=== PATIENT | male | born 1955 | race Caucasian/White ===

== ENCOUNTER 2023-10-18 10:11 | Outpatient (OUT) | payer MEDICARE, SELFPAY ==
[2023-10-18 11:36] LABS: Alanine Aminotransferase 18 U/L (16-63); Albumin Globulin Ratio 0.9; Albumin Level 3.7 g/dL (3.4-5.0); Alkaline Phosphatase 79 U/L (46-116); Anion Gap 13.5; Aspartate Amino Transferase 19 U/L (15-37); BUN Creatinine Ratio 18.4; Bilirubin Total 0.7 mg/dL (0.2-1.0); Calcium 9.8 mg/dL (8.5-10.1); Carbon Dioxide 26.8 mmol/L (21.0-32.0); Chloride 103 mmol/L (98-107); Estimated GFR (African America >60 (>=60); Estimated GFR (Non-African Ame >60 (>=60); Globulin 4.3 g/dL; Glucose 104 mg/dL (74-106); Potassium 4.3 mmol/L (3.5-5.1); Sodium 139 mmol/L (136-145); Thyroid Stimulating Hormone 6.441 uIU/mL (0.358-3.740)
[2023-10-18 12:06] LABS: Free T4 0.98 ng/dL (0.76-1.46)
[2023-10-19 04:12] LABS: Thyroid Peroxidase (TPO) Ab <9 IU/mL (0-34)
[2023-10-21 04:06] LABS: Thyroid Stim Immunoglobulin <0.10 IU/L (0.00-0.55)
[2023-10-25 17:12] LABS: Free Testosterone(Direct) 2.1 pg/mL (6.6-18.1); Testosterone 132 ng/dL (264-916)
== END 2023-10-18 10:12 | disposition home or self-care (01) ==
DX: R79.89 Other specified abnormal findings of blood chemistry (principal); E03.9 Hypothyroidism, unspecified; R53.83 Other fatigue; E78.2 Mixed hyperlipidemia; Z13.6 Encounter for screening for cardiovascular disorders; I50.9 Heart failure, unspecified
CPT/HCPCS: 36415; 80053; 80061; 84402; 84403; 84439; 84443; 84445; 85025; 86376

== ENCOUNTER 2023-10-18 10:24 | Outpatient (OUT) | payer MEDICARE, SELFPAY ==
[2023-10-18 11:25] LABS: Chol HDL Ratio 2.1; Cholesterol 123 mg/dL (<=200); HDL Cholesterol 59 mg/dL (40-60); LDL Cholesterol Calculated 40.4 mg/dL; Triglycerides 118 mg/dL (<=150); VLDL CHOLESTEROL 23.6 mg/dL
[2023-10-18 13:43] LABS: Basophils Absolute Auto 0.1 10^3/uL (0.0-0.1); Basophils Percent Auto 0.6 % (0.2-2.0); Eosinophils Absolute Auto 0.4 10^3/uL (0.0-0.7); Eosinophils Percent Auto 4.2 % (0.9-7.0); Hematocrit 42.4 % (42.0-54.0); Hemoglobin 13.6 g/dL (14.0-18.0); Immature Granulocytes Abs Auto 0.02 10^3/uL (0.00-0.03); Immature Granulocytes Pct Auto 0.2 % (0.0-0.5); Lymphocytes Absolute Auto 2.3 10^3/uL (1.2-3.8); Lymphocytes Percent Auto 25.1 % (20.5-60.0); Mean Corpuscular HGB Conc 32.1 g/dL (29.9-35.2); Mean Corpuscular Hemoglobin 31.6 pg (25.9-34.0); Mean Corpuscular Volume 98.6 fL (80.0-94.0); Mean Platelet Volume 10.1 fL (9.5-13.5); Monocytes Absolute Auto 0.7 10^3/uL (0.3-0.8); Monocytes Percent Auto 7.3 % (1.7-12.0); Neutrophils Absolute Auto 5.7 10^3/uL (1.4-6.5); Neutrophils Percent Auto 62.6 % (43.0-75.0); Platelet Count 241 10^3/uL (150-450); Red Cell Distribution Width 13.3 % (11.0-15.0); White Blood Count 9.1 10^3/uL (4.0-11.0)
== END 2023-10-18 10:25 | disposition home or self-care (01) ==
LOC: LAB 10:26
DX: E78.2 Mixed hyperlipidemia (principal); Z13.6 Encounter for screening for cardiovascular disorders; I50.9 Heart failure, unspecified
CPT/HCPCS: 36415; 80061; 85025

== ENCOUNTER 2024-07-24 11:03 | Outpatient (OUT) | payer MEDICARE, SELFPAY ==
--- OUTSIDE RECORDS SUMMARY | 2024-07-24 11:17 | XMS_ITS | CCD ---
Author Organization [facility] Inform ion [facility] Care Team Providers Care Final Assembler Boat Name Role Phone INDURTI, ISAI V Unavailable Unavailable INDURTI, ISAI V Unavailable Unavailable Ruby Dunbar Primary Care Provider Vikki Kramer Primary Care Provider Unavailable Primary Care Provider Unavailabl e AHMAErma, ALI F O Referring Unavailable AHMAD, ALI F O Referring Unavailable AHMAD, ALI F O Referring Unavailable DENILSON ELIZONDO Referring Unavailable AHMAD, ALI F O Referring Unavailable AHMAD, ALI F O Referring Unavailable AHMAD, ALI F O Referring Unavailable SAMMIE RUIZ Admitting Unavailable SAMMIE RUIZ Attending Unavailable AHMAD, ALI F O Referring Unavailable Ruby Dunbar CNP Primary Care Provider [phone] Unavailable Primary Care Provider UnavailRUBY Fischer Referring Unavailable NONE, XXXX Primary Care Physician Unavailab FAUSTINO Menjivar Primary Care Unavailable DANIEL FAUSTINO Consulting Unavailable FAUSTINO SANCHEZ Attending Unavailable FAUSTINO SANCHEZ Admitting Unavailable DR KESHA BANDA Consulting Unavailable DR KESHA BANDA Attending Unavailable DR KESHA BANDA Admitting Unavailable DANIEL, FAUSTINO Primary Care Unavailable FAUSTINO SANCHEZ Consulting Unavailable FAUSTINO SANCHEZ Attending Unavailable DANIEL FAUSTINO Admitting Unavailable DANIEL FAUSTINO Primary Care Unavailable CHERELLE NELSON Attending Unavailable DR ZEYNEP STONE Primary Care Unavailable CHERELLE NELSON Admharper Unavailable Kenny Hook Jr. Primary Care Provider Lakeisha Castellanos Unavailable Kenny Hook Jr. Primary Care Provider Lakeisha Castellanos Unavailable [phone] KENNY HOOK JR Primary Care Unavail able GABRIEL URBANO Attending Unavailable Monster Vela DO Kenny Nba Primary Care Provi jocelynn KAMILLE Agarwal Attending Provider [phone] Zunilda Agarwal Unavailable Becky PAYMENT SPECIALISTColby DODD Primary Care Provider Zunilda Agarwal Attending Unavailable Zunilda Agarwal Admitting Unavailable NO FAMILY, PHYSICIAN Primary Care Unavailable Chad, Vinicius Admitting Unavailab Vinicius Shelley Attending Unavailab CHULA Cervantes Attending Unavailable BECKY, COLBY L Referring Unavailable BECKY, COLBY L Primary Care Unavailable CHULA VEE Referring Unavailable BECKY, COLBY L Primary Care Unavailable LIVE MARTÍNEZ Primary Care Physician Didier Lee Attending Unavailable NONE, XXXX Referring Unavailable LIVE MARTÍNEZ Primary Care Unavailable YOLA Castellanos Admitting Unavailabl Lakeisha Barcenas Attending Unavailable NONE, XXXX Referring Unavailable DIDIER LEE Referring Unavailable DIDIER LEE Referring Unavailable Unavailable Primary Care Provider Unavailabl e Allergies Allergy Classification Reported Allergen(s) Allergy Type Date of Onset Reaction(s) Facility [facility] (9 sources) Contrast media Substance Allergy 1 Skin Rashes, Hives [facility] Work Phone: Iodine (and Iodine containting drugs) (1 source) Iodine Drug Allergy 8 [facility] Shellfish (10 sources) Shellfish Food Allergy 1 Skin Rashes, Hives, Rash [facility] (20 sources) Contrast media Allergy to substance 1 Skin Rashes, Hives, Skin Rashes / Eruption of skin, Hives / Urticaria [facility] Work Phone: (20 sources) Seasonal allergy Allergy to substance 1 [facility] Work Phone: (20 sources) Shellfish Allergy to substance 1 Skin Rashes, Hives, Skin Rashes / Eruption of skin, Hives / Urticaria [facility] Work Phone: (16 sources) Iodine; Translations: [IODINE] Drug Allergy 8 Hives, Swelling, Itching [facility] [employer] Work Phone: (4 sources) Shellfish Propensity to adverse reactions to drug 1 [facility] Work Phone: (5 sources) Iodides Propensity to adverse reactions to drug 4 [facility] [employer] Work Phone: (6 sources) Contrast media; Translations: [Contrast Dye] Drug allergy Weal (disorder) [facility] (1 source) Iodine (And Iodine Containting Drugs) Drug allergy (disorder) 4 [facility] (16 sources) levothyroxine; Translations: [levothyroxine] Drug Allergy 3 Weal (disorder), Nausea [facility] (13 sources) Iodinated Contrast Media; Translations: [Iodinated Contrast Media] Allergy to substance 8 [facility] (11 sources) Shellfish; Translations: [SHELLFISH CONTAINING PRODUCTS] Propensity to adverse reactions to drug 1 [facility] (11 sources) Iodine And Iodide Containing Products; Translations: [IODINE AND IODIDE CONTAINING PRODUCTS] Propensity to adverse reactions to drug 7 [facility] (11 sources) Other; Translations: [OTHER] Propensity to adverse reactions 7 [facility] Medications Current Medications Medication Drug Class(es) Dates Sig (Normalized) Sig (Original) acetaminophen 325 mg oral tablet (6 sources) Start: 09-02-2020 acetaminophen (TYLENOL) tablet 650 mg Start: 07-29-2019 take 2 tablets by mo uth every six hours Tylenol Extra Strength 500 mg oral tablet 1,000 mg = 2 tab(s), Oral, q6hr, Refills(s) 0 Start Date: 07/29/19 Status: Ordered acetaminophen 325 mg / oxyCODONE hydrochloride 5 mg oral tablet (1 source) Opioid Agonist Start: 11-17-2017 take 1 tablet by mouth every twelve hours Oxycodone-Acetaminophen Active 1 TAB PO Q12H November 17, 2017 12:00am amLODIPine 10 mg oral tablet (20 sources) Dihydropyridine Calcium Channel Rona Start: 01-21-2024 take 1 tablet by mouth in the morning amLODIPine (NORVASC) 10 mg tablet TAKE 1 TABLET BY MOUTH IN THE MORNING 30 tablet 01/21/2024 Active Start: 11-17-2022 End: 07-20-2023 amLODIPine 10 mg Tab Refills (s) 0 Start Date: 11/17/22 Status: Ordered Start: 12-27-2021 End: 10-18-2022 take 1 tablet by mouth once daily amLODIPine (NORVASC) 10 mg tablet Indications: Primary hypertension TAKE 1 TABLET BY MOUTH ONCE DAILY 90 tablet 0 10/18/2022 Active Comment on above: Take 1 tablet by elbert th once daily. TAKE 1 TABLET BY ELBERT TH ONCE DAILY amLODIPine 10 mg / olmesartan medoxomil 20 mg oral tablet (1 source) Dihydropyridine Calcium Channel Rona, Angiotensin 2 Receptor Rona Start: 01-24-2024 amlodipine-olmesartan 10 mg-20 mg oral tablet 1 tab(s), Oral, Daily, 30 tab(s), Refill(s) 0 Start Date: 01/24/24 Status: Ordered amoxicillin 500 mg oral capsule (20 sources) Penicillin-class Antibacterial Start: 08-03-2020 amoxicillin (AMOXIL) 500 MG capsule Start: 08-03-2020 End: 08-27-2020 Amoxicillin 500 MG Oral Tabl et 08/03/2020 - 08/27/2020 Provider: Vikki Kramer PSYCHIATRIC SOCIAL WORKER SUPERVISOR Aspir-81 (2 sources) Aspir-81 Active baclofen 10 mg oral tablet (20 sources) gamma-Aminobutyric Acid-ergic Agonist Start: 07-01-19 21 Baclofen 10 MG Oral Tablet 07/01/2020 Provider: buprenorphine 8 mg sublingual tablet (3 sources) Partial Opioid Agonist Start: 03-26-20 20 take 1-2 tablets under the tongue twice daily buprenorphine 8 mg sublingual tablet 1-2 tab(s), SubLingual, BID, Refills(s) 0 Start Date: 03/26/20 Status: Ordered buprenorphine 8 mg / naloxone 2 mg sublingual film (20 sources) Partial Opioid Agonist, Opioid Antagonist Start: 11-18-19 23 Suboxone 8 mg-2 mg sublingual film Refill(s) 0 Start Date: 11/17/22 Status: Ordered Start: 08-13-2020 buprenorphine- naloxone (SUBOXONE) 8-2 MG FILM SL film 1 Film daily. Takes 2 films daily 0 08/13/2020 Active Start: 07-06-2020 End: 09-23-2021 Suboxone 8-2 MG Sublingual F ilm 07/13/2020 - 07/19/2020 Provider: Ruby Dunbar CNP Start: 10-02-2019 End: 08-16-2023 buprenorphine-naloxone 12-3 mg film dissolve 2 FILMS under the tongue once daily 0 10/02/2019 08/16/2023 Discontinued (Therapy completed) buprenorphine-na loxone (SUBOXONE) 8-2 mg film Dissolve 1 Film on tongue 3 (three) times a day. Active Comment on above: dissolve 2 FILMS und er the tongue once daily Buprenorphine HCl-Naloxone HCl 8-2 MG (2 sources) Buprenorphine HCl-Naloxone HCl 8-2 MG (Schedule III Drug) dissolve 2 FILMS under the tongue once daily Sublingual for 14 days Active cane (4 sources) Start: 04-24-2022 cane cane, See Instructions, 1 EA, 0, Please provide patient with a cane for stability/ambulation purposes Diagnosis imbalance, lumbar neuritis, cervical neuritis., [facility]), Supply, 182.9, cm, 04/24/22 12:10:00 EDT, Height/Length Dosing, 81.7, kg, 11/18/21 11:10:00 EDT, Weight Dosing Start Date: 04/24/22 Status: Ordered Start: 04-24-2022 cane cane, See Instructions, 1 EA, 0, Please provide patient with a cane for stability/ambulation purposes Diagnosis imbalance, lumbar neuritis, cervical neuritis., [facility] ([facility]), Supply, 182.9, cm, 04/24/22 12:10:00 EDT, Heig... Start Date: 04/24/22 Status: Ordered carvedilol 3.125 mg oral tablet (20 sources) alpha-Adrenergic Rona, beta-Adrenergic Rona Start: 07-07-2023 take 2 tablets by mouth at bedtime carvediloL (COREG) 3.125 mg tablet Indications: Dyslipidemia , Atherosclerosis of [place] coronary artery of [place] heart without angina pectoris TAKE 2 TABLETS BY MOUTH IN THE MORNING AND AT BEDTIME 360 tablet 3 07/07/2023 Active Start: 11-17-2022 take 1 tablet by elbert th twice daily carvedilol 6.25 mg Tab 6.25 mg = 1 tab(s), Oral, BID, Refills(s) 0 Start Date: 11/17/22 Status: Ordered Start: 09-29-2017 End: 12-27-2021 take 1 tablet by mouth twice daily at mealtime carvedilol (COREG) 3.125 mg tablet Take 1 tablet by mouth twice daily with meals. 180 tablet 3 12/27/2021 Active Coreg Active Comment on above: Take 1 tablet by elbert th twice daily with meals. Take 3.125 mg by elbert th twice daily. cetirizine hydrochloride 10 mg oral tablet (7 sources) Histamine-1 Receptor Antagonist Start: 07-26-2021 Cetirizine HCl 10 MG Oral Tablet 07/26/2021 Provider: Ruby Dunbar CNP [employer] Multivitamin Oral Capsule (20 sources) Start: 12-03-2020 [employer] Multivitamin Oral Capsule 12/03/2020 Provider: clonazePAM 0.5 mg oral tablet (20 sources) Benzodiazepine Start: 01-24-2024 ClonazePAM 0.5 mg Tab Refills(s) 0 Start Date: 01/24/24 Status: Ordered Start: 09-19-2019 End: 08-04-2020 take 1 tablet by mouth every twelve hours as needed clonazePAM (KLONOPIN) 1 mg tablet Take 1 mg by mouth twice daily as needed. 0 09/19/2019 Active Comment on above: Take 1 mg by mouth t wice daily as needed. Co Q10 100 MG Oral Capsule (18 sources) Start: 07-01-19 21 Co Q10 100 MG Oral Capsule 07/01/2020 Provider: ubidecarenone 100 mg oral capsule (5 sources) Start: 07-01-19 21 take 1-7 capsules by mouth once Coenzyme Q10 (CO Q10) 100 MG CAPS Co Q10 100 MG Oral Capsule Co Q10 100 MG Oral Capsule 07/01/2020 Provider: 07-01-2020 [facility] ([id number]) 0 07/01/2020 Active CoQ-10 (2 sources) CoQ-10 Active diclofenac sodium 0.01 mg/mg topical gel (5 sources) Nonsteroidal Anti-inflammatory Drug Start: 05-10-20 diclofenac sodium (VOLTAREN) 1 % GEL apply 2 grams topically four times a day 0 05/10/2020 Active docosahexaenoic acid 120 mg / eicosapentaenoic acid 180 mg oral capsule (5 sources) take 1 capsule by mouth three times daily Pony-3 Fatty Acids (FISH OIL) 1000 MG CAPS Take 3,000 mg by mouth 3 times daily 0 Active Docusate (2 sources) Colace Active FLUoxetine 10 mg oral capsule (5 sources) Serotonin Reuptake Inhibitor Start: 12-20-19 24 take 1 capsule by mouth in the morning FLUoxetine (PROzac) 10 mg capsule TAKE 1 CAPSULE BY MOUTH IN THE MORNING 90 capsule 3 12/20/2023 Active Start: 08-16-2023 take 1 capsule by mo ut in the morning FLUoxetine (PROzac) 10 mg capsule Take 1 capsule (10 mg total) by mouth in the morning. 90 capsule 1 08/16/2023 Active Letdtfqwzvq-Xzrwjyobu-Mvd C-Mn ([facility] GLUCOSAMINE-CHONDROITIN) TABS (5 sources) Start: 07-27-2020 Ywqsumadjny-Frdhxruvj-Kfs C-Mn ([facility] GLUCOSAMINE-CHONDROITIN) TABS Chondroitin Sulfates / Glucosamine [facility] Glucosamine-Chondroitin Oral Tablet 07/27/2020 Provider: 07-27-2020 [facility] ([id number]) 0 07/27/2020 Active hydroCHLOROthiazide 12.5 mg / lisinopril 20 mg oral tablet (5 sources) Thiazide Diuretic, Angiotensin Converting Enzyme Inhibitor Start: 09-23-2021 Lisinopril-hydroCHLOROthia zide 20-12.5 MG Oral Tablet 09/23/2021 Provider: Ruby Dunbar CNP ibuprofen 200 mg oral capsule (5 sources) Nonsteroidal Anti-inflamma tory Drug Start: 07-29-2019 take 2 capsules by mouth every six hours ibuprofen 200 mg oral capsule 400 mg = 2 cap(s), Oral, q6hr, Refills(s) 0 Start Date: 07/29/19 Status: Ordered 24 hr isosorbide mononitrate 30 mg extended release oral tablet (20 sources) Nitrate Vasodilator Start: 07-23-2023 take 1 tablet by mouth once daily isosorbide mononitrate (IMDUR) 30 mg 24 hr tablet Indications: Atherosclerosis of [place] coronary artery of [place] heart without angina pectoris TAKE 1 TABLET BY MOUTH DAILY 100 tablet 2 07/23/2023 Active Start: 10-04-2020 take 0.5 tablet by m outh once daily isosorbide mononitrate (IMDUR) 30 MG extended release tablet Indications: 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 Take 0.5 tablets by mouth daily 45 tablet 3 10/04/2020 Active Start: 08-23-2020 take 0.5 tablet by m outh once daily isosorbide mononitrate (IMDUR) 30 MG extended release tablet Indications: 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 Take 0.5 tablets by mouth daily 45 tablet 3 08/23/2020 Active Start: 07-01-2020 take 1 tablet by elbert th every twenty-four hours Isosorbide Mononitrate ER 30 MG Oral Tablet Extended Release 24 Hour 07/01/2020 Provider: Start: 08-26-2019 isosorbide mon onitrate (IMDUR) 30 MG extended release tablet Take 15 mg by mouth daily 0 08/26/2019 Active Start: 07-21-2019 End: 07-23-2023 take 30 mg by mouth once daily in the morning isosorbide mononitrate 30 mg, Oral, qAM, Refills(s) 0 Start Date: 07/21/19 Status: Ordered Start: 11-18-2017 End: 12-27-2021 take 15 mg by mouth once daily Isosorbide Mononitrate Discontinued 15 MG PO Daily 60 November 24, 2017 12:00am September 06, 2018 2:34am Imdur Active Comment on above: Take 1 tablet by elbert th once daily. Take 15 mg by mouth once daily. TAKE 1 TABLET BY ELBERT TH DAILY levothyroxine sodium 0.025 mg oral tablet (4 sources) l-Thyroxine Start: take 1 tablet by mouth in the morning levothyroxine (SYNTHROID, LEVOTHROID) 25 MCG tablet Take 1 tablet (25 mcg total) by mouth in the morning. 90 tablet 3 08/20/2023 Active Start: 08-17-2023 take 1 tablet by elbert th in the morning levothyroxine (SYNTHROID, LEVOTHROID) 25 MCG tablet Take 1 tablet (25 mcg total) by mouth in the morning. 90 tablet 3 08/17/2023 Active liothyronine sodium 0.005 mg oral tablet (2 sources) l-Triiodothyronine Start: 01-21-2024 take 1 tablet by mouth in the morning liothyronine (CYTOMEL) 5 MCG tablet Take 1 tablet (5 mcg total) by mouth in the morning. 30 tablet 01/21/2024 Active Start: 09-06-2023 take 1 tablet by elbert th in the morning liothyronine (CYTOMEL) 5 MCG tablet Take 1 tablet (5 mcg total) by mouth in the morning. 90 tablet 1 09/06/2023 Active lisinopril 10 mg oral tablet (20 sources) Angiotensin Converting Enzyme Inhibitor Start: 08-23-2020 take 1.5 tablets by mouth once daily lisinopril (PRINIVIL;ZESTRIL) 10 MG tablet Indications: 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 Take 1.5 tablets by mouth daily 60 tablet 3 08/23/2020 Active Start: 11-18-2017 End: 09-06-2018 take 2.5 mg by mouth once daily Lisinopril Active 2.5 MG PO Daily November 24, 2017 12:00am Start: 09-29-2017 lisinopril (ZE STRIL, PRINIVIL) 10 mg tablet Take 10 mg by mouth once daily. Taking 1/2 tablete 0 08/26/2019 Active Prinivil Not-Lio ing Comment on above: Take 10 mg by mouth once daily. Taking 1/2 tablete loratadine 10 mg oral tablet (20 sources) Start: 10-23-19 End: 04-08-20 21 Loratadine 10 MG Oral Tablet 04/08/2021 Provider: Ruby Dunbar CNP methadone hydrochloride 10 mg oral tablet (1 source) Opioid Agonist Start: 11-18-19 18 take 20 mg by mouth three times daily Methadone Active 20 MG PO Three times daily November 17, 2017 12:00am metoclopramide 10 mg oral tablet (4 sources) Dopamine-2 Receptor Antagonist Start: 07-11-19 20 take 1 tablet by mouth every eight hours Reglan 10 MG 1 TABLET Orally THREE TIMES A DAY for 30 day(s) Jun, Active nitroglycerin 0.4 mg sublingual tablet (1 source) Nitrate Vasodilator Start: 09-03-19 21 nitroGLYCERIN (NITROSTAT) SL tablet 0.4 mg NONFORMULARY (1 source) NONFORMULARY Bee t root powder 0 Active OXcarbazepine 300 mg oral tablet (1 source) Anti-epileptic Agent Start: 11-25-19 take 600 mg by mouth twice daily Oxcarbazepine Active 600 MG PO Twice daily November 24, 2017 12:00am polyethylene glycol 3350 80215 mg powder for oral solution (20 sources) Osmotic Laxative Start: 08-28-19 End: 09-04-19 24 polyethylene glycol (GLYCOLAX) 17 gram/dose powder Take 17 g by mouth in the morning. 238 g 2 09/04/2023 Active Start: 09-10-2020 End: 09-23-2021 MiraLax 17 GM/SCOOP Oral Pow jocelynn 09/23/2021 Provider: Ruby Dunbar CNP RA Nicotine Gum 4 MG Mouth/Throat (20 sources) Start: 12-03-2020 RA Nicotine Gum 4 MG Mouth/Throat 12/03/2020 Provider: Ruby Dunbar CNP rosuvastatin calcium 10 mg oral tablet (20 sources) HMG-CoA Reductase Inhibitor Start: 05-10-2023 End: 07-15-2023 take 1 tablet by mouth in the morning rosuvastatin (CRESTOR) 10 mg tablet Indications: Dyslipidemia , Atherosclerosis of [place] coronary artery of [place] heart without angina pectoris TAKE 1 TABLET BY MOUTH IN THE MORNING 100 tablet 2 07/15/2023 Active Start: 08-26-2019 take 1 tablet by elbert th once daily rosuvastatin (CRESTOR) 10 mg tablet Take 10 mg by mouth once daily. 0 08/26/2019 Active Start: 07-21-2019 take 10 mg by mouth once daily at bedtime rosuvastatin 10 mg, Oral, Once a day (at bedtime), Refills(s) 0 Start Date: 07/21/19 Status: Ordered Start: 09-29-2017 End: 09-06-2018 take 10 mg by mouth once daily Rosuvastatin Discontinu ed 10 MG PO Daily November 24, 2017 12:00am September 06, 2018 2:37am Crestor Active Comment on above: Take 10 mg by mouth once daily. 3 ml sodium chloride 9 mg/ml injection (4 sources) Start: 09-02-2020 sodium chloride flush 0.9 % injection 10 mL Start: 09-02-2020 0.9 % sodium c hloride infusion Start: 09-02-2020 sodium chlorid e flush 0.9 % injection 10 mL sulfamethoxazole 800 mg / trimethoprim 160 mg oral tablet (2 sources) Dihydrofolate Reductase Inhibitor Antibacterial, Sulfonamide Antimicrobial Start: 04-19-2023 take 1 tablet by mouth every twelve hours Sulfamethoxazole-Trimethoprim 800-160 MG 1 tablet Orally Twice a day for 7 days Mar, Active tamsulosin hydrochloride 0.4 mg oral capsule (6 sources) alpha-Adrenergic Rona Start: 09-07-2018 take 1 capsule by mouth once daily in the evening tamsulosin (FLOMAX) 0.4 MG capsule Indications: BPH with obstruction/lower urinary tract symptoms , Neurogenic bladder Take 1 capsule by mouth every evening 30 capsule 11 08/16/2020 Active tiZANidine 4 mg oral tablet (11 sources) Central alpha-2 Adrenergic Agonist Start: 07-27-2023 End: 07-22-2024 tiZANidine (ZANAFLEX) 4 mg tablet 07/27/2023 Active Start: 04-24-2022 End: 10-21-2022 take 1 tablet by mouth every eight hours tiZANidine 4 mg Tab 4 mg = 1 tab(s), Oral, q8hr, X 90 day(s), # 270 tab(s), Refills(s) 1, Pharmacy: [facility] 182.9, cm, 04/24/22 12:10:00 EDT, Height/Length Dosing, 81.7, kg, 11/18/21 11:10:00 EDT, Weight Dosing Start Date: 04/24/22 Stop Date: 10/21/22 Status: Ordered Start: 11-18-2021 End: 02-16-2022 take 1 tablet by mouth every eight hours tiZANidine 4 mg Tab 4 mg = 1 tab(s), Oral, q8hr, X 90 day(s), # 270 tab(s), Refills(s) 0, Pharmacy: [facility], 182.9, cm, 11/18/21 11:10:00 EDT, Height/Length Dosing, 81.7, kg, 11/18/21 11:10:00 EDT, Weight Dosing Start Date: 11/18/21 Stop Date: 02/16/22 Status: Ordered traMADol (2 sources) Opioid Agonist Ultram Active varenicline 1 mg oral tablet (2 sources) Partial Cholinergic Nicotinic Agonist Start: take 1 tablet by mouth twice daily varenicline (CHANTIX) 1 MG tablet Indications: Polysubstance abuse (HCC) Take 1 tablet by mouth 2 times daily 60 tablet 0 10/14/2020 Active Start: 10-04-2020 take 2 tablets by mo ut twice daily varenicline (CHANTIX) 0.5 MG tablet Take 1-2 tablets by mouth See Admin Instructions 0.5mg DAILY for 3 days followed by 0.5mg TWICE DAILY for 4 days followed by 1mg TWICE DAILY 57 tablet 0 10/04/2020 Active Completed/Discontinued Medications Medication Drug Class(es) Dates Sig (Normalized) Sig (Original) ALPRAZolam 0.5 mg oral tablet (3 sources) Benzodiazepine Start: 09-06-2018 End: 09-07-2018 Alprazolam (Xanax) 0.5 mg Tablet Discontinued 0.5 MG PO 2-3 TIMES PER DAY September 06, 2018 12:00am September 07, 2018 7:27pm Xanax Active amitriptyline hydrochloride 50 mg oral tablet (1 source) Tricyclic Antidepressant Start: 11-24-2017 End: 09-06-2018 take 75 mg by mouth once daily at bedtime Amitriptyline Discontinued 75 MG PO Daily at bedtime 45 November 24, 2017 12:00am September 06, 2018 2:32am Antioxidant Oral Capsule (20 sources) Start: 12-03-2020 End: 08-26-2021 Antioxidant Oral Capsule 12/03/2020 - 08/26/2021 Provider: Start: 12-03-2020 Antioxidant Or al Capsule 12/03/2020 Provider: aspirin 81 mg delayed release oral tablet (20 sources) Platelet Aggregation Inhibitor, Nonsteroidal Anti-inflammatory Drug Start: 05-10-2023 End: 08-16-2023 take 1 tablet by mouth in the morning aspirin 81 mg Take 1 tablet (81 mg total) by mouth in the morning. 90 tablet 1 05/10/2023 08/16/2023 Discontinued (Therapy completed) Start: 06-03-2021 End: 06-04-2021 Aspirin 81 MG Oral Tablet Ch ewable 06/03/2021 - 06/04/2021 Provider: Start: 07-01-2020 End: 07-06-2020 Aspir-Low 81 MG Oral Tablet Delayed Release 07/01/2020 - 07/06/2020 Provider: Start: 09-06-2018 End: 06-03-2021 Aspirin 325 MG Oral Tablet 07/06/2020 - 06/03/2021 Provider: Start: 09-29-2017 take 1 tablet by elbert th once daily aspirin 325 MG EC tablet Take 1 tablet by mouth daily 30 tablet 0 09/29/2017 Active B Complex Oral Tablet (20 sources) Start: 12-17-2020 End: 09-09-2021 B Complex Oral Tablet 2020 - 09/09/2021 Provider: Johan Cedillo MD Start: 12-17-2020 B Complex Oral Tablet 12/17/2020 Provider: Johan Cedillo MD B Complex Vitamins Oral Caps ule (7 sources) Start: 07-26-2021 End: 09-09-2021 B Complex Vitamins Oral Caps ule 07/26/2021 - 09/09/2021 Provider: Ruby Dunbar CNP Start: 07-26-2021 B Complex Renay mins Oral Capsule 07/26/2021 Provider: Ruby Dunbar CNP Chondroitin Sulfates / Glucosamine (20 sources) Start: 07-27-2020 End: 12-03-2020 [facility] Glucosamine-Chondroitin Oral Tablet 07/27/2020 - 12/03/2020 Provider: Start: 07-27-2020 [facility] Glucosamin e-Chondroitin Oral Tablet 07/27/2020 Provider: Co Q10 100 MG Oral Capsule (20 sources) Start: 07-01-2020 End: 09-09-2021 Co Q10 100 MG Oral Capsule 07/01/2020 - 09/09/2021 Provider: Start: 07-01-2020 Co Q10 100 MG Oral Capsule 07/01/2020 Provider: VALERIA Vitamin C 500 MG Oral Tablet (20 sources) Start: 12-03-2020 End: 09-09-2021 [facility] Vitamin C 500 MG Oral Ta blet 12/03/2020 - 09/09/2021 Provider: Start: 12-03-2020 [facility] Vitamin C 500 MG Oral Tablet 12/03/2020 Provider: cyclobenzaprine hydrochloride 10 mg oral tablet (11 sources) Muscle Relaxant Start: 09-23-2019 cyclobenzaprin e (FLEXERIL) 10 mg tablet diphenhydrAMINE hydrochloride 25 mg oral capsule (20 sources) Histamine-1 Receptor Antagonist Start: 10-08-2020 End: 12-31-2020 diphenhydrAMINE HCl 25 MG Oral Capsule 10/08/2020 - 12/31/2020 Provider: Ruby Dunbar CNP Start: 09-02-2020 End: 09-02-2020 diphenhydrAMINE (BENADRYL) c apsule 50 mg EQL Vitamin D3 50 MCG (2000 UT) Oral Capsule (20 sources) Start: 12-03-2020 End: 09-09-2021 EQL Vitamin D3 50 MCG (2000 UT) Oral Capsule 12/03/2020 - 09/09/2021 Provider: Start: 12-03-2020 EQL Vitamin D3 50 MCG (2000 UT) Oral Capsule 12/03/2020 Provider: famotidine 20 mg oral tablet (1 source) Histamine-2 Receptor Antagonist Start: 09-02-2020 End: 09-02-2020 famotidine (PEPCID) tablet 40 mg Fish Oils (20 sources) Start: 07-01-2020 End: 09-09-2021 [facility] Fish Oil 1000 MG Oral Capsule 07/01/2020 - 09/09/2021 Provider: Start: 07-01-2020 [facility] Oil 1 000 MG Oral Capsule 07/01/2020 Provider: Fish Oil Active fluticasone propionate 0.05 mg/actuat metered dose nasal spray (16 sources) Corticosteroid fluticasone (ÁNGEL NASE) 50 mcg/actuation nasal spray Use 1 [place] in the nose. 0 Active fluticasone (ÁNGEL NASE) 50 MCG/ACT nasal spray 1 spray by Nasal route 0 Active Comment on above: Use 1 [place] in the n ose. gabapentin 600 mg oral tablet (20 sources) Anti-epileptic Agent Start: 07-27-2023 End: 07-22-2024 take 2 tablets by mouth three times daily gabapentin 600 mg Tab 1,200 mg = 2 tab(s), Oral, TID, TAKE 2 TABLETS BY MOUTH THREE TIMES DAILY, X 90 day(s), # 540 tab(s), Refills(s) 1, Pharmacy: [facility], 182.9, cm, 01/24/24 10:45:00 EDT, Height/Length Dosing, 90, kg, 01/24/24 10:45:00 EDT, Weight Dosing Start Date: 01/24/24 Stop Date: 07/22/24 Status: Ordered Start: 04-24-2022 End: 10-21-2022 take 2 tablets by mouth three times daily gabapentin 600 mg Tab 1,200 mg = 2 tab(s), Oral, TID, X 90 day(s), # 540 tab(s), Refills(s) 1, Pharmacy: [facility]), 182.9, cm, 04/24/22 12:10:00 EDT, Height/Length Dosing, 81.7, kg, 11/18/21 11:10:00 EDT, Weight Dosing Start Date: 04/24/22 Stop Date: 10/21/22 Status: Ordered Start: 09-02-2021 End: 03-01-2022 take 2 tablets by mouth three times daily gabapentin 600 mg Tab 1,200 mg = 2 tab(s), Oral, TID, X 90 day(s), # 540 tab(s), Refills(s) 1, Pharmacy: [facility], 182.9, cm, 08/01/21 11:17:00 EST, Height/Length Dosing, 81.7, kg, 08/01/21 11:17:00 EST, Weight Dosing Start Date: 09/02/21 Stop Date: 03/01/22 Status: Ordered Start: 09-19-2019 gabapentin (NE URONTIN) 800 mg tablet Take 1 tablet (800 mg total) by mouth. 09/19/2019 Active Start: 09-19-2019 gabapentin (NE URONTIN) 800 MG tablet Take 1,200 mg by mouth 3 times daily. 0 09/19/2019 Active Start: 11-17-2017 take 400 mg by mouth three times daily Gabapentin Active 400 MG PO Three times daily November 17, 2017 12:00am Gabapentin 600 M G Oral for 30 Days Active Comment on above: Take 800 mg by mouth three times daily. hydrOXYzine hydrochloride 50 mg oral tablet (20 sources) Antihistamine Start: 03-11-2021 End: 05-06-2021 hydrOXYzine HCl 50 MG Oral Tablet 04/08/2021 - 05/06/2021 Provider: Ruby Dunbar CNP iopamidol (ISOVUE-370) 76 % injection 50 mL (1 source) Start: 09-02-2020 End: 09-02-2020 iopamidol (ISOVUE-370) 76 % injection 50 mL Iron (20 sources) Start: 12-03-2020 End: 09-09-2021 [facility] Iron 240 (27 Fe) MG Oral Tablet 12/03/2020 - 09/09/2021 Provider: Start: 12-03-2020 [facility] Iron 240 ( 27 Fe) MG Oral Tablet 12/03/2020 Provider: linseed oil 1000 mg oral capsule (20 sources) Start: 07-27-2020 End: 10-22-2020 Flax Seed Oil 1000 MG Oral Capsule 07/27/2020 - 10/22/2020 Provider: magnesium citrate 200 mg oral tablet (20 sources) Start: 12-17-2020 End: 09-09-2021 Magnesium Citrate 200 MG Oral Tablet 07/01/2021 - 09/09/2021 Provider: Ruby Dunbar CNP methylPREDNISolone 125 mg injection (1 source) Corticosteroid Start: 09-02-2020 End: 09-02-2020 methylPREDNISolone sodium (SOLU-MEDROL) injection 125 mg 24 hr nicotine 0.292 mg/hr transdermal system (6 sources) Cholinergic Nicotinic Agonist Start: 11-06-2017 End: 09-02-2020 nicotine (NICODERM CQ) 7 MG/24HR Place 1 patch onto the skin every 24 hours 30 patch 3 11/06/2017 09/02/2020 Discontinued (LIST CLEANUP) apply 1 dose transde rmal route every twenty-four hours nicotine (NICODERM CQ) 21 MG/24HR Place 1 patch onto the skin every 24 hours 0 Active ondansetron 4 mg oral tablet (20 sources) Serotonin-3 Receptor Antagonist Start: 08-27-2020 End: 09-23-2021 Ondansetron HCl 4 MG Oral Tablet 11/19/2020 - 12/31/2020 Provider: Ruby Dunbar CNP pantoprazole 40 mg delayed release oral tablet (20 sources) Proton Pump Inhibitor Start: 12-03-2020 End: 06-03-2021 Pantoprazole Sodium 40 MG Oral Tablet Delayed Release 12/17/2020 - 06/03/2021 Provider: Johan Cedillo MD Problems Active Problems Problem Classification Problem Date Documented Da te Episodic/Chronic Acute and unspecified renal failure (1 source) Acute renal failure syndrome; Translations: [Acute kidney failure, unspecified] 09-06-2018 Episodic Administrative/social admission (2 sources) Counseling procedure with explicit context; Translations: [Homeless] 11-21-2017 Episodic Anxiety disorders (15 sources) Anxiety disorder; Translations: [Anxiety state, unspecified] Onset: 1 Chronic Cardiac dysrhythmias (19 sources) Ventricular premature beats; Translations: [Multiple premature ventricular complexes] Onset: 3 05-25-2017 Chronic Chronic kidney disease (3 sources) Chronic kidney disease stage 2; Translations: [Chronic kidney disease, stage 2 (mild)] Onset: 4 08-16-2023 Chronic Congestive heart failure; nonhypertensive (1 source) Congestive heart failure; Translations: [Heart failure, unspecified] 11-23-2017 Chronic Coronary atherosclerosis and other heart disease (20 sources) Coronary arteriosclerosis; Translations: [Coronary atherosclerosis] Onset: 8 Resolved: 9 Chronic Deficiency and other anemia (4 sources) Anemia, unspecified; Translations: [ANEMIA UNSPECIFIED] Onset: 2 Episodic Diabetes mellitus without complication (1 source) Other abnormal glucose; Translations: [OTHER ABNORMAL GLUCOSE] Onset: 2 Episodic Disorders of lipid metabolism (20 sources) Mixed hyperlipidemia; Translations: [Hyperlipidemia] Onset: 7 Resolved: 9 07-21-2019 Chronic Esophageal disorders (20 sources) Gastroesophageal reflux disease; Translations: [Esophagitis] Onset: 1 Chronic Essential hypertension (20 sources) Essential hypertension; Translations: [Hypertensive disorder] Onset: 7 Chronic Fluid and electrolyte disorders (4 sources) Hyperkalemia; Translations: [HYPERKALEMIA] Onset: 2 Episodic Genitourinary congenital anomalies (14 sources) Hypospadias, penile; Translations: [Hypospadias, penile] Onset: 1 08-16-2020 Chronic Genitourinary symptoms and ill-defined conditions (2 sources) Delay when starting to pass urine; Translations: [Hesitancy of micturition] 11-23-2017 Episodic Heart valve disorders (5 sources) Irregular heart beat 07-21-2019 Episodic Hyperplasia of prostate (14 sources) Benign prostatic hypertrophy with outflow obstruction; Translations: [Benign prostatic hyperplasia with lower urinary tract symptoms] Onset: 1 08-16-2020 Chronic Malaise and fatigue (3 sources) Fatigue; Translations: [Other fatigue] Onset: 4 08-16-2023 Episodic Mood disorders (20 sources) Major depressive disorder, recurrent, unspecified; Translations: [Recurrent major depressive episodes] Onset: 4 Resolved: 3 11-06-2016 Chronic Nausea and vomiting (20 sources) Nausea; Translations: [Nausea alone] Onset: 1 Episodic Nutritional deficiencies (20 sources) Vitamin D deficiency; Translations: [Unspecified vitamin D deficiency] Onset: 1 Chronic Other circulatory disease (1 source) History of angioplasty; Translations: [S/P angioplasty with stent] Episodic Other diseases of bladder and urethra (20 sources) Neurogenic bladder; Translations: [Neurogenic bladder NOS] Onset: 1 08-16-2020 Chronic Other gastrointestinal disorders (20 sources) Constipation; Translations: [Constipation, unspecified] Onset: 1 Episodic Other injuries and conditions due to external causes (1 source) At risk for injury due to fall; Translations: [History of falling] 08-16-2023 Episodic Other injuries and conditions due to external causes (1 source) History of falling; Translations: [History of falling] Onset: 4 Episodic Other nervous system disorders (20 sources) Chronic pain; Translations: [Other chronic pain] Onset: 7 Chronic Other nervous system disorders (1 source) Chronic pain syndrome; Translations: [Chronic pain syndrome] 08-16-2023 Chronic Other nervous system disorders (1 source) Chronic pain syndrome; Translations: [Chronic pain syndrome] Onset: 7 Chronic Other nutritional; endocrine; and metabolic disorders (13 sources) Overweight; Translations: [Overweight] Onset: 1 Chronic Other nutritional; endocrine; and metabolic disorders (20 sources) Finding of body mass index; Translations: [Body mass index (observable entity)] Onset: 1 Episodic Other upper respiratory disease (20 sources) Allergic rhinitis; Translations: [Allergic rhinitis, cause unspecified] Onset: 1 Chronic Schizophrenia and other psychotic disorders (20 sources) Unspecified psychosis not due to a substance or known physiological condition; Translations: [Unspecified psychosis] Onset: 1 Chronic Substance-related disorders (20 sources) Opioid dependence; Translations: [Continuous opioid dependence] Onset: 4 Resolved: 7 11-06-2016 Chronic Comment on above: Added secondary to d ocumentation in Social History. Thyroid disorders (20 sources) Hypothyroidism; Translations: [Unspecified acquired hypothyroidism] Onset: 1 Chronic Unclassified (1 source) Annual Exam Onset: 4 Urinary tract infections (1 source) Acute cystitis with hematuria Episodic Past or Other Problems Problem Classification Problem Date Documented Da te Episodic/Chronic Abdominal pain (17 sources) Unspecified abdominal pain; Translations: [Abdominal pain, unspecified site] Onset: 09-09-2021 Episodic Allergic reactions (20 sources) Contact dermatitis; Translations: [Contact dermatitis and other eczema, unspecified cause] Onset: 10-08-2020 Episodic E Codes: Natural/environment (20 sources) Insect bite - wound; Translations: [Bite of nonvenomous arthropod] Onset: 01-14-2021 Episodic Genitourinary congenital anomalies (9 sources) History of congenital hypospadias; Translations: [Personal history of (corrected) hypospadias] Onset: 05-10-2023 05-10-2023 Episodic Hepatitis (16 sources) Viral hepatitis C; Translations: [Unspecified viral hepatitis C without hepatic coma] Onset: 05-10-2023 07-21-2019 Episodic Immunizations and screening for infectious disease (20 sources) Encounter for immunization; Translations: [Encounter For Immunization] Onset: 10-08-2020 Episodic Mood disorders (9 sources) Mood disorders Onset: 05-10-2023 Resolved: 08-16-2023 05-10-2023 Nonspecific chest pain (11 sources) Atypical chest pain; Translations: [Chest pain] Onset: 08-21-2017 Resolved: 03-20-2019 03-20-2019 Episodic Nutritional deficiencies (20 sources) Vitamin B12 deficiency (non anemic); Translations: [Other B-complex deficiencies] Onset: 12-03-2020 Episodic Other ear and sense organ disorders (20 sources) Tinnitus; Translations: [Tinnitus, left ear] Onset: 11-19-2020 Episodic Other liver diseases (4 sources) Elevated liver enzymes level; Translations: [Abnormal levels of other serum enzymes] Onset: 08-17-2023 08-17-2023 Episodic Other lower respiratory disease (15 sources) Cough; Translations: [Cough] Onset: 04-08-2021 Episodic Other nutritional; endocrine; and metabolic disorders (20 sources) Overweight; Translations: [Overweight] Onset: 07-27-2020 Episodic Other screening for suspected conditions (not mental disorders or infectious disease) (20 sources) Encounter for screening for diabetes mellitus; Translations: [Cardiovascular stress test abnormal] Onset: 07-06-2020 09-02-2020 Episodic Residual codes; unclassified (4 sources) Procedure and treatment not carried out due to patient leaving prior to being seen by health care provider; Translations: [PROC AND TX NOT CARRIED OUT PT LEAVE] Onset: 05-29-2021 Episodic Substance-related disorders (18 sources) Opioid withdrawal; Translations: [Opioid use, unspecified with withdrawal] Onset: 05-10-2023 Resolved: 08-16-2023 05-10-2023 Episodic Unclassified (20 sources) Finding of body mass index; Translations: [Body mass index (observable entity)] Onset: 07-01-2020 Unclassified (16 sources) History AND physical examination; Translations: [Routine (qualifier value)] Onset: 07-13-2020 Unclassified (20 sources) Intervention & Counseling Cessation of Tobacco Use 3-10 Min.; Translations: [Intervention & Counseling Cessation of Tobacco Use 3-10 Min.] Onset: 12-03-2020 Unclassified (20 sources) Patient status finding; Translations: [Injury assessment] Onset: 12-17-2020 Unclassified (9 sources) Exposure to Severe acute respiratory syndrome coronavirus 2 (event); Translations: [Exposure To Covid-19] Onset: 07-01-2021 Viral infection (20 sources) Coronavirus infection, unspecified; Translations: [Disease caused by 2019-nCoV] Onset: 09-24-2020 Episodic Results Test Name Value Interpretation Reference Range Facility MR CERVICAL SPINE WO CONTRAS Ton 02-11-2024 MR CERVICAL SPINE WO CONTRAST EXAM: MRI Cervical Spine without Contrast: REASON FOR EXAM: Chronic pain. COMPARISON: MRI cervical spine August 14, 2019. TECHNIQUE: Sagittal T2, axial gradient echo, sagittal T1, sagittal STIR, axial T2 weighted images of the cervical spine were obtained. Contrast not administered. FINDINGS: The cervicomedullary junction is normal. Prevertebral soft tissues and paravertebral soft tissues are without acute abnormality. Posterior scarring from previous operative intervention noted. Blooming artifact at C4, C5 and C6 is present from previous operative intervention, unchanged. Vertebral body height and signal intensity unchanged. No bone marrow edema or acute fracture. Acute kyphotic angulation at C3-C4 is unchanged. At C2-C3, there is a broad-based 4.6 mm disc protrusion. There is canal diameter of 6.6 mm. Severe canal stenosis with mass effect on the cord, unchanged. No cord edema. At C3-C4, there is canal diameter of 7.8 mm. No disc protrusion. Severe bilateral foraminal stenosis, unchanged. At C4-C5, there is canal diameter of 1.05 cm. There is no significant foraminal stenosis. No residual or recurrent disc protrusion. At C5-C6, there is no residual disc protrusion. Uncovertebral hypertrophy with moderate bilateral foraminal stenosis most pronounced on the right noted. Right-sided foraminal stenosis. At C6-C7, there is a broad-based 3.9 mm disc protrusion. There is mild to moderate central canal stenosis. There is mild to moderate bilateral foraminal stenosis. At C7-T1, there is a broad-based 2.4 mm disc protrusion. No central canal or significant foraminal stenosis. Mild uncovertebral hypertrophy is present. IMPRESSION: 1. Metallic fixation at C4, C5 and C6 is present. Blooming artifact limits evaluation. There is canal narrowing at C3-C4 and C4-C5. Uncovertebral hypertrophy with foraminal narrowing at each of these levels. 2. Broad-based disc protrusion at C6-C7 with mild canal and bilateral foraminal stenosis, not significantly changed from previous MRI. Correlate for C7 radicular pattern. 3. Broad-based disc protrusion at C2-C3 with significant canal stenosis and foraminal stenosis. Cord compression without cord signal abnormalities is unchanged from previous. *This report is generated using voice recognition reporting ([id number]). On occasion [employer] erroneously drops words from the report or replaces the spoken word with similar sounding words. Please call with any questions/concerns regarding this report.* Dictated and transcribed 02/12/2024/janis This report has been electronically signed and approved by the interpreting radiologist. Electronically Signed Isidoro Otero II, M.D. 2024-02-12 10:03:42 Normal Not Available MR LUMBAR SPINE WO CONTRASTo n 02-11-2024 MR LUMBAR SPINE WO CONTRAST Exam: MR - MRI LUMBAR SPINE WO CONTRAST Clinical History: Chroninc low back pain Reference Exam: X-ray 08/14/2019, MRI 08/14/2019 Technique: Multiplanar MRI evaluation is provided, having been acquired without IV contrast, performed in the dedicated spine coil on 1.5 [employer] MRI system. Findings: Normal conus medullaris terminating at T12-L1. Sagittal STIR imaging: No abnormal STIR weighted signal is identified. L1-2: Normal hydration and morphology of the intervertebral disc with no endplate spondylosis or facet arthrosis. Normal central canal, lateral recesses and intervertebral neural foramina with no neurologic impingement. L2-3: Advanced degenerative disc changes at L2-L3. Endplate degenerative phenomenon on both sides at this level. Concentric dorsal bulge of disc material, which in combination with moderate facet hypertrophic arthropathic changes contributes to canal diameter narrowing: Anterior/posterior canal dimension: 0.75 cm. Lateral canal dimension: 0.6 cm. There is significant bilateral lateral recess/foraminal entrance narrowing, left more than right exacerbated by ligamentous hypertrophy. Anterior spondylosis. L3-4: Disc desiccation. Minimal dorsal bulge of disc material. The L III nerve roots course through patent neuroforamina. Mild posterior elemental hypertrophic arthropathic/ligamentous changes. L4-5: Disc desiccation. Concentric dorsal bulging of the intervertebral disc with no endplate spondylosis. Mild-moderate facet arthrosis. Bilateral foraminal narrowing more on the right of minor severity. No canal diameter sequela. L5-S1: Disc space height loss. Disc desiccation. Concentric central bulge of disc material. The S1 nerve roots are appropriately contained in the canal. The L5 nerve roots course through narrowed neuroforamina, bilaterally. No significant canal diameter narrowing. Anterior spondylosis of moderate severity. There is no spondylolisthesis or spondylolysis. There are no infiltrative or destructive processes. Left renal cyst measures at least 2 cm.. Impression: 1. Multilevel degenerative disc disease most pronounced at L2-L3 and L5-S1. 2. Multilevel bulging of disc material. 3. Foraminal narrowing most pronounced on the left at L2-L3, and bilaterally at L5-S1. 4. Negative for overt disc extrusion, compression or other fracture, or subluxation. 5. Canal narrowing most pronounced at L2-L3 due to bulging of disc material and posterior elemental hypertrophic arthropathic/ligamentous changes. Dictated on: 02/11/2024 4:49 PM This report has been electronically signed and approved by the interpreting Radiologist. Electronically Signed Olaf Seaman M.D. 2024-02-12 14:17:31 Normal Not Available Pharmacy Officeon 09-21-2023 Pharmacy Office [phone] [id number] FF Normal [facility] CBC AND AUTO DIFFon 08-16-19 24 ABSOLUTE BASOPHIL 0.1 X10E9/L Normal 0.0-0.2 [facility] Comment on above: Performed By: #### C CLAUDIO, 93488-4, THYR, CBCA #### [facility] ([id number]) [address], [address] [address] ABSOLUTE NEUTROPHIL 5.7 X10E9/L Normal 1.5-6.6 [facility] Comment on above: Performed By: #### C CLAUDIO, 73873-5, THYR, CBCA #### [facility] ([id number]) [address], [facility] [address] [place] [address] Basophils/100 WBC (Bld) 1.0 % Normal [facility] Comment on above: Performed By: #### C CLAUDIO, 54216-3, THYR, CBCA #### [facility] ([id number]) [address], [address] [place] [address] Eosinophils (Bld) [#/Vol] 0.4 10*3/uL Normal 0.0-0.4 [facility] Comment on above: Performed By: #### C CLAUDIO, 09274-1, THYR, CBCA #### [facility] ([id number]) [address] [address] [place] [address] Eosinophils/100 WBC (Bld) 4.1 % Normal [facility] Comment on above: Performed By: #### C CLAUDIO, 41233-9, THYR, CBCA #### [facility] ([id number]) [address] [address] Erythrocyte distribution width (RBC) [Ratio] 13.7 % Normal 11.5-15.0 [facility] Comment on above: Performed By: #### C CLAUDIO, 28851-8, THYR, CBCA #### [facility] ([id number]) [address] [address] Hematocrit (Bld) [Volume fraction] 40.2 % Normal 39-49 [facility] Comment on above: Performed By: #### C CLAUDIO, 22607-4, THYR, CBCA #### [facility] ([id number]) [address] [address] Hemoglobin (Bld) [Mass/Vol] 13.5 g/dL Normal 13.0-17.0 [facility] Comment on above: Performed By: #### C CLAUDIO, 04533-9, THYR, CBCA #### [facility] ([id number]) [address] [address] Lymphocytes (Bld) [#/Vol] 2.2 10*3/uL Normal 1.0-3.5 [facility] Comment on above: Performed By: #### C CLAUDIO, 09198-0, THYR, CBCA #### [facility] ([id number]) [address] [address] [place] [address] Lymphocytes/100 WBC (Bld) 24.0 % Normal [facility] Comment on above: Performed By: #### C CLAUDIO, 34537-5, THYR, CBCA #### [facility] ([id number]) [address] [address] [place] [address] MCH (RBC) [Entitic mass] 32.5 pg Normal 27-34 [facility] Comment on above: Performed By: #### C CLAUDIO, 41942-5, THYR, CBCA #### [facility] ([id number]) [address], [address] [place] [address] MCHC (RBC) [Mass/Vol] 33.6 g/dL Normal 32-[address] [facility] Comment on above: Performed By: #### C CLAUDIO, 24450-6, THYR, CBCA #### [facility] ([id number]) [address], [address] [place] [address] MCV (RBC) [Entitic vol] 97 fL Normal 80-100 P [facility] Comment on above: Performed By: #### C CLAUDIO, 98414-5, THYR, CBCA #### [facility] ([id number]) [address] [address] [place] [address] Monocytes (Bld) [#/Vol] 0.7 10*3/uL Normal 0-0.9 [facility] Comment on above: Performed By: #### C CLAUDIO, 83042-6, THYR, CBCA #### [facility] ([id number]) [address] [address] [place] [address] Monocytes/100 WBC (Bld) 7.5 % Normal P [facility] Comment on above: Performed By: #### C CLAUDIO, 85002-8, THYR, CBCA #### [facility] ([id number]) [address], [address] [place] [address] Neutrophils/100 WBC (Bld) 63.4 % Normal [facility] Comment on above: Performed By: #### C CLAUDIO, 72822-8, THYR, CBCA #### [facility] ([id number]) [address], [facility] [address] [place] [address] Platelet mean volume (Bld) [Entitic vol] 7.1 fL Normal 7-12 [facility] Comment on above: Performed By: #### C CLAUDIO, 83145-3, THYR, CBCA #### [facility] ([id number]) [address], [facility] [address] [place] [address] Platelets (Bld) [#/Vol] 646 10*3/uL High 150-450 [facility] Comment on above: Performed By: #### C CLAUDIO, 56842-3, THYR, CBCA #### [facility] ([id number]) [address], [facility] [address] [place] [address] RBC COUNT 4.16 X10E12/L Normal 4.10-5.70 [facility] Comment on above: Performed By: #### C CLAUDIO, 15069-1, THYR, CBCA #### [facility] ([id number]) [address], [facility] [address] [place] [address] WBC (Bld) [#/Vol] 9.0 10*3/uL Normal 4.0-11.0 [facility] Comment on above: Performed By: #### C CLAUDIO, 47696-5, THYR, CBCA #### [facility] ([id number]) [address], [address] [place] [address] COMPREHENSIVE METABOLIC PANE Yomi 08-16-2023 Albumin [Mass/Vol] 3.9 g/dL Normal 3.2-5.3 [facility] Comment on above: Performed By: #### C CLAUDIO, 21139-8, THYR, CBCA #### [facility] ([id number]) [address], [address] [place] [address] ALP [Catalytic activity/Vol] 88 U/L Normal 39-130 [facility] Comment on above: Performed By: #### C CLAUDIO, 34637-9, THYR, CBCA #### [facility] ([id number]) [address], [address] [place] [address] ALT [Catalytic activity/Vol] 45 U/L High 0-40 [facility] Comment on above: Performed By: #### C CLAUDIO, 84099-1, THYR, CBCA #### [facility] ([id number]) [address], [address] [place] [address] Anion gap [Moles/Vol] 8 mmol/L Normal 5-[address] [facility] Comment on above: Performed By: #### C CLAUDIO, 69509-5, THYR, CBCA #### [facility] ([id number]) [address], [address] [place] [address] AST [Catalytic activity/Vol] 38 U/L Normal 0-41 [facility] Comment on above: Performed By: #### C CLAUDIO, 70964-2, THYR, CBCA #### [facility] [facility] ([id number]) [address], [address] [place] [address] Bilirubin [Mass/Vol] 0.5 mg/dL Normal 0.3-1.2 [facility] Comment on above: Performed By: #### C CLAUDIO, 72143-3, THYR, CBCA #### [facility] ([id number]) [address], [address] [place] [address] Calcium [Mass/Vol] 10.3 mg/dL Normal 8.5-10.5 [facility] Comment on above: Performed By: #### C CLAUDIO, 26698-2, THYR, CBCA #### [facility] ([id number]) [address], [address] [place] [address] Chloride [Moles/Vol] 99 mmol/L Normal 98-109 [facility] Comment on above: Performed By: #### C CLAUDIO, 63042-0, THYR, CBCA #### [facility] ([id number]) [address], [address] [place] [address] CO2 [Moles/Vol] 27 mmol/L Normal 22-32 [facility] Comment on above: Performed By: #### C CLAUDIO, 55939-2, THYR, CBCA #### [facility] ([id number]) [address], [address] [place] [address] Creatinine [Mass/Vol] 0.95 mg/dL Normal 0.60-1.[address] [facility] Comment on above: Result Comment: METH OD TRACEABLE TO IDMS STANDARD Performed By: #### C CLAUDIO, 22567-0, THYR, CBCA #### [facility] ([id number]) [address], [address] [place] [address] GFR/1.73 sq M.predicted among non-blacks MDRD (S/P/Bld) [Vol rate/Area] 87 mL/min/{1.73_m2} Normal >59 [facility] Comment on above: Result Comment: Reported eGFR is based on the CKD-EPI 2020 equation that does not use a race coefficient. Performed By: #### C CLAUDIO, 27815-4, THYR, CBCA #### [facility] ([id number]) [address], [address] [place] [address] Glucose [Mass/Vol] 84 mg/dL Normal 65-99 [facility] Comment on above: Performed By: #### C CLAUDIO, 25485-3, THYR, CBCA #### [facility] ([id number]) [address], [address] [place] [address] Potassium [Moles/Vol] 4.6 mmol/L Normal 3.5-5.[address] [facility] Comment on above: Performed By: #### C CLAUDIO, 28184-8, THYR, CBCA #### [facility] ([id number]) [address], [address] [place] [address] Protein [Mass/Vol] 8.3 g/dL High 6.0-8.0 [facility] Comment on above: Performed By: #### C CLAUDIO, 88560-1, THYR, CBCA #### [facility] ([id number]) [address], [address] [place] [address] Sodium [Moles/Vol] 134 mmol/L Normal 134-146 [facility] Comment on above: Performed By: #### C CLAUDIO, 61469-0, THYR, CBCA #### [facility] ([id number]) [address], [address] [place] [address] Urea nitrogen [Mass/Vol] 22 mg/dL Normal 5-27 [facility] Comment on above: Performed By: #### C CLAUDIO, 26891-7, THYR, CBCA #### [facility] ([id number]) [address], [address] [place] [address] Lipid 1996 panelon 4 Cholesterol [Mass/Vol] 115 mg/dL Low 150-200 [facility] Comment on above: Performed By: #### C CLAUDIO, 21432-1, THYR, CBCA #### [facility] ([id number]) [address], [address] [place] [address] Cholesterol in HDL [Mass/Vol] 29 mg/dL Low >39 [facility] Comment on above: Result Comment: HDL <40 mg/dL - High Risk HDL > or = 40mg/dL- Desirable HDL >60 mg/dL - Negative Risk Performed By: #### C CLAUDIO, 72304-1, THYR, CBCA #### [facility] ([id number]) [address], [facility] [address] [place] [address] Cholesterol in LDL [Mass/Vol] 49 mg/dL Normal <130 [facility] Comment on above: Result Comment: LDL <100 mg/dL - Desirable LDL >160 mg/dL - High Risk Performed By: #### C CLAUDIO, 58617-9, THYR, CBCA #### [facility] ([id number]) [address], [facility] [address] [place] [address] Cholesterol in VLDL [Mass/Vol] 37 mg/dL High 0-30 [facility] Comment on above: Performed By: #### C CLAUDIO, 38892-5, THYR, CBCA #### [facility] ([id number]) [address], [address] [address] CHOLESTEROL:HDL 4.0 Normal 1.0-5.0 [facility] Comment on above: Performed By: #### Joao SNYDER, 35901-5, THYR, CBCA #### [facility] ([id number]) [address], [address] [address] Triglyceride [Mass/Vol] 187 mg/dL High 27-150 [facility] Comment on above: Performed By: #### Joao SNYDER, 61139-9, THYR, CBCA #### [facility] ([id number]) [address], [facility] [address] [place] [address] THYROID PROFILEon 08-16-2023 Free T4 [Mass/Vol] 0.94 ng/dL Normal 0.61-1.60 [facility] Comment on above: Performed By: #### C , 36688-7, THYR, CBCA #### [facility] ([id number]) [address] [facility], [address] [place] [address] TSH 5.38 uIU/mL High 0.49-4.67 [facility] Comment on above: Performed By: #### [place], 66506-2, THYR, CBCA #### [facility] ([id number]) [address] [facility], [address] [place] [address] Consent for Treatmenton Consent for Treatment [id number]#1.00TIF F Normal [facility] Consultation Noteon 07-27-19 Consultation Note Patient: HELLEN TINSLEY Age: 68 years Sex: Male : 1955 Associated Diagnoses: None Author: Lakeisha Castellanos PA-C Subjective Chief complaint 07/27/2023 12:39 EST low back pain . Patient is a 68-year-old male with a past medical history significant for widespread pain. He has a past medical history significant for cervical stenosis, postlaminectomy syndrome, and chronic pain. He presents today for slightly delayed follow-up. He was last seen 9 months ago. Historically it should be noted that he saw a spine surgeon. They recommended surgery to him on his neck and his lower back. He decided not to do this because it was not comfortable to leave his home to going to the hospital to have surgery and then possibly need to go to rehab In regards to his global body pain patient is on gabapentin 1200 mg 3 times a day and tizanidine 4 mg 3 times a day. He tolerates these. He once again inquires about getting some sort of Xanax or something to help with his blood pressure. His blood pressure was high today and I inquired if he has seen his PCP for this. He does not have 1. It should be noted that he uses Suboxone and smokes marijuana. Today, he rates his neck pain with arm pain and lower back pain with leg pain a 5/10. Health Status Allergies: Allergic Reactions (Selected) Severity Not Documented Contrast Dye- Hives. Levothyroxine- Hives., Allergies (2) Active Severity Reaction Contrast Dye Hives levothyroxine Hives Current medications: (Selected) Prescriptions Prescribed cane: cane, See Instructions, 1 EA, 0, Please provide patient with a cane for stability/ambulation purposes Diagnosis imbalance, lumbar neuritis, cervical neuritis., [facility] Supply, 182.9, cm, 04/24/22 12:10:00 EDTPatricia... gabapentin 600 mg Tab: 1,200 mg = 2 tab(s), Oral, TID, X 30 day(s), # 180 tab(s), Refills(s) 5, Pharmacy: [facility], 182.9, cm, 07/27/23 12:45:00 EST, Height/Length Dosing, 84.1, kg, 07/27/23 12:45:00 EST, Weight Dosing tiZANidine 4 mg Tab: 4 mg = 1 tab(s), Oral, q8hr, X 30 day(s), # 90 tab(s), Refills(s) 5, Pharmacy: [facility], 182.9, cm, 07/27/23 12:45:00 EST, Height/Length Dosing, 84.1, kg, 07/27/23 12:45:00 EST, Weight Dosing Documented Medications Documented Suboxone 8 mg-2 mg sublingual film: Refill(s) 0 Tylenol Extra Strength 500 mg oral tablet: 1,000 mg = 2 tab(s), Oral, q6hr, Refills(s) 0 amLODIPine 10 mg Tab: Refills(s) 0 carvedilol 6.25 mg Tab: 6.25 mg = 1 tab(s), Oral, BID, Refills(s) 0 gabapentin 600 mg Tab: TAKE 2 TABLETS BY MOUTH THREE TIMES DAILY ibuprofen 200 mg oral capsule: 400 mg = 2 cap(s), Oral, q6hr, Refills(s) 0 isosorbide mononitrate: 30 mg, Oral, qAM, Refills(s) 0 rosuvastatin: 10 mg, Oral, Once a day (at bedtime), Refills(s) 0 tiZANidine 4 mg Tab: TAKE 1 TABLET BY MOUTH EVERY 8 HOURS Problem list: All Problems Hepatitis C / SNOMED CT 72523476 / Confirmed Hypertension / SNOMED CT 8201327785 / Confirmed Hyperlipidemia / SNOMED CT 22345230 / Confirmed Irregular heart beat / SNOMED CT 239877789 / Confirmed Anginal pain / SNOMED CT 725156850 / Confirmed Depression / SNOMED CT 2526021983 / Confirmed Smoker / SNOMED CT 894911588 / Confirmed Added secondary to documentation in Social History. Objective Vital Signs 07/27/2023 12:39 EST Peripheral Pulse Rate 50 bpm LOW Respiratory Rate 18 br/min Systolic Blood Pressure 171 mmHg HI Diastolic Blood Pressure 100 mmHg HI Mean Arterial Pressure, Cuff 124 mmHg General: Alert and oriented, No acute distress. Eye: Normal conjunctiva. HENT: Normocephalic, Normal hearing. Cardiovascular: No edema. Musculoskeletal Normal range of motion. Normal strength. Global strength 4+ to 5 -/5 Integumentary: Warm, Dry, [place]. Neurologic: Alert, Oriented. Psychiatric: Cooperative, Appropriate mood & affect. Impression and Plan Patient is a 68-year-old male with a past medical history significant for widespread pain. He has a past medical history significant for cervical stenosis, postlaminectomy syndrome, and chronic pain. At this time, he continues on gabapentin 1200 mg 3 times a day and tizanidine 4 mg up to 3 times a day. He once again inquired about getting Xanax or something similar to help his blood pressure. His blood pressure was high today and I recommended he reach out to his PCP. He does not have 1 so he inquired if there was anybody I knew if he could see. We will give him the names of some local primary care physicians he could reach out to. At this time he will continue on his medications. OARRS was reviewed. Refill sent to the pharmacy. At this time, he is going to follow-up in 6 months for medication management. Call the clinic sooner if necessary. OARRS reviewed VALENTINE score: 54% Normal [facility] Comment on above: Result Comment: Elec tronically Signed By: Jasmin ACEVES, Lakeisha\.br\Date and Time Signed: 07/27/23 12:54 EST Legal Correspondence Officeo n 07-27-2023 Legal Correspondence Office [id number]#1.00TI FF Normal [facility] Office/Clinic Note-Physician on 07-27-2023 Office/Clinic Note-Physician [id number]#1.00TI FF Normal [facility] Patient Correspondenceon Patient Correspondence [id number]#1.00TI FF Normal [facility] Patient Correspondence [id number]#1.00TI FF Normal [facility] Patient Correspondence [id number]#1.00TI FF Normal [facility] Patient Correspondence [id number]#1.00TI FF Normal [facility] Patient History Officeon Patient History Office [id number]#1.00TI FF Normal [facility] Urinalysis - AUTOMATEDon Appearance (U) cloudy [employer] Other Bilirubin Ql (U) Negative [employer] Other Color (U) yellow [employer] Other Glucose Ql (U) Negative [employer] Other Hemoglobin Ql (U) moderate [employer] Other Ketones Ql (U) Negative [employer] Other Leukocyte esterase Test strip Ql (U) large [employer] Other Nitrite Ql (U) Negative [employer] Other pH (U) 7.0 [pH] [employer] Other Protein Ql (U) 100 [employer] Other Specific gravity (U) [Rel density] 1.020 [employer] Other Urobilinogen (U) [Mass/Vol] 0.2 mg/dL [employer] Other Urinalysis - AUTOMATED No rt [employer] Other Urine Cultureon 04-19-2023 Bacteria identified Cx Nom (U) ORGANISM: Escherichia coli (O:ESCCOL) [place] Count >100,000 Aerobic MARION Charge (NMIC56) - SUSCEPTIBILITY ORGANISM: O:ESCCOL ANTIBIOTIC INTERPRETATION MARION Amikacin S <16 Amoxacillin/K Clavulanate S <8 Ampicillin R >16 Ampicillin/Sulbactam S 88/4 Aztreonam S <4 Cefazolin S <2 Cefepime S <2 Ceftazidime S <1 Ceftazidime/Avibactam S <4 Ceftolozane/Tazobactam S <2 Ceftriaxone S <1 Cefuroxime S <4 Ciprofloxacin S <0.25 Ertapenem S <0.5 Gentamicin S <2 Levofloxacin S <0.5 Meropenem S <1 Meropenem/Vaborbactam S <2 Nitrofurantoin S <32 Piperacillin/Tazobactam S <8 Tetracycline R >8 Tigecycline S <2 Tobramycin S <2 Trimethoprim/Sulfamethox azole S <0.5 S = SUSCEPTIBLE I = INTERMEDIATE R = RESISTANT BLANK = DATA NOT AVAILABLE, OR DRUG NOT ADVISABLE OR TESTED R* = RESISTANCE DUE TO EXTENDED SPECTRUM BETA-LACTAMASES ESBL = EXTENDED SPECTRUM BETA-LACTAMASE TFG = THYMIDINE-DEPENDENT STRAIN CELIO = BETA-LACTAMASE POSITIVE IB = INDUCIBLE BETA-LACTAMASE. APPEARS IN PLACE OF 'S' WITH SPECIES KNOWN TO POSSESS INDUCIBLE BETA-LACTAMASES. POTENTIALLY THEY MAY BECOME RESISTANT TO ALL B-LACTAM DRUGS. PERFORMED BY: [address] [place] [address] PATHOLOGIST [employer] WILLIAM SHIPLEY M.D. Normal [facility] Comment on above: Performed By: #### C UU #### [facility] [address] CNCOon 10-27-2022 CNCO Letter Text Normal [facility] CNOVon 12-27-2021 CNOV Office Visit (CARDLO ) -------- ALVINASHARLENE Angeles ([id number]) 1955 M Date Time Provider Department 12/27/21 11:30 AM GABRIEL URBANO During your visit today, we recorded the following information about you: Pulse Blood pressure Weight 54/minute 166/87 84.5 kg Gabriel Urbano MD 12/27/2021 11:44 AM Signed [facility] [place] SECTION OF REGIONAL CARDIOLOGY OUTPATIENT VISIT DATE December 27, 2021 OUTPATIENT VISIT TYPE NEW PRIMARY CARE PHYSICIAN: Kenny Hook DO [address] [facility] [address] [place] [address] A written report of the findings and recommendations will be sent to the requesting provider via shared medical record or via [employer]. Patient is being seen at the request of the referring physician for Coronary artery disease, Hyperlipidemia, Hypertension, Peripheral vascular disease and smoking. HISTORY OF PRESENT ILLNESS: Mr. Tinsley is a 66 year old male with history of coronary artery disease status post angioplasty and stenting to the right coronary artery with multiple stents done up to 70 stents in that area however later totally chronically occluded RCA by coronary angiogram in 2020.. History of hypertension hyperlipidemia. Also history of smoking. . Cardiac work-up includes: A nuclear stress test in 2007 at [facility] was normal. A nuclear stress test in 2018 with unknown results. An echocardiogram done in 2016 at [facility] showed ejection fraction 55 to 60%. No valvular heart disease of any significance. A Holter monitor in 2020 showed nonsustained ventricular tachycardia. EKG today showed atrial bigeminy rhythm. Coronary angiogram in 2020 showed totally occluded RCA with good collaterals from the left to the right. Continues to have symptoms of chest discomfort however he does not know if it is coming from his neck because he had some pinched nerves or because of his a chest. He mentioned that this happens with significant activity. He denies any significant dyspnea orthopnea or PND. No syncope near syncope. No lightheadedness or dizziness. No other symptoms or complaints. He quit smoking 6 weeks ago. IMPRESSION: Encounter Diagnosis ICD-10-CM 1. 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 I25.10 ECG COMPLETE NM CARDIAC PERF STRESS/PHARM 2. Primary hypertension I10 ECG COMPLETE NM CARDIAC PERF STRESS/PHARM 3. Mixed hyperlipidemia E78.2 ECG COMPLETE NM CARDIAC PERF STRESS/PHARM 4. Smoker F17.200 NM CARDIAC PERF STRESS/PHARM PLAN AND RECOMMENDATIONS: Coronary artery disease Along with stable angina pectoris. The patient had totally chronic occluded RCA as per cardiac catheterization in 2020. He has good collaterals. We will add amlodipine 10 mg a day to improving his blood pressure management and to improve on his anginal symptoms. Continue isosorbide mononitrate. Extensive history of smoking However he quit 6 weeks ago. He was congratulated on his effort and and his decision. Hypertension Not well controlled. His lisinopril was reduced to due to hyperkalemia. I agree with that. He is now will be started on amlodipine 10 mg as mentioned. And his blood pressure should be much better controlled. REVIEW OF SYSTEMS: Chest pain No Shortness of breath No Bleeding No Dizziness No Syncope No Palpations No 10 systems reviewed and are negative with the exception of pertinent positives described in HPI PHYSICAL EXAMINATION: BP 166/87 (BP Site: Left Arm, BP Position: Sitting, BP Cuff Size: Large Adult) Pulse (!) 54 Wt 84.5 kg (186 lb 3.2 oz) SpO2 98% BMI 25.25 kg/m? HEENT: normocephalic, EOMI Heart: regular rhythm Lungs: clear to auscultation Abdomen: bowel sounds present Extremities: no edema Musculoskeletal: chest wall nontender Neurological: alert and oriented Psychiatric: appropriate and cooperative Skin: no rash, cellulitis or lesions appreciated CARDIOVASCULAR MEDICINE TESTING: I have personally reviewed ECG, laboratory results, outside medical records, echocardiogram report and stress test report PAST CARDIAC HISTORY: See above History reviewed. No pertinent past medical history. History reviewed. No pertinent surgical history. Social History Tobacco Use - Smoking status: Never Smoker - Smokeless tobacco: Never Used Vaping Use - Vaping Use: current everyday user Substance Use Topics - Alcohol use: Not on file - Drug use: Not on file History reviewed. No pertinent family history. ALLERGIES Allergen Reactions - Ivp Dye [Iodine] Hives, Swelling, Itching CURRENT MEDICATIONS: buprenorphine-naloxone (SUBOXONE) 12-3 mg sublingual film dissolve 2 FILMS under the tongue once daily carvedilol (COREG) 3.125 mg tablet Take 3.125 mg by mouth twice daily. clonazePAM (KLONOPIN) 1 mg tablet Take 1 m (more content not included)... Normal [facility] PROF CHEM 8 (BAS METB)on Anion gap [Moles/Vol] 15.5 mmol/L Normal [facility] Comment on above: Performed By: #### B MP #### [facility] [address] [address] [address] Grazyna Greenwood Calcium [Mass/Vol] 9.1 mg/dL Normal 8.5-10.1 [facility] Comment on above: Performed By: #### B MP #### [facility] [address] [address] [address] Grazyna Greenwood Chloride [Moles/Vol] 102 mmol/L Normal 98-107 [facility] Comment on above: Performed By: #### B MP #### [facility] [address] [address] [address] Grazyna Greenwood CO2 [Moles/Vol] 25.8 mmol/L Normal 21.0-32.0 [facility] Comment on above: Performed By: #### B MP #### [facility] [address] [address] [address] Grazyna Greenwood Creatinine [Mass/Vol] 1.27 mg/dL Normal 0.70-1.30 [facility] Comment on above: Performed By: #### B MP #### [facility] [address] [address] [address] Grazyna Greenwood EGFR-AF GERMAN >60 Normal >=60 [facility] Comment on above: Performed By: #### B MP #### [facility] [address] [address] [address] Grazyna Greenwood EGFR-NON AF GERMAN 57 mL/min/1.73m2 Critically low >=60 [facility] Comment on above: Performed By: #### B MP #### [facility] [address] [address] [address] Grazyna Greenwood Glucose [Mass/Vol] 129 mg/dL Critically high 74-106 [facility] Comment on above: Performed By: #### B MP #### [facility] [address] [address] [address] Grazyna Greenwood Potassium [Moles/Vol] 5.3 mmol/L Critically high 3.5-5.1 [facility] Comment on above: Performed By: #### B MP #### [facility] [address] [address] [address] Grazyna Greenwood Sodium [Moles/Vol] 138 mmol/L Normal 136-145 [facility] Comment on above: Performed By: #### B MP #### [facility] [address] [address] [address] Grazyna Greenwood Urea nitrogen [Mass/Vol] 30.0 mg/dL Critically high 7.0-18.0 [facility] Comment on above: Performed By: #### B MP #### [facility] [address] [address] [address] Grazyna Greenwood Urea nitrogen/Creatinine [Mass ratio] 23.6 mg/mg Normal [facility] Comment on above: Performed By: #### B MP #### [facility] [address] [address] [address] Grazyna Greenwood CBC AUTO DIFFon 11-30-2021 BASO # 0.1 103/ul Normal 0.0-0.1 [facility] Comment on above: Performed By: #### C BC #### [facility] [address] [address] [address] Grazyna Greenwood Basophils/100 WBC (Bld) 0.7 % Normal 0.2-2.0 [facility] Comment on above: Performed By: #### C BC #### [facility] [address] [address] [address] Grazyna Greenwood EO # 0.9 103/ul Critically high 0.0-0.7 [facility] Comment on above: Performed By: #### C BC #### [facility] [address] [place] [address] Dr. Grazyna Greenwood Eosinophils/100 WBC (Bld) 12.6 % Critically high 0.9-7.0 [facility] Comment on above: Performed By: #### C BC #### [facility] [address] [place] [address] Dr. Grazyna Greenwood Erythrocyte distribution width (RBC) [Ratio] 11.8 % Normal 11.0-15.0 [facility] Comment on above: Performed By: #### C BC #### [facility] [address] [place] [address] Dr. Grazyna Greenwood Hematocrit (Bld) [Volume fraction] 38.4 % Critically low 42.0-54.0 [facility] Comment on above: Performed By: #### C BC #### [facility] [address] [place] [address] Dr. Grazyna Greenwood Hemoglobin (Bld) [Mass/Vol] 12.6 g/dL Critically low 14.0-18.0 [facility] Comment on above: Performed By: #### C BC #### [facility] [address] [place] [address] Dr. Grazyna Greenwood IG # 0.02 10e3/ul Normal 0.00-0.03 [facility] Comment on above: Performed By: #### C BC #### [facility] [address] [place] [address] Dr. Grazyna Greenwood IG % 0.3 % Normal 0.0-0.5 [facility] Comment on above: Performed By: #### C BC #### [facility] [address] [place] [address] Dr. Grazyna Greenwood LYMPH # 2.1 103/ul Normal 1.2-3.8 [facility] Comment on above: Performed By: #### C BC #### [facility] [address] [place] [address] Dr. Grazyna Greenwood Lymphocytes/100 WBC (Bld) 29.6 % Normal 20.5-60.0 [facility] Comment on above: Performed By: #### C BC #### [facility] [address] [place] [address] Dr. Grazyna Greenwood MANUAL DIFF REQ NO Normal [facility] Comment on above: Performed By: #### C BC #### [facility] [address] [place] [address] Dr. Grazyna Greenwood MCH (RBC) [Entitic mass] 33.2 pg Normal 25.9-34.0 [facility] Comment on above: Performed By: #### C BC #### [facility] [facility] [address] [place] [address] Dr. Grazyna Greenwood MCHC (RBC) [Mass/Vol] 32.8 g/dL Normal 29.9-35.2 [facility] Comment on above: Performed By: #### C BC #### [facility] [address] [place] [address] Dr. Grazyna Greenwood MCV (RBC) [Entitic vol] 101.1 fL Critically high 80.0-94 .0 [facility] Comment on above: Performed By: #### C BC #### [facility] [address] [place] [address] Dr. Grazyna Greenwood MONO # 0.5 103/ul Normal 0.3-0.8 [facility] Comment on above: Performed By: #### C BC #### [facility] [address] [place] [address] Dr. Grazyna Greenwood Monocytes/100 WBC (Bld) 7.5 % Normal 1.7-12.0 [facility] Comment on above: Performed By: #### C BC #### [facility] [address] [place] [address] Dr. Grazyna Greenwood NEUT # 3.5 103/ul Normal 1.4-6.5 [facility] Comment on above: Performed By: #### C BC #### [facility] [address] [address] [address] Grazyna Greenwood Neutrophils/100 WBC (Bld) 49.3 % Normal 43.0-75.0 [facility] Comment on above: Performed By: #### C BC #### [facility] [address] [address] [address] Grazyna Greenwood Platelet mean volume (Bld) [Entitic vol] 10.0 fL Normal 9.5-13.5 [facility] Comment on above: Performed By: #### C BC #### [facility] [address] [address] [address] Grazyna Greenwood PLT 197 103/ul Normal 150-450 [facility] Comment on above: Performed By: #### C BC #### [facility] [address] [place] [address] Dr. Grazyna Greenwood RBC 3.80 106/ul Critically low 4.70-6.10 [facility] Comment on above: Performed By: #### C BC #### [facility] [address] [address] [address] Grazyna Greenwood WBC 7.1 103/ul Normal 4.0-11.0 [facility] Comment on above: Performed By: #### C BC #### [facility] [address] [place] [address] Dr. Grazyna Greenwood GLYCOHEMOGLOBIN A1Con 2021 ADA RECOMMENDATION SEE BELOW Normal [facility] Comment on above: Result Comment: ADA RECOMMENDED LIMIT 4.0 - 6.0 ADA THERAPEUTIC TARGET < 7.0 ACTION SUGGESTED > 7.0 Performed By: #### A 1C #### [facility] [address] [address] [address] Grazyna Greenwood Glucose [Mass/Vol] 111 mg/dL Normal [facility] Comment on above: Performed By: #### A 1C #### [facility] [address] [place] [address] Dr. Grazyna Greenwood HbA1c (Bld) [Mass fraction] 5.5 % Normal 4.5-6.2 [facility] Comment on above: Performed By: #### A 1C #### [facility] [address] [address] [address] Grazyna Greenwood IRONon 11-30-2021 Iron [Mass/Vol] 77.0 ug/dL Normal 65.0-175.0 [facility] Comment on above: Performed By: #### I ABDIAS #### [facility] [address] [address] [address] Grazyna Greenwood LIPID PROFILEon 11-30-2021 CHOL-HDL RATIO NORM SEE BELOW Normal [facility] Comment on above: Result Comment: 3.3 - 4.4 LOW RISK 4.4 - 7.1 AVERAGE RISK 7.1 - 11.0 MODERATE RISK >11.0 HIGH RISK Performed By: #### L IPID, CMP #### [facility] [address] [place] [address] Dr. Grazyna Greenwood Cholesterol [Mass/Vol] 135 mg/dL Normal <=200 [facility] Comment on above: Performed By: #### L IPID, CMP #### [facility] [address] [place] [address] Dr. Grazyna Greenwood Cholesterol in HDL [Mass/Vol] 58 mg/dL Normal 40-60 [facility] Comment on above: Performed By: #### L IPID, CMP #### [facility] [address] [place] [address] Dr. Grazyna Greenwood Cholesterol in LDL [Mass/Vol] 56.4 mg/dL Normal [facility] Comment on above: Performed By: #### L IPID, CMP #### [facility] [address] [address] [address] Grazyna Greenwood Cholesterol.total/Delores sterol in HDL [Mass ratio] 2.3 {ratio} Normal [facility] Comment on above: Performed By: #### L IPID, CMP #### [facility] [address] [place] [address] Dr. Grazyna Greenwood HDL NORMAL > or = 60 mg/dl - LO W CARDIOVASCULAR RISK <40 mg/dl - HIGH CARDIOVASCULAR RISK Normal [facility] Comment on above: Performed By: #### L IPID, CMP #### [facility] [address] [place] [address] Dr. Grazyna Greenwood LDL CALC NORMAL SEE BELOW Normal [facility] Comment on above: Result Comment: <100 mg/dl OPTIMAL 100 - 129 mg/dl NEAR OR ABOVE OPTIMAL 130 - 159 mg/dl BORDERLINE HIGH 160 - 189 mg/dl HIGH >190 mg/dl VERY HIGH Performed By: #### L IPID, CMP #### [facility] [address] [address] [address] Grazyna Greenwood Triglyceride [Mass/Vol] 103 mg/dL Normal <=150 T [facility] Comment on above: Performed By: #### L IPID, CMP #### [facility] [address] [place] [address] Dr. Grazyna Greenwood VLDL CALC 20.6 mg/dL Normal [facility] Comment on above: Performed By: #### L IPID, CMP #### [facility] [address] [place] [address] Dr. Grazyna Greenwood PROF 14(COMP METB)on 022 Albumin [Mass/Vol] 3.7 g/dL Normal 3.4-5.0 [facility] Comment on above: Performed By: #### L IPID, CMP #### [facility] [address] [place] [address] Dr. Grazyna Greenwood Albumin/Globulin [Mass ratio] 0.9 {ratio} Normal [facility] Comment on above: Performed By: #### L IPID, CMP #### [facility] [address] [place] [address] Dr. Grazyna Greenwood ALP [Catalytic activity/Vol] 62 U/L Normal 46-116 [facility] Comment on above: Performed By: #### L IPID, CMP #### [facility] [address] [place] [address] Dr. Grazyna Greenwood ALT [Catalytic activity/Vol] 17 U/L Normal 16-63 [facility] Comment on above: Performed By: #### L IPID, CMP #### [facility] [address] [place] [address] Dr. Grazyna Greenwood Anion gap [Moles/Vol] 10.2 mmol/L Normal Th [facility] Comment on above: Performed By: #### L IPID, CMP #### [facility] [address] [place] [address] Dr. Grazyna Greenwood AST [Catalytic activity/Vol] 22 U/L Normal 15-37 [facility] Comment on above: Performed By: #### L IPID, CMP #### [facility] [address] [place] [address] Dr. Grazyna Greenwood Bilirubin [Mass/Vol] 0.5 mg/dL Normal 0.2-1.0 [facility] Comment on above: Performed By: #### L IPID, CMP #### [facility] [address] [place] [address] Dr. Grazyna Greenwood Calcium [Mass/Vol] 9.1 mg/dL Normal 8.5-10.1 [facility] Comment on above: Performed By: #### L IPID, CMP #### [facility] [address] [place] [address] Dr. Grazyna Greenwood Chloride [Moles/Vol] 103 mmol/L Normal 98-107 [facility] Comment on above: Performed By: #### L IPID, CMP #### [facility] [address] [place] [address] Dr. Grazyna Greenwood CO2 [Moles/Vol] 28.5 mmol/L Normal 21.0-32.0 [facility] Comment on above: Performed By: #### L IPID, CMP #### [facility] [address] [place] [address] Dr. Grazyna Greenwood Creatinine [Mass/Vol] 1.31 mg/dL Critically high 0.70-1.30 [facility] Comment on above: Performed By: #### L IPID, CMP #### [facility] [address] [place] [address] Dr. Grazyna Greenwood EGFR-AF GERMAN >60 Normal >=60 [facility] Comment on above: Performed By: #### L IPID, CMP #### [facility] [address] [place] [address] Dr. Grazyna Greenwood EGFR-NON AF GERMAN 55 mL/min/1.73m2 Critically low >=60 [facility] Comment on above: Performed By: #### L IPID, CMP #### [facility] [address] [address] [address] Grazyna Greenwood Globulin (S) [Mass/Vol] 3.9 g/dL Normal T [facility] Comment on above: Performed By: #### L IPID, CMP #### [facility] [address] [address] [address] Grazyna Greenwood Glucose [Mass/Vol] 95 mg/dL Normal 74-106 [facility] Comment on above: Performed By: #### L IPID, CMP #### [facility] [address] [place] [address] Dr. Grazyna Greenwood Potassium [Moles/Vol] 5.7 mmol/L Critically high 3.5-5.1 [facility] Comment on above: Performed By: #### L IPID, CMP #### [facility] [address] [place] [address] Dr. Grazyna Greenwood Protein [Mass/Vol] 7.6 g/dL Normal 6.4-8.2 [facility] Comment on above: Performed By: #### L IPID, CMP #### [facility] [address] [address] [address] Grazyna Greenwood Sodium [Moles/Vol] 136 mmol/L Normal 136-145 [facility] Comment on above: Performed By: #### L IPID, CMP #### [facility] [address] [place] [address] Dr. Grazyna Greenwood Urea nitrogen [Mass/Vol] 35.0 mg/dL Critically high 7.0-18.0 [facility] Comment on above: Performed By: #### L IPID, CMP #### [facility] [address] [place] [address] Dr. Grazyna Greenwood Urea nitrogen/Creatinine [Mass ratio] 26.7 mg/mg Normal [facility] Comment on above: Performed By: #### L IPID, CMP #### [facility] [address] [place], [place] [address] Dr. Grazyna Greenwood Laboratory - Microbiology an d Antimicrobial susceptibilityOrdered By: Ruby Dunbar on 07-01-2021 SARS-CoV-2 (COVID-19) RNA EDDIE+probe Ql (Resp) Not detected (Not Detected ) [facility] Work Phone: Comment on above: Note: This nucleic a jose luis amplification test was developed and itsperformance characteristics determined by [facility]. Nucleic acid amplification tests include RT-PCR and TMA. This test has not been FDA cleared orapproved. This test has been authorized by FDA under anEmergency Use Authorization (EUA). This test is onlyauthorized for the duration of time the declaration thatcircumstances exist justifying the authorization of theemergency use of in vitro diagnostic tests for detection [id number] virus and/or diagnosis of COVID-19 infectionunder section 564(b)(1) of the Act, 21 U.S.C. 360bbb-3(b)(1), unless the authorization is terminated or revokedsooner.When diagnostic testing is negative, the possibility of afalse negative result should be considered in the contextof a patient's recent exposures and the presence ofclinical signs and symptoms consistent with COVID-19. Anindividual without symptoms of COVID-19 and who is notshedding SARS-CoV-2 virus would expect to have a negative(not detected) result in this assay. SARS-CoV-2 (COVID-19) RNA EDDIE+probe Ql (Unsp spec) Performed [facility] Work Phone: PSAon 02-24-2021 Total PSA 0.32 ng/mL Normal 0.00-4.00 [facility] Comment on above: Performed By: #### P SA #### [facility] [address] [place] [address] Urology Office/Clinic Noteon 02-24-2021 Urology Office/Clinic Note Chief Complaint Follow up appointment History of Present Illness The patient is a 66 Years old Male with a past history of chronic urinary retention who returns to discuss UDS results. He continues to catheterize 4-6x/d. Occasionally voids between catheterizations. No difficulty. Review of Systems Constitutional: No fevers. No chills. Physical Exam Vitals & Measurements T: 36.1 ?C (Temporal Artery) HT: 183 cm WT: 82.5 kg WT: 82.5 kg (Dosing) BMI: 24.63 Additional Vitals No qualifying data available. Constitutional: Well nourished. HENT: Normocephalic, atraumatic. Eyes: Anicteric sclerae. Respiratory: No increased work of breathing. Neuro: Movement of upper and lower extremities. Psych: Normal mood and insight. Assessment/Plan 1. Urinary retention We discussed his ongoing retention. On UDS, he did have impaired compliance. Encouraged him to keep catheterized volumes less than 300-350 mL. Did have DO with a strong ultimate bladder contraction though not intentional. Offered a TURP as his best option at potentially voiding again. Discussed reasonable expectations and that he may need to catheterize (though hopefully at a decreased frequency) after his procedure. Also discussed keeping the catheter x1 week afterwards. He is unwilling to proceed at this time. Check PSA today. Follow-up in one month with catheter diary. If he wishes to continue catheterizing long-term, will need to follow-up with renal US. If he changes his mind about surgery, will need prostate volume at the time of his US as well. Procedure/Surgical History APPENDECTOMY skin grafts tumor removal and biopsy, left forearm Medications Antioxidant Formula oral tablet, Oral, Daily aspirin 325 mg oral delayed release tablet, 325 mg= 1 tabs, Oral, Daily baclofen 10 mg oral tablet, 10 mg= 1 tabs, Oral, TID Co-Q10 100 mg oral capsule, 100 mg= 1 caps, Oral, Daily Coreg 3.125 mg oral tablet, 3.125 mg= 1 tabs, Oral, BID Crestor 10 mg oral tablet, 10 mg= 1 tabs, Oral, Daily EPA Fish Oil 1000 mg oral capsule, 1000 mg= 1 caps, Oral, Daily ferrous sulfate, Oral isosorbide dinitrate 30 mg oral tablet, 30 mg= 1 tabs, Oral, BID lisinopril 10 mg oral tablet, 10 mg= 1 tabs, Oral, Daily MiraLax, 17 g, Oral, Daily multivitamin, Daily Neurontin 800 mg oral tablet, 800 mg= 1 tabs, Oral, TID ondansetron 4 mg oral tablet, 4 mg= 1 tabs, Oral, q8hr Suboxone 8 mg-2 mg sublingual film, 2 film, SL, Daily Vitamin C 500 mg oral tablet, 500 mg= 1 tabs, Oral, Daily Vitamin D3 Allergies IV contrast (Skin rash, Hives) shell fish (Skin rash, Hives) Social History Tobacco 10 or more cigarettes (1/2 pack or more)/day in last 30 days Use:. Cigarettes Electronically signed by _ Bernardo Paiz MD 02/24/21 11:27 EDT Normal [facility] Urology Office/Clinic Noteon 12-22-2020 Urology Office/Clinic Note Chief Complaint Pt states here as a new pt for neurogenic bladder. History of Present Illness New patient evaluation Referral from Kaykay Armstrong Concerns for neurogenic bladder Patient is 65 years old No family history of urological cancers Patient reports she has been having difficulty with urination for the past 2 years progressively getting worse Patient reports his primary care ordered him catheterization supplies and he has been self catheterizing 14 Ukrainian catheter about 4 times per day for the past 2 years Patient reports he has not had a urological work-up Patient previously seen Dr. Elizondo about 1-1/2 months ago Patient was about to start work-up for probable neurogenic bladder but backed out Patient has not followed up since Patient requested new referral to our office Patient reports as a teenager he had difficulty urinating had restricted urinary stream Patient reports undergoing a surgery that helped this, assuming he had urethral stricture Patient reports slowly over time his urination became worse but he did not seek any intervention Several years ago patient had difficulty with urination and ended up self catheterizing Recommend patient undergo cystoscopy and urodynamics testing for further evaluation for urethral stricture, obstructing prostate or neurogenic bladder or combination of all 3 Patient willing to proceed Patient is previously tried Flomax with no symptom improvement Patient also has concerns for tick bite in the groin About 12 days ago patient found a tick that was attached to the right groin area in the pubic area This was removed by another healthcare person The area was significantly red this area has improved, redness about the size of a jostin There is a central scab area Area does not look infected Patient has high anxiety regarding Lyme disease No fevers or chills No nausea or vomiting Patient reports feeling tired and fatigued Patient wants antibiotic treatment Patient unaware of any recent PSAs No previous rectal exam Urine dip today was negative for infection, negative for blood Review of Systems Cardiovascular Chest pain: No High blood pressure: No Varicose Veins: No Constitutional Chills: No Fever: No Headache: No Endocrine ENMT Eyes Gastrointestinal Abdominal Pain: No Constipation: No Diarrhea: No Digestion/heartburn: No Nausea/vomiting: No Genitourinary Bloody urine: No Burning to urinate: No Dribbling: No Other Genitourine: Yes Slowing stream: Yes Urinary Frequency_Specialty Intake & Hx: No Urinary frequent at night: No Urinary Hesitancy: No Urinary retention: No Hematology/Lymphatic Integumentary/Skin Musculoskeletal Joint pain: No Neck pain: No Neurological Psychiatric Respiratory Physical Exam Vitals & Measurements T: 36.8 ?C (Tympanic) HT: 183 cm WT: 83.4 kg WT: 83.4 kg (Dosing) BMI: 24.9 Additional Vitals No qualifying data available. General: awake, alert, NAD Heart: no cyanosis, pink skin Lungs: no audible wheezes, non labored Neuro: no slurred speech, appropriate Extremities: no weakness, no edema Abdomen: nondistended, no guarding, no hernia Bladder: no pain Flank: no pain Circumcised: yes Phimosis: no Paraphimosis: no Balanitis: no Meatus: Hypospadias Penis: no lesions, no peyronie plaques, no warts Scrotum: non tender, no edema, no lesions, no warts, no varicocele Testes: non tender, no nodules, no swelling Epididymides: non tender, no spermatocele, no masses, no enlargement Vas deferans: non tender Prostate: pt declines Jostin size redness in the right pelvic/groin region, in the center there is a small scab from previous tick bite, area does not look infected, no pain Assessment/Plan 1. Neurogenic bladder Suspecting neurogenic bladder but is not undergoing formal evaluation, schedule patient for cystoscopy and urodynamics testing, patient will continue to self catheterize 2. Hypospadias Chronic condition 3. Tick bite By was about 12 days ago, patient has anxieties regarding Lyme disease since he started to not feel well with tiredness and fatigue, will treat prophylactically with amoxicillin 4. Urethral stricture Suspecting urethral stricture based on his subjective history as a teenager, evaluate further with cystoscopy, can evaluate further with urodynamics testing, or could proceed with uroflow 5. Intermittent self-catheterization of bladder Patient currently self catheterizing 14 Ukrainian catheter up to 4 times a day Orders: amoxicillin, 1 caps, Oral, TID, X 14 days, # 42 caps, 0 Refill(s), 01/05/21 13:30:00 EDT, Pharmacy: [facility] Medical Decision Making Chronic conditions NOT treated during this visit that affected my overall medical decision making: [] Treatment plans discussed but not opted for at this time: [] Prescribed medication that requires intensive monitoring for toxicity: [] I have reviewed the pat (more content not included)... Normal [facility] B12/Folate Panelon Folic Acid >20.0 Normal >4.8 [facility] Comment on above: Performed By: #### C DP, CP, LIPRF, TSHX, B12FOL, VD25 #### [employer] [address] [place] [id number] Flight Test Engineer: Andrew Cai MD Cobalamin (Vitamin B12) [Mass/Vol] 1030 pg/mL Normal 232-1245 [facility] Comment on above: Performed By: #### C DP, CP, LIPRF, TSHX, B12FOL, VD25 #### [employer] [address] [place] [address] Flight Test Engineer: Andrew Cai MD CBC with Diffon 12-04-2020 Abs. Basophil 0.06 k/uL Normal 0.00-0.20 [facility] Comment on above: Performed By: #### C DP, CP, LIPRF, TSHX, B12FOL, VD25 #### [employer] [address] [place] [address] Flight Test Engineer: Andrew Cai MD Abs.Imm.Granulocyte 0.03 k/uL Normal 0.00-0.30 [facility] Comment on above: Performed By: #### C DP, CP, LIPRF, TSHX, B12FOL, VD25 #### [address] [address] Flight Test Engineer: Andrew Cai MD Abs.Neutrophil (Seg) 4.90 k/uL Normal 1.50-8.10 [facility] Comment on above: Performed By: #### C DP, CP, LIPRF, TSHX, B12FOL, VD25 #### [place] [address] Flight Test Engineer: Andrew Cai MD Basophils/100 WBC (Bld) 1 % Normal 0-2 [facility] Comment on above: Performed By: #### C DP, CP, LIPRF, TSHX, B12FOL, VD25 #### [place] [address] Flight Test Engineer: Andrew Cai MD Eosinophils (Bld) [#/Vol] 0.42 10*3/uL Normal 0.00-0.44 [facility] Comment on above: Performed By: #### C DP, CP, LIPRF, TSHX, B12FOL, VD25 #### [place] [address] Flight Test Engineer: Anderw Cai MD Eosinophils/100 WBC (Bld) 4 % Normal 1-4 [facility] Comment on above: Performed By: #### C DP, CP, LIPRF, TSHX, B12FOL, VD25 #### [address] [address] Flight Test Engineer: Andrew Cai MD Erythrocyte distribution width (RBC) [Ratio] 12.9 % Normal 11.8-14.4 [facility] Comment on above: Performed By: #### C DP, CP, LIPRF, TSHX, B12FOL, VD25 #### [address] [address] Flight Test Engineer: Andrew Cai MD Hematocrit (Bld) [Volume fraction] 42.5 % Normal 40.7-50.3 [facility] Comment on above: Performed By: #### C DP, CP, LIPRF, TSHX, B12FOL, VD25 #### [address] [address] Flight Test Engineer: Andrew Cai MD Hemoglobin (Bld) [Mass/Vol] 13.4 g/dL Normal 13.0-17.0 [facility] Comment on above: Performed By: #### C DP, CP, LIPRF, TSHX, B12FOL, VD25 #### [address] [address] Flight Test Engineer: Andrew Cai MD Immature granulocytes/100 WBC (Bld) 0 % Normal 0 [facility] Comment on above: Performed By: #### C DP, CP, LIPRF, TSHX, B12FOL, VD25 #### [address] [address] Flight Test Engineer: Andrew Cai MD Lymphocytes (Bld) [#/Vol] 3.35 10*3/uL Normal 1.10-3.70 [facility] Comment on above: Performed By: #### C DP, CP, LIPRF, TSHX, B12FOL, VD25 #### [address] [address] Flight Test Engineer: Andrew Cai MD Lymphocytes/100 WBC (Bld) 35 % Normal 24-43 [facility] Comment on above: Performed By: #### C DP, CP, LIPRF, TSHX, B12FOL, VD25 #### [address] [address] Flight Test Engineer: Andrew Cai MD MCH (RBC) [Entitic mass] 33.2 pg Normal 25.2-33.5 [facility] Comment on above: Performed By: #### C DP, CP, LIPRF, TSHX, B12FOL, VD25 #### [address] [address] Flight Test Engineer: Andrew Cai MD MCHC (RBC) [Mass/Vol] 31.5 g/dL Normal 28.4-34.8 [facility] Comment on above: Performed By: #### C DP, CP, LIPRF, TSHX, B12FOL, VD25 #### [address] [address] Flight Test Engineer: Andrew Cai MD MCV (RBC) [Entitic vol] 105.2 fL High 82.6-102.9 M [facility] Comment on above: Performed By: #### C DP, CP, LIPRF, TSHX, B12FOL, VD25 #### [address] [address] Flight Test Engineer: Andrew Cai MD Monocytes (Bld) [#/Vol] 0.77 10*3/uL Normal 0.10-1.20 [facility] Comment on above: Performed By: #### C DP, CP, LIPRF, TSHX, B12FOL, VD25 #### [address] [address] Flight Test Engineer: Andrew Cai MD Monocytes/100 WBC (Bld) 8 % Normal 3-12 M [facility] Comment on above: Performed By: #### C DP, CP, LIPRF, TSHX, B12FOL, VD25 #### [address] [address] Flight Test Engineer: Andrew Cai MD Neutrophil (Seg) 52 % Normal 36-65 [facility] Comment on above: Performed By: #### C DP, CP, LIPRF, TSHX, B12FOL, VD25 #### [address] [address] Flight Test Engineer: Andrew Cai MD NRBC Automated 0.0 per 100 WBC Normal 0.0 [facility] Comment on above: Performed By: #### C DP, CP, LIPRF, TSHX, B12FOL, VD25 #### [address] [address] Flight Test Engineer: Andrew Cai MD Platelet mean volume (Bld) [Entitic vol] 10.4 fL Normal 8.1-13.5 [facility] Comment on above: Performed By: #### C DP, CP, LIPRF, TSHX, B12FOL, VD25 #### [address] [address] Flight Test Engineer: Andrew Cai MD Platelets (Bld) [#/Vol] 252 10*3/uL Normal 138-453 [facility] Comment on above: Performed By: #### C DP, CP, LIPRF, TSHX, B12FOL, VD25 #### [address] [address] Flight Test Engineer: Andrew Cai MD RBC (Bld) [#/Vol] 4.04 10*6/uL Low 4.21-5.77 [facility] Comment on above: Performed By: #### C DP, CP, LIPRF, TSHX, B12FOL, VD25 #### [address] [address] Flight Test Engineer: Andrew Cai MD RBC morphology finding Nom (Bld) MACROCYTOSIS PRESENT Normal [facility] Comment on above: Performed By: #### C DP, CP, LIPRF, TSHX, B12FOL, VD25 #### [facility] [employer] [address] [place] [address] Flight Test Engineer: Andrew Cai MD WBC (Bld) [#/Vol] 9.5 10*3/uL Normal 3.5-11.3 [facility] Comment on above: Performed By: #### C DP, CP, LIPRF, TSHX, B12FOL, VD25 #### [address] [address] Flight Test Engineer: Andrew Cai MD Comp Metabolic Profon 2020 (cont.) Normal [facility] Comment on above: Result Comment: Aver age GFR for 60-69 years old: 85 mL/min/1.73sq m Chronic Kidney Disease: <60 mL/min/1.73sq m Kidney failure: <15 mL/min/1.73sq m eGFR calculated using average adult body mass. Additional eGFR calculator available at: http://www.Quincee/multiple_crcl_2011.htm Performed By: #### C DP, CP, LIPRF, TSHX, B12FOL, VD25 #### [facility] [employer] [address] [place] [address] Flight Test Engineer: Andrew Cai MD Albumin [Mass/Vol] 4.4 g/dL Normal 3.5-5.2 [facility] Comment on above: Performed By: #### C DP, CP, LIPRF, TSHX, B12FOL, VD25 #### [facility] [employer] [address] [place] [address] Flight Test Engineer: Andrew Cai MD Albumin/Glob Ratio 1.5 Normal 1.0-2.5 [facility] Comment on above: Performed By: #### C DP, CP, LIPRF, TSHX, B12FOL, VD25 #### [facility] [employer] [address] [place] [address] Flight Test Engineer: Andrew Cai MD Alkaline Phos 60 U/L Normal 40-129 [facility] Comment on above: Performed By: #### C DP, CP, LIPRF, TSHX, B12FOL, VD25 #### [address] [address] Flight Test Engineer: Andrew Cai MD ALT [Catalytic activity/Vol] 16 U/L Normal 5-41 [facility] Comment on above: Performed By: #### C DP, CP, LIPRF, TSHX, B12FOL, VD25 #### [address] [address] Flight Test Engineer: Andrew Cai MD Anion gap [Moles/Vol] 13 mmol/L Normal 9-17 [facility] Comment on above: Performed By: #### C DP, CP, LIPRF, TSHX, B12FOL, VD25 #### [address] [address] Flight Test Engineer: Andrew Cai MD AST [Catalytic activity/Vol] 31 U/L Normal <40 [facility] Comment on above: Performed By: #### C DP, CP, LIPRF, TSHX, B12FOL, VD25 #### [address] [address] Flight Test Engineer: Andrew Cai MD Bilirubin [Mass/Vol] 0.47 mg/dL Normal 0.3-1.2 [facility] Comment on above: Performed By: #### C DP, CP, LIPRF, TSHX, B12FOL, VD25 #### [address] [address] Flight Test Engineer: Andrew Cai MD Calcium [Mass/Vol] 9.5 mg/dL Normal 8.6-10.4 [facility] Comment on above: Performed By: #### C DP, CP, LIPRF, TSHX, B12FOL, VD25 #### [address] [address] Flight Test Engineer: Andrew Cai MD Chloride [Moles/Vol] 99 mmol/L Normal 98-107 [facility] Comment on above: Performed By: #### C DP, CP, LIPRF, TSHX, B12FOL, VD25 #### [facility] [address] [place] [address] Flight Test Engineer: Andrew Cai MD CO2 [Moles/Vol] 22 mmol/L Normal 20-31 [facility] Comment on above: Performed By: #### C DP, CP, LIPRF, TSHX, B12FOL, VD25 #### [facility] [address] [place] [address] Flight Test Engineer: Andrew Cai MD Creatinine [Mass/Vol] 1.24 mg/dL High 0.70-1.20 [facility] Comment on above: Performed By: #### C DP, CP, LIPRF, TSHX, B12FOL, VD25 #### [facility] [address] [place] [address] Flight Test Engineer: Andrew Cai MD GFR, Amer >60 Normal >60 [facility] Comment on above: Performed By: #### C DP, CP, LIPRF, TSHX, B12FOL, VD25 #### [facility] [address] [place] [address] Flight Test Engineer: Andrew Cai MD GFR,non Amer 59 mL/min Low >60 [facility] Comment on above: Performed By: #### C DP, CP, LIPRF, TSHX, B12FOL, VD25 #### [facility] [address] [place] [address] Flight Test Engineer: Andrew Cai MD Glucose [Mass/Vol] 74 mg/dL Normal 70-99 [facility] Comment on above: Performed By: #### C DP, CP, LIPRF, TSHX, B12FOL, VD25 #### [facility] [address] [place] [address] Flight Test Engineer: Andrew Cai MD Potassium [Moles/Vol] 5.1 mmol/L Normal 3.7-5.3 [facility] Comment on above: Performed By: #### C DP, CP, LIPRF, TSHX, B12FOL, VD25 #### [facility] [address] [place] [address] Flight Test Engineer: Andrew Cai MD Protein [Mass/Vol] 7.4 g/dL Normal 6.4-8.3 [facility] Comment on above: Performed By: #### C DP, CP, LIPRF, TSHX, B12FOL, VD25 #### [facility] [address] [place] [address] Flight Test Engineer: Andrew Cai MD Sodium [Moles/Vol] 134 mmol/L Low 135-144 [facility] Comment on above: Performed By: #### C DP, CP, LIPRF, TSHX, B12FOL, VD25 #### [facility] [address] [place] [address] Flight Test Engineer: Andrew Cai MD Urea nitrogen [Mass/Vol] 29 mg/dL High 8-23 [facility] Comment on above: Performed By: #### C DP, CP, LIPRF, TSHX, B12FOL, VD25 #### [facility] [address] [place] [address] Flight Test Engineer: Andrew Cai MD Lipid Prof, Fastingon 2020 Cholesterol [Mass/Vol] 116 mg/dL Normal <200 [facility] Comment on above: Result Comment: Cholesterol Guidelines: <200 Desirable 200-240 Borderline >240 Undesirable Performed By: #### C DP, CP, LIPRF, TSHX, B12FOL, VD25 #### [facility] [address] [place] [address] Flight Test Engineer: Andrew Cai MD Cholesterol in HDL [Mass/Vol] 47 mg/dL Normal >40 [facility] Comment on above: Result Comment: HDL Guidelines: <40 Undesirable 40-59 Borderline >59 Desirable Performed By: #### C DP, CP, LIPRF, TSHX, B12FOL, VD25 #### [employer] [facility] [place], [place] [id number] Flight Test Engineer: Andrew Cai MD Cholesterol in LDL [Mass/Vol] 24 mg/dL Normal 0-130 [facility] Comment on above: Result Comment: LDL Guidelines: <100 Desirable 100-129 Near to/above Desirable 130-159 Borderline >159 Undesirable Direct (measured) LDL and calculated LDL are not interchangeable tests. Performed By: #### C DP, CP, LIPRF, TSHX, B12FOL, VD25 #### [employer] [address] [place] [phone] Flight Test Engineer: Andrew Cai MD Cholesterol.total/Delores sterol in HDL [Mass ratio] 2.5 {ratio} Normal <5 [facility] Comment on above: Performed By: #### C DP, CP, LIPRF, TSHX, B12FOL, VD25 #### [employer] [address] [place] [address] Flight Test Engineer: Andrew Cai MD Triglyceride,Fasting 226 mg/dL High <150 [facility] Comment on above: Result Comment: Triglyceride Guidelines: <150 Desirable 150-199 Borderline 200-499 High >499 Very high Based on AHA Guidelines for fasting triglyceride, March 2012. Performed By: #### C DP, CP, LIPRF, TSHX, B12FOL, VD25 #### [employer] [address] [place] [address] [phone] Flight Test Engineer: Andrew Cai MD TSH w/reflex to FT4on 2020 TSH Qn 2.87 m[IU]/L Normal 0.30-5.00 [facility] Comment on above: Performed By: #### C DP, CP, LIPRF, TSHX, B12FOL, VD25 #### [employer] [address] [place] [address] Flight Test Engineer: Andrew Cai MD Vitamin D 25 OHon 12-04-2020 Vitamin D 25 OH 60.6 ng/mL Normal 30.0-100.0 [facility] Comment on above: Result Comment: Reference Range: Vitamin D status Range Deficiency <20 ng/mL Mild Deficiency 20-30 ng/mL Sufficiency 30-100 ng/mL Toxicity >100 ng/mL Performed By: #### C DP, CP, LIPRF, TSHX, B12FOL, VD25 #### [employer] [address] [place], [place] [phone] Flight Test Engineer: Andrew Cai MD CBC Auto DifferentialOrdered By: Ruby Dunbar on 12-03-2020 [employer] # 0.42 [employer] [facility] Work Phone: Absolute Immature Granulocyte 0.03 [employer] Work Phone: Absolute Lymph # 3.35 [facility] Work Phone: Absolute [place] # 0.77 [facility] Work Phone: Basophils (Bld) [#/Vol] 0.06 10*3/uL [employer] Work Phone: Basophils/100 WBC (Bld) 1 % 0 - 2 % [facility] Work Phone: Differential Type NOT REPORTED [employer] Phone: Eosinophils/100 WBC (Bld) 4 % 1 - 4 % [employer] Phone: Hematocrit (Bld) [Volume fraction] 42.5 % 40.7 - 50.3 % [employer] Phone: Hemoglobin.gastrointest inal spec 1 Ql (Stl) 13.4 g/dL 13.0 - 17.0 g/dL [employer] Phone: Immature granulocytes/100 WBC (Bld) 0 % 0 [employer] Work Phone: Interpretation and review of laboratory results Abnormal [facility] Phone: Lymphocytes/100 WBC (Bld) 35 % 24 - 43 % [facility] Phone: MCH (RBC) [Entitic mass] 33.2 pg 25.2 - 33.[address] [facility] Phone: MCHC (RBC) [Mass/Vol] 31.5 g/dL 28.4 - 34.8 g/dL [employer] Phone: MCV (RBC) [Entitic vol] 105.2 fL High 82.6 - 102.[address] [facility] Phone: Monocytes/100 WBC (Bld) 8 % 3 - 12 % [facility] Phone: NRBC Automated 0.0 0.[address] [facility] Phone: Platelet distribution width (Bld) [Ratio] 12.9 % 11.8 - 14.4 % [facility] Phone: Platelet Estimate NOT REPORTED [facility] Phone: Platelet mean volume (Bld) [Entitic vol] 10.4 fL 8.1 - 13.5 fL [employer] Phone: Platelets (Bld) [#/Vol] 252 10*3/uL [facility] Phone: RBC (Bld) [#/Vol] 4.04 10*6/uL Low 4.21 - 5.77 m/uL [facility] Phone: RBC (Bld) [#/Vol] MACROCYTOSIS PRESENT [facility] Phone: Segmented neutrophils/100 WBC (Bld) 52 % 36 - 65 % [facility] Phone: Segs [employer] 4.90 [employer] Work Phone: WBC (Bld) [#/Vol] 9.5 10*3/uL [employer] Work Phone: WBC (Bld) [#/Vol] NOT REPORTED [employer] Phone: [employer] Phone: CBC with Diffon 12-03-2020 Auto Diff Performed NOT REPORTED Normal [facility] Comment on above: Performed By: #### C DP, CP, LIPRF, TSHX, B12FOL, VD25 #### [facility] [address] [place] [address] Flight Test Engineer: Andrew Cai MD Platelet Estimate NOT REPORTED Normal [facility] Comment on above: Performed By: #### C DP, CP, LIPRF, TSHX, B12FOL, VD25 #### [facility] [employer] [address] [place] [address] Flight Test Engineer: Andrew Cai MD WBC Morphology NOT REPORTED Normal [facility] Comment on above: Performed By: #### C DP, CP, LIPRF, TSHX, B12FOL, VD25 #### [facility] [address] [place] [address] Flight Test Engineer: Andrew Cai MD Comp Metabolic Profon 2020 BUN/CRE Ratio NOT REPORTED Normal - [facility] Comment on above: Performed By: #### C DP, CP, LIPRF, TSHX, B12FOL, VD25 #### [facility] [address] [place] [address] Flight Test Engineer: Andrew Cai MD Staging: NOT REPORTED Normal [facility] Comment on above: Performed By: #### C DP, CP, LIPRF, TSHX, B12FOL, VD25 #### [facility] [address] [place] [address] Flight Test Engineer: Andrew Cai MD Comprehensive Metabolic Pane lOrdered By: Ruby Dunbar on 12-03-2020 Albumin [Mass/Vol] 4.4 g/dL 3.5 - 5.2 g/dL [employer] Phone: Albumin/Globulin [Mass ratio] 1.5 {ratio} [employer] Phone: ALP (Bld) [Catalytic activity/Vol] 60 U/L 40 - 129 U/L [employer] Phone: ALT [Catalytic activity/Vol] 16 U/L 5 - 41 U/L [employer] Phone: Anion gap [Moles/Vol] 13 mmol/L 9 - 17 mmol/L [employer] Phone: AST [Catalytic activity/Vol] 31 U/L <40 [employer] Phone: Bilirubin [Mass/Vol] 0.47 mg/dL 0.3 - 1 .2 mg/dL [employer] Phone: Calcium [Mass/Vol] 9.5 mg/dL 8.6 - 10. 4 mg/dL [employer] Phone: Chloride [Moles/Vol] 99 mmol/L 98 - 10 7 mmol/L [employer] Phone: CO2 [Moles/Vol] 22 mmol/L 20 - 31 mmol/L [employer] Phone: Creatinine [Mass/Vol] 1.24 mg/dL High 0.70 - 1.20 mg/dL [employer] Phone: Free PSA/Total PSA [Mass fraction] 7.4 g/dL 6.4 - 8.3 g/dL [employer] Phone: GFR >60 >60 mL/min [employer] Phone: GFR Non- 59 mL/min Low >60 [employer] Phone: GFR/1.73 sq M.predicted MDRD (S/P/Bld) [Vol rate/Area] [employer] Phone: Comment on above: Average GFR for 60-6 9 years old: 85 mL/min/1.73sq m Chronic Kidney Disease: <60 mL/min/1.73sq m Kidney failure: <15 mL/min/1.73sq m eGFR calculated using average adult body mass. Additional eGFR calculator available at: http://www.Quincee/multiple_crcl_2012.htm GFR/1.73 sq M.predicted MDRD (S/P/Bld) [Vol rate/Area] NOT REPORTED [employer] Phone: Glucose [Mass/Vol] 74 mg/dL 70 - 99 mg/dL [employer] Phone: Potassium [Moles/Vol] 5.1 mmol/L 3.7 - 5.3 mmol/L [employer] Phone: Sodium [Moles/Vol] 134 mmol/L Low 135 - 144 mmol/L [employer] Phone: Urea nitrogen (BldV) [Mass/Vol] 29 mg/dL High 8 - 23 mg/dL [employer] Phone: Urea nitrogen/Creatinine (Bld) [Mass ratio] NOT REPORTED [employer] Phone: Laboratory - Chemistry and C hemistry - challengeOrdered By: Ruby Dunbar on 12-03-2020 Albumin [Mass/Vol] 4.4 g/dL (3.5-5.2 ) [facility] Work Phone: Comment on above: Note: Responsible Ob windows server administrator: CEEV AUTOFILE ([id number]) ALT [Catalytic activity/Vol] 16 U/L (5-41 ) [facility] Work Phone: Comment on above: Note: Responsible Ob windows server administrator: CEEV AUTOFILE ([id number]) Anion gap [Moles/Vol] 13 mmol/L (9-17 ) [facility] Work Phone: Comment on above: Note: Responsible Ob windows server administrator: CEEV AUTOFILE ([id number]) AST [Catalytic activity/Vol] 31 U/L (<40 ) [facility] Work Phone: Comment on above: Note: Responsible Ob windows server administrator: CEEV AUTOFILE ([id number]) Bilirubin [Mass/Vol] 0.47 mg/dL (0.3-1.2 ) [facility] Work Phone: Comment on above: Note: Responsible Ob windows server administrator: CEEV AUTOFILE ([id number]) Calcium [Mass/Vol] 9.5 mg/dL (8.6-10.4 ) [facility] Work Phone: Comment on above: Note: Responsible Ob windows server administrator: CEEV AUTOFILE ([id number]) Chloride [Moles/Vol] 99 mmol/L (98-107 ) [facility] Work Phone: Comment on above: Note: Responsible Ob windows server administrator: CEEV AUTOFILE ([id number]) Cholesterol [Mass/Vol] 116 mg/dL (<200 ) [facility] Work Phone: Comment on above: Note: Cholesterol Gu idelines:<200 [id number] Borderline>240 UndesirableResponsible Observer: CEEV AUTOFILE ([id number]) Cholesterol.total/Delores sterol in HDL [Mass ratio] 2.5 {ratio} (<5 ) [facility] Work Phone: Comment on above: Note: Responsible Ob windows server administrator: CEEV AUTOFILE ([id number]) CO2 [Moles/Vol] 22 mmol/L (20-31 ) [facility] Work Phone: Comment on above: Note: Responsible Ob windows server administrator: CEEV AUTOFILE ([id number]) Cobalamin (Vitamin B12) [Mass/Vol] 1030 pg/mL (232-1245 ) [facility] Work Phone: Comment on above: Note: Responsible Ob windows server administrator: CEEV AUTOFILE ([id number]) Creatinine [Mass/Vol] 1.24 mg/dL High (0.70- 1.20 ) [facility] Work Phone: Comment on above: Note: Responsible Ob windows server administrator: CEEV AUTOFILE ([id number]) Glucose [Mass/Vol] 74 mg/dL (70-99 ) [facility] Work Phone: Comment on above: Note: Responsible Ob windows server administrator: CEEV AUTOFILE ([id number]) Magnesium [Mass/Vol] 47 mg/dL (>40 ) [facility] Work Phone: Comment on above: Note: HDL Guidelines :<40 [id number] Borderline>59 DesirableResponsible Observer: CEEV AUTOFILE ([id number]) Magnesium [Mass/Vol] 226 mg/dL High (<150 ) [facility] Work Phone: Comment on above: Note: Triglyceride G uidelines:<150 [id number] High>499 Very highBased on AHA Guidelines for fasting triglyceride, March 2012.Responsible Observer: CEEV AUTOFILE ([id number]) Potassium [Moles/Vol] 5.1 mmol/L (3.7-5.3 ) [facility] Work Phone: Comment on above: Note: Responsible Ob windows server administrator: CEEV AUTOFILE ([id number]) Protein [Mass/Vol] 7.4 g/dL (6.4-8.3 ) [facility] Work Phone: Comment on above: Note: Responsible Ob windows server administrator: CEEV AUTOFILE ([id number]) Sodium [Moles/Vol] 134 mmol/L Low (135-144 ) [facility] Work Phone: Comment on above: Note: Responsible Ob windows server administrator: CEEV AUTOFILE ([id number]) Urea nitrogen [Mass/Vol] 29 mg/dL High (8-23 ) [facility] Work Phone: Comment on above: Note: Responsible Ob windows server administrator: CEEV AUTOFILE ([id number]) Laboratory - Hematology and Cell countsOrdered By: Ruby Dunbar on 12-03-2020 Basophils/100 WBC (Bld) 1 % (0-2 ) [facility]: Comment on above: Note: Responsible Ob windows server administrator: XNV AUTOFILE (3018) Eosinophils (Bld) [#/Vol] 0.42 10*3/uL (0.00-0.44 ) [facility] Work Phone: Comment on above: Note: Responsible Ob windows server administrator: XNV AUTOFILE (3018) Eosinophils/100 WBC (Bld) 4 % (1-4 ) [facility] Work Phone: Comment on above: Note: Responsible Ob windows server administrator: XNV AUTOFILE (3018) Erythrocyte distribution width (RBC) [Ratio] 12.9 % (11.8-14.4 ) [facility] Work Phone: Comment on above: Note: Responsible Ob windows server administrator: XNV AUTOFILE (3018) Hematocrit (Bld) [Volume fraction] 42.5 % (40.7-50.3 ) [facility] Work Phone: Comment on above: Note: Responsible Ob windows server administrator: XNV AUTOFILE (3018) Hemoglobin (Bld) [Mass/Vol] 13.4 g/dL (13.0-17.0 ) [facility] Work Phone: Comment on above: Note: Responsible Ob windows server administrator: XNV AUTOFILE (3018) Immature granulocytes/100 WBC (Bld) 0 % (0 ) [facility] Work Phone: Comment on above: Note: Responsible Ob windows server administrator: XNV AUTOFILE (3018) Lymphocytes (Bld) [#/Vol] 3.35 10*3/uL (1.10-3.70 ) [facility] Work Phone: Comment on above: Note: Responsible Ob windows server administrator: XNV AUTOFILE (3018) Lymphocytes/100 WBC (Bld) 35 % (24-43 ) [facility] Work Phone: Comment on above: Note: Responsible Ob windows server administrator: XNV AUTOFILE (3018) MCH (RBC) [Entitic mass] 33.2 pg (25.2-33.5 ) [facility] Work Phone: Comment on above: Note: Responsible Ob windows server administrator: XNV AUTOFILE (3018) MCHC (RBC) [Mass/Vol] 31.5 g/dL (28.4- 34.8 ) [facility] Work Phone: Comment on above: Note: Responsible Ob windows server administrator: XNV AUTOFILE (3018) MCV (RBC) [Entitic vol] 105.2 fL High (82. 6-102. 9 ) [facility] Work Phone: Comment on above: Note: Responsible Ob windows server administrator: XNV AUTOFILE (3018) Monocytes (Bld) [#/Vol] 0.77 10*3/uL (0.1 0-1.20 ) [facility] Work Phone: Comment on above: Note: Responsible Ob windows server administrator: XNV AUTOFILE (3018) Monocytes/100 WBC (Bld) 8 % (3-12 ) [facility] Work Phone: Comment on above: Note: Responsible Ob windows server administrator: XNV AUTOFILE (3018) Platelet mean volume (Bld) [Entitic vol] 10.4 fL (8.1-13.5 ) [facility] Work Phone: Comment on above: Note: Responsible Ob windows server administrator: XNV AUTOFILE (3018) Platelets (Bld) [#/Vol] 252 10*3/uL (138-453 ) [facility] Work Phone: Comment on above: Note: Responsible Ob windows server administrator: XNV AUTOFILE (3018) RBC (Bld) [#/Vol] 4.04 10*6/uL Low (4.21-5.77 ) [facility] Work Phone: Comment on above: Note: Responsible Ob windows server administrator: XNV AUTOFILE (3018) RBC morphology finding Nom (Bld) MACROCYTOSIS PRESENT [facility] Work Phone: Comment on above: Note: Responsible Ob windows server administrator: XNV AUTOFILE ([id number]) Segmented neutrophils/100 WBC (Bld) 52 % (36-65 ) [facility] Work Phone: Comment on above: Note: Responsible Ob windows server administrator: XNV AUTOFILE (3018) WBC (Bld) [#/Vol] 9.5 10*3/uL (3.5-11.3 ) [facility] Work Phone: Comment on above: Note: Responsible Ob windows server administrator: XNV AUTOFILE ([id number]) Lipid Prof, Fastingon 2020 Cholesterol,VLDL NOT REPORTED Normal 1-30 [facility] Comment on above: Performed By: #### C DP, CP, LIPRF, TSHX, B12FOL, VD25 #### [facility] [place] [address] Flight Test Engineer: Andrew Cai MD Lipid, FastingOrdered By: Merry Dunbar on 12-03-2020 Cholesterol [Mass/Vol] 116 mg/dL <200 [facility] Phone: Comment on above: Cholesterol Guidelines: <200 Desirable 200-240 Borderline >240 Undesirable Cholesterol in HDL [Mass/Vol] 47 mg/dL >40 [employer] Phone: Comment on above: HDL Guidelines: <40 Undesirable 40-59 Borderline >59 Desirable Cholesterol in LDL [Mass/Vol] 24 mg/dL 0 - 130 mg/dL [employer] Phone: Comment on above: LDL Guidelines: <100 Desirable 100-129 Near to/above Desirable 130-159 Borderline >159 Undesirable Direct (measured) LDL and calculated LDL are not interchangeable tests. Cholesterol in VLDL [Mass/Vol] NOT REPORTED High 1 - 30 mg/dL [employer] Phone: Cholesterol.total/Delores sterol in HDL [Mass ratio] 2.5 {ratio} <5 [employer] Phone: Triglyceride, Fasting 226 mg/dL High <150 Marybeth [facility] Work Phone: Comment on above: Triglyceride Guidelines: <150 Desirable 150-199 Borderline 200-499 High >499 Very high Based on AHA Guidelines for fasting triglyceride, March 2012. No Panel InformationOrdered By: Ruby Dunbar on 12-03-2020 Interpretation and review of laboratory results Abnormal [facility] Work Phone: [facility] Work Phone: (cont.) See Note [facility] Work Phone: Comment on above: Note: Average GFR fo r 60-69 years old:85 mL/min/1.73sq mChronic Kidney Disease:<60 mL/min/1.73sq mKidney failure:<15 mL/min/1.73sq meGFR calculated using average adult body mass. Additional eGFR calculatoravailable at:http://www.Quincee/multiple_crcl_2011.htmResponsible Observer: CEEV AUTOFILE ([id number]) Abs. Basophil 0.06 k/uL (0.00-0.20 ) [facility] Work Phone: Comment on above: Note: Responsible Ob windows server administrator: XNV AUTOFILE ([id number]) Abs.Imm.Granulocyte 0.03 k/uL (0.00-0. 30 ) [facility] Work Phone: Comment on above: Note: Responsible Ob windows server administrator: XNV AUTOFILE ([id number]) Abs.Neutrophil (Seg) 4.90 k/uL (1.50-8 .10 ) [facility] Work Phone: Comment on above: Note: Responsible Ob windows server administrator: XNV AUTOFILE ([id number]) Albumin/Glob Ratio 1.5 (1.0-2.5 ) [facility] Work Phone: Comment on above: Note: Responsible Ob windows server administrator: CEEV AUTOFILE ([id number]) Alkaline Phos 60 U/L (40-129 ) [facility] Work Phone: Comment on above: Note: Responsible Ob windows server administrator: CEEV AUTOFILE ([id number]) Auto Diff Performed NOT REPORTED [facility] Work Phone: BUN/CRE Ratio NOT REPORTED (9-20 ) [facility] Work Phone: Cholesterol,LDL 24 mg/dL (0-130 ) [facility] Work Phone: Comment on above: Note: LDL Guidelines :<100 [id number] Near to/above Jcisseziv489-214 Borderline>159 UndesirableDirect (measured) LDL and calculated LDL are not interchangeable tests.Responsible Observer: CEEV AUTOFILE ([id number]) Cholesterol,VLDL NOT REPORTED mg/dL (1-30 ) [facility] Work Phone: Folic Acid >20.0 ng/mL (>4.8 ) [facility] Work Phone: Comment on above: Note: Responsible Ob windows server administrator: ARCADIO GODFREY ([id number]) GFR, Amer >60 mL/min (>60 ) [facility] Work Phone: Comment on above: Note: Responsible Ob windows server administrator: CEEV AUTOFILE ([id number]) GFR,non Amer 59 mL/min Low (>60 ) [facility] Work Phone: Comment on above: Note: Responsible Ob windows server administrator: CEEV AUTOFILE ([id number]) NRBC Automated 0.0 per_100_WBC (0.0 ) [facility] Work Phone: Comment on above: Note: Responsible Ob windows server administrator: XNV AUTOFILE ([id number]) Platelet Estimate NOT REPORTED [facility] Work Phone: Reported Physicians See Note [facility] Work Phone: Comment on above: Note: Reported Physi cians:Ordering: Stephanie Dunbartending: Ruby Dunbar Referring: Ruby Dunbar Staging: NOT REPORTED [facility] Work Phone: Thyroid Stim. Horm. 2.87 mIU/L (0.30-5. 00 ) [facility] Work Phone: Comment on above: Note: Responsible Ob windows server administrator: ClasesD AUTOFILE ([id number]) Vitamin D 25 OH 60.6 ng/mL (30.0-100. 0 ) [facility] Work Phone: Comment on above: Note: Reference Rang e:Vitamin D status RangeDeficiency <20 ng/mLMild Deficiency 20-30 ng/mLSufficiency 30-100 ng/mLToxicity >100 ng/mLResponsible Observer: ARCADIO GODFREY ([id number]) WBC Morphology NOT REPORTED [facility] Work Phone: TSH with ReflexOrdered By: Ramiro Dunbar on 12-03-2020 TSH Qn 2.87 m[IU]/L [facility] Work Phone: [facility] Work Phone: Vitamin B12 & FolateOrdered By: Ruby Dunbar on 12-03-2020 Cobalamin (Vitamin B12) [Mass/Vol] 1030 pg/mL 232 - 1245 pg/mL [employer] [facility] Phone: Folate >20.0 >4.8 ng/mL [facility] [facility] Phone: [employer] Phone: Vitamin D 25 HydroxyOrdered By: Ruby Dunbar on 12-03-2020 Vit D, 25-Hydroxy 60.6 ng/mL 30.0 - 100.0 ng/mL [employer] Phone: Comment on above: Reference Range: Vitamin D status Range Deficiency <20 ng/mL Mild Deficiency 20-30 ng/mL Sufficiency 30-100 ng/mL Toxicity >100 ng/mL [employer] Phone: Laboratory - Microbiology an d Antimicrobial susceptibilityOrdered By: Ruby Dunbar on 09-24-2020 SARS-CoV-2 (COVID-19) RNA EDDIE+probe Ql (Resp) Not detected (Not Detected ) [facility] Work Phone: Comment on above: Note: This nucleic a jose luis amplification test was developed and itsperformance characteristics determined by [facility]. Nucleic acid amplification tests include RT-PCR and TMA. This test has not been FDA cleared orapproved. This test has been authorized by FDA under anEmergency Use Authorization (EUA). This test is onlyauthorized for the duration of time the declaration thatcircumstances exist justifying the authorization of theemergency use of in vitro diagnostic tests for detection [id number] virus and/or diagnosis of COVID-19 infectionunder section 564(b)(1) of the Act, 21 U.S.C. 360bbb-3(b)(1), unless the authorization is terminated or revokedsooner.When diagnostic testing is negative, the possibility of afalse negative result should be considered in the contextof a patient's recent exposures and the presence ofclinical signs and symptoms consistent with COVID-19. Anindividual without symptoms of COVID-19 and who is notshedding SARS-CoV-2 virus would expect to have a negative(not detected) result in this assay. SARS-CoV-2 (COVID-19) RNA EDDIE+probe Ql (Unsp spec) Performed [facility] Work Phone: Diagnostic Cardiac Mail Handler Equipment Operator Procedureon 09-02-2020 Cardiac Diagnostic Report Demographics Patient ALVINA Oleary Date of Study 09/02/2020 Name Date of 1955 Gender Male Age 65 year(s) Race Room [id number]^MARIANELA Height: 72 inch, 182.88 cm Number Corporate [id number] Weight: 184 pounds, 83.6 kg ID # Patient [id number] BSA: 2.06 m^2 BMI: 25 kg/m^2 Acct # MR # [id number] Performing Physician Sammie Ruiz Referring Physician # Assisting Physician Procedure Procedure Type: Diagnostic procedure: Lt Heart, Coronary Angio, LV pressure Complications: - No complication Conclusions Procedure Summary 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 Normal left ventricular end diastolic pressure. (LVEDP). Recommendations Proceed with aggressive risk factor modification including aspirin, beta rona and statin if clinically indicated. Signature Angiographic Findings Cardiac Arteries and Lesion Findings LMCA: Normal 0% stenosis. LAD: Mild irregularities 20-30%. LCx: Mild irregularities 10-20%. RCA: Lesion on Mid RCA: Mid subsection.100% stenosis. Coronary Tree Dominance: Left LV function assessed as:Abnormal. Ejection Fraction + +--- ---+ !Method !EF% ! + +--- ---+ !Radionucleotide !46 ! + +--- ---+ Ventriculography Findings: Normal left ventricular end diastolic pressure (LVEDP) with no significant aortic valve gradient seen on pull-back across the aortic valve. Procedure Data Procedure Start Time: 09/02/2020 14:05. Procedure End Time: 09/02/2020 14:21. Diagnostic Cath Status: Elective Entry Locations - Retrograde Percutaneous access was performed through the Right Radial artery. A 6 Fr sheath was inserted. Hemostasis was successfully obtained using Pressure Dressing. Procedure Medications: - Lidocaine HCl 1% 10mg/ml S.Q. 3 ml. - Nitroglycerin S.Q. 100 mcg. - Versed I.V. 1 mg. - Versed I.V. 1 mg. - 0.9 % NaCl I.V. bolus 1000 ml/hr. - Heparin I.V. bolus 5000 units. Catheters and Wires: - 6 Fr. Radial TIG 4.0 was used for Right coronary angiography. - 6 Fr. Radial TIG 4.0 was used for Left coronary angiography. - 6F Catheter Straight Pigtail was used for LV Pressure. Contrast Material: - Isovue 41243 ml Fluoroscopy Time: Diagnostic: 1:05 minutes. Total: 1:05 minutes. Estimated Blood Loss: 5 ml. Medical History Performed Procedures and Imaging Results - Stress testing with SPECT MPIwas performed. Results were: Positive. Risk/Extent of ischemia was: Intermediate risk. Allergies - Contrast. - Shellfish. Risk Factors The patient risk factors include:cerebrovascular disease, treated hypercholesterolemia, treated hypertension, last creatinine: 241 mg/dl, creatinine clearance: 0.36 ml/min and Current - Every day tobacco use. Admission Data Admission Date: 09/02/2020 Admission Status: Outpatient. Pre Admission Medications + +------+----- + --+ +------- ---+ !Medication!Dosage!Times Per Day !Start date !Stop date !Comments ! + +------+----- + --+ +------- ---+ !Aspirin !325 mg! ! ! ! ! 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 Hemodynamics Condition: Baseline Room Air Estimated: 237.81Heart Rate: 67 bpm Pressure +-----+ ---+ !Site !Pressure ! +-----+ ---+ !AO !98/47 (70) ! +-----+ ---+ !AO !90/49 (64) ! +-----+ ---+ !LV !105/1 ,4 ! +-----+ ---+ !LV !107/0 ,8 ! +-----+ ---+ Valve Gradients and Areas + +---------+- --------+---------+----- -----+---------+-------- ---+ !Valve !Peak !Mean !Area !Index !Flow !Source ! + +---------+- --------+---------+----- -----+---------+-------- ---+ !Aortic !5 !8 ! ! ! ! ! + +---------+- --------+---------+----- -----+---------+-------- ---+ !Aortic !5 !8 ! ! ! ! ! + +---------+- --------+---------+----- -----+---------+-------- ---+ Shunts Oxygen Values O2 Nugoxmqs817.12O2 Vrzouajgpeu506.81 [facility] Work Phone: Jurgen, pn Incoming Cardio Results From [facility] - 09/02/2020 4:01 PM EST Cardiac Diagnostic Report Demographics Patient ALVINA Oleary Date of Study 09/02/2020 Name Date of 1955 Gender Male Age 65 year(s) Race Room [id number]^MIRNA^SAMMIE Height: 72 inch, 182.88 cm Number Corporate [id number] Weight: 184 pounds, 83.6 kg ID # Patient [id number] BSA: 2.06 m^2 BMI: 25 kg/m^2 Acct # MR # [id number] Performing Physician Sammie Ruiz Referring Physician # Assisting Physician Procedure Procedure Type: Diagnostic procedure: Lt Heart, Coronary Angio, LV pressure Complications: - No complication Conclusions Procedure Summary 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 Normal left ventricular end diastolic pressure. (LVEDP). Recommendations Proceed with aggressive risk factor modification including aspirin, beta rona and statin if clinically indicated. Signature Angiographic Findings Cardiac Arteries and Lesion Findings LMCA: Normal 0% stenosis. LAD: Mild irregularities 20-30%. LCx: Mild irregularities 10-20%. RCA: Lesion on Mid RCA: Mid subsection.100% stenosis. Coronary Tree Dominance: Left LV function assessed as:Abnormal. Ejection Fraction + +--- --- + !Method !EF% ! + +--- --- + !Radionucleotide !46 ! + +--- --- + Ventriculography Findings: Normal left ventricular end diastolic pressure (LVEDP) with no significant aortic valve gradient seen on pull-back across the aortic valve. Procedure Data Procedure Start Time: 09/02/2020 14:05. Procedure End Time: 09/02/2020 14:21. Diagnostic Cath Status: Elective Entry Locations - Retrograde Percutaneous access was performed through the Right Radial artery. A 6 Fr sheath was inserted. Hemostasis was successfully obtained using Pressure Dressing. Procedure Medications: - Lidocaine HCl 1% 10mg/ml S.Q. 3 ml. - Nitroglycerin S.Q. 100 mcg. - Versed I.V. 1 mg. - Versed I.V. 1 mg. - 0.9 % NaCl I.V. bolus 1000 ml/hr. - Heparin I.V. bolus 5000 units. Catheters and Wires: - 6 Fr. Radial TIG 4.0 was used for Right coronary angiography. - 6 Fr. Radial TIG 4.0 was used for Left coronary angiography. - 6F Catheter Straight Pigtail was used for LV Pressure. Contrast Material: - Isovue 50425 ml Fluoroscopy Time: Diagnostic: 1:05 minutes. Total: 1:05 minutes. Estimated Blood Loss: 5 ml. Medical History Performed Procedures and Imaging Results - Stress testing with SPECT MPIwas performed. Results were: Positive. Risk/Extent of ischemia was: Intermediate risk. Allergies - Contrast. - Shellfish. Risk Factors The patient risk factors include:cerebrovascular disease, treated hypercholesterolemia, treated hypertension, last creatinine: 241 mg/dl, creatinine clearance: 0.36 ml/min and Current - Every day tobacco use. Admission Data Admission Date: 09/02/2020 Admission Status: Outpatient. Pre Admission Medications + +------+----- + --+ +------- --- + !Medication!Dosage!Times Per Day !Start date !Stop date !Comments ! + +------+----- + --+ +------- --- + !Aspirin !325 mg! ! ! ! ! 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 Hemodynamics Condition: Baseline Room Air Estimated: 237.81Heart Rate: 67 bpm Pressure +-----+ --- + !Site !Pressure ! +-----+ --- + !AO !98/47 (70) ! +-----+ --- + !AO !90/49 (64) ! +-----+ --- + !LV !105/1 ,4 ! +-----+ --- + !LV !107/0 ,8 ! +-----+ --- + Valve Gradients and Areas + +---------+- --------+---------+----- -----+---------+-------- --- + !Valve !Peak !Mean !Area !Index !Flow !Source ! + +---------+- --------+---------+----- -----+---------+-------- --- + !Aortic !5 !8 ! ! ! ! ! + +---------+- --------+---------+----- -----+---------+-------- --- + !Aortic !5 !8 ! ! ! ! ! + +---------+- --------+---------+----- -----+---------+-------- --- + Shunts Oxygen Values O2 Bpdalbhl092.12O2 Fzejcytoybh994.81 [employer] Phone: Basic Metabolic Panelon 03-0 Anion gap [Moles/Vol] 10 mmol/L 9 - 17 mmol/L [employer] Phone: Bun/Cre Ratio 25 High [employer] Work Phone: Calcium [Mass/Vol] 9.7 mg/dL 8.6 - 10. 4 mg/dL [employer] Phone: Chloride [Moles/Vol] 97 mmol/L Low 98 - 10 7 mmol/L [employer] Phone: CO2 [Moles/Vol] 28 mmol/L 20 - 31 mmol/L [employer] Phone: Creatinine [Mass/Vol] 1.24 mg/dL High 0.70 - 1.20 mg/dL [facility] Phone: GFR >60 >60 mL/min [employer] Phone: GFR Non- 59 mL/min Low >60 [employer] Phone: Glucose [Mass/Vol] 79 mg/dL 70 - 99 mg/dL [facility] Phone: Interpretation and review of laboratory results Abnormal [facility] Phone: Potassium [Moles/Vol] 5.6 mmol/L High 3.7 - 5.3 mmol/L [facility] Phone: Sodium [Moles/Vol] 135 mmol/L 135 - 144 mmol/L [facility] Phone: Urea nitrogen [Mass/Vol] 31 mg/dL High 8 - 23 mg/dL [facility] Phone: Basic Metabolic Profon 08-31 (cont.) Normal [facility] Comment on above: Result Comment: Aver age GFR for 60-69 years old: 85 mL/min/1.73sq m Chronic Kidney Disease: <60 mL/min/1.73sq m Kidney failure: <15 mL/min/1.73sq m eGFR calculated using average adult body mass. Additional eGFR calculator available at: http://www.BakedCode.XDx/multiple_crcl_2012.htm Performed By: #### B CLAUDIO, CBC #### [facility] [address] [place] [address] Flight Test Engineer: Damien Flores MD Anion gap [Moles/Vol] 10 mmol/L Normal 9-[address] [facility] Comment on above: Performed By: #### B CLAUDIO, CBC #### [facility] [address] [place] [address] Flight Test Engineer: Damien Flores MD BUN/CRE Ratio 25 High 9-20 [facility] Comment on above: Performed By: #### B CLAUDIO, CBC #### [facility] [address] [place] [address] Flight Test Engineer: Damien Flores MD Calcium [Mass/Vol] 9.7 mg/dL Normal 8.6-10.4 [facility] Comment on above: Performed By: #### B CLAUDIO, TRUNG #### [facility] [address] [place], [place] [id number] Flight Test Engineer: Damien Flores MD Chloride [Moles/Vol] 97 mmol/L Low 98-107 [facility] Comment on above: Performed By: #### B MP, CBC #### [facility] [address] [place], [place] [id number] Flight Test Engineer: Damien Flores MD CO2 [Moles/Vol] 28 mmol/L Normal 20-31 [facility] Comment on above: Performed By: #### B MP, CBC #### [facility] [address] [place], [place] [id number] Flight Test Engineer: Damien Flores MD Creatinine [Mass/Vol] 1.24 mg/dL High 0.70-1.[address] [facility] Comment on above: Performed By: #### B MP, CBC #### [facility] [address] [place], [place] [id number] Flight Test Engineer: Damien Flores MD GFR, Amer >60 Normal >60 [facility] Comment on above: Performed By: #### B MP, CBC #### [facility] [address] [place] [address] Flight Test Engineer: Damien Flores MD GFR,non Amer 59 mL/min Low >60 [facility] Comment on above: Performed By: #### B MP, CBC #### [facility] [address] [place] [address] Flight Test Engineer: Damien Flores MD Glucose [Mass/Vol] 79 mg/dL Normal 70-99 [facility] Comment on above: Performed By: #### B MP, CBC #### [facility] [address] [place], [place] [id number] Flight Test Engineer: Damien Flores MD Potassium [Moles/Vol] 5.6 mmol/L High 3.7-5.[address] [facility] Comment on above: Performed By: #### B MP, CBC #### [facility] [address] [place], [place] [id number] Flight Test Engineer: Damien Flores MD Sodium [Moles/Vol] 135 mmol/L Normal 135-144 [facility] Comment on above: Performed By: #### B MP, CBC #### [facility] [address] [place], [place] [id number] Flight Test Engineer: Damien Flores MD Staging: Normal [facility] Comment on above: Result Comment: Stag e 1: Some kidney damage normal GFR Stage 2: Mild kidney damage GFR 60-89 Stage 3: Moderate kidney damage GFR 30-59 Stage 4: Severe kidney damage GFR 15-29 Stage 5: Severe kidney damage GFR <15 ESRD - chronic treatment by dialysis or transplant Performed By: #### B MP, CBC #### [address] [place], [place] [id number] Flight Test Engineer: Damien Flores MD Urea nitrogen [Mass/Vol] 31 mg/dL High 8-23 [facility] Comment on above: Performed By: #### B MP, CBC #### [address] [place], [place] [id number] Flight Test Engineer: Damien Flores MD CBCon 08-31-2020 Erythrocyte distribution width (RBC) [Ratio] 12.9 % Normal 11.8-14.4 [facility] Comment on above: Performed By: #### B MP, CBC #### [facility] [address] [place] [address] Dr[place], [place] [id number] Flight Test Engineer: Damien Flores MD Hematocrit (Bld) [Volume fraction] 43.9 % Normal 40.7-50.3 [facility] Comment on above: Performed By: #### B MP, CBC #### [facility] [address] [place], [place] [id number] Flight Test Engineer: Damien Flores MD Hemoglobin (Bld) [Mass/Vol] 14.2 g/dL Normal 13.0-17.0 [facility] Comment on above: Performed By: #### B MP, CBC #### [address] [place], [place] [address] Flight Test Engineer: Damien Flores MD MCH (RBC) [Entitic mass] 32.9 pg Normal 25.2-33.5 [facility] Comment on above: Performed By: #### B MP, CBC #### [address] [place], [place] [address] Flight Test Engineer: Damien Flores MD MCHC (RBC) [Mass/Vol] 32.3 g/dL Normal 28.4-34.[address] [facility] Comment on above: Performed By: #### B MP, CBC #### [address] [place], [place] [address] Flight Test Engineer: Damien Flores MD MCV (RBC) [Entitic vol] 101.9 fL Normal 82.6-102.9 [facility] Comment on above: Performed By: #### B MP, CBC #### [address] [place], [place] [id number] Flight Test Engineer: Damien Flores MD NRBC Automated 0.0 per 100 WBC Normal 0.0 [facility] Comment on above: Performed By: #### B MP, CBC #### [address] [place], [place] [id number] Flight Test Engineer: Damien Flores MD Platelet mean volume (Bld) [Entitic vol] 9.9 fL Normal 8.1-13.5 [facility] Comment on above: Performed By: #### B MP, CBC #### [address] [place] [address] Flight Test Engineer: Damien Flores MD Platelets (Bld) [#/Vol] 234 10*3/uL Normal 138-453 [facility] Comment on above: Performed By: #### B MP, CBC #### [facility] [address] [place] [address] Flight Test Engineer: Damien Flores MD RBC (Bld) [#/Vol] 4.31 10*6/uL Normal 4.21-5.77 [facility] Comment on above: Performed By: #### B MP, CBC #### [facility] [address] [place] [address] Flight Test Engineer: Damien Flores MD WBC (Bld) [#/Vol] 9.9 10*3/uL Normal 3.5-11.3 [facility] Comment on above: Performed By: #### B MP, CBC #### [facility] [address] [place] [address] Flight Test Engineer: Damien Flores MD Erythrocyte distribution width (RBC) [Ratio] 12.9 % 11.8 - 14.4 % [facility] [employer] Phone: Hematocrit (Bld) [Volume fraction] 43.9 % 40.7 - 50.3 % [facility] Phone: Hemoglobin (Bld) [Mass/Vol] 14.2 g/dL 13.0 - 17.0 g/dL [facility] Phone: MCH (RBC) [Entitic mass] 32.9 pg 25.2 - 33.5 pg [facility] [employer] Phone: MCHC (RBC) [Mass/Vol] 32.3 g/dL 28.4 - 34.8 g/dL [facility] Phone: MCV (RBC) [Entitic vol] 101.9 fL 82.6 - 102.9 fL [employer] Phone: Platelet mean volume (Bld) [Entitic vol] 9.9 fL 8.1 - 13.5 fL [employer] Phone: Platelets (Bld) [#/Vol] 234 10*3/uL [employer] Phone: RBC (Bld) [#/Vol] 4.31 10*6/uL 4.21 - 5.77 m/uL [employer] Phone: WBC (Bld) [#/Vol] 0.0 10*3/uL 0.0 per 100 WBC [employer] Phone: WBC (Bld) [#/Vol] 9.9 10*3/uL [employer] Phone: Metabolic Panelon 08-31-2020 GFR/1.73 sq M predicted among non-blacks MDRD (S/P/Bld) [Vol rate/Area] [employer] Phone: Comment on above: Stage 1: Some kidney damage normal GFR Stage 2: Mild kidney damage GFR 60-89 Stage 3: Moderate kidney damage GFR 30-59 Stage 4: Severe kidney damage GFR 15-29 Stage 5: Severe kidney damage GFR <15 ESRD - chronic treatment by dialysis or transplant Average GFR for 60-6 9 years old: 85 mL/min/1.73sq m Chronic Kidney Disease: <60 mL/min/1.73sq m Kidney failure: <15 mL/min/1.73sq m eGFR calculated using average adult body mass. Additional eGFR calculator available at: http://www.BakedCode.XDx/multiple_crcl_2012.htm EVENT MONITORon 08-24-[address] [address] EVENT MONITOR PATIENT NAME: SHARLENE TINSLEY : 1955 MED REC NO: [id number] ROOM: ACCOUNT NO: [id number] ADMIT DATE: 08/16/2020 PROVIDER: Tawnya Higgins CARDIOVASCULAR DIAGNOSTIC DEPARTMENT DATE OF STUDY: 08/16/2020 ORDERING PROVIDER: Tawnya Higgins MD INTERPRETING PHYSICIAN: Tawnya Higgins MD DIAGNOSIS: Ventricular premature depolarization. PHYSICIAN INTERPRETATION: Recording Length: 3 days, 17 hours. Findings Summary 1. Baseline rhythm is sinus with average heart rate of 67 bpm, ranging between 40 and 114 bpm. 2. Very frequent premature atrial contractions. PACs burden 14%. Mainly isolated with occasional couplets and one atrial run lasted for 7 beats at a heart rate of 152 bpm. 3. Frequent premature ventricular contractions. PVCs burden 4%. Isolated with occasional couplets. No ventricular runs. 4. No patient activated events recorded. Clinical correlation indicated. TAWNYA HIGGINS YUSUF/TASHA_CHARU Doc#: Unknown CC: Normal [facility] CARDIAC STRESS TESTon 2020 CARDIAC STRESS TEST [address] [id number] CARDIAC STRESS TEST PATIENT NAME: SHARLENE TINSLEY : 1955 MED REC NO: [id number] ROOM: ACCOUNT NO: [id number] ADMIT DATE: 08/20/2020 PROVIDER: Tawnya Higgins CARDIOVASCULAR DIAGNOSTIC DEPARTMENT DATE OF STUDY: 08/20/2020 ORDERING PROVIDER: Tawnya Higgins MD INTERPRETING PHYSICIAN: Tawnya Higgins MD EXERCISE MYOCARDIAL PERFUSION STRESS TEST REPORT Rest/Stress single-isotope SPECT imaging with exercise stress and gated SPECT imaging INDICATION: Diagnosis of coronary disease. Assessment of recent chest pain and/or discomfort. Assessment of a cardiac cause of: Abnormal ECG, premature ventricular contractions. CLINICAL HISTORY: The patient is a 65-year-old man with known coronary artery disease. Previous cardiac history includes: Coronary artery disease, stress test, cardiac catheterization, percutaneous transluminal coronary angioplasty. Other previous history includes: Chest pain, palpitations, fatigue, arthritis, smoker, hypertension. Symptoms just prior to testing included: None. Relevant medications: Carvedilol (Coreg). PROCEDURE: The patient performed treadmill exercise using a Rigoberto protocol, completing 6:00 minutes and completing an estimated workload of 7.00 metabolic equivalents (METS). The test was terminated due to fatigue and shortness of breath. The heart rate was 58 beats per minute at baseline and increased to 137 beats per minute at peak exercise, which was 88% of the maximum predicted heart rate. The rest blood pressure was 128/80 mmHg and increased to 162/70 mmHg, which is a normal response. During the procedure, the patient developed fatigue, shortness of breath and leg fatigue, but denied any chest discomfort. Myocardial perfusion imaging: Imaging was performed at rest 30-45 minutes following the injection of 10 mCi of sestamibi. At peak exercise, the patient was injected with 30 mCi of sestamibi and exercise was continued for 1 minute. Gating post-stress tomographic imaging was performed 30-45 minutes after stress. STRESS ECG RESULTS: The resting electrocardiogram demonstrated normal sinus rhythm without definitive ST-segment abnormalities suggestive of myocardial ischemia. At peak exercise and during recovery, the patient developed: Horizontal ST segment changes in leads II, III, AVF, V4, V5, V6, which did meet diagnostic criteria for myocardial ischemia with occasional premature atrial contractions (PACs) and occasional premature ventricular contractions (PVCs). NUCLEAR IMAGING RESULTS: The overall quality of the study is fair. No significant attenuation artifact was seen. There is no evidence of abnormal lung uptake. Additionally, the right ventricle appears normal. The left ventricular cavity is noted to be normal in size on the stress images. There is no evidence of transient ischemic dilatation (TID) of the left ventricle. Gated SPECT imaging demonstrates hypokinesis of the inferior and inferoapical regions. The left ventricular ejection fraction was calculated to be 46%. The rest images demonstrated a moderate perfusion abnormality of moderate intensity in the inferolateral, inferior and inferoapical regions. On stress imaging, a moderate perfusion abnormality of moderate intensity was noted in the inferolateral, inferior and inferoapical regions. IMPRESSION: 1. Abnormal myocardial perfusion study. 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 2. Global left ventricular systolic function was abnormal with an ejection fraction of 46%, with regional wall motion abnormalities. 3. Significant electrocardiographic evidence of myocardial ischemia during EKG monitoring without significant associated arrhythmias. Overall, these results are most consistent with a low to intermediate risk for reversible ischemia. Depending on the patient symptoms and level of clinical suspicion, aggressive medical management vs. additional testing by coronary angiography may be indicated. The sensitivity for detecting ischemia on this test may have been reduced due to the patient being on a beta rona. TAWNYA HIGGINS YUSUF/STEFANIAXavi_PETERTHOM Doc#: Unknown Normal [facility] Cult,Urineon 08-18-2020 Cult,Urine Specimen Description .CLEAN CATCH URINE Special Requests NOT REPORTED Culture NO GROWTH Report Status FINAL 08/17/2020 [facility] Comment on above: Performed By: #### U #### [facility] [address] [place] [address] Flight Test Engineer: Andrew Cai MD [facility] [address] [place] [address] [place] [address] Flight Test Engineer: Damien Flores MD Basic Metabolic Profon 08-16 (cont.) [facility] Comment on above: Result Comment: Aver age GFR for 60-69 years old: 85 mL/min/1.73sq m Chronic Kidney Disease: <60 mL/min/1.73sq m Kidney failure: <15 mL/min/1.73sq m eGFR calculated using average adult body mass. Additional eGFR calculator available at: http://www.BakedCode.XDx/multiple_crcl_2012.htm Performed By: #### C AGNIESZKA, BMP #### [address] [place] [address] Flight Test Engineer: Damien Flores MD Anion gap [Moles/Vol] 9 mmol/L Normal 9-[address] [facility] Comment on above: Performed By: #### C AGNIESZKA, BMP #### [address] [place] [address] Flight Test Engineer: Damien Flores MD BUN/CRE Ratio 19 Normal 9-20 [facility] Comment on above: Performed By: #### C BC, BMP #### [facility] [address] [place] [address] Flight Test Engineer: Damien Flores MD Calcium [Mass/Vol] 10.2 mg/dL Normal 8.6-10.4 [facility] Comment on above: Performed By: #### C BC, BMP #### [facility] [address] [place], [place] [id number] Flight Test Engineer: Damien Flores MD Chloride [Moles/Vol] 99 mmol/L Normal 98-107 [facility] Comment on above: Performed By: #### C BC, BMP #### [facility] [address] [place], [place] [id number] Flight Test Engineer: Damien Flores MD CO2 [Moles/Vol] 27 mmol/L Normal 20-31 [facility] Comment on above: Performed By: #### C BC, BMP #### [facility] [address] [place], [place] [id number] Flight Test Engineer: Damien Flores MD Creatinine [Mass/Vol] 0.97 mg/dL Normal 0.70-1.[address] [facility] Comment on above: Performed By: #### C BC, BMP #### [facility] [address] [place], [place] [id number] Flight Test Engineer: Damien Flores MD GFR, Amer >60 Normal >60 [facility] Comment on above: Performed By: #### C BC, BMP #### [facility] [address] [place], [place] [id number] Flight Test Engineer: Damien Flores MD GFR,non Amer >60 Normal >60 [facility] Comment on above: Performed By: #### C BC, BMP #### [facility] [address] [place], [place] [id number] Flight Test Engineer: Damien Flores MD Glucose [Mass/Vol] 102 mg/dL High 70-99 [facility] Comment on above: Performed By: #### C BC, BMP #### [facility] [address] [place], [place] [id number] Flight Test Engineer: aDmien Flores MD Potassium [Moles/Vol] 4.4 mmol/L Normal 3.7-5.[address] [facility] Comment on above: Performed By: #### C BC, BMP #### [facility] [address] [place] [address] Flight Test Engineer: Damien Flores MD Sodium [Moles/Vol] 135 mmol/L Normal 135-144 [facility] Comment on above: Performed By: #### C BC, BMP #### [address] [place] [address] Flight Test Engineer: Damien Flores MD Staging: Normal [facility] Comment on above: Result Comment: Stag e 1: Some kidney damage normal GFR Stage 2: Mild kidney damage GFR 60-89 Stage 3: Moderate kidney damage GFR 30-59 Stage 4: Severe kidney damage GFR 15-29 Stage 5: Severe kidney damage GFR <15 ESRD - chronic treatment by dialysis or transplant Performed By: #### C BC, BMP #### [address] [place] [address] Flight Test Engineer: Damien Flores MD Urea nitrogen [Mass/Vol] 18 mg/dL Normal 8-23 [facility] Comment on above: Performed By: #### C AGNIESZKA, BMP #### [address] [place] [address] Flight Test Engineer: Damien Flores MD CBCon 08-16-2020 Erythrocyte distribution width (RBC) [Ratio] 12.1 % Normal 11.8-14.4 [facility] Comment on above: Performed By: #### C BC, BMP #### [address] [place] [address] Flight Test Engineer: Damien Flores MD Hematocrit (Bld) [Volume fraction] 42.2 % Normal 40.7-50.3 [facility] Comment on above: Performed By: #### C BC, BMP #### [address] [place] [address] Flight Test Engineer: Damien Flores MD Hemoglobin (Bld) [Mass/Vol] 14.1 g/dL Normal 13.0-17.0 [facility] Comment on above: Performed By: #### C BC, BMP #### [facility] [address] [place] [address] Flight Test Engineer: Damien Flores MD MCH (RBC) [Entitic mass] 33.3 pg Normal 25.2-33.5 [facility] Comment on above: Performed By: #### C BC, BMP #### [address] [place] [address] Flight Test Engineer: Damien Flores MD MCHC (RBC) [Mass/Vol] 33.4 g/dL Normal 28.4-34.[address] [facility] Comment on above: Performed By: #### C AGNIESZKA, BMP #### [address] [place], [place] [id number] Flight Test Engineer: Damien Flores MD MCV (RBC) [Entitic vol] 99.8 fL Normal 82.6-102.9 [facility] Comment on above: Performed By: #### C BC, BMP #### [address] [place], [place] [id number] Flight Test Engineer: Damien Flores MD NRBC Automated 0.0 per 100 WBC Normal 0.0 [facility] Comment on above: Performed By: #### C BC, BMP #### [address] [place], [place] [id number] Flight Test Engineer: Damien Flores MD Platelet mean volume (Bld) [Entitic vol] 9.2 fL Normal 8.1-13.5 [facility] Comment on above: Performed By: #### C BC, BMP #### [address] [place] [address] Flight Test Engineer: Damien Flores MD Platelets (Bld) [#/Vol] 263 10*3/uL Normal 138-453 [facility] Comment on above: Performed By: #### C BC, BMP #### [facility] [address] [place], [place] [id number] Flight Test Engineer: Damien Flores MD RBC (Bld) [#/Vol] 4.23 10*6/uL Normal 4.21-5.77 [facility] Comment on above: Performed By: #### C AGNIESZKA, BMP #### [facility] [address] [place], [place] [id number] Flight Test Engineer: Damien Flores MD WBC (Bld) [#/Vol] 9.4 10*3/uL Normal 3.5-11.3 [facility] Comment on above: Performed By: #### C AGNIESZKA, BMP #### [facility] [address] [place], [place] [id number] Flight Test Engineer: Damien Flores MD Lipid Profileon 08-16-2020 Cholesterol [Mass/Vol] 129 mg/dL Normal <200 [facility] Comment on above: Result Comment: Cholesterol Guidelines: <200 Desirable 200-240 Borderline >240 Undesirable Performed By: #### L IPR #### [address] [address] Flight Test Engineer: Andrew Cai MD Cholesterol in HDL [Mass/Vol] 51 mg/dL Normal >40 [facility] Comment on above: Result Comment: HDL Guidelines: <40 Undesirable 40-59 Borderline >59 Desirable Performed By: #### L IPR #### [facility] [address] [place] [address] Flight Test Engineer: Andrew Cai MD Cholesterol in LDL [Mass/Vol] 36 mg/dL Normal 0-130 [facility] Comment on above: Result Comment: LDL Guidelines: <100 Desirable 100-129 Near to/above Desirable 130-159 Borderline >159 Undesirable Direct (measured) LDL and calculated LDL are not interchangeable tests. Performed By: #### L IPR #### [address] [address] Flight Test Engineer: Andrew Cai MD Cholesterol.total/Delores sterol in HDL [Mass ratio] 2.5 {ratio} Normal <5 [facility] Comment on above: Performed By: #### L IPR #### [address] [address] Flight Test Engineer: Andrew aCi MD Triglyceride [Mass/Vol] 212 mg/dL High <150 [facility] Comment on above: Result Comment: Triglyceride Guidelines: <150 Desirable 150-199 Borderline 200-499 High >499 Very high Based on AHA Guidelines for fasting triglyceride, March 2012. Performed By: #### L IPR #### [address] [address] Flight Test Engineer: Andrew Cai MD Cholesterol in VLDL [Mass/Vol] NOT REPORTED Normal -30 [facility] Comment on above: Performed By: #### L IPR #### [address] [address] Flight Test Engineer: Andrew Cai MD Urinalysis w/ Microon 2020 ----- Normal [facility] Comment on above: Performed By: #### U AMIC #### [facility] [address] [place] [address] Flight Test Engineer: Damien Flores MD Epithelial cells LM.HPF (Urine sed) [#/Area] 0 TO 2 Normal 0-5 [facility] Comment on above: Performed By: #### U AMIC #### [facility] [address] [place] [address] Flight Test Engineer: Damien Flores MD RBC (U) [#/Vol] None Normal 0-2 [facility] Comment on above: Performed By: #### U AMIC #### [facility] [address] [place] [address] Flight Test Engineer: Damien Flores MD WBC (U) [#/Vol] None Normal 0-5 [facility] Comment on above: Performed By: #### U AMIC #### [facility] [address] [place], [place] [address]83 Flight Test Engineer: Damien Flores MD Acetoacetic Acid,Ur Negative Normal [facility] Comment on above: Performed By: #### U AMIC #### [facility] [address] [place], [place] [id number] Flight Test Engineer: Damien Flores MD Bilirubin, SemiQt,Ur Negative Normal NEG [facility] Comment on above: Performed By: #### U AMIC #### [facility] [address] [place], [place] [id number] Flight Test Engineer: Damien Flores MD Color (U) YELLOW Normal YEL [facility] Comment on above: Performed By: #### U AMIC #### [facility] [address] [place], [place] [id number] Flight Test Engineer: Damien Flores MD Glucose Ql (U) Negative Normal [facility] Comment on above: Performed By: #### U AMIC #### [facility] [address] [place], [place] 3015383 Flight Test Engineer: Damien Flores MD Hemoglobin, Ur Negative Normal [facility] Comment on above: Performed By: #### U AMIC #### [facility] [address] [place], [place] [address]83 Flight Test Engineer: Damien Flores MD Leukocyte esterase Test strip Ql (U) Negative Normal [facility] Comment on above: Performed By: #### U AMIC #### [facility] [address] [place], [place] 4023383 Flight Test Engineer: Damien Flores MD Nitrite,Ur Negative Normal [facility] Comment on above: Performed By: #### U AMIC #### [facility] [address] [place], [place] [id number] Flight Test Engineer: Damien Flores MD pH (U) 7.0 [pH] Normal 5.0-9.0 [facility] Comment on above: Performed By: #### U AMIC #### [address] [place], [place] [address]83 Flight Test Engineer: Damien Flores MD Protein Ql (U) Negative Normal NEG [facility] Comment on above: Performed By: #### U AMIC #### [address] [place], [facility]83 Flight Test Engineer: Damien Flores MD Specific gravity (U) [Rel density] 1.020 Normal 1.010-1.02 0 [facility] Comment on above: Performed By: #### U AMIC #### [address] [place], [facility]83 Flight Test Engineer: Damien Flores MD Turbidity CLEAR Normal CLEAR [facility] Comment on above: Performed By: #### U AMIC #### [address] [place], [facility]83 Flight Test Engineer: Damien Flores MD Urobilinogen,Ur Normal Normal NORM [facility] Comment on above: Performed By: #### U AMIC #### [address] [place], [facility]83 Flight Test Engineer: Damien Flores MD Amorphous sediment LM Ql (Urine sed) NOT REPORTED Normal [facility] Comment on above: Performed By: #### U AMIC #### [address] [place], [facility]83 Flight Test Engineer: Damien Flores MD Bacteria LM.HPF (Urine sed) [#/Area] NOT REPORTED Normal [facility] Comment on above: Performed By: #### U AMIC #### [facility] [address] [place] [address] Flight Test Engineer: Damien Flores MD Casts LM.LPF (Urine sed) [#/Area] NOT REPORTED Normal [facility] Comment on above: Performed By: #### U AMIC #### [facility] [address] [place] [address] Flight Test Engineer: Damien Flores MD Comment NOT REPORTED Normal [facility] Comment on above: Performed By: #### U AMIC #### [facility] [address] [place] [address] Flight Test Engineer: Damien Flores MD Crystals LM Nom (Urine sed) NOT REPORTED Normal NONE [facility] Comment on above: Performed By: #### U AMIC #### [facility] [address] [place], [facility]83 Flight Test Engineer: Damien Flores MD Epithelial, Renal NOT REPORTED Normal 0 [facility] Comment on above: Performed By: #### U AMIC #### [facility] [address] [place], [place] [address] Flight Test Engineer: Damien Flores MD Mucus Strands NOT REPORTED Normal [facility] Comment on above: Performed By: #### U AMIC #### [facility] [address] [place], [facility]83 Flight Test Engineer: Damien Flores MD Other Observations NOT REPORTED Normal NREQ [facility] Comment on above: Performed By: #### U AMIC #### [facility] [address] [place], [place] [id number] Flight Test Engineer: Damien Flores MD Trichomonas NOT REPORTED Normal NONE [facility] Comment on above: Performed By: #### U AMIC #### [facility] [address] [place], [place] [id number] Flight Test Engineer: Damien Flores MD Yeast LM Ql (Urine sed) NOT REPORTED Normal NONE [facility] Comment on above: Performed By: #### U [facility] #### [facility] [address] [place] [address] Flight Test Engineer: Damien Flores MD DISCHARGE SUMMARYon 10-02-19 18 DISCHARGE SUMMARY [address] [address] DISCHARGE SUMMARYPATIENT NAME: SHARLENE TINSLEY : 1955MED REC NO: [id number] ROOM: 0210ACCOUNT NO: [id number] ADMIT DATE: 09/20/2017PROVIDER: Isai Martinez DISCH DATE: 10/01/2017HISTORY OF PRESENTING ILLNESS AND REASON FOR CURRENT ADMISSION: Thepatient is a 62-year-old male, who is feeling depressed, sad, hopeless,useless, worthless, complains of lack of energy and motivation. He feelssuicidal and feels that his life is a waste. [facility]PAST PSYCHIATRIC HISTORY: History of major depression and opioiddependence.MEDICAT IONS: His methadone and Percocet are prescribed by his neurologist.PAST MEDICAL HISTORY: History of coronary artery disease, hypertension.SURGERY: For cervical spondylitis.ALLERGIES: HE IS ALLERGIC TO IODINE CONTAINING IV DYE AND PENICILLIN.COURSE DURING THE HOSPITAL STAY: After getting admitted to the hospital,he was started back on aspirin 81 mg p.o. daily, Lipitor 40 mg p.o. daily,carvedilol 3.125 mg p.o. b.i.d., Cymbalta 30 mg daily, Neurontin 900 mgthree times a day, Imdur 30 mg daily, lisinopril 10 mg p.o. daily,methadone 10 mg five times a day, and with this, he has stabilized and heis being discharged home.MENTAL STATUS EXAMINATION AT THE TIME OF DISCHARGE: The patient iscooperative. He has adequate eye contact. He has adequate rapport. Hisspeech is within normal limits. His mood is subjectively okay, objectivelyappears to be euthymic. He has appropriate affect. Thought process withinnormal limits. Thought contents predominantly within normal limits. Hedenies any hallucinations or delusions. He denies any suicidal orhomicidal thoughts or plans. He is of average intelligence. He isoriented to time, place and person. His memory to recent, remote andimmediate events are within normal limits. He has adequate attention andconcentration. His insight and judgment are fair.DIAGNOSES:1. Major depressive disorder.2. Prescription opioid dependence.3. Coronary artery disease.4. Hypertension.5. Cervical spondylitis.TREATMENT AND PLAN: The patient is discharged. He will follow with hisneurologist, primary care physician and lithograph press operator. [facility]. He said heis going today to meet his neurologist to get his methadone and Percocetrenewed from him.ISAI LALOURTID: 10/01/2017 7:07:09 [id number]#: [id number] Doc#: [id number]: Normal [facility] XR CERVICAL SPINE (2-3 VIEWS )on 09-22-2017 XR CERVICAL SPINE (2-3 VIEWS) EXAMINATION:FOUR VIEWS OF THE CERVICAL SPINE09/22/2017 11:20 amCOMPARISON:September 20, 2006HISTORY:Reason for exam:->Neck painOrdering Physician Provided Reason for Exam: Sharp neck pain x 3 months h/oneck surgery.Acuity: AcuteType of Exam: OngoingFINDINGS:Re- demonstration of C4-C6 anterior fusion in stable alignment withoutevidence of complication. C6-C7 and to lesser extent C3-C4 disc spacenarrowing and anterior osteophytosis. Open-mouth view demonstrates the densto be intact. No prevertebral soft tissue swelling.IMPRESSION: Stable cervical spine with no acute abnormality and chronic/postsurgicalfind ings as described.Interpreted by:CHELSIE Hebertigned by:Jo Pelayo MD09/22/17inal result Normal [facility] PSYCHIATRIC EVALUATIONon PSYCHIATRIC EVALUATION [address] [address] PSYCHIATRIC EVALUATIONPATIENT NAME: SHARLENE TINSLEY : 1955MED REC NO: [id number] ROOM: 0210ACCOUNT NO: [id number] ADMIT DATE: 09/20/2017PROVIDER: Isai GerberiCOMPREHENSIVE PSYCHIATRIC EVALUATIONHISTORY OF PRESENTING ILLNESS AND REASON FOR CURRENT ADMISSION: Thepatient is a 62-year-old male feeling depressed, sad, hopeless, useless,worthless, having suicidal thoughts, feels his life is a waste and heshould by cutting himself. With this, he is admitted to [facility].PAST PSYCHIATRIC HISTORY: History of major depressive disorder.MEDICAL AND SURGICAL HISTORY: He said he had history of hepatitis C,currently stable. Hypertension, chronic back pain, coronary arterydisease, history of cancer, dyslipidemia.ALLERGIES: He is allergic to IODINE CONTAINING IV DYE and PENICILLINS.PERSONAL, FAMILY, AND SOCIAL HISTORY: The patient is currently living byhimself. He gets social security disability. He does not have muchsupport from his family. He has brothers and sisters. His parents aredeceased. He denies any intermediate residential time. He denies any family history ofmental illness, suicide or drug and alcohol abuse.MENTAL STATUS EXAMINATION: The patient is cooperative. He has adequatepsychomotor activity. He has adequate rapport. His speech is withinnormal limits. His mood is subjectively sad, objectively appears to bedepressed. He has appropriate affect. Thought process within normallimits. Thought content predominantly of depression, sadness, lack ofenergy and motivation. He has suicidal thoughts and plans to kill himselfby cutting his wrist and . He denies any homicidal thoughts or plans. He denies any hallucinations or delusions. He is of average intelligence. He is oriented to time, place and person. His memory to recent, remote andimmediate events are within normal limits. He has adequate attention andconcentration. His insight and judgement are fair. His abstraction isfair.DIAGNOSES:1. Major depressive disorder.2. Hypertension.3. Dyslipidemia.4. Coronary artery disease.TREATMENT AND PLAN: Admit him, start him on medication, stabilize him. Estimated length of stay 10 days.ISAI MAYMIKALID: 09/20/2017 22:03:55 SI/[id number]#: [id number] Doc#: [id number]: Normal [facility] Vital Signs Date Time Vital Sign Value Performing Clinician Facility 01-24-2024 10:39-0400 Diastolic blood pressure 76 mm[Hg] Didier [facility] 01-24-2024 10:39-0400 Heart rate 56 /min Didier Lee [facility] 01-24-2024 10:39-0400 Mean blood pressure 94 mm[Hg] Didier Lee [facility] 01-24-2024 10:39-0400 Respiratory rate 16 /min Didier [facility] 01-24-2024 10:39-0400 Systolic blood pressure 131 mm[Hg] [facility]ier [facility] 08-16-2023 12:13-0500 Body height 180.3 cm [place] APRN-MR TEACHER Work Phone: [facility] 08-16-2023 12:13-0500 Body mass index (BMI) [Ratio] 26.25 kg/m2 [place] APRN-MR TEACHER Work Phone: [facility] 08-16-2023 12:13-0500 Body temperature 98.1 [degF] [place] APRN-MR TEACHER Work Phone: [facility] 08-16-2023 12:13-0500 Body weight 85.37 kg [place] APRN-MR TEACHER Work Phone: [facility] 08-16-2023 12:13-0500 Diastolic blood pressure 66 mm[Hg] [place] APRN-MR TEACHER Work Phone: [facility] 08-16-2023 12:13-0500 Heart rate 58 /min [place] APRN-MR TEACHER Work Phone: [facility] [employer] [facility] 08-16-2023 12:13-0500 SaO2% (BldA) [Mass fraction] 97 % [place] PAYMENT SPECIALIST-MR TEACHER Work Phone: [facility] [employer] [facility] 08-16-2023 12:13-0500 Systolic blood pressure 110 mm[Hg] [place] PAYMENT SPECIALIST-MR TEACHER Work Phone: [facility] [employer] [facility] 07-27-2023 12:39-0500 Diastolic blood pressure 100 mm[Hg] Lakeisha Recoup [facility] 07-27-2023 12:39-0500 Heart rate 50 /min Lakeisha Recoup [facility] 07-27-2023 12:39-0500 Mean blood pressure 124 mm[Hg] Lakeisha Recoup [facility] 07-27-2023 12:39-0500 Respiratory rate 18 /min Lakeisha Recoup [facility] 07-27-2023 12:39-0500 Systolic blood pressure 171 mm[Hg] Lakeisha Recoup [facility] 04-19-2023 12:30-0400 Body height 182.88 cm Zunilda Agarwal Other [employer] [facility] [employer] Other 04-19-2023 12:30-0400 Body mass index (BMI) [Ratio] 25.82 kg/m2 Zunilda Agarwal Other [employer] Other 04-19-2023 12:30-0400 Body temperature 97.9 [degF] Zunilda Agarwal Other [employer] Other 04-19-2023 12:30-0400 Body weight 86.37 kg Zunilda Agarwal Other [employer] Other 04-19-2023 12:30-0400 Respiratory rate 18 /min Zunilda Agarwal Other [facility] [employer] Other 04-19-2023 12:30-0400 SaO2% (BldA) [Mass fraction] 94 % Zunilda Stefano Other [facility] [employer] Other 04-24-2022 12:05-0400 Diastolic blood pressure 78 mm[Hg] Lakeisha Castellanos [facility] 04-24-2022 12:05-0400 Heart rate 67 /min Lakeisha Castellanos [facility] 04-24-2022 12:05-0400 Mean blood pressure 94 mm[Hg] Lakeisha Castellanos [facility] 04-24-2022 12:05-0400 Respiratory rate 14 /min Lakeisha Castellanos [facility] 04-24-2022 12:05-0400 Systolic blood pressure 127 mm[Hg] Lakeisha Castellanos [facility] 12-27-2021 11:22-0400 Body weight 84.46 kg Gabriel Urbano MD Work Phone: [facility] 12-27-2021 11:22-0400 Diastolic blood pressure 87 mm[Hg] Gabriel Urbano MD Work Phone: [facility] 12-27-2021 11:22-0400 Heart rate 54 /min Gabriel Urbano MD Work Phone: [facility] 12-27-2021 11:22-0400 SaO2% (BldA) [Mass fraction] 98 % Gabriel Urbano MD Work Phone: [facility] 12-27-2021 11:22-0400 Systolic blood pressure 166 mm[Hg] Gabriel Urbano MD Work Phone: [facility] 11-18-2021 11:03-0400 Diastolic blood pressure 79 mm[Hg] Lakeisha Castellanos [facility] 11-18-2021 11:03-0400 Heart rate 47 /min Lakeisha Castellanos [facility] 11-18-2021 11:03-0400 Mean blood pressure 98 mm[Hg] Lakeisha Castellanos [facility] 11-18-2021 11:03-0400 Systolic blood pressure 137 mm[Hg] Lakeisha Castellanos [facility] 09-23-2021 11:57-0400 Diastolic blood pressure 124 mm[Hg] Ruby Dunbar CNP Work Phone: [facility] Work Phone: 09-23-2021 11:57-0400 Systolic blood pressure 166 mm[Hg] Ruby Dunbar CNP Work Phone: [facility] Work Phone: 09-23-2021 10:47-0400 Body height 182.88 cm Ruby Dunbar CNP Work Phone: [facility] Work Phone: 09-23-2021 10:47-0400 Body mass index (BMI) [Ratio] 25.6 kg/m2 Ruby Dunbar CNP Work Phone: [facility] Work Phone: 09-23-2021 10:47-0400 Body surface area Derived from formula 2.08 m2 Ruby Dunbar CNP Work Phone: [facility] Work Phone: 09-23-2021 10:47-0400 Body temperature 96.4 [degF] Ruby Dunbar CNP Work Phone: [facility] Work Phone: 09-23-2021 10:47-0400 Body weight 85.55 kg Ruby Dunbar CNP Work Phone: [facility] Work Phone: 09-23-2021 10:47-0400 Diastolic blood pressure 82 mm[Hg] Ruby Dunbar CNP Work Phone: [facility] Work Phone: 09-23-2021 10:47-0400 Heart rate 74 /min Ruby Dunbar CNP Work Phone: [facility] Work Phone: 09-23-2021 10:47-0400 SaO2% (BldA) [Mass fraction] 98 % Ruby Dunbar CNP Work Phone: [facility] Work Phone: 09-23-2021 10:47-0400 Systolic blood pressure 162 mm[Hg] Ruby Marshal LOPEZ Work Phone: [facility] Work Phone: 09-09-2021 16:22-0400 Body height 182.88 cm Ruby Dunbar CNP Work Phone: [facility] Work Phone: 09-09-2021 16:22-0400 Body mass index (BMI) [Ratio] 24.6 kg/m2 Ruby Dunbar CNP Work Phone: [facility] Work Phone: 09-09-2021 16:22-0400 Body surface area Derived from formula 2.04 m2 Ruby Dunbar CNP Work Phone: [facility] Work Phone: 09-09-2021 16:22-0400 Body temperature 97.6 [degF] Ruby Dunbar CNP Work Phone: [facility] Work Phone: 09-09-2021 16:22-0400 Body weight 82.37 kg Ruby Marshal PSYCHIATRIC SOCIAL WORKER SUPERVISOR Work Phone: [facility] Work Phone: 09-09-2021 16:22-0400 Diastolic blood pressure 72 mm[Hg] Ruby Dunbar PSYCHIATRIC SOCIAL WORKER SUPERVISOR Work Phone: [facility] Work Phone: 09-09-2021 16:22-0400 Heart rate 77 /min Ruby Dunbar PSYCHIATRIC SOCIAL WORKER SUPERVISOR Work Phone: [facility] Work Phone: 09-09-2021 16:22-0400 Respiratory rate 18 /min Ruby Marshal PSYCHIATRIC SOCIAL WORKER SUPERVISOR Work Phone: [facility] Work Phone: 09-09-2021 16:22-0400 SaO2% (BldA) [Mass fraction] 95 % Ruby Dunbar PSYCHIATRIC SOCIAL WORKER SUPERVISOR Work Phone: [facility] Work Phone: 09-09-2021 16:22-0400 Systolic blood pressure 130 mm[Hg] Ruby Dunbar PSYCHIATRIC SOCIAL WORKER SUPERVISOR Work Phone: [facility] Work Phone: 08-26-2021 11:26-0500 Body height 182.88 cm Ruby Dunbar PSYCHIATRIC SOCIAL WORKER SUPERVISOR Work Phone: [facility] Work Phone: 08-26-2021 11:26-0500 Body mass index (BMI) [Ratio] 25.6 kg/m2 Ruby Dunbar PSYCHIATRIC SOCIAL WORKER SUPERVISOR Work Phone: [facility] Work Phone: 08-26-2021 11:26-0500 Body surface area Derived from formula 2.08 m2 Ruby Marshal PSYCHIATRIC SOCIAL WORKER SUPERVISOR Work Phone: [facility] Work Phone: 08-26-2021 11:26-0500 Body temperature 96.8 [degF] Ruby Dunbar CNP Work Phone: [facility] Work Phone: 08-26-2021 11:26-0500 Body weight 85.73 kg Ruby Dunbar CNP Work Phone: [facility] Work Phone: 08-26-2021 11:26-0500 Diastolic blood pressure 88 mm[Hg] Ruby Dunbar PSYCHIATRIC SOCIAL WORKER SUPERVISOR Work Phone: [facility] Work Phone: 08-26-2021 11:26-0500 Heart rate 73 /min Ruby Dunbar CNP Work Phone: [facility] Work Phone: 08-26-2021 11:26-0500 Respiratory rate 18 /min Ruby Dunbar CNP Work Phone: [facility] Work Phone: 08-26-2021 11:26-0500 SaO2% (BldA) [Mass fraction] 98 % Ruby Dunbar CNP Work Phone: [facility] Work Phone: 08-26-2021 11:26-0500 Systolic blood pressure 144 mm[Hg] Ruby Dunbar CNP Work Phone: [facility] Work Phone: 07-26-2021 14:31-0500 Body height 182.88 cm Ruby Dunbar CNP Work Phone: [facility] Work Phone: 07-26-2021 14:31-0500 Body mass index (BMI) [Ratio] 25.6 kg/m2 Ruby Dunbar CNP Work Phone: [facility] Work Phone: 07-26-2021 14:31-0500 Body surface area Derived from formula 2.08 m2 Ruby Dunbar CNP Work Phone: [facility] Work Phone: 07-26-2021 14:31-0500 Body temperature 97.6 [degF] Ruby Dunbar CNP Work Phone: [facility] Work Phone: 07-26-2021 14:31-0500 Body weight 85.73 kg Ruby Dunbar PSYCHIATRIC SOCIAL WORKER SUPERVISOR Work Phone: [facility] Work Phone: 07-26-2021 14:31-0500 Diastolic blood pressure 88 mm[Hg] Ruby Dunbar CNP Work Phone: [facility] Work Phone: 07-26-2021 14:31-0500 Heart rate 76 /min Ruby Dunbar CNP Work Phone: [facility] Work Phone: 07-26-2021 14:31-0500 SaO2% (BldA) [Mass fraction] 97 % Ruby Dunbar CNP Work Phone: [facility] Work Phone: 07-26-2021 14:31-0500 Systolic blood pressure 128 mm[Hg] Ruby Dunbar CNP Work Phone: [facility] Work Phone: 06-03-2021 11:22-0500 Body height 182.88 cm Ruby uDnbar CNP Work Phone: [facility] Work Phone: 06-03-2021 11:22-0500 Body mass index (BMI) [Ratio] 25.1 kg/m2 Ruby Dunbar CNP Work Phone: [facility] Work Phone: 06-03-2021 11:22-0500 Body surface area Derived from formula 2.06 m2 Ruby Dunbar CNP Work Phone: [facility] Work Phone: 06-03-2021 11:22-0500 Body temperature 96.6 [degF] Ruby Dunbar CNP Work Phone: [facility] Work Phone: 06-03-2021 11:22-0500 Body weight 83.92 kg Ruby Dunbar CNP Work Phone: [facility] Work Phone: 06-03-2021 11:22-0500 Diastolic blood pressure 88 mm[Hg] Ruby Dunbar CNP Work Phone: [facility] Work Phone: 06-03-2021 11:22-0500 Heart rate 75 /min Ruby Dunbar CNP Work Phone: [facility] Work Phone: 06-03-2021 11:22-0500 SaO2% (BldA) [Mass fraction] 97 % Ruby Dunbar CNP Work Phone: [facility] Work Phone: 06-03-2021 11:22-0500 Systolic blood pressure 136 mm[Hg] Ruby Dunbar CNP Work Phone: [facility] Work Phone: 05-06-2021 11:05-0500 Body height 182.88 cm Ruby Dunbar CNP Work Phone: [facility] Work Phone: 05-06-2021 11:05-0500 Body mass index (BMI) [Ratio] 25.3 kg/m2 Ruby Dunbar CNP Work Phone: [facility] Work Phone: 05-06-2021 11:05-0500 Body surface area Derived from formula 2.07 m2 Ruby Dunbar CNP Work Phone: [facility] Work Phone: 05-06-2021 11:05-0500 Body temperature 98.3 [degF] Ruby Dunbar CNP Work Phone: [facility] Work Phone: 05-06-2021 11:05-0500 Body weight 84.46 kg Ruby Dunbar CNP Work Phone: [facility] Work Phone: 05-06-2021 11:05-0500 Diastolic blood pressure 80 mm[Hg] Ruby Dunbar CNP Work Phone: [facility] Work Phone: 05-06-2021 11:05-0500 Heart rate 70 /min uRby Dunbar CNP Work Phone: [facility] Work Phone: 05-06-2021 11:05-0500 Respiratory rate 18 /min Ruby Dunbar CNP Work Phone: [facility] Work Phone: 05-06-2021 11:05-0500 SaO2% (BldA) [Mass fraction] 99 % Ruby Dunbar CNP Work Phone: [facility] Work Phone: 05-06-2021 11:05-0500 Systolic blood pressure 130 mm[Hg] Ruby Dunbar PSYCHIATRIC SOCIAL WORKER SUPERVISOR Work Phone: [facility] Work Phone: 04-08-2021 11:38-0400 Body height 185.42 cm Ruby Dunbar CNP Work Phone: [facility] Work Phone: 04-08-2021 11:38-0400 Body mass index (BMI) [Ratio] 24.7 kg/m2 Ruby Dunbar CNP Work Phone: [facility] Work Phone: 04-08-2021 11:38-0400 Body surface area Derived from formula 2.09 m2 Ruby Dunbar CNP Work Phone: [facility] Work Phone: 04-08-2021 11:38-0400 Body temperature 98.7 [degF] Ruby Dunbar PSYCHIATRIC SOCIAL WORKER SUPERVISOR Work Phone: [facility] Work Phone: 04-08-2021 11:38-0400 Body weight 84.82 kg Ruby Dunbar CNP Work Phone: [facility] Work Phone: 04-08-2021 11:38-0400 Diastolic blood pressure 80 mm[Hg] Ruby Dunbar CNP Work Phone: [facility] Work Phone: 04-08-2021 11:38-0400 Heart rate 94 /min Ruby Dunbar CNP Work Phone: [facility] Work Phone: 04-08-2021 11:38-0400 Respiratory rate 18 /min Ruby Dunbar CNP Work Phone: [facility] Work Phone: 04-08-2021 11:38-0400 SaO2% (BldA) [Mass fraction] 98 % Ruby Dunbar CNP Work Phone: [facility] Work Phone: 04-08-2021 11:38-0400 Systolic blood pressure 132 mm[Hg] Ruby Dunbar PSYCHIATRIC SOCIAL WORKER SUPERVISOR Work Phone: [facility] Work Phone: 03-11-2021 11:49-0400 Body height 185.42 cm Ruby Dunbar CNP Work Phone: [facility] Work Phone: 03-11-2021 11:49-0400 Body mass index (BMI) [Ratio] 24.3 kg/m2 Ruby Dunbar CNP Work Phone: [facility] Work Phone: 03-11-2021 11:49-0400 Body surface area Derived from formula 2.08 m2 Ruby Dunbar CNP Work Phone: [facility] Work Phone: 03-11-2021 11:49-0400 Body weight 83.46 kg Ruby Dunbar CNP Work Phone: [facility] Work Phone: 03-11-2021 11:49-0400 Diastolic blood pressure 78 mm[Hg] Ruby Dunbar CNP Work Phone: [facility] Work Phone: 03-11-2021 11:49-0400 Heart rate 64 /min Ruby Dunbar CNP Work Phone: [facility] Work Phone: 03-11-2021 11:49-0400 Respiratory rate 18 /min Ruby Dunbar CNP Work Phone: [facility] Work Phone: 03-11-2021 11:49-0400 SaO2% (BldA) [Mass fraction] 94 % Ruby Dunbar CNP Work Phone: [facility] Work Phone: 03-11-2021 11:49-0400 Systolic blood pressure 120 mm[Hg] Ruby Dunbar PSYCHIATRIC SOCIAL WORKER SUPERVISOR Work Phone: [facility] Work Phone: 02-11-2021 10:48-0400 Body height 185.42 cm Ruby Dunbar PSYCHIATRIC SOCIAL WORKER SUPERVISOR Work Phone: [facility] Work Phone: 02-11-2021 10:48-0400 Body mass index (BMI) [Ratio] 24.4 kg/m2 Ruby Dunbar CNP Work Phone: [facility] Work Phone: 02-11-2021 10:48-0400 Body surface area Derived from formula 2.08 m2 Ruby Dunbar CNP Work Phone: [facility] Work Phone: 02-11-2021 10:48-0400 Body temperature 97.4 [degF] Ruby Dunbar CNP Work Phone: [facility] Work Phone: 02-11-2021 10:48-0400 Body weight 83.73 kg Ruby Dunbar CNP Work Phone: [facility] Work Phone: 02-11-2021 10:48-0400 Diastolic blood pressure 70 mm[Hg] Ruby Dunbar CNP Work Phone: [facility] Work Phone: 02-11-2021 10:48-0400 Heart rate 66 /min Ruby Dunbar CNP Work Phone: [facility] Work Phone: 02-11-2021 10:48-0400 Respiratory rate 18 /min Ruby Dunbar CNP Work Phone: [facility] Work Phone: 02-11-2021 10:48-0400 SaO2% (BldA) [Mass fraction] 98 % Ruby Dunbar CNP Work Phone: [facility] Work Phone: 02-11-2021 10:48-0400 Systolic blood pressure 130 mm[Hg] Ruby Dunbar PSYCHIATRIC SOCIAL WORKER SUPERVISOR Work Phone: [facility] Work Phone: 01-14-2021 10:51-0400 Body height 185.42 cm Ruby Dunbar CNP Work Phone: [facility] Work Phone: 01-14-2021 10:51-0400 Body mass index (BMI) [Ratio] 25.2 kg/m2 Ruby Dunbar CNP Work Phone: [facility] Work Phone: 01-14-2021 10:51-0400 Body surface area Derived from formula 2.11 m2 Ruby Marshal PSYCHIATRIC SOCIAL WORKER SUPERVISOR Work Phone: [facility] Work Phone: 01-14-2021 10:51-0400 Body temperature 97.6 [degF] Ruby Dunbar PSYCHIATRIC SOCIAL WORKER SUPERVISOR Work Phone: [facility] Work Phone: 01-14-2021 10:51-0400 Body weight 86.64 kg Ruby Dunbar CNP Work Phone: [facility] Work Phone: 01-14-2021 10:51-0400 Diastolic blood pressure 82 mm[Hg] Ruby Dunbar CNP Work Phone: [facility] Work Phone: 01-14-2021 10:51-0400 Heart rate 72 /min Ruby Dunbar PSYCHIATRIC SOCIAL WORKER SUPERVISOR Work Phone: [facility] Work Phone: 01-14-2021 10:51-0400 Respiratory rate 18 /min Ruby Dunbar PSYCHIATRIC SOCIAL WORKER SUPERVISOR Work Phone: [facility] Work Phone: 01-14-2021 10:51-0400 SaO2% (BldA) [Mass fraction] 97 % Ruby Dunbar PSYCHIATRIC SOCIAL WORKER SUPERVISOR Work Phone: [facility] Work Phone: 01-14-2021 10:51-0400 Systolic blood pressure 136 mm[Hg] Ruby Dunbar PSYCHIATRIC SOCIAL WORKER SUPERVISOR Work Phone: [facility] Work Phone: 12-31-2020 11:39-0400 Body height 185.42 cm Ruby Dunbar PSYCHIATRIC SOCIAL WORKER SUPERVISOR Work Phone: [facility] Work Phone: 12-31-2020 11:39-0400 Body mass index (BMI) [Ratio] 24.5 kg/m2 Ruby Dunbar PSYCHIATRIC SOCIAL WORKER SUPERVISOR Work Phone: [facility] Work Phone: 12-31-2020 11:39-0400 Body surface area Derived from formula 2.09 m2 Ruby Marshal LOPEZ Work Phone: [facility] Work Phone: 12-31-2020 11:39-0400 Body temperature 97.7 [degF] Ruby Dunbar CNP Work Phone: [facility] Work Phone: 12-31-2020 11:39-0400 Body weight 84.37 kg Ruby Dunbar CNP Work Phone: [facility] Work Phone: 12-31-2020 11:39-0400 Diastolic blood pressure 70 mm[Hg] Ruby Dunbar PSYCHIATRIC SOCIAL WORKER SUPERVISOR Work Phone: [facility] Work Phone: 12-31-2020 11:39-0400 Heart rate 68 /min Ruby Dunbar PSYCHIATRIC SOCIAL WORKER SUPERVISOR Work Phone: [facility] Work Phone: 12-31-2020 11:39-0400 Respiratory rate 18 /min Ruby Dunbar PSYCHIATRIC SOCIAL WORKER SUPERVISOR Work Phone: [facility] Work Phone: 12-31-2020 11:39-0400 SaO2% (BldA) [Mass fraction] 98 % Ruby Dunbar CNP Work Phone: [facility] Work Phone: 12-31-2020 11:39-0400 Systolic blood pressure 128 mm[Hg] Ruby Dunbar PSYCHIATRIC SOCIAL WORKER SUPERVISOR Work Phone: [facility] Work Phone: 12-17-2020 12:23-0400 Diastolic blood pressure 84 mm[Hg] Ruby Dunbar PSYCHIATRIC SOCIAL WORKER SUPERVISOR Work Phone: [facility] Work Phone: 12-17-2020 12:23-0400 Systolic blood pressure 158 mm[Hg] Ruby Dunbar CNP Work Phone: [facility] Work Phone: 12-17-2020 11:28-0400 Body height 185.42 cm Ruby Dunbar CNP Work Phone: [facility] Work Phone: 12-17-2020 11:28-0400 Body mass index (BMI) [Ratio] 23.9 kg/m2 Ruby Dunbar CNP Work Phone: [facility] Work Phone: 12-17-2020 11:28-0400 Body surface area Derived from formula 2.06 m2 Ruby Dunbar CNP Work Phone: [facility] Work Phone: 12-17-2020 11:28-0400 Body temperature 96.4 [degF] Ruby Dunbar CNP Work Phone: [facility] Work Phone: 12-17-2020 11:28-0400 Body weight 82.1 kg Rubyramiro Dunbar PSYCHIATRIC SOCIAL WORKER SUPERVISOR Work Phone: [facility] Work Phone: 12-17-2020 11:28-0400 Diastolic blood pressure 80 mm[Hg] Ruby Dunbar PSYCHIATRIC SOCIAL WORKER SUPERVISOR Work Phone: [facility] Work Phone: 12-17-2020 11:28-0400 Heart rate 67 /min Ruby Dunbar PSYCHIATRIC SOCIAL WORKER SUPERVISOR Work Phone: [facility] Work Phone: 12-17-2020 11:28-0400 Respiratory rate 18 /min Ruyb Marshal PSYCHIATRIC SOCIAL WORKER SUPERVISOR Work Phone: [facility] Work Phone: 12-17-2020 11:28-0400 SaO2% (BldA) [Mass fraction] 99 % Ruby Dunbar PSYCHIATRIC SOCIAL WORKER SUPERVISOR Work Phone: [facility] Work Phone: 12-17-2020 11:28-0400 Systolic blood pressure 142 mm[Hg] Ruby Dunbar PSYCHIATRIC SOCIAL WORKER SUPERVISOR Work Phone: [facility] Work Phone: 12-03-2020 10:53-0400 Body height 185.42 cm Ruby Dunbar PSYCHIATRIC SOCIAL WORKER SUPERVISOR Work Phone: [facility] Work Phone: 12-03-2020 10:53-0400 Body mass index (BMI) [Ratio] 24.4 kg/m2 Ruby Dunbar PSYCHIATRIC SOCIAL WORKER SUPERVISOR Work Phone: [facility] Work Phone: 12-03-2020 10:53-0400 Body surface area Derived from formula 2.08 m2 Ruby Marshal PSYCHIATRIC SOCIAL WORKER SUPERVISOR Work Phone: [facility] Work Phone: 12-03-2020 10:53-0400 Body temperature 97.6 [degF] Ruby Dunbar PSYCHIATRIC SOCIAL WORKER SUPERVISOR Work Phone: [facility] Work Phone: 12-03-2020 10:53-0400 Body weight 83.92 kg Ruby Dunbar CNP Work Phone: [facility] Work Phone: 12-03-2020 10:53-0400 Diastolic blood pressure 78 mm[Hg] Ruby Dunbar PSYCHIATRIC SOCIAL WORKER SUPERVISOR Work Phone: [facility] Work Phone: 12-03-2020 10:53-0400 Heart rate 92 /min Ruby Dunbar PSYCHIATRIC SOCIAL WORKER SUPERVISOR Work Phone: [facility] Work Phone: 12-03-2020 10:53-0400 Respiratory rate 18 /min Ruby Dunbar PSYCHIATRIC SOCIAL WORKER SUPERVISOR Work Phone: [facility] Work Phone: 12-03-2020 10:53-0400 Systolic blood pressure 138 mm[Hg] Ruby Dunbar PSYCHIATRIC SOCIAL WORKER SUPERVISOR Work Phone: [facility] Work Phone: 11-19-2020 11:44-0400 Body height 185.42 cm Ruby Dunbar CNP Work Phone: [facility] Work Phone: 11-19-2020 11:44-0400 Body mass index (BMI) [Ratio] 25.2 kg/m2 Ruby Dunbar CNP Work Phone: [facility] Work Phone: 11-19-2020 11:44-0400 Body surface area Derived from formula 2.11 m2 Ruby Dunbar PSYCHIATRIC SOCIAL WORKER SUPERVISOR Work Phone: [facility] Work Phone: 11-19-2020 11:44-0400 Body temperature 96.7 [degF] Ruby Dunbar PSYCHIATRIC SOCIAL WORKER SUPERVISOR Work Phone: [facility] Work Phone: 11-19-2020 11:44-0400 Body weight 86.55 kg Ruby Dunbar CNP Work Phone: [facility] Work Phone: 11-19-2020 11:44-0400 Diastolic blood pressure 76 mm[Hg] Ruby Dunbar CNP Work Phone: [facility] Work Phone: 11-19-2020 11:44-0400 Heart rate 57 /min Ruby Dunbar CNP Work Phone: [facility] Work Phone: 11-19-2020 11:44-0400 SaO2% (BldA) [Mass fraction] 95 % Ruby Dunbar CNP Work Phone: [facility] Work Phone: 11-19-2020 11:44-0400 Systolic blood pressure 126 mm[Hg] Ruby Dunbar CNP Work Phone: [facility] Work Phone: 11-08-2020 13:49-0400 Body height 185.42 cm Ruby Dunbar CNP Work Phone: [facility] Work Phone: 11-08-2020 13:49-0400 Body mass index (BMI) [Ratio] 24.9 kg/m2 Ruby Dunbar CNP Work Phone: [facility] Work Phone: 11-08-2020 13:49-0400 Body surface area Derived from formula 2.1 m2 Ruby Dunbar CNP Work Phone: [facility] Work Phone: 11-08-2020 13:49-0400 Body temperature 97 [degF] Ruby Dunbar CNP Work Phone: [facility] Work Phone: 11-08-2020 13:49-0400 Body weight 85.73 kg Ruby Dunbar CNP Work Phone: [facility] Work Phone: 11-08-2020 13:49-0400 Diastolic blood pressure 86 mm[Hg] Ruby Dunbar CNP Work Phone: [facility] Work Phone: 11-08-2020 13:49-0400 Heart rate 86 /min Ruby Dunbar CNP Work Phone: [facility] Work Phone: 11-08-2020 13:49-0400 Respiratory rate 18 /min Ruby Dunbar CNP Work Phone: [facility] Work Phone: 11-08-2020 13:49-0400 SaO2% (BldA) [Mass fraction] 98 % Ruby Dunbar CNP Work Phone: [facility] Work Phone: 11-08-2020 13:49-0400 Systolic blood pressure 138 mm[Hg] Ruby Dunbar CNP Work Phone: [facility] Work Phone: 10-22-2020 11:54-0400 Body height 185.42 cm Ruby Dunbar CNP Work Phone: [facility] Work Phone: 10-22-2020 11:54-0400 Body mass index (BMI) [Ratio] 25.3 kg/m2 Ruby Dunbar CNP Work Phone: [facility] Work Phone: 10-22-2020 11:54-0400 Body surface area Derived from formula 2.11 m2 Ruby Dunbar CNP Work Phone: [facility] Work Phone: 10-22-2020 11:54-0400 Body temperature 96.9 [degF] Ruby Dunbar PSYCHIATRIC SOCIAL WORKER SUPERVISOR Work Phone: [facility] Work Phone: 10-22-2020 11:54-0400 Body weight 86.91 kg Ruby Dunbar PSYCHIATRIC SOCIAL WORKER SUPERVISOR Work Phone: [facility] Work Phone: 10-22-2020 11:54-0400 Diastolic blood pressure 70 mm[Hg] Ruby Dunbar PSYCHIATRIC SOCIAL WORKER SUPERVISOR Work Phone: [facility] Work Phone: 10-22-2020 11:54-0400 Heart rate 71 /min Rubyramiro Dunbar PSYCHIATRIC SOCIAL WORKER SUPERVISOR Work Phone: [facility] Work Phone: 10-22-2020 11:54-0400 Respiratory rate 18 /min Ruby Dunbar PSYCHIATRIC SOCIAL WORKER SUPERVISOR Work Phone: [facility] Work Phone: 10-22-2020 11:54-0400 SaO2% (BldA) [Mass fraction] 97 % Ruby Dunbar CNP Work Phone: [facility] Work Phone: 10-22-2020 11:54-0400 Systolic blood pressure 122 mm[Hg] Ruby Dunbar PSYCHIATRIC SOCIAL WORKER SUPERVISOR Work Phone: [facility] Work Phone: 10-08-2020 11:33-0400 Body height 185.42 cm Ruby Dunbar PSYCHIATRIC SOCIAL WORKER SUPERVISOR Work Phone: [facility] Work Phone: 10-08-2020 11:33-0400 Body mass index (BMI) [Ratio] 24.3 kg/m2 Ruby Dunbar PSYCHIATRIC SOCIAL WORKER SUPERVISOR Work Phone: [facility] Work Phone: 10-08-2020 11:33-0400 Body surface area Derived from formula 2.08 m2 Ruby Dunbar CNP Work Phone: [facility] Work Phone: 10-08-2020 11:33-0400 Body temperature 96.9 [degF] Ruby Marshal PSYCHIATRIC SOCIAL WORKER SUPERVISOR Work Phone: [facility] Work Phone: 10-08-2020 11:33-0400 Body weight 83.64 kg Ruby Marshal PSYCHIATRIC SOCIAL WORKER SUPERVISOR Work Phone: [facility] Work Phone: 10-08-2020 11:33-0400 Diastolic blood pressure 70 mm[Hg] Ruby Marshal PSYCHIATRIC SOCIAL WORKER SUPERVISOR Work Phone: [facility] Work Phone: 10-08-2020 11:33-0400 Heart rate 43 /min Ruby Dunbar CNP Work Phone: [facility] Work Phone: 10-08-2020 11:33-0400 Respiratory rate 18 /min Ruby Dunbar PSYCHIATRIC SOCIAL WORKER SUPERVISOR Work Phone: [facility] Work Phone: 10-08-2020 11:33-0400 SaO2% (BldA) [Mass fraction] 97 % Ruby Dunbar PSYCHIATRIC SOCIAL WORKER SUPERVISOR Work Phone: [facility] Work Phone: 10-08-2020 11:33-0400 Systolic blood pressure 138 mm[Hg] Ruby Marshal PSYCHIATRIC SOCIAL WORKER SUPERVISOR Work Phone: [facility] Work Phone: 09-24-2020 11:56-0400 BMI (Body Mass Index) 25.5 kg/m2 Rubyramiro Dunbar [facility] Work Phone: 09-24-2020 11:56-0400 Body Temperature 96.5 [degF] [facility] Work Phone: 09-24-2020 11:56-0400 Body weight 87.73 kg [facility] Work Phone: 09-24-2020 11:56-0400 BP Diastolic 64 mm[Hg] [facility] Work Phone: 09-24-2020 11:56-0400 BP Systolic 132 mm[Hg] [facility] Work Phone: 09-24-2020 11:56-0400 BSA (Body Surface Area) 2.12 m2 [facility] Work Phone: 09-24-2020 11:56-0400 Height 185.42 cm [facility] Work Phone: 09-24-2020 11:56-0400 Pulse (Heart Rate) 67 /min [facility] Work Phone: 09-24-2020 11:56-0400 Respiratory Rate 18 /min [facility] Work Phone: 09-10-2020 11:40-0400 BMI (Body Mass Index) 24.3 kg/m2 [facility] Work Phone: 09-10-2020 11:40-0400 Body Temperature 97 [degF] [facility] Work Phone: 09-10-2020 11:40-0400 Body weight 83.55 kg [facility] Work Phone: 09-10-2020 11:40-0400 BP Diastolic 70 mm[Hg] [facility] Work Phone: 09-10-2020 11:40-0400 BP Systolic 126 mm[Hg] [facility] Work Phone: 09-10-2020 11:40-0400 BSA (Body Surface Area) 2.08 m2 [facility] Work Phone: 09-10-2020 11:40-0400 Height 185.42 cm [facility] Work Phone: 09-10-2020 11:40-0400 Pulse (Heart Rate) 48 /min [facility] Work Phone: 09-10-2020 11:40-0400 Respiratory Rate 18 /min [facility] Work Phone: 09-02-2020 16:30-0500 BP Diastolic 65 mm[Hg] [employer] Work Phone: 09-02-2020 16:30-0500 BP Systolic 106 mm[Hg] [employer] Work Phone: 09-02-2020 16:30-0500 Pulse (Heart Rate) 63 /min [employer] Work Phone: 09-02-2020 16:30-0500 Pulse Oximetry 97 % [employer] Work Phone: 09-02-2020 16:30-0500 Respiratory Rate 15 /min [employer] Work Phone: 09-02-2020 13:07-0500 BMI (Body Mass Index) 24.95 kg/m2 [employer] Work Phone: 09-02-2020 13:07-0500 Body Temperature 97.39 [degF] [employer] Work Phone: 09-02-2020 13:07-0500 Body weight 83.46 kg [employer] Work Phone: 09-02-2020 13:07-0500 Height 182.9 cm S[facility] Work Phone: 08-27-2020 14:24-0500 BMI (Body Mass Index) 24 kg/m2 [facility] Work Phone: 08-27-2020 14:24-0500 Body Temperature 96.7 [degF] [facility] Work Phone: 08-27-2020 14:24-0500 Body weight 82.56 kg [facility] Work Phone: 08-27-2020 14:24-0500 BP Diastolic 80 mm[Hg] [facility] Work Phone: 08-27-2020 14:24-0500 BP Systolic 150 mm[Hg] [facility] Work Phone: 08-27-2020 14:24-0500 BSA (Body Surface Area) 2.07 m2 [facility] Work Phone: 08-27-2020 14:24-0500 Height 185.42 cm [facility] Work Phone: 08-27-2020 14:24-0500 Pulse (Heart Rate) 48 /min [facility] Work Phone: 08-27-2020 14:24-0500 Pulse Oximetry 97 % [facility] Work Phone: 08-27-2020 14:24-0500 Respiratory Rate 18 /min [facility] Work Phone: 08-27-2020 14:24-0500 SaO2% (BldA) [Mass fraction] 97 % [facility] Work Phone: [phone] [place] [address] Work Phone: 08-13-2020 14:06-0500 BMI (Body Mass Index) 23.7 kg/m2 [facility] Work Phone: 08-13-2020 14:06-0500 Body Temperature 95.6 [degF] [facility] Work Phone: 08-13-2020 14:06-0500 Body weight 81.65 kg [facility] Work Phone: 08-13-2020 14:06-0500 BP Diastolic 80 mm[Hg] [facility] Work Phone: 08-13-2020 14:06-0500 BP Systolic 160 mm[Hg] [facility] Work Phone: 08-13-2020 14:06-0500 BSA (Body Surface Area) 2.06 m2 [facility] Work Phone: 08-13-2020 14:06-0500 Height 185.42 cm [facility] Work Phone: 08-13-2020 14:06-0500 Pulse (Heart Rate) 78 /min [facility] Work Phone: 08-13-2020 14:06-0500 Pulse Oximetry 98 % [facility] Work Phone: 08-13-2020 14:06-0500 Respiratory Rate 18 /min [facility] Work Phone: 08-13-2020 14:06-0500 SaO2% (BldA) [Mass fraction] 98 % [facility] Work Phone: [facility] Work Phone: 08-04-2020 13:48-0500 BMI (Body Mass Index) 24.1 kg/m2 [facility] Work Phone: 08-04-2020 13:48-0500 Body Temperature 97.5 [degF] [facility] Work Phone: 08-04-2020 13:48-0500 Body weight 83.01 kg [facility] Work Phone: 08-04-2020 13:48-0500 BP Diastolic 82 mm[Hg] [facility] Work Phone: 08-04-2020 13:48-0500 BP Systolic 158 mm[Hg] [facility] Work Phone: 08-04-2020 13:48-0500 BSA (Body Surface Area) 2.07 m2 [facility] Work Phone: 08-04-2020 13:48-0500 Height 185.42 cm [facility] Work Phone: 08-04-2020 13:48-0500 Pulse (Heart Rate) 61 /min [facility] Work Phone: 08-04-2020 13:48-0500 Pulse Oximetry 95 % [facility] Work Phone: 08-04-2020 13:48-0500 Respiratory Rate 18 /min [facility] Work Phone: 08-04-2020 13:48-0500 SaO2% (BldA) [Mass fraction] 95 % [facility] Work Phone: [facility] Work Phone: 07-27-2020 12:59-0500 BMI (Body Mass Index) 25.3 kg/m2 [facility] Work Phone: 07-27-2020 12:59-0500 Body Temperature 96.8 [degF] [facility] Work Phone: 07-27-2020 12:59-0500 Body weight 87.09 kg [facility] Work Phone: 07-27-2020 12:59-0500 BP Diastolic 82 mm[Hg] [facility] Work Phone: 07-27-2020 12:59-0500 BP Systolic 142 mm[Hg] [facility] Work Phone: 07-27-2020 12:59-0500 BSA (Body Surface Area) 2.11 m2 [facility] Work Phone: 07-27-2020 12:59-0500 Height 185.42 cm [facility] Work Phone: 07-27-2020 12:59-0500 Pulse (Heart Rate) 65 /min [facility] Work Phone: 07-27-2020 12:59-0500 Pulse Oximetry 99 % [facility] Work Phone: 07-27-2020 12:59-0500 Respiratory Rate 18 /min [facility] Work Phone: 07-27-2020 12:59-0500 SaO2% (BldA) [Mass fraction] 99 % [facility] Work Phone: [facility] Work Phone: 07-19-2020 14:35-0500 BMI (Body Mass Index) 24.1 kg/m2 [facility] Work Phone: 07-19-2020 14:35-0500 Body Temperature 95.1 [degF] [facility] Work Phone: 07-19-2020 14:35-0500 Body weight 83.01 kg [facility] Work Phone: 07-19-2020 14:35-0500 BP Diastolic 90 mm[Hg] [facility] Work Phone: 07-19-2020 14:35-0500 BP Systolic 140 mm[Hg] [facility] Work Phone: 07-19-2020 14:35-0500 BSA (Body Surface Area) 2.07 m2 [facility] Work Phone: 07-19-2020 14:35-0500 Height 185.42 cm [facility] Work Phone: 07-19-2020 14:35-0500 Pulse (Heart Rate) 97 /min [facility] Work Phone: 07-19-2020 14:35-0500 Pulse Oximetry 98 % [facility] Work Phone: 07-19-2020 14:35-0500 Respiratory Rate 18 /min [facility] Work Phone: 07-19-2020 14:35-0500 SaO2% (BldA) [Mass fraction] 98 % Ruby Dunbar CNP Work Phone: [facility] Work Phone: 07-13-2020 14:34-0500 BMI (Body Mass Index) 24.4 kg/m2 [facility] Work Phone: 07-13-2020 14:34-0500 Body Temperature 97.7 [degF] [facility] Work Phone: 07-13-2020 14:34-0500 Body weight 83.92 kg [facility] Work Phone: 07-13-2020 14:34-0500 BP Diastolic 80 mm[Hg] [facility] Work Phone: 07-13-2020 14:34-0500 BP Systolic 158 mm[Hg] [facility] Work Phone: 07-13-2020 14:34-0500 BSA (Body Surface Area) 2.08 m2 [facility] Work Phone: 07-13-2020 14:34-0500 Height 185.42 cm [facility] Work Phone: 07-13-2020 14:34-0500 Pulse (Heart Rate) 86 /min [facility] Work Phone: 07-13-2020 14:34-0500 Pulse Oximetry 96 % [facility] Work Phone: 07-13-2020 14:34-0500 Respiratory Rate 18 /min [facility] Work Phone: 07-13-2020 14:34-0500 SaO2% (BldA) [Mass fraction] 96 % Ruby Dunbar [facility] Work Phone: [facility] Work Phone: 07-06-2020 09:49-0500 BMI (Body Mass Index) 24.9 kg/m2 [facility] Work Phone: 07-06-2020 09:49-0500 Body Temperature 99 [degF] [facility] Work Phone: 07-06-2020 09:49-0500 Body weight 85.73 kg [facility] Work Phone: 07-06-2020 09:49-0500 BP Diastolic 80 mm[Hg] [facility] Work Phone: 07-06-2020 09:49-0500 BP Systolic 150 mm[Hg] [facility] Work Phone: 07-06-2020 09:49-0500 BSA (Body Surface Area) 2.1 m2 [facility] Work Phone: 07-06-2020 09:49-0500 Height 185.42 cm [facility] Work Phone: 07-06-2020 09:49-0500 Pulse (Heart Rate) 95 /min [facility] Work Phone: 07-06-2020 09:49-0500 Pulse Oximetry 97 % [facility] Work Phone: 07-06-2020 09:49-0500 Respiratory Rate 14 /min [facility] Work Phone: 07-06-2020 09:49-0500 SaO2% (BldA) [Mass fraction] 97 % Ruby Dunbar [facility] Work Phone: [facility] Work Phone: 07-01-2020 15:13-0500 BMI (Body Mass Index) 25 kg/m2 Ruby Dunbar [facility] Work Phone: 07-01-2020 15:13-0500 Body Temperature 97 [degF] Ruby Dunbar [facility] Work Phone: 07-01-2020 15:13-0500 Body weight 83.46 kg Ruby Dunbar [facility] Work Phone: 07-01-2020 15:13-0500 BP Diastolic 70 mm[Hg] Rubyramiro Dunbar [facility] Work Phone: 07-01-2020 15:13-0500 BP Systolic 114 mm[Hg] [facility] Work Phone: 07-01-2020 15:13-0500 BSA (Body Surface Area) 2.06 m2 [facility] Work Phone: 07-01-2020 15:13-0500 Height 182.88 cm [facility] Work Phone: 07-01-2020 15:13-0500 Pulse (Heart Rate) 79 /min [facility] Work Phone: 07-01-2020 15:13-0500 Pulse Oximetry 97 % [facility] Work Phone: 07-01-2020 15:13-0500 Respiratory Rate 18 /min [facility] Work Phone: 07-01-2020 15:13-0500 SaO2% (BldA) [Mass fraction] 97 % [facility] Work Phone: [facility] Work Phone: Encounters Encounter Date Encounter Type Care Provider Facility Start: 06-05-2024 End: 06-06-2024 Telephone encounter Nelia Emerson CMA [facility] Start: 02-11-2024 End: 02-11-2024 ambulatory DIDIER LEE Not Available Start: 02-11-2024 End: 02-11-2024 ambulatory DIDIER LEE Not Available Start: 01-24-2024 End: 01-24-2024 ambulatory Didier Lee Facility:[facility] Start: 01-24-2024 End: 01-24-2024 Pain Management Didier Lee [facility] Start: 09-06-2023 Orders Only Chula Loza Bluecristina PAYMENT SPECIALIST-MR TEACHER Work Phone: [facility] Comment on above: Acquired hypothyroid ism (Primary Dx) Start: 09-04-2023 Orders Only Chula Vee PAYMENT SPECIALIST-MR TEACHER Work Phone: [facility] Start: 08-17-2023 Orders Only Chula Vee PAYMENT SPECIALIST-MR TEACHER Work Phone: [facility] Comment on above: Acquired hypothyroid ism (Primary Dx) Start: 08-17-2023 End: 08-17-2023 ambulatory DINO [facility] Start: 08-16-2023 End: 08-16-2023 ambulatory [facility] Start: 08-16-2023 Encounter for genera l adult medical examination without abnormal findings [facility] Start: 08-16-2023 End: 08-16-2023 Patient encounter procedure Chula Vee PAYMENT SPECIALIST-MR TEACHER Work Phone: [facility] Work Phone: Start: 08-16-2023 End: 08-16-2023 Periodic preventive med est patient 65yrs& older Chula Vee PAYMENT SPECIALIST-MR TEACHER [facility] Comment on above: Visit for annual [facility] examination (Primary Dx); CKD (chronic kidney disease) stage 2, GFR 60-89 ml/min; Dyslipidemia; Severe episode of recurrent major depressive disorder, with psychotic features (CMS-HCC); 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); Fatigue, unspecified type; Narcotic abuse (CMS-HCC); Chronic pain syndrome; At high risk for injury related to fall Start: 07-27-2023 End: 07-27-2023 ambulatory YOLA Castellanos Facility:[facility] Start: 07-27-2023 End: 07-27-2023 Pain Management Lakeisha Castellanos [facility] Start: 07-26-2023 Orders Only Colby Freeman PAYMENT SPECIALIST-PSYCHIATRIC SOCIAL WORKER SUPERVISOR Work Phone: [facility] Comment on above: Special screening fo r malignant neoplasm of colon (Primary Dx) Start: 07-23-2023 Refill Colby Kt Becky PAYMENT SPECIALIST-PSYCHIATRIC SOCIAL WORKER SUPERVISOR Work Phone: [facility] Comment on above: Atherosclerosis of n ative coronary artery of [place] heart without angina pectoris Start: 07-18-2023 Refill Colby L Becky PAYMENT SPECIALIST-PSYCHIATRIC SOCIAL WORKER SUPERVISOR Work Phone: [facility] Start: 07-14-2023 Refill Colby L Becky PAYMENT SPECIALIST-PSYCHIATRIC SOCIAL WORKER SUPERVISOR Work Phone: [facility] Comment on above: Dyslipidemia; Atherosclerosis of [place] lions coronary artery of [place] heart without angina pectoris Start: 06-13-2023 ambulatory PHYSICIAN [facility]AN [facility]ILY Fac ility:[facility] Start: 04-28-2023 Refill Keith Khalil PAYMENT SPECIALIST.PSYCHIATRIC SOCIAL WORKER SUPERVISOR Work Phone: Cardiology Comment on above: Refill Request Start: 04-22-2023 End: 04-22-2023 ambulatory Zunilda Agarwal Other [facility] Other Start: 04-22-2023 Telephone encounter Zunilda Guzman her [facility] Start: 04-19-2023 End: 04-19-2023 ambulatory Zunilda Agarwal Facility:[facility] Start: 04-19-2023 Office outpatient ne w 20 minutes Zunilda Agarwal [facility] Start: 04-19-2023 End: 04-19-2023 ambulatory KAMILLE Agarwal Work Phone: [facility] Work Phone: Start: 04-19-2023 End: 04-19-2023 Departed Referred KAMILLE Agarwal Work Phone: [facility] [place] Work Phone: Start: 04-08-2023 Refill Nazia hurley PAYMENT SPECIALIST.PSYCHIATRIC SOCIAL WORKER SUPERVISOR Work Phone: Cardiology Comment on above: Refill Request Start: 03-25-2023 Refill Nazia Ritchie Tasia xavi PAYMENT SPECIALIST.[facility] Work Phone: Cardiology Comment on above: Refill Request Start: 01-27-2023 Refill Lavsly Khalil PAYMENT SPECIALIST.[facility] Work Phone: Cardiology Comment on above: Refill Request Start: 2023 Refill Lavisa Khalil PAYMENT SPECIALIST.[facility] Work Phone: Cardiology Comment on above: Refill Request Start: 01-19-2023 Refill Lavisa Khalil PAYMENT SPECIALIST.[facility] Work Phone: Cardiology Comment on above: Refill Request Start: 01-08-2023 Refill Keith Khalil PAYMENT SPECIALIST.[facility] Work Phone: Cardiology Comment on above: Refill Request; Refi ll Request Start: 10-17-2022 Refill Gabriel Ritchie Work Phone: Cardiology Comment on above: Refill Request Start: 04-24-2022 End: 04-24-2022 Patient encounter procedure Lakeisha Castellanos [facility] Start: 04-24-2022 End: 04-24-2022 Pain Management Lakeisha Castellanos [facility] Start: 12-27-2021 End: 12-27-2021 ambulatory KENNY HOOK JR Facility:[facility] Start: 12-27-2021 End: 12-27-2021 Patient encounter procedure Gabriel Urbano MD Work Phone: Cardiology Comment on above: Coronary artery dise ase involving port lions coronary artery of [place] lions heart without angina pectoris; Primary hypertension; Mixed hyperlipidemia; Smoker Start: 12-06-2021 End: 12-07-[address] KESHA BANDA Facility:[facility] Start: 12-01-2021 End: 12-01-2021 ambulatory FAUSTINO SANCHEZ Facility:[facility] Start: 11-30-2021 End: 12-01-2021 ambulatory FAUSTINO SANCHEZ Facility:[facility] Start: 11-18-2021 End: 11-18-2021 Pain Management Lakeisha Castellanos [facility] Start: 09-23-2021 End: 09-23-2021 General Hina Cope LPCC-S Work Phone: [facility] Work Phone: Start: 09-23-2021 End: 09-23-2021 General Johan Cedillo MD Work Phone: [facility] Work Phone: Start: 09-23-2021 End: 09-23-2021 ambulatory Ruby Dunbar PSYCHIATRIC SOCIAL WORKER SUPERVISOR Work Phone: [facility] Work Phone: Start: 09-09-2021 End: 09-09-2021 ambulatory Ruby Dunbar PSYCHIATRIC SOCIAL WORKER SUPERVISOR Work Phone: [facility] Work Phone: Start: 08-26-2021 End: 08-26-2021 General Hina Cope LPCC-S Work Phone: [facility] Work Phone: Start: 08-26-2021 End: 08-26-2021 ambulatory Ruby Dunbar PSYCHIATRIC SOCIAL WORKER SUPERVISOR Work Phone: [facility] Work Phone: Start: 07-26-2021 End: 07-26-2021 General Hina Cope LPCC-S Work Phone: [facility] Work Phone: Start: 07-26-2021 End: 07-26-2021 ambulatory Ruby Dunbar PSYCHIATRIC SOCIAL WORKER SUPERVISOR Work Phone: [facility] Work Phone: Start: 07-01-2021 End: 07-01-2021 General Hina Cope LPCC-S Work Phone: [facility] Work Phone: Start: 07-01-2021 End: 07-01-2021 Telemedicine consultation with patient Ruby Dunbar CNP Work Phone: [facility] Work Phone: Start: 06-03-2021 End: 06-03-2021 General Hina Cope LPCC-S Work Phone: [facility] Work Phone: Start: 06-03-2021 End: 06-03-2021 General Hina Cope LPCC-S Work Phone: [facility] Work Phone: Start: 06-03-2021 End: 06-03-2021 ambulatory Ruby Dunbar PSYCHIATRIC SOCIAL WORKER SUPERVISOR Work Phone: [facility] Work Phone: Start: 05-29-2021 End: 05-29-2021 ambulatory CHERELLE NELSON Facility: Start: 05-06-2021 End: 05-06-2021 General Hina Cope LPCC-S Work Phone: [facility] Work Phone: Start: 05-06-2021 End: 05-06-2021 ambulatory Gamal Moreno PSYCHIATRIC SOCIAL WORKER SUPERVISOR Work Phone: [facility] Work Phone: Start: 04-08-2021 End: 04-08-2021 General Hina Cope LPCC-S Work Phone: [facility] Work Phone: Start: 04-08-2021 End: 04-08-2021 General Hina Cope LPCC-S Work Phone: [facility] Work Phone: Start: 04-08-2021 End: 04-08-2021 ambulatory Ruby Dunbar PSYCHIATRIC SOCIAL WORKER SUPERVISOR Work Phone: [facility] Work Phone: Start: 03-11-2021 End: 03-11-2021 General Lucas HOPE Work Phone: [facility] Work Phone: Start: 03-11-2021 End: 03-11-2021 ambulatory Ruby Dunbar PSYCHIATRIC SOCIAL WORKER SUPERVISOR Work Phone: [facility] Work Phone: Start: 02-11-2021 End: 02-11-2021 General Ruby Dunbar PSYCHIATRIC SOCIAL WORKER SUPERVISOR Work Phone: [facility] Work Phone: Start: 02-11-2021 End: 02-11-2021 General Hina Padillas LPCC-S Work Phone: [facility] Work Phone: Start: 02-11-2021 End: 02-11-2021 ambulatory Nelia Robertslaureanodarnell MR TEACHER Work Phone: [facility] Work Phone: Start: 01-14-2021 End: 01-14-2021 General Hina Bolivarmons LPCC-S Work Phone: [facility] Work Phone: Start: 01-14-2021 End: 12-31-2020 Patient encounter procedure Hina Cope LPCC-S Work Phone: [facility] Start: 01-14-2021 End: 01-14-2021 ambulatory Ruby Dunbar PSYCHIATRIC SOCIAL WORKER SUPERVISOR Work Phone: [facility] Work Phone: Start: 12-31-2020 End: 12-31-2020 General Hina Bolivarmons LPCC-S Work Phone: [facility] Work Phone: Start: 12-31-2020 End: 12-31-2020 ambulatory Nelia Hernandez MR TEACHER Work Phone: [facility] Work Phone: Start: 12-17-2020 End: 12-17-2020 General Hina Cope LPCC-S Work Phone: [facility] Work Phone: Start: 12-17-2020 End: 12-17-2020 ambulatory Ruby Marshal PSYCHIATRIC SOCIAL WORKER SUPERVISOR Work Phone: [facility] Work Phone: Start: 12-03-2020 End: 12-04-2020 ambulatory RUBY DUNBAR [facility] Start: 12-03-2020 End: 12-03-2020 Subsequent hospital visit by physician VAUGHN OTEROIRMA [facility] Start: 12-03-2020 End: 12-03-2020 General Hina Cope LPCC-S Work Phone: [facility] Work Phone: Start: 12-03-2020 End: 12-03-2020 [facility] visit, estab pt Ruby Dunbar PSYCHIATRIC SOCIAL WORKER SUPERVISOR Work Phone: [facility] Work Phone: Start: 12-03-2020 End: 12-03-2020 Viscer and infrarenal abdom aorta 1 prosthesis Ruby Marshal PSYCHIATRIC SOCIAL WORKER SUPERVISOR Work Phone: [facility] Work Phone: Start: 11-19-2020 End: 11-19-2020 [facility] visit, estab pt Hina Cope LPCC-S Work Phone: [facility] Work Phone: Start: 11-19-2020 End: 11-19-2020 ambulatory Ruby Dunbar PSYCHIATRIC SOCIAL WORKER SUPERVISOR Work Phone: [facility] Work Phone: Start: 11-08-2020 End: 11-08-2020 [facility] visit, estab pt Hina Cope LPCC-S Work Phone: [facility] Work Phone: Start: 11-08-2020 End: 11-08-2020 ambulatory Ruby Marshal PSYCHIATRIC SOCIAL WORKER SUPERVISOR Work Phone: [facility] Work Phone: Start: 10-22-2020 End: 10-22-2020 General Hina Cope LPCC-S Work Phone: [facility] Work Phone: Start: 10-22-2020 End: 10-22-2020 ambulatory Ruby Dunbar PSYCHIATRIC SOCIAL WORKER SUPERVISOR Work Phone: [facility] Work Phone: Start: 10-08-2020 End: 10-08-2020 ambulatory Ruby Dunbar PSYCHIATRIC SOCIAL WORKER SUPERVISOR Work Phone: [facility] Work Phone: Start: 09-24-2020 End: 09-24-2020 Patient encounter procedure Hina Cope Work Phone: [facility] Work Phone: Start: 09-24-2020 End: 09-24-2020 ambulatory Ruby Dunbar Work Phone: [facility] Work Phone: Start: 09-10-2020 End: 09-10-2020 Patient encounter procedure Hina Cope Work Phone: [facility] Work Phone: Start: 09-10-2020 End: 09-10-2020 Patient encounter procedure Hina Cope Work Phone: [facility] Work Phone: Start: 09-10-2020 End: 09-10-2020 ambulatory Ruby Dunbar Work Phone: [facility] Work Phone: Start: 09-02-2020 End: 09-02-2020 Patient encounter procedure [facility] Start: 09-02-2020 End: 09-02-2020 Subsequent hospital visit by physician Sammie Ruiz Work Phone: [facility] [employer] Start: 08-31-2020 End: 09-01-2020 Patient encounter procedure [facility] Start: 08-31-2020 End: 08-31-2020 Subsequent hospital visit by physician [facility] Laboratory Comment on above: Abnormal stress test ; Atypical chest pain Start: 08-30-2020 End: 08-30-2020 Patient encounter procedure Hina Cope Work Phone: [facility] Work Phone: Start: 08-27-2020 End: 08-27-2020 ambulatory Ruby Dunbar Work Phone: 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 Work Phone: Start: 08-13-2020 End: 08-13-2020 ambulatory Ruby Dunbar Work Phone: [facility] Work Phone: Start: 08-04-2020 End: 08-04-2020 Patient encounter procedure Hina Bolivarmons Work Phone: [facility] Work Phone: Start: 08-04-2020 End: 08-04-2020 ambulatory Vikki Kramer Work Phone: [facility] Work Phone: Start: 08-04-2020 End: 08-04-2020 Patient encounter procedure Ruby Dunbar Work Phone: [facility] Work Phone: Start: 08-03-2020 End: 08-03-2020 Telemedicine consultation with patient Vikki Kramer Work Phone: [facility] Work Phone: Start: 07-27-2020 End: 07-27-2020 ambulatory Ruby Dunbar Work Phone: [facility] Work Phone: Start: 07-19-2020 End: 07-19-2020 General Hina Cope Work Phone: [facility] Work Phone: Start: 07-19-2020 End: 07-19-2020 ambulatory Ruby Marshal Work Phone: [facility] Work Phone: Start: 07-13-2020 End: 07-13-2020 Patient encounter procedure Hina Cope Work Phone: [facility] Work Phone: Start: 07-13-2020 End: 07-13-2020 ambulatory Ruby Marshal Work Phone: 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 Work Phone: Start: 07-06-2020 End: 07-06-2020 Patient encounter procedure Vy Senior Work Phone: [facility] Work Phone: Start: 07-06-2020 End: 07-06-2020 New patient Vikki Kramer Work Phone: [facility] Work Phone: Start: 07-01-2020 End: 07-01-2020 Established patient Hina Prisca Work Phone: [facility] Work Phone: Start: 07-01-2020 End: 07-01-2020 Patient encounter procedure Ruby Dunbar Work Phone: [facility] Work Phone: Start: 09-20-2017 End: 10-01-2017 Evaluation and management of inpatient [facility] Procedures Date Procedure Procedure Detail Performing Clinician Start: 08-16-2023 Adult depression scr eening assessment Chula Vee PAYMENT SPECIALIST-MR TEACHER Work Phone: Start: 05-10-2023 Adult depression scr eening assessment Colby Freeman PAYMENT SPECIALIST-PSYCHIATRIC SOCIAL WORKER SUPERVISOR Work Phone: Start: 10-03-2021 [facility] visit, MH estab pt Hina Cope LPCC-S Work Phone: Start: 10-03-2021 Psychotherapy w/bj ent 30 minutes Hina Cope LPCC-S Work Phone: Start: 09-23-2021 Drug test prsmv read direct optical obs pr date Ruby Dunbar PSYCHIATRIC SOCIAL WORKER SUPERVISOR Work Phone: Start: 09-23-2021 [facility]QHC visit, MH estab pt Hina Cope LPCC-S Work Phone: Start: 09-23-2021 Most recent diastoli c blood pressure 80-89 mm hg Ruby Dunbar PSYCHIATRIC SOCIAL WORKER SUPERVISOR Work Phone: Start: 09-23-2021 Most recent systolic blood pres>/equal 140 mm hg Ruby Dunbar PSYCHIATRIC SOCIAL WORKER SUPERVISOR Work Phone: Start: 09-23-2021 Psychotherapy w/bj ent 30 minutes Hina Cope LPCC-S Work Phone: Start: 09-09-2021 Drug test prsmv read direct optical obs pr date Ruby Dunbar PSYCHIATRIC SOCIAL WORKER SUPERVISOR Work Phone: Start: 09-09-2021 [facility]QHC visit, estab pt An sena Dunbar PSYCHIATRIC SOCIAL WORKER SUPERVISOR Work Phone: Start: 09-09-2021 Most recent diastoli c blood pressure < 80 mm hg Ruby Dunbar PSYCHIATRIC SOCIAL WORKER SUPERVISOR Work Phone: Start: 09-09-2021 Most recent systolic blood pressure <130 mm hg Ruby Dunbar PSYCHIATRIC SOCIAL WORKER SUPERVISOR Work Phone: Start: 08-26-2021 Drug test prsmv read direct optical obs pr date Ruby Dunbar PSYCHIATRIC SOCIAL WORKER SUPERVISOR Work Phone: Start: 08-26-2021 FQHC visit, estab pt An sena Dunbar PSYCHIATRIC SOCIAL WORKER SUPERVISOR Work Phone: Start: 08-26-2021 Psychotherapy w/bj ent 30 minutes Hina Cope LPCC-S Work Phone: Start: 07-26-2021 Drug test prsmv read direct optical obs pr date Ruby Dunbar PSYCHIATRIC SOCIAL WORKER SUPERVISOR Work Phone: Start: 07-26-2021 FQHC visit, MH estab pt Hina Cope LPCC-S Work Phone: Start: 07-26-2021 Psychotherapy w/bj ent 30 minutes Hina Cope LPCC-S Work Phone: Start: 07-01-2021 FQHC visit, estab pt Merry sena Marshal PSYCHIATRIC SOCIAL WORKER SUPERVISOR Work Phone: Start: 07-01-2021 Psychotherapy w/bj ent 30 minutes Hina Cope LPCC-S Work Phone: Start: 06-03-2021 Drug test prsmv read direct optical obs pr date Ruby Dunbar PSYCHIATRIC SOCIAL WORKER SUPERVISOR Work Phone: Start: 06-03-2021 FQHC visit, MH estab pt Hina Cope LPCC-S Work Phone: Start: 06-03-2021 Most recent diastoli c blood pressure 80-89 mm hg Ruby Dunbar PSYCHIATRIC SOCIAL WORKER SUPERVISOR Work Phone: Start: 06-03-2021 Most recent systolic blood press 130-139mm hg Ruby Dunbar PSYCHIATRIC SOCIAL WORKER SUPERVISOR Work Phone: Start: 06-03-2021 Psychotherapy w/bj ent 30 minutes Hina Cope LPCC-S Work Phone: Start: 05-06-2021 Current tobacco smoker Gamal Tello Penix PSYCHIATRIC SOCIAL WORKER SUPERVISOR Work Phone: Start: 05-06-2021 Drug test prsmv read direct optical obs pr date Gamal Tello Penix PSYCHIATRIC SOCIAL WORKER SUPERVISOR Work Phone: Start: 05-06-2021 FQ visit, MH estab pt Hina Cope LPCC-S Work Phone: Start: 05-06-2021 Most recent diastoli c blood pressure < 80 mm hg Jyoti Penix PSYCHIATRIC SOCIAL WORKER SUPERVISOR Work Phone: Start: 05-06-2021 Most recent systolic blood pressure <130 mm hg Jyoti Penix PSYCHIATRIC SOCIAL WORKER SUPERVISOR Work Phone: Start: 05-06-2021 Psychotherapy w/bj ent 30 minutes Hina Cope LPCC-S Work Phone: Start: 05-06-2021 Pt scrnd tobacco use rcvd tobacco cessation talk Jyoti Penix PSYCHIATRIC SOCIAL WORKER SUPERVISOR Work Phone: Start: 04-08-2021 Drug test prsmv read direct optical obs pr date Ruby Dunbar PSYCHIATRIC SOCIAL WORKER SUPERVISOR Work Phone: Start: 04-08-2021 FQHC visit, estab pt An sena Marshal PSYCHIATRIC SOCIAL WORKER SUPERVISOR Work Phone: Start: 04-08-2021 Psychotherapy w/bj ent 30 minutes Hina Cope LPCC-S Work Phone: Start: 03-11-2021 Drug test prsmv read direct optical obs pr date Ruby Marshal PSYCHIATRIC SOCIAL WORKER SUPERVISOR Work Phone: Start: 03-11-2021 FQHC visit, estab pt An sena Dunbar PSYCHIATRIC SOCIAL WORKER SUPERVISOR Work Phone: Start: 03-11-2021 Psychotherapy w/bj ent 30 minutes Lucasharvey MAYOW Work Phone: Start: 02-11-2021 Current tobacco smoker Nelia Stechschulte MR TEACHER Work Phone: Start: 02-11-2021 Drug test prsmv read direct optical obs pr date Nelia Stechschulte MR TEACHER Work Phone: Start: 02-11-2021 FQHC visit, estab pt Ni willie Stechschulte MR TEACHER Work Phone: Start: 02-11-2021 Most recent diastoli c blood pressure < 80 mm hg Nelia Stechschulte MR TEACHER Work Phone: Start: 02-11-2021 Most recent systolic blood press 130-139mm hg Nelia Stechschulte MR TEACHER Work Phone: Start: 02-11-2021 Psychotherapy w/bj ent 30 minutes Hina Cope LPCC-S Work Phone: Start: 01-14-2021 Drug test prsmv read direct optical obs pr date Ruby Marshal PSYCHIATRIC SOCIAL WORKER SUPERVISOR Work Phone: Start: 01-14-2021 FQHC visit, MH estab pt Hina Padillas LPCC-S Work Phone: Start: 01-14-2021 Most recent diastoli c blood pressure 80-89 mm hg Ruby Dunbar PSYCHIATRIC SOCIAL WORKER SUPERVISOR Work Phone: Start: 01-14-2021 Most recent systolic blood press 130-139mm hg Ruby Dunbar PSYCHIATRIC SOCIAL WORKER SUPERVISOR Work Phone: Start: 01-14-2021 Psychotherapy w/bj ent 30 minutes Hina Cope LPCC-S Work Phone: Start: 12-31-2020 Drug test prsmv read direct optical obs pr date Nelia Stechschulte MR TEACHER Work Phone: Start: 12-31-2020 FQHC visit, estab pt Ni willie Stechschulte MR TEACHER Work Phone: Start: 12-31-2020 Most recent diastoli c blood pressure < 80 mm hg Nelia Stechschulte MR TEACHER Work Phone: Start: 12-31-2020 Most recent systolic blood pressure <130 mm hg Nelia Stechschulte MR TEACHER Work Phone: Start: 12-31-2020 Psychotherapy w/bj ent 30 minutes Hina Cope LPCC-S Work Phone: Start: 12-17-2020 Audiology Ruby perkins PSYCHIATRIC SOCIAL WORKER SUPERVISOR Work Phone: Start: 12-17-2020 FQHC visit, MH estab pt Hina Cope LPCC-S Work Phone: Start: 12-17-2020 Psychotherapy w/bj ent 30 minutes Hina Cope LPCC-S Work Phone: Start: 12-03-2020 FQHC visit, estab pt An sena Dunbar PSYCHIATRIC SOCIAL WORKER SUPERVISOR Work Phone: Start: 12-03-2020 Psychotherapy w/bj ent 30 minutes Hina Cope LPCC-S Work Phone: Start: 12-03-2020 Comprehensive metabo lic panel Ruby Dunbar PAYMENT SPECIALIST - PSYCHIATRIC SOCIAL WORKER SUPERVISOR Work Phone: Start: 12-03-2020 Drug test prsmv read direct optical obs pr date Ruby Dunbar PSYCHIATRIC SOCIAL WORKER SUPERVISOR Work Phone: Start: 12-03-2020 VITAMIN B12 & FOLATE An sena Dunbar PAYMENT SPECIALIST - PSYCHIATRIC SOCIAL WORKER SUPERVISOR Work Phone: Start: 11-19-2020 FQHC visit, MH estab pt Hina Cope LPCC-S Work Phone: Start: 11-19-2020 Psychotherapy w/bj ent 30 minutes Hina Cope LPCC-S Work Phone: Start: 11-08-2020 Drug test prsmv read direct optical obs pr date Ruby Dunbar PSYCHIATRIC SOCIAL WORKER SUPERVISOR Work Phone: Start: 11-08-2020 FQHC visit, estab pt An sena Dunbar PSYCHIATRIC SOCIAL WORKER SUPERVISOR Work Phone: Start: 11-08-2020 Most recent diastoli c blood pressure 80-89 mm hg Ruby Dunbar PSYCHIATRIC SOCIAL WORKER SUPERVISOR Work Phone: Start: 11-08-2020 Most recent systolic blood press 130-139mm hg Ruby Dunbar PSYCHIATRIC SOCIAL WORKER SUPERVISOR Work Phone: Start: 11-08-2020 Psychotherapy w/bj ent 30 minutes Hina Cope LPCC-S Work Phone: Start: 10-22-2020 Drug test prsmv read direct optical obs pr date Ruby Dunbar PSYCHIATRIC SOCIAL WORKER SUPERVISOR Work Phone: Start: 10-22-2020 FQHC visit, MH estab pt Hina Cope LPCC-S Work Phone: Start: 10-22-2020 Psychotherapy w/bj ent 30 minutes Hina Cope LPCC-S Work Phone: Start: 10-08-2020 Drug test prsmv read direct optical obs pr date Ruby Dunbar PSYCHIATRIC SOCIAL WORKER SUPERVISOR Work Phone: Start: 10-08-2020 FQHC visit, estab pt An sena Marshal PSYCHIATRIC SOCIAL WORKER SUPERVISOR Work Phone: Start: 10-08-2020 Imm. administration COVID19 Moderna dose 1 Ruby Dunbar PSYCHIATRIC SOCIAL WORKER SUPERVISOR Work Phone: Start: 10-08-2020 SARS-CoV-2 vaccine, 0.5ml Modernramiro Dunbar PSYCHIATRIC SOCIAL WORKER SUPERVISOR Work Phone: Start: 09-24-2020 Drug test prsmv read direct optical obs pr date Ruby Dunbar Work Phone: Start: 09-24-2020 FQHC visit, MH estab pt Hina Cope [facility] Work Phone: Start: 09-24-2020 Psychotherapy w/bj ent 30 minutes Hina Cope Work Phone: Start: 09-10-2020 Diast bp <80 mm hg Elham yolette Dunbar Work Phone: Start: 09-10-2020 Drug test prsmv read direct optical obs pr date Ruby Dunbar Work Phone: Start: 09-10-2020 FQHC visit, estab pt An sena Dunbar Work Phone: Start: 09-10-2020 FQHC visit, MH estab pt Hina Cope Work Phone: Start: 09-10-2020 Psychotherapy w/bj ent 30 minutes Hina Cope Work Phone: Start: 09-10-2020 Syst bp lt 130 mm hg Merry senaramiro Dunbar Work Phone: Start: 09-02-2020 [employer]OUND SCHOOL INSTRUCTOR REPORT [facility] Start: 09-02-2020 [employer]OUND SCHOOL INSTRUCTOR REPORT [employer] Start: 09-02-2020 Catheterization and angiography procedure details panel Sammie Ruiz Work Phone: Start: 08-31-2020 Basic metabolic pane l calcium total Ali F Nikky Higgins Work Phone: Start: 08-31-2020 Blood count complete automated Ali F O Gisela Work Phone: Start: 08-27-2020 Drug test prsmv read direct optical obs pr date Ruby Dunbar Work Phone: Start: 08-27-2020 FQHC visit, estab pt An sena Marshal Work Phone: Start: 08-27-2020 FQHC visit, MH estab pt Hina Cope Work Phone: Start: 08-27-2020 Psychotherapy w/bj ent 30 minutes Hina Cope Work Phone: Start: 08-13-2020 Drug test prsmv read direct optical obs pr date Ruby Marshal Work Phone: Start: 08-13-2020 FQHC visit, estab pt An sena Marshal Work Phone: Start: 08-13-2020 FQHC visit, MH estab pt Hina Cope Work Phone: Start: 08-13-2020 Psychotherapy w/bj ent 30 minutes Hina Cope Work Phone: Start: 08-04-2020 Drug test prsmv read direct optical obs pr date Vikki Williams Work Phone: Start: 08-04-2020 FQHC visit, estab pt Ca ssie Williams Work Phone: Start: 08-04-2020 FQHC visit, MH estab pt Hina Cope Work Phone: Start: 08-04-2020 Psychotherapy w/bj ent 30 minutes Hina Cope Work Phone: Start: 08-03-2020 FQHC visit, estab pt Ca ssie Williams Work Phone: Start: 07-27-2020 Drug test prsmv read direct optical obs pr date Ruby Dunbar Work Phone: Start: 07-27-2020 FQHC visit, estab pt An sena Marshal Work Phone: Start: 07-19-2020 Drug test prsmv read direct optical obs pr date Ruby Dunbar Work Phone: Start: 07-19-2020 FQHC visit, estab pt An sena Dunbar Work Phone: Start: 07-19-2020 FQHC visit, MH estab pt Hina Cope Work Phone: Start: 07-19-2020 Psychotherapy w/bj ent 30 minutes Hina Cope Work Phone: Start: 07-13-2020 Drug test prsmv read direct optical obs pr date Ruby Dunbar Work Phone: Start: 07-13-2020 FQHC visit, estab pt Merry sena Marshal Work Phone: Start: 07-13-2020 FQHC visit, IPPE or AWV Rubyramiro Dunbar Work Phone: Start: 07-13-2020 FQHC visit, MH estab pt Hina Cope Work Phone: Start: 07-13-2020 Psychotherapy w/bj ent 30 minutes Hina Cope Work Phone: Start: 07-06-2020 Drug test prsmv read direct optical obs pr date Vikki Williams Work Phone: Start: 07-06-2020 FQHC visit new patient Vikki Williams Work Phone: Start: 07-06-2020 FQHC visit, MH estab pt Vy Short Work Phone: Start: 07-06-2020 Psychotherapy w/bj ent 30 minutes Vy Short Work Phone: Start: 07-06-2020 Pt tobacco screen rcvd tlk Vikki Williams Work Phone: Start: 07-01-2020 Appendectomy Ruby Law rence Start: 07-01-2020 Appendectomy Ruby Law rence PSYCHIATRIC SOCIAL WORKER SUPERVISOR Work Phone: Start: 07-01-2020 Surgical procedure Elham la Marshal Start: 10-17-2017 Lipid 1996 panel - S alexandria or Plasma Nazia Simpson APRN.CNP Work Phone: Start: 09-29-2017 DISCHARGE PATIENT KANCHAN MARTINEZ Start: 09-22-2017 Radex spine cervical 2 or 3 views ISAI GERBERI Start: 09-21-2017 IP CONSULT TO HISTOR Y AND PHYSICAL ISAI MARTINEZ Start: 09-20-2017 DIET GENERAL ISAI MARTINEZ Start: 09-20-2017 FULL CODE ISAI MARTINEZ Start: 09-20-2017 PATIENT STATUS (DIRECT) ISAI MARTINEZ Start: 09-20-2017 TOBACCO CESSATION EDUCATION ISAI MARTINEZ Start: 09-20-2017 VITAL SIGNS ISAI MARTINEZ cardiac stents 1 Lakeisha John valentino Comment on above: 1999 Carpal tunnel syndro me (disorder) Pythian Comment on above: 2000 cervical surgery 4 Lakeisha langston Comment on above: 1999 Structure of carpal canal (body structure) Lakeisha Recoup Comment on above: 1997 Plan of Treatment Date Care Activity Detail Author Start: 01-08-2027 DTaP,Tdap and Td Vaccines (2 - Td or Tdap) DTaP,Tdap and Td Vaccines (2 - Td or Tdap) [facility] [employer] Start: 01-08-2027 DTaP/Tdap/Td vaccine (2 - Td or Tdap) DTaP/Tdap/Td vaccine (2 - Td or Tdap) [employer] Work Phone: Start: 01-08-2027 DTaP/Tdap/Td vaccine (2 - Td) DTaP/Tdap/Td vaccine (2 - Td) [employer] Phone: Start: 08-16-2024 Adult BMI Screening Adult BMI Screen ing [facility] [employer] [facility] Start: 08-16-2024 Depression Screening Depression Scre ening [facility] [employer] [facility] Start: 08-16-2024 Fall Risk Screening [facility] Start: 08-16-2024 Tobacco Screening [facility]ening [facility] Start: 05-10-2024 Adult BMI Screening Adult BMI Screen ing [facility] Start: 05-10-2024 Depression Screening Depression Scre ening [facility] Start: 05-10-2024 Fall Risk Screening Fall Risk Screen ing [facility] Start: 05-10-2024 Tobacco Screening Tobacco Screening [facility] Start: 02-24-2024 COVID-19 Vaccine ( season) COVID-19 Vaccine () [facility] Start: 02-24-2024 Influenza vaccination Influenza Vacc ine [facility] Start: 08-16-2023 End: 08-16-2023 Patient encounter procedure 08/16/2023 1:00 PM EST [facility] [address] [place] [address] Chula Vee, PAYMENT SPECIALIST-MR TEACHER [address] [place] [address] [facility] Start: 04-19-2023 Bacteria identified in Urine by Culture [facility] Start: 02-23-2023 Covid-19 Vaccine ( season) Covid-19 Vaccine ( season) [facility] Start: 02-23-[address] [facility] Start: 10-17-2022 Lipid 1996 panel - S alexandria or Plasma Lipid Screening [facility] Start: 10-17-2022 LIPID SCREEN LIPID SCREEN [facility] Start: 06-25-2022 ADVANCE DIRECTIVE DISCUSSION ADVANCE DIRECTIVE DISCUSSION [facility] Start: 06-25-2022 DEPRESSION ASSESSMENT DEPRESSION ASS ESSMENT [facility] Start: 02-23-2022 Influenza vaccination INFLUENZA (#1) [facility] Start: 10-09-2021 [facility] Start: 09-16-2021 CBC W Auto Different ial panel - Blood [facility] Start: 08-31-2021 Creatinine measurement Creatinine mo [facility] [employer] Phone: Start: 08-31-2021 Potassium monitoring Potassium monit oring [employer] Phone: Start: 08-26-2021 Medical Substance Abuse [facility] Work Phone: Start: 08-16-2021 Creatinine measurement Creatinine mo nitoring [facility] Work Phone: Start: 08-16-2021 Lipid panel Lipid screen [facility] Work Phone: Start: 08-16-2021 Potassium monitoring Potassium monit [facility] Work Phone: Start: 07-29-2021 Medical Substance Abuse [facility] Work Phone: Start: 07-08-2021 SARS-CoV-2, EDDIE [facility] Start: 07-04-2021 Medical Substance Abuse [facility] Work Phone: Start: 06-25-2021 ADVANCE DIRECTIVE DISCUSSION ADVANCE DIRECTIVE DISCUSSION [facility] Start: 06-03-2021 Medical Substance Abuse [facility] Work Phone: Start: 05-07-2021 Drug Test, Uri ne, In House [facility] Start: 05-06-2021 Medical Substance Abuse [facility] Work Phone: Start: 03-31-2021 End: 03-31-2021 Patient encounter procedure 03/31/2021 Office Visit Cardiology Tawnya Higgins MD [address] [place] [address] [place] [address] [facility] Start: 03-13-2021 CT Chest W/O c ontrast ([id number]) [facility] Start: 03-11-2021 Medical Substance Abuse [facility] Work Phone: Start: 01-21-2021 LYME EIA AB,TITER [facility] Start: 01-14-2021 Medical Substance Abuse [facility] Work Phone: Start: 12-31-2020 Medical Substance Abuse [facility] Work Phone: Start: 12-17-2020 Medical Substance Abuse [facility] Work Phone: Start: 12-10-2020 CBC W Auto Different ial panel - Blood [facility] Start: 12-03-2020 COVID-19 VACCINE (2 - Moderna series) COVID-19 VACCINE (2 - Moderna series) [facility] Start: 12-03-2020 FQHC visit, estab pt [facility] Work Phone: Comment on above: Note: Please make a referral to: Start: 11-19-2020 [facility] Work Phone: Comment on above: Note: Please make a referral to: Start: 11-05-2020 COVID-19 VACCINE (2 - Moderna series) COVID-19 VACCINE (2 - Moderna series) [facility] Start: 11-05-2020 Medical Substance Abuse [facility] Work Phone: Start: 11-04-2020 2nd Dose- COVID Vaccine [facility] Work Phone: Start: 10-08-2020 Medical Substance Abuse [facility] Work Phone: Start: 10-01-2020 SARS-CoV-2, EDDIE [facility] Work Phone: Start: 09-29-2020 End: 09-29-2020 Procedure visit 09/29/2020 Procedure visit Urology Denilson Elizondo MD [address] [place] [address], [address] [place] [address] [facility] Start: 09-24-2020 [facility] Work Phone: Start: 09-17-2020 End: 09-17-2020 Office Visit 09/17/2020 Office Visit Cardiology Tawnya Higgins MD [address] [place] [address] [place] [id number] [facility] Start: 09-10-2020 Medical Substance Abuse [facility] Work Phone: Start: 09-02-2020 Hospital Encounter 09/02/2020 Hospital Encounter IP Unit [facility] [employer] INSTRUCTOR Start: 09-01-2020 End: 09-01-2020 Procedure visit 09/01/2020 Procedure visit Urology Denilson Elizondo MD [address] [facility], [address] [place] [address] [facility] Start: 08-27-2020 Medical Substance Abuse [facility] Work Phone: Start: 08-24-2020 End: 08-24-2020 Office Visit 08/24/2020 Office Visit Cardiology Tawnya Higgins MD [address] [place] [address] [place] [address] [facility] Start: 08-20-2020 End: 08-20-2020 Appointment 08/20/2020 Appointment Stress Lab [facility] Start: 08-19-2020 End: 08-19-2020 Appointment [facility] Start: 08-10-2020 Medical Substance Abuse [facility] Work Phone: Start: 08-05-2020 Urine Drug Scr een [facility] Work Phone: Start: 08-04-2020 Medical Substance Abuse [facility] Work Phone: Start: 07-26-2020 Medical Substance Abuse [facility] Work Phone: Start: 07-19-2020 Medical Substance Abuse [facility] Work Phone: Start: 07-13-2020 [facility] Work Phone: Comment on above: Note: Please make a referral to: Start: 07-07-2020 Drug Test, Shant stout, In House [facility] Work Phone: Start: 01-26-2020 Abdominal aortic aneurysm screening Abdominal Aortic Aneurysm (AAA) Screen [facility] Start: 01-26-2020 Pneumococcal Vaccine : 65+ (1 - PCV) Pneumococcal Vaccine: 65+ (1 - PCV) [facility] Start: 01-26-2020 PNEUMOCOCCAL: 65+ (1 - PCV) PNEUMOCOCCAL: 65+ (1 - PCV) [facility] Start: 12-15-2018 Annual Wellness Visi t (AWV) Annual Wellness Visit (AWV) [employer] Phone: Start: 2015 RSV Vaccine (1 - 1-d ose 60+ series) RSV Vaccine (1 - 1-dose 60+ series) [facility] Start: 2010 PROSTATE CANCER SCREENING DISCUSSION PROSTATE CANCER SCREENING DISCUSSION [facility] Start: 2010 Screening for malign ant neoplasm of lung Low dose CT lung screening [employer] Phone: Start: 2005 Administration of varicella zoster vaccine Zoster (Shingles) Vaccine (1 of 2) [facility] Start: 2005 Screening for malign ant neoplasm of colon Colon cancer screen colonoscopy [employer] Phone: Start: 2005 Shingles Vaccine (1 of 2) Shingles Vaccine (1 of 2) [employer] Phone: Start: 2005 SHINGRIX VACCINE (1 of 2) SHINGRIX VACCINE (1 of 2) [facility] Start: 01-26-2000 COLOGUARD (FIT-DNA) COLOGUARD (FIT-D NA) [facility] Start: 01-26-2000 Colonoscopy COLONOSCOPY [facility] Start: 01-26-2000 COLORECTAL CANCER SCREENING COLORECTAL CANCER SCREENING [facility] Start: 01-26-[address] COLONOGRAPHY [facility] Start: 01-26-2000 DIABETES SCREEN DIABETES SCREEN [facility] Start: 01-26-2000 Diabetes Screening Diabetes Screenin g [facility] Start: 01-26-2000 FECAL OCCULT BLOOD FECAL OCCULT BLOO D [facility] Start: 01-26-2000 SIGMOIDOSCOPY SIGMOIDOSCOPY [facility] Start: 1974 Urine microalbumin profile [facility] Start: 1973 Adult BMI Follow Up Plan Adult BMI F ollow Up Plan [employer] Start: 1973 ANNUAL PCP TEAM FURNACE CLERK KESHA DISEASE VISIT ANNUAL PCP TEAM CHRONIC DISEASE VISIT [facility] Start: 1973 BP CONTROLLED (<130/80) BP CONTROLLE D (<130/80) [facility] Start: 1973 Hepatitis B surface antibody level LDL CHOLESTEROL [facility] Start: 1973 HEPATITIS C SCREENING HEPATITIS C PA JUDIKALPESH [facility] Start: 1971 COVID-19 Vaccine (1 of 2) COVID-19 Vaccine (1 of 2) [employer] Work Phone: Start: 1970 HIV screening HIV screen [employer] [facility] Work Phone: Start: 1967 Adult depression screening assessment DEPRESSION SCREENING [facility] Start: 1967 COVID-19 Vaccine (1) COVID-19 Vaccin e (1) [employer] Phone: Start: 1965 Lip[facility] Work Phone: Start: 1955 Abdominal aortic aneurysm screening AAA screen [employer] Phone: Start: 1955 Hepatitis C screening Hepatitis C wy nola [facility] Phone: Start: 1955 Medicare Annual Well ness Visit Medicare Annual Wellness Visit [employer] End: 08-16-2024 CBC W Auto Differential panel - Blood CBC auto differential Lab Routine Fatigue, unspecified type 1 Occurrences starting 08/16/2023 until 08/16/2024 [employer] Comment on above: 1 Occurrences starti ng 08/16/2023 until 08/16/2024 CBC W Auto Different ial panel - Blood CBC auto differential Lab Routine Fatigue, unspecified type 08/16/2023 10:35 PM EST [employer] Cologuard Non-[facility] Cologuar d Non-[facility] Lab Routine Special screening for malignant neoplasm of colon Ordered: 07/26/2023 [employer] Phone: Comment on above: Ordered: 07/26/2023 End: 08-16-2024 Comprehensive metabolic 2000 panel - Serum or Plasma Comprehensive metabolic panel Lab Routine CKD (chronic kidney disease) stage 2, GFR 60-89 ml/min Dyslipidemia 1 Occurrences starting 08/16/2023 until 08/16/2024 [employer] Work Phone: Comment on above: 1 Occurrences starti ng 08/16/2023 until 08/16/2024 Comprehensive metabo lic 2000 panel - Serum or Plasma Comprehensive metabolic panel Lab Routine CKD (chronic kidney disease) stage 2, GFR 60-89 ml/min Dyslipidemia 08/16/2023 10:35 PM EST [employer] End: 08-16-2020 Continuous cardiac monitoring, >2 up to 14 days Continuous cardiac monitoring, >2 up to 14 days Cardiac Services Routine Atypical chest pain PVC (premature ventricular contraction) 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 S/P angioplasty with stent Essential hypertension Mixed hyperlipidemia Tobacco abuse counseling 1 Occurrences starting 08/16/2020 until 08/16/2020 [employer] Work Phone: Comment on above: 1 Occurrences starti ng 08/16/2020 until 08/16/2020 End: 12-27-2022 ECG COMPLETE ECG COMPLETE ECG Routine 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 Primary hypertension Mixed hyperlipidemia 1 Occurrences starting 12/27/2021 until 12/27/2022 [facility] Work Phone: Comment on above: 1 Occurrences starti ng 12/27/2021 until 12/27/2022 End: 09-02-2020 Intermittent pulse oximetry Pulse Oximetry Spot Check Respiratory Care Routine One Time for 1 Occurrences starting 09/02/2020 until 09/02/2020 [employer] Work Phone: Comment on above: One Time for 1 Occur rences starting 09/02/2020 until 09/02/2020 Lipid 1996 panel - S [place] or Plasma Lipid profile Lab Routine Dyslipidemia 08/16/2023 10:35 PM EST [employer] End: 08-16-2024 Lipid panel Lipid panel Lab Routine Dyslipidemia 1 Occurrences starting 08/16/2023 until 08/16/2024 [employer] Comment on above: 1 Occurrences starti ng 08/16/2023 until 08/16/2024 End: 01-26-2023 NM CARDIAC PERF STRESS/PHARM NM CARDIAC PERF STRESS/PHARM Radiology Routine 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 Primary hypertension Mixed hyperlipidemia Smoker 1 Occurrences starting 12/27/2021 until 01/26/2023 [facility] Work Phone: Comment on above: 1 Occurrences starti ng 12/27/2021 until 01/26/2023 Oxygen therapy [[facility] Data Set] Initiate Oxygen Therapy Protocol Respiratory Care Routine Daily until discontinued starting 09/02/2020 [employer] Phone: Comment on above: Daily until disconti nued starting 09/02/2020 Protime-INR Protime-INR Lab STAT As Needed until discontinued starting 09/02/2020 [employer] Phone: Comment on above: As Needed until disc ontinued starting 09/02/2020 End: 08-16-2024 Thyroid profile includes TSH FT4 Thyroid profile includes TSH FT4 Lab Routine Fatigue, unspecified type 1 Occurrences starting 08/16/2023 until 08/16/2024 [facility] Comment on above: 1 Occurrences starti ng 08/16/2023 until 08/16/2024 Thyroid profile incl udes TSH FT4 Thyroid profile includes TSH FT4 Lab Routine Fatigue, unspecified type 08/16/2023 10:35 PM [facility] Immunizations Immunization Date Immunization Notes Care Provider Charity patten 10-08-2020 2nd Dose MODERNA COVID-19 Vaccine; Translations: [Moderna COVID-19 Vaccine] Ruby Dunbar [facility] Work Phone: [facility] Work Phone: Comment on above: Note: Patient tolera dave well. No signs or symptoms of adverse reactions. Patient waited a minimum of 15 minutes. 07-01-2020 influenza, injectabl e, quadrivalent, preservative free; Translations: [fluzone high dose] Ruby Dunbar [facility] Work Phone: Comment on above: Note: tolerated well , walked out before 15 min observation window 07-01-2020 influenza, high dose seasonal, preservative-free Ruby Marshal [facility] Work Phone: 07-01-2020 Imm.Admin. over 18 y rs Any Route FIRST Injection Ruby Dunbar [facility] Work Phone: 07-01-2020 Admin Influenza Viru s Vaccine Medicare Vkikirosalia Kramer [facility] Work Phone: 07-01-2020 influenza virus vacc ine, unspecified formulation Nazia Simpson APRN.PSYCHIATRIC SOCIAL WORKER SUPERVISOR Work Phone: [facility] 02-02-2020 pneumococcal polysaccharide vaccine, 23 valent Ruby Dunbar PSYCHIATRIC SOCIAL WORKER SUPERVISOR Work Phone: [facility] Work Phone: 05-02-2019 Influenza, injectabl e, Madin [place] Canine Kidney, preservative free, quadrivalent Ruby Dunbar PSYCHIATRIC SOCIAL WORKER SUPERVISOR Work Phone: [facility] Work Phone: 08-22-2017 influenza, injectabl e, quadrivalent, preservative free Ruby Dunbar PSYCHIATRIC SOCIAL WORKER SUPERVISOR Work Phone: [facility] 01-08-2017 tetanus toxoid, redu mookie diphtheria toxoid, and acellular pertussis vaccine, adsorbed [facility] Work Phone: 04-28-2015 influenza, injectabl e, quadrivalent, preservative free Ruby Dunbar PSYCHIATRIC SOCIAL WORKER SUPERVISOR Work Phone: [facility] Work Phone: 04-28-2015 pneumococcal conjuga te vaccine, 13 valent Ruby Dunbar PSYCHIATRIC SOCIAL WORKER SUPERVISOR Work Phone: [facility] Work Phone: 03-31-2010 influenza, seasonal, injectable Ruby Dunbar PSYCHIATRIC SOCIAL WORKER SUPERVISOR Work Phone: [facility] Work Phone: Payers Date Payer Category Payer Medicare HMO [facility] MEDICARE [id number] 2019 Medicare [facility] MEDICARE [facility] DUAL COMPLETE HMO SNP [id number] 2019-Present [phone] [address] [place] [address] Medicare [id number] 2019 Medicare [id number] 2019 Private Health Insurance [id number] [id number]. 1.63008.5.10.6.3 2019 Unknown [id number] 2.16.840.1.071099.3.140. 1.92848.5.10.6.3 2017 Medicaid [id number] [id number]. [id number] 2017 Unknown [id number] 2014 Medicare [id number] 1959 Medicaid [id number] 1959 Self-pay 1955 Unknown [id number] 2.16.840.1.832031.3.579. 2.173 1955 Unknown [id number] 2.16.840.1.562691.3.579. 2.173 1955 Unknown [id number] 2.16.840.1.868933.3.579. 2.173 1955 Unknown [id number] 2.16.840.1.993633.3.579. 2.173 1955 Unknown [id number] 2.16.840.1.837564.3.579. 2.173 1955 Unknown [id number] 2.16.840.1.637480.3.579. 2.173 1955 Unknown [id number] 2.16.840.1.920720.3.579. 2.173 1955 Unknown [id number] 2.16.840.1.277661.3.579. 2.173 1955 Unknown [id number] 2.16.840.1.132363.3.579. 2.175 1955 Unknown [id number] 2.16.840.1.575904.3.579. 2.593 1955 Unknown [id number] 2.16.840.1.585479.3.579. 2.593 1955 Unknown [id number] 2.16.840.1.337443.3.579. 2.593 1955 Unknown [id number] 2.16.840.1.229670.3.579. 2.593 1955 Unknown [id number] 2.16.840.1.937737.3.579. 2.1286 1955 Unknown [id number] 2.16.840.1.838109.3.579. 2.1286 1955 Unknown [id number] 2.16.840.1.590570.3.579. 2.727 1955 Unknown [id number] 2.16.840.1.856968.3.579. 2.727 1955 Unknown [id number] 2.16.840.1.040622.3.579. 2.1259 1955 Unknown [id number] 2..840.1.864706.3.579. 2.1259 Private Health Insurance [id number] Unknown [id number] 2.16.840.1.203840.3.579. 2.531 Unknown [id number] 2.16.840.1.101890.3.579. 2.531 Social History Date Type Detail Facility Assertion Sexually active (finding) [facility] Work Phone: Assertion Social drinker (finding) [facility] Work Phone: Assertion Opiate misuse (finding) [facility] Work Phone: Assertion [facility] Work Phone: Assertion Gender identity finding (finding) [facility] Work Phone: Assertion Finding of sexua l orientation (finding) [facility] Work Phone: Assertion Tobacco user (finding) [facility] Work Phone: Tobacco smoking status Unknown if ever smoked [facility] Work Phone: Assertion Emotional stress (finding) [facility] Work Phone: Assertion Exposure to poll ution (event) [facility] Work Phone: Start: 08-16-1964 End: 11-17-2020 Tobacco smoking status NHIS Current every day smoker [employer] Phone: Start: 08-16-1964 End: 10-23-2021 History of tobacco use Smoker [employer] Phone: Start: 08-05-2020 End: 08-16-2020 Cigarettes smoked current (pack per day) - Reported [employer] Phone: Start: 08-16-2020 End: 05-10-2023 Tobacco use and exposure Never used [employer] Phone: Start: 08-16-2020 End: 08-16-2023 Alcohol intake Current drinker of alcohol (finding) [employer] Phone: Start: 08-16-2020 Alcohol Comment History of alc ohol abuse, some alchohol currently [employer] Work Phone: Start: 1955 [facility] Start: 09-02-2020 Tobacco Comment nicotine patch in pl charly [employer] Phone: Start: 09-02-2020 Alcohol Comment History of alc ohol abuse, [employer] Phone: Start: 10-23-1981 End: 10-23-2021 Assertion Cigarette smoker (finding) [facility] Work Phone: Assertion Light cigarette smoker (1-9 cigs/day) (finding) [facility] Work Phone: Assertion Finding of alcoh ol intake (finding) [facility] Work Phone: Assertion Moderate cigaret te smoker (10-19 cigs/day) (finding) [facility] Work Phone: Assertion Heavy cigarette smoker (20-39 cigs/day) (finding) [facility] Work Phone: Assertion Stress (finding) [facility] Work Phone: Assertion Finding relating to drug misuse behavior (finding) [facility] Work Phone: Assertion Very heavy cigar ette smoker (40+ cigs/day) (finding) [facility] Work Phone: Start: 07-29-2019 End: 01-24-2024 Tobacco smoking status Heavy tobacco smoker (finding) [facility] Start: 08-05-2020 End: 12-27-2021 Sex Assigned At Male [facility] Start: 10-22-2019 Tobacco smoking status NHIS Never smoked tobacco [facility] Start: 12-17-2021 End: 12-27-2021 Exposure to SARS-CoV-2 (event) Not sure [facility] Start: 1955 Sex Assigned At Male [facility] Start: 05-10-2023 Tobacco smoking status NHIS Ex-smoker [facility] Start: 01-03-2022 Alcohol Comment occasional [facility] Tobacco [facility] Comment on above: quit 6 months ago Tobacco smoking status No Smoking Status Entered [facility] Start: 01-28-2015 Sex Male (finding) [facility] NEGATED: Highlighted row Assertion Exposure to pollution (event) [facility] Work Phone: NEGATED: Highlighted row Assertion Current drinker of alcohol (finding) [facility] Work Phone: NEGATED: Highlighted row Assertion Not wishing to stop smoking , offered Quit Line information [facility] Work Phone: NEGATED: Highlighted row Assertion Tobacco user (finding) [facility] Work Phone: NEGATED: Highlighted row Assertion Prescription of drug (procedure) [facility] Work Phone: Functional Status Date Assessment Result Facility 01-24-2024 Functional Status N/A [facility] 07-27-2023 Functional Status N/A [facility] 04-24-2022 Functional Status N/A [facility] Mental Status Date Assessment Result Facility Cognitive function Cognitive fun ctioning was normal Cognitive function finding (finding) [facility] Work Phone: Clinical Notes 09-10-2020 to 06-05-2024 Telephone Encounter - Nelia Emerson CMA - 06/05/2024 4:03 PM ESTTelephone Encounter - Colby Freeman APRN-JOHN - 06/05/2024 4:03 PM EST Note Date & Type Note Facility 06-05-2024 Miscellaneous Notes Formattin g of this note might be different from the original. Patient called and would like to come back to our practice. Are you willing to see this patient again? No, I do not feel comfortable as he was rude to me when I declined to give him a controlled substance. Patient notified documented in this encounter [facility] 06-05-2024 Telephone encount er Note Patient called and would like to come back to our practice. Are you willing to see this patient again? [facility] 06-05-2024 Telephone encount er Note No, I do not feel comfortable as he was rude to me when I declined to give him a controlled substance. [facility] 06-05-2024 Telephone encount er Note Patient notified [facility] 01-24-2024 Evaluation + Plan note Extrac dave from: Title:chronic pain Author:Didier Lee DO Date:01/24/24 Patient is presenting with h istory significant for cervical spine stenosis, cervical radiculopathy, cervical and lumbar postlaminectomy pain syndrome lumbar stenosis with neurogenic claudication. He has symptoms in his cervical spine radiating into the bilateral upper extremities worse on left than right as well as the bilateral lower extremities worse on left than the right. He rates his pain as 6/10 but can be a 10/10 in severity. He has been maintained on gabapentin as well as tizanidine with good efficacy most recently however he does have symptoms of stenosis in his cervical spine and myelopathy that has been present for quite some time. He was told that he would be a surgical candidate for both the cervical spine and lumbar spine in the past however he declined surgery at that time and is still very hesitant to consider surgery would not like to referral to a surgeon at this time. His pain is relatively at baseline and symptoms have not significantly progressed over this time. He will continue on a nonnarcotic based treatment plan will continue gabapentin and tizanidine. We discussed monitoring for symptoms of worsening myelopathy with him as well. Cervical spine x ray reviewed, discussed that obtaining an updated MRI would be reasonable, but patient declined. VALENTINE Score: 58% PHQ-2: Patient denies any symptoms of progressively worsening upper/lower extremity weakness, progressively worsening gait abnormality, new onset bowel/bladder incontinence/ urinary retention, or saddle anesthesia. No new or worsening symptoms of fever, chills, night sweats. 14 Point Review of systems negative unless otherwise noted. General: No acute distress. Patient appears well-nourished. HEENT: Head is normocephalic and external ears are normal in appearance. Cardiovascular: No signs of poor perfusion and no peripheral edema Pulmonary: Nonlabored breathing, symmetric chest movement. GI: Abdomen nondistended Integumentary: No lesions Neurologic: Alert, oriented x3. 5/5 strength grossly in the bilateral upper extremities. Sensation intact to light touch in the bilateral upper extremities. 5/5 strength grossly in the bilateral lower extremities. Sensation intact to light touch in the bilateral lower extremities. MSK/Special Testing: Positive Yanna sign bilaterally, positive spurling's and seated SLR bilaterally. History, physical examination, and personal review of pertinent imaging results indicate a diagnosis of: -Cervical spine stenosis and cervical radiculopathy -Postlaminectomy pain syndrome -Lumbar stenosis with neurogenic claudication Plan: -We discussed quite a bit that he is myelopathic and has significant symptoms in his neck and his low back and he has had surgical evaluation several years ago and was told that he would need surgery, patient declined at that time and declined referral to a surgeon or updated imaging at this time. -Will continue on gabapentin 1200 mg 3 times daily and tizanidine 4 mg 3 times daily -We discussed that he has symptoms of myelopathy and this may progress and cause further loss of function however he is very hesitant to consider his surgical consultation or updated imaging at this time, he would like to defer at this time. Educated on symptoms and monitoring for worsening myelopathy as well as seeking emergent care if there is an acute change -6 month follow up Patient was counseled on the above diagnosis and treatment, all questions were answered and patient agrees to adhere to the plan above. Risk and benefits of appropriate procedures and medications were reviewed as well with patient, who voiced understanding and agreeance. Patient was counseled on appropriate use of opioids if prescribed or renewed today and naloxone was offered to patient if opioids were prescribed or maintained at this visit. PHQ-2 scoring reviewed with patient and discussed seeking treatment for depression or mood disorder as appropriate. Patient was counseled on smoking cessation and/or continuing to abstain from nicotine/tobacco products as appropriate based on history; as smoking/nicotine can contribute to increased pain overall and decreased wound healing. Patient counseled on maintaining a healthy BMI as part of the total treatment of their pain and to reduce stress/strain on joints. Patient invited to return or call with any questions or concerns that arise. [facility] 08-01-2024 NoteConsultation Note Patient is presenting with history significant for cervical spine stenosis, cervical radiculopathy,cervical and lumbar postlaminectomy pain syndrome lumbar stenosis with neurogenic claudication. He has symptoms in his cervical spine radiating into the bilateral upper extremities worse on left thanright as well as the bilateral lower extremities worse on left than the right. He rates his pain as6/10 but can be a 10/10 in severity. He has been maintained on gabapentin as well as tizanidine with good efficacy most recently however he does have symptoms of stenosis in his cervical spine and myelopathy that has been present for quite some time. He was told that he would be a surgical candidate for both the cervical spine and lumbar spine in the past however he declined surgery at that time and is still very hesitant to consider surgery would not like to referral to a surgeon at this time.His pain is relatively at baseline and symptoms have not significantly progressed over this time. He will continue on a nonnarcotic based treatment plan will continue gabapentin and tizanidine. We dis cussed monitoring for symptoms of worsening myelopathy with him as well. Cervical spine x ray reviewed, discussed that obtaining an updated MRI would be reasonable, but patient declined. VALENTINE Score: 58% PHQ-2: Patient denies any symptoms of progressively worsening upper/lower extremity weakness, progressively worsening gait abnormality, new onset bowel/bladder incontinence/ urinary retention, or saddle anesthesia. No new or worsening symptoms of fever, chills, night sweats. 14 Point Review of systems negative unless otherwise noted. General: No acute distress. Patient appears well-nourished. HEENT: Head is normocephalic and external ears are normal in appearance. Cardiovascular: No signs of poor perfusion and no peripheral edema Pulmonary: Nonlabored breathing, symmetric chest movement. GI: Abdomen nondistended Integumentary: No lesions Neurologic: Alert, oriented x3. 5/5 strength grossly in the bilateral upper extremities. Sensation intact to light touch in the bilateral upper extremities. 5/5 strength grossly in the bilateral lower extremities. Sensation intact to light touch in the bilateral lower extremities. MSK/Special Testing: Positive Yanna sign bilaterally, positive spurling's and seated SLR bilaterally. History, physical examination, and personal review of pertinent imaging results indicate a diagnosis of: -Cervical spine stenosis and cervical radiculopathy -Postlaminectomy pain syndrome -Lumbar stenosis with neurogenic claudication Plan: -We discussed quite a bit that he is myelopathic and has significant symptoms in his neck and his low back and he has had surgical evaluation several years ago and was told that he would need surgery, patient declined at that time and declined referral to a surgeon or updated imaging at this time. -Will continue on gabapentin 1200 mg 3 times daily and tizanidine 4 mg 3 times daily -We discussed that he has symptoms of myelopathy and this may progress and cause further loss of function however he is very hesitant to consider his surgical consultation or updated imaging at this time, he would like to defer at this time. Educated on symptoms and monitoring for worsening myelopathy as well as seeking emergent care if there is an acute change -6 month follow up Patient was counseled on the above diagnosis and treatment, all questions were answered and patientagrees to adhere to the plan above. Risk and benefits of appropriate procedures and medications were reviewed as well with patient, who voiced understanding and agreeance. Patient was counseled on appropriate use of opioids if prescribed or renewed today and naloxone was offered to patient if opioids were prescribed or maintained at this visit. PHQ-2 scoring reviewed with patient and discussed seeking treatment for depression or mood disorder as appropriate. Patient was counseled on smoking cessation and/or continuing to abstain from nicotine/tobacco products as appropriate based on history; as smoking/nicotine can contribute to increased pain overall and decreased wound healing. Patient counseled on maintaining a healthy BMI as part of the total treatment of their pain and to reduce stress/strain on joints. Patient invited to return or call with any questions or concerns that arise.[facility] CenterComment on above:Result Comment: Electronically Signed By: Didier Lee DO.br\Date and Time Signed: 01/24/24 11:25 [id number] History of Present illness Narrative* Chula Vee, PAYMENT SPECIALIST-MR TEACHER - 08/16/2023 1:00 PM EST Subjective Patient ID: Sharlene Tinsley is a 68 y.o. male. He is here today because he needs blood work and a physical for his physician who prescribes his on-line suboxone He does have anxiety and chronic fatigue and states his anxiety is at a mercedes level He insists he does not tolerate medication such as buspar, prozac, zoloft etc as these 'psychotic' meds make him feel terrible He desires a prescription for xanax however this was weaned off when he was incarcerated for a DUI while using both alcohol and xanax He also scores very high as a fall risk and admits to falling and gait is poor We discussed his hepatitis c but he apparently has a negative titer and does not want to pursue this further We did review some of his old blood work and will repeat blood work for him today, apparently therewas a question of an underactive thyroid at one time, will recheck this The following portions of the patient's history were reviewed and updated as appropriate: allergies, current medications, past family history, past medical history, past social history, past surgicalhistory, problem list, and medication reconciliation was completed including current medication andpost discharge medication. Review of Systems Constitutional: Positive for fatigue. HENT: Negative. Cardiovascular: Negative for chest pain, palpitations and leg swelling. Gastrointestinal: Negative. Endocrine: Negative. Genitourinary: Negative. Musculoskeletal: Positive for arthralgias, back pain and myalgias. Skin: Negative. Neurological: Positive for weakness. Hematological: Negative. Psychiatric/Behavioral: Positive for agitation and dysphoric mood. The patient is nervous/anxious. Objective Physical Exam Vitals and nursing note reviewed. Eyes: Conjunctiva/sclera: Conjunctivae normal. Neck: Vascular: No carotid bruit. Cardiovascular: Rate and Rhythm: Normal rate and regular rhythm. Heart sounds: Normal heart sounds. No murmur heard. Pulmonary: Effort: Pulmonary effort is normal. Breath sounds: Normal breath sounds. Musculoskeletal: Cervical back: No tenderness. Right lower leg: No edema. Left lower leg: No edema. Lymphadenopathy: Cervical: No cervical adenopathy. Skin: General: Skin is warm and dry. Capillary Refill: Capillary refill takes less than 2 seconds. Neurological: Mental Status: He is alert and oriented to person, place, and time. Psychiatric: Attention and Perception: Attention normal. Mood and Affect: Affect is labile. Speech: Speech normal. Behavior: Behavior is aggressive. Thought Content: Thought content is paranoid. Cognition and Memory: Memory normal. Judgment: Judgment is impulsive. Assessment/Plan Sharlene was seen today for annual exam. Diagnoses and all orders for this visit: Visit for annual health examination CKD (chronic kidney disease) stage 2, GFR 60-89 ml/min - Comprehensive metabolic panel; Future Dyslipidemia - Comprehensive metabolic panel; Future - Lipid panel; Future Severe episode of recurrent major depressive disorder, with psychotic features ([facility]) Benzodiazepine dependence in remission ([facility]) Fatigue, unspecified type - Thyroid profile includes TSH FT4; Future - CBC auto differential; Future Narcotic abuse ([facility]) Chronic pain syndrome At high risk for injury related to fall Other orders - FLUoxetine (PROzac) 10 mg capsule; Take 1 capsule (10 mg total) by mouth in the morning. Labs drawn today and will await their return He is currently taking suboxone although he is unhappy about this and believes he is being treated unfairly and not open to discussion about it Spoke at length about why xanax would not be prescribed, in addition to his previous abuse he is 68and high fall risk - he was not very receptive to this but finally agreed to try prozac again He will continue to follow up with [facility] at [facility] for his suboxone Chula Loza KEVEN Vee 08/16/23 [id number] [facility] Evaluation + Plan noteExtracted from: Title:Pain Managment Follow up Author:Lakeisha Yu Date:07/27/23 Impression and Plan Patient is a 68-year-old male with a past medical history significant for widespread pain. He has a past medical history significant for cervical stenosis, postlaminectomy syndrome, and chronic pain. At this time, he continues on gabapentin 1200 mg 3 times a day and tizanidine 4 mg up to 3 times a day. He once again inquired about getting Xanax or something similar to help his blood pressure. His blood pressure was high today and I recommended he reach out to his PCP. He does not have 1 so he inquired if there was anybody I knew if he could see. We will give him the names of some local primary care physicians he could reach out to. At this time he will continue on his medications. OARRS was reviewed. Refill sent to the pharmacy. At this time, he is going to follow-up in 6 months for medication management. Call the clinic sooner if necessary. OARRS reviewed VALENTINE score: 54% [facility]10-26[facility] Evaluation note* Encounter Date Diagnosis Assessment Notes Treatment Notes Treatment Clinical Notes Mar, Flank pain, acute (ICD-10 - R10.9) Mar, Acute cystitis with hematuria (ICD-10 - N30.01) Reviewed UA, will treat patient for UTI today. Instructed patient to take antibiotic as prescribed, take with food, complete entire course of therapy even if feeling better. Allergies and recent antibiotic use was reviewed with patient. Advised patient urine culture was sent today and we will call with her results if antibiotic needs changed. Patient instructed to push fluids. Patient symptoms should improve in the next 24-48 hours, if symptoms persist follow up with PCP or UC. Immediate eval by ER if back or flank pain, blood in urine, fever, chills, N/V, or any other concerning symptoms. Patient verbalizes understanding and is agreeable to treatment plan. [facility] Other 10-02-2023 Miscellaneous Notes* Telephone Encounter - Nazia Mcghee - 03/26/2023 12:17 PM EDT Unable to reach patient, all numbers have been changed, disconnected or are no longer in service, my chart is inactive as well. * Telephone Encounter - Brooke Murphy MA - 03/26/2023 8:15 AM EDT Last office visit 12/27/21 No future appt scheduled Please contact patient to schedule a follow up for refills documented in this encounterL[facility]07-19-2023 Miscellaneous Notes* Telephone Encounter - Flaca Forrest RN - 01/10/2023 3:14 PM EDT Letter placed for pickup. * Telephone Encounter - Nazia Mcghee - 01/10/2023 2:44 PM EDT Unable to leave message on any of the phones listed. Both are not in service, [facility] is also inactive. Letter placed in outgoing mail to ensure patient is notified of previous encounter. * Telephone Encounter - Brooke Murphy MA - 01/08/2023 10:16 AM EDT Last office visit 12/27/21 No future appt scheduled Schedulers please contact patient to schedule an appt for refills then route back so rx can be filled documented in this encounterLake[facility] Center04-26-2023 Miscellaneous Notes* Telephone Encounter - Fan Bill RN - 10/18/2022 1:58 PM EDT Attempted to call pt phone number is out of service, encounter mailed to pt Mr Tinsley Please complete labs at any [facility] lab and call office [phone] to schedule appt and update your phone number * Telephone Encounter - Keith Khalil APRN.CNP - 10/18/2022 1:15 PM EDT Patient to assist with scheduling next available office visit with Dr. Urbano. Rx refill for 90 days only without any additional refills until patient is seen. He also needs updated labs last, he hascompleted with primary care in the last 3 to 6 months. The following approved medication requests have been transmitted electronically. Requested Prescriptions Signed Prescriptions Disp Refills amLODIPine (NORVASC) 10 mg tablet 90 tablet 0 Sig: TAKE 1 TABLET BY MOUTH ONCE DAILY Authorizing Provider: GABRIEL URBANO Ordering User: KEITH KHALIL APRN.PSYCHIATRIC SOCIAL WORKER SUPERVISOR * Telephone Encounter - Fan Bill RN - 10/18/2022 7:13 AM EDT Received request for refill of the following medications: Requested Prescriptions Pending Prescriptions Disp Refills amLODIPine (NORVASC) 10 mg tablet [Pharmacy Med Name: amLODIPine Besylate 10 MG Oral Tablet] 90 tablet 0 Sig: TAKE 1 TABLET BY MOUTH ONCE DAILY Patient requested a 90 day refill. Pharmacy verified and updated accordingly. Patient was last seen in cardiology office: 12/27/21. Labs: No results found for: HB, HCT, WBC, PLT No results found for: CREAT documented in this encounterLakehealth [facility] Center10-31-2022 Evaluation + Plan note Extracted from: Title:Pain management follow-up Author:Lakeisha Castellanos PA-C Date:04/24/22 Impression and Plan Patient is a 67-year-old male with a past medical history significant for cervical stenosis, cervical neuritis, postlaminectomy syndrome and chronic pain. He also has global body pain. At this time he continues on gabapentin and tizanidine. OARRS was reviewed. Refills were sent to the pharmacy per his request. He gets them from his mail order pharmacy. In regards to his cervical stenosis he was previously referred to a surgeon but he did not ever go because of some transportation issues. Now that we have one locally he is agreeable to seeing this person. Since his MRI is over a year old and in fact 2 years old we will obtain an updated MRI and cervical x- rays for the surgeon to review. It should be noted the patient had significant stenosis on his previous MRI. This affects his ambulatory status. This affects his quality of life and based on the findings on the previous MRI and his pain pattern I do not feel that physical therapy would be of benefit to him. In regards to pain management he is going to follow-up in 3 months. We will facilitate referral to the spine surgeon after the MRI has been completed. Future Appointments Appointment Date:05/26/2022 02:00:00 PM Scheduled Provider:Lakeisha Castellanos PA-C Location:[facility] Appointment Type:Pain Management - Follow Up ([facility]) [facility]07-05-2022 History of Past illness Narrative* Problem Noted Date Resolved Date PVD (peripheral vascular disease) 12/27/2021 12/27/2021 Carotid stenosis 12/27/2021 12/27/2021 documented as of this encounter (statuses as of 12/27/2021) [facility]07-[facility] History of Past illness Narrative* Problem Noted Date Resolved Date PVD (peripheral vascular disease) 12/27/2021 12/27/2021 Carotid stenosis 12/27/2021 12/27/2021 documented as of this encounter (statuses as of 10/18/2022) [facility] History of Past illness Narrative* Problem Noted Date Diagnosed Date Resolved Date PVD (peripheral vascular disease) 12/27/2021 12/27/2021 Carotid stenosis 12/27/2021 12/27/2021 documented as of this encounter (statuses as of 01/11/2023) [address]05-2022 History of Past illness Narrative* Problem Noted Date Diagnosed Date Resolved Date PVD (peripheral vascular disease) 12/27/2021 12/27/2021 Carotid stenosis 12/27/2021 12/27/2021 documented as of this encounter (statuses as of 01/19/2023) [facility] History of Past illness Narrative* Problem Noted Date Diagnosed Date Resolved Date PVD (peripheral vascular disease) 12/27/2021 12/27/2021 Carotid stenosis 12/27/2021 12/27/2021 documented as of this encounter (statuses as of 01/26/2023) [facility] History of Past illness Narrative* Problem Noted Date Diagnosed Date Resolved Date PVD (peripheral vascular disease) 12/27/2021 12/27/2021 Carotid stenosis 12/27/2021 12/27/2021 documented as of this encounter (statuses as of 01/29/2023) [facility] History of Past illness Narrative* Problem Noted Date Diagnosed Date Resolved Date PVD (peripheral vascular disease) 12/27/2021 12/27/2021 Carotid stenosis 12/27/2021 12/27/2021 documented as of this encounter (statuses as of 03/27/2023) [facility] History of Past illness Narrative* Problem Noted Date Diagnosed Date Resolved Date PVD (peripheral vascular disease) 12/27/2021 12/27/2021 Carotid stenosis 12/27/2021 12/27/2021 documented as of this encounter (statuses as of 04/09/2023) [address]05-2022 History of Past illness Narrative* Problem Noted Date Diagnosed Date Resolved Date PVD (peripheral vascular disease) 12/27/2021 12/27/2021 Carotid stenosis 12/27/2021 12/27/2021 documented as of this encounter (statuses as of 05/01/2023) [facility] NoteHNO ID: [id number] Author: Gabriel Urbano MD Service: ? Author Type: Physician Type: Progress Notes Filed: 12/27/2021 11:44 AM Note Text: [facility] [place] [facility] C[facility]Y OUTPATIENT VISIT DATE December 27, 2021 OUTPATIENT VISIT TYPE NEW PRIMARY CARE PHYSICIAN: Kenny Hook, [address] [place] [address] A written report of the findings and recommendations will be sent to the requesting provider via shared medical record or via [employer]. Patient is being seen at the request of the referring physician for Coronary artery disease, Hyperlipidemia, Hypertension, Peripheral vascular disease and smoking. HISTORY OF PRESENT ILLNESS: Mr. Tinsley is a 66 year old male with history of coronary artery disease status post angioplasty and stenting to the right coronary artery with multiple stents done up to 70 stents in that area however later totally chronically occluded RCA by coronary angiogram in 2020.. History of hypertension hyperlipidemia. Also history of smoking. . Cardiac work-up includes: A nuclear stress test in 2007 at [facility] was normal. A nuclear stress test in 2017 with unknown results. An echocardiogram done in 2016 at [facility] showed ejection fraction 55 to 60%. No valvular heart disease of any significance. A Holter monitor in 2020 showed nonsustained ventricular tachycardia. EKG today showed atrial bigeminy rhythm. Coronary angiogram in 2020 showed totally occluded RCA with good collaterals from the left to the right. Continues to have symptoms of chest discomfort however he does not know if it is coming from his neck because he had some pinched nerves or because of his a chest. He mentioned that this happens with significant activity. He denies any significant dyspnea orthopnea or PND. No syncope near syncope. No lightheadedness or dizziness. No other symptoms or complaints. He quit smoking 6 weeks ago. IMPRESSION: Encounter Diagnosis ICD-10-CM 1. 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 I25.10 ECG COMPLETE NM CARDIAC PERF STRESS/PHARM 2. Primary hypertension I10 ECG COMPLETE NM CARDIAC PERF STRESS/PHARM 3. Mixed hyperlipidemia E78.2 ECG COMPLETE NM CARDIAC PERF STRESS/PHARM 4. Smoker F17.200 NM CARDIAC PERF STRESS/PHARM PLAN AND RECOMMENDATIONS: Coronary artery disease Along with stable angina pectoris. The patient had totally chronic occluded RCA as per cardiac catheterization in 2020. He has good collaterals. We will add amlodipine 10 mg a day to improving his blood pressure management and to improve on his anginal symptoms. Continue isosorbide mononitrate. Extensive history of smoking However he quit 6 weeks ago. He was congratulated on his effort and and his decision. Hypertension Not well controlled. His lisinopril was reduced to due to hyperkalemia. I agree with that. He is now will be started on amlodipine 10 mg as mentioned. And his blood pressure should be much better controlled. REVIEW OF SYSTEMS: Chest pain No Shortness of breath No Bleeding No Dizziness No Syncope No Palpations No 10 systems reviewed and are negative with the exception of pertinent positives described in HPI PHYSICAL EXAMINATION: BP 166/87 (BP Site: Left Arm, BP Position: Sitting, BP Cuff Size: Large Adult) Pulse (!) 54 Wt 84.5 kg (186 lb 3.2 oz) SpO2 98% BMI 25.25 kg/m? HEENT: normocephalic, EOMI Heart: regular rhythm Lungs: clear to auscultation Abdomen: bowel sounds present Extremities: no edema Musculoskeletal: chest wall nontender Neurological: alert and oriented Psychiatric: appropriate and cooperative Skin: no rash, cellulitis or lesions appreciated CARDIOVASCULAR MEDICINE TESTING: I have personally reviewed ECG, laboratory results, outside medical records, echocardiogram report and stress test report PAST CARDIAC HISTORY: See above History reviewed. No pertinent past medical history. History reviewed. No pertinent surgical history. Social History Tobacco Use - Smoking status: Never Smoker - Smokeless tobacco: Never Used Vaping Use - Vaping Use: current everyday user Substance Use Topics - Alcohol use: Not on file - Drug use: Not on file History reviewed. No pertinent family history. ALLERGIES Allergen Reactions - Ivp Dye [Iodine] Hives, Swelling, Itching CURRENT MEDICATIONS: buprenorphine-naloxone (SUBOXONE) 12-3 mg sublingual film dissolve 2 FILMS under the tongue once daily carvedilol (COREG) 3.125 mg tablet Take 3.125 mg by mouth twice daily. clonazePAM (KLONOPIN) 1 mg tablet Take 1 mg by mouth twice daily as needed. fluticasone (FLONASE) 50 mcg/actuation nasal spray Use 1 [place] in the nose. gabapentin (NEURONTIN) 800 mg tablet Take 800 mg by mouth three times daily. isosorbide mononitrate ER (IMDUR) 30 mg 2 (more content not included)... [facility]07-05-2022 History of Present illness Narrative* Gabriel Urbano MD - 12/27/2021 11:07 AM EDT Images from the original note were not included. [facility] [place] SE[facility] OF REGIONAL CARDIOLOGY OUTPATIENT VISIT DATE December 27, 2021 OUTPATIENT VISIT TYPE NEW PRIMARY CARE PHYSICIAN: Kenny Hook DO [address] [place] [address] A written report of the findings and recommendations will be sent to the requesting provider via shared medical record or via [employer]PS. Patient is being seen at the request of the referring physician for Coronary artery disease, Hyperlipidemia, Hypertension, Peripheral vascular disease and smoking. HISTORY OF PRESENT ILLNESS: Mr. Tinsley is a 66 year old male with history of coronary artery disease status post angioplasty and stenting to the right coronary artery with multiple stents done up to 70 stents in that area howeverlater totally chronically occluded RCA by coronary angiogram in 2020.. History of hypertension hyperlipidemia. Also history of smoking. . Cardiac work-up includes: A nuclear stress test in 2007 at [facility] was normal. A nuclear stress test in 2017 with unknown results. An echocardiogram done in 2016 at [facility] showed ejection fraction 55 to 60%. No valvular heart disease of any significance. A Holter monitor in 2020 showed nonsustained ventricular tachycardia. EKG today showed atrial bigeminy rhythm. Coronary angiogram in 2020 showed totally occluded RCA with good collaterals from the left to the right. Continues to have symptoms of chest discomfort however he does not know if it is coming from his neck because he had some pinched nerves or because of his a chest. He mentioned that this happens withsignificant activity. He denies any significant dyspnea orthopnea or PND. No syncope near syncope. No lightheadedness or dizziness. No other symptoms or complaints. He quit smoking 6 weeks ago. IMPRESSION: Encounter Diagnosis ICD-10-CM 1. Coronary artery disease involving port lions coronary artery of [place] lions heart without angina [id number] ECG COMPLETE NM CARDIAC PERF STRESS/PHARM 2. Primary hypertension I10 ECG COMPLETE NM CARDIAC PERF STRESS/PHARM 3. Mixed hyperlipidemia E78.2 ECG COMPLETE NM CARDIAC PERF STRESS/PHARM 4. Smoker F17.200 NM CARDIAC PERF STRESS/PHARM PLAN AND RECOMMENDATIONS: Coronary artery disease Along with stable angina pectoris. The patient had totally chronic occluded RCA as per cardiac catheterization in 2020. He has good collaterals. We will add amlodipine 10 mg a day to improving his blood pressure management and to improve on his anginal symptoms. Continue isosorbide mononitrate. Extensive history of smoking However he quit 6 weeks ago. He was congratulated on his effort and and his decision. Hypertension Not well controlled. His lisinopril was reduced to due to hyperkalemia. I agree with that. He is now will be started on amlodipine 10 mg as mentioned. And his blood pressure should be much better controlled. REVIEW OF SYSTEMS: Chest pain No Shortness of breath No Bleeding No Dizziness No Syncope No Palpations No 10 systems reviewed and are negative with the exception of pertinent positives described in HPI PHYSICAL EXAMINATION: BP 166/87 (BP Site: Left Arm, BP Position: Sitting, BP Cuff Size: Large Adult) Pulse (!) 54 Wt 84.5 kg (186 lb 3.2 oz) SpO2 98% BMI 25.25 kg/m HEENT: normocephalic, EOMI Heart: regular rhythm Lungs: clear to auscultation Abdomen: bowel sounds present Extremities: no edema Musculoskeletal: chest wall nontender Neurological: alert and oriented Psychiatric: appropriate and cooperative Skin: no rash, cellulitis or lesions appreciated CARDIOVASCULAR MEDICINE TESTING: I have personally reviewed ECG, laboratory results, outside medical records, echocardiogram report and stress test report PAST CARDIAC HISTORY: See above History reviewed. No pertinent past medical history. History reviewed. No pertinent surgical history. Social History Tobacco Use Smoking status: Never Smoker Smokeless tobacco: Never Used Vaping Use Vaping Use: current everyday user Substance Use Topics Alcohol use: Not on file Drug use: Not on file History reviewed. No pertinent family history. ALLERGIES Allergen Reactions Ivp Dye [Iodine] Hives, Swelling, Itching CURRENT MEDICATIONS: buprenorphine-naloxone (SUBOXONE) 12-3 mg sublingual film dissolve 2 FILMS under the tongue once daily carvedilol (COREG) 3.125 mg tablet Take 3.125 mg by mouth twice daily. clonazePAM (KLONOPIN) 1 mg tablet Take 1 mg by mouth twice daily as needed. fluticasone (FLONASE) 50 mcg/actuation nasal spray Use 1 [place] in the nose. gabapentin (NEURONTIN) 800 mg tablet Take 800 mg by mouth three times daily. isosorbide mononitrate ER (IMDUR) 30 mg 24 hr tablet Take 15 mg by mouth once daily. lisinopril (ZESTRIL, PRINIVIL) 10 mg tablet Take 10 mg by mouth once daily. Taking 1/2 tablete rosuvastatin (CRESTOR) 10 mg tablet Take 10 mg by mouth once daily. cyclobenzaprine (FLEXERIL) 10 mg tablet documented in this encounterLakehealth [facility]05-27-2022 Evaluation + Plan note Extracted from: Title:Pain management follow-up Author:Lakeisha Castellanos PA-C Date:11/18/21 Impression and Plan Patient is a 66-year-old male with a past medical history segment for postlaminectomy syndrome, chronic pain, and cervical stenosis. He continues to have widespread pain. He is on gabapentin 1200 mg 3 times a day and baclofen. He does not feel the baclofen is working for him as well as it used to. He wonders about switching this. He would like to go on Zanaflex. I will send this to the pharmacy. He did request Xanax and I told him that this is not something that we prescribed. He also wishes like gabapentin or OxyContin and I told him that chronic opiates for chronic global nonspecific pain is not recommended and we will not prescribe this. He voiced understanding. At this time he is going to continue on the gabapentin and he is going to use the Zanaflex. He will follow-up in 3 months. He will call the clinic sooner if necessary. OARRS was reviewed. He will call for refills. Future Appointments Appointment Date:02/17/2022 11:00:00 AM Scheduled Provider:Lakeisha Castellanos PA-C Location:[facility] Appointment Type:Pain Management - Follow Up (FT) [facility]04-18-2022 Evaluation note Includes: Assessments for all patient encounters Findings Encounter Date Opioid dependence with continuous use Telebehavioral Health with Hina Cope [facility] 10/10/2021 Stimulant dependence - uncomplicated Telebehavioral Health with Hina Cope [facility] 10/10/2021 Opioid dependence uncomplicated [facility] 10/03/2021 PLAN Chart Update with Johan evans MD 09/29/2021 Opioid dependence with continuous use Chart Upda te with Johan Cedillo MD 09/29/2021 Opioid dependence uncomplicated BH Subst ance Abuse with Hina Cope [facility] 09/23/2021 Diabetes Risk Test Score was five score 09/23/2021 Medical Substance Abuse with Ruby Dunbar [employer] 09/23/2021 Neurogenic bladder Medical Substance Ab use with Ruby Marshal [employer] 09/23/2021 Opioid dependence with continuous use Me dical Substance Abuse with Ruby Marshal [employer] 09/23/2021 Systemic hypertension Medical Substance Abuse with Rubyramiro Dunbar [employer] WORK[employer] SUPERVIS[employer] 09/23/2021 Tinnitus Medical Substance Ab use with Ruby Marshal [employer] SUPER[employer] 09/23/2021 Z68.25 - Body mass index [BM I] 25.0-25.9, adult Medical Substance Abuse with Ruby Marshal [employer] SU[employer] 09/23/2021 Abdominal pain Medical Substance Ab use with Rubyramiro Dunbar [employer] WORK[employer] SUPERVIS[employer] 09/09/2021 Abdominal pain--LLQ Medical Substance Ab use with Ruby Marshal [employer] SU[employer] 09/09/2021 Abdominal Pain--LUQ Medical Substance Ab use with Ruby Marshal [employer] WORK[employer] SUPER[employer] 09/09/2021 Assessment of body mass index Medical Pina bstance Abuse with Ruby Marshal [employer] WORK[employer] SUPERVIS[employer] 09/09/2021 Nausea Medical Substance Ab use with Ruby Marshal [employer] SU[employer] 09/09/2021 Neurogenic bladder Medical Substance Ab use with Ruby Marshal [employer] WORK[employer] SUPER[employer] 09/09/2021 Opioid dependence with continuous use Me dical Substance Abuse with Ruby Marshal [employer] WORK[employer] SUPER[employer] 09/09/2021 Systemic hypertension Medical Substance Abuse with Ruby Dunbar [employer] WORK[employer] SUPERVIS[employer] 09/09/2021 Vomiting Medical Substance Ab use with Ruby Marshal [employer] WORK[employer] SUPER[employer] 09/09/2021 Opioid dependence uncomplicated BH Subst ance Abuse with Hina Cope [facility] 08/26/2021 Assessment of body mass index Medical Pina bstance Abuse with Ruby Marshal [employer] WORK[employer] SUPERVIS[employer] 08/26/2021 Opioid dependence with continuous use Me dical Substance Abuse with Ruby Marshal [employer] WORKER SUPERVIS[employer] 08/26/2021 Systemic hypertension Medical Substance Abuse with Ruby Marshal [employer] WORKER SUPERVIS[employer] 08/26/2021 Tinnitus Medical Substance Ab use with Ruby Marshal [employer] WORK[employer] SUPER[employer] 08/26/2021 Opioid dependence, on agonist therapy BH Substance Abuse with Hinanyasia Cope [facility] 07/26/2021 Opioid dependence with continuous use Me dical Substance Abuse with Ruby Marshal [employer] SU[employer] 07/26/2021 Systemic hypertension Medical Substance Abuse with Ruby Dunbar [employer] WORK[employer] SUPERVIS[employer] 07/26/2021 Opioid dependence, on agonist therapy Telebehavioral Health with Hina Cope [facility] 07/01/2021 Exposure to COVID-19 Telemedicine Establ isted Patient with Ruby Dunbar [employer] WORK[employer] SUPERVISOR 07/01/2021 Neurogenic bladder Telemedicine Establi sted Patient with Ruby Dunbar [employer] WORK[employer] SUPERVISOR 07/01/2021 Opioid dependence with continuous use Te lemedicine Establisted Patient with Ruby Dunbar [employer] WORK[employer] SUPERVIS[employer] 07/01/2021 Systemic hypertension Telemedicine Estab listed Patient with Ruby Dunbar [employer] WORKER SUPERVISOR 07/01/2021 Opioid dependence uncomplicated BH Subst ance Abuse with Hina Cope [facility] 06/03/2021 Gastroesophageal reflux dise ase with esophagitis without bleeding Medical Substance Abuse with Ruby Dunbar [employer] WORK[employer] SUPER[employer] 06/03/2021 Neurogenic bladder Medical Substance Ab use with Ruby Dunbar [employer] WORKER SUPERVIS[employer] 06/03/2021 Opioid dependence with continuous use Me dical Substance Abuse with Ruby Dunbar [employer] SUPER[employer] 06/03/2021 Systemic hypertension Medical Substance Abuse with Ruby Dunbar [employer] WORKER SUPERVIS[employer] 06/03/2021 Opioid dependence uncomplicated BH Subst ance Abuse with Hina Cope [facility] 05/06/2021 Opioid dependence with continuous use Me dical Substance Abuse with Jyoti Penix [employer] WORKER SUPERVISOR 05/06/2021 Z68.27 - Body mass index [BM I] 27.0-27.9, adult Medical Substance Abuse with Jyoti Penix [employer] WORK[employer] SUPERVISOR 05/06/2021 Nicotine dependence uncomplicated BH Sub stance Abuse with Hina Cope [facility] 04/08/2021 Opioid dependence uncomplicated BH Subst ance Abuse with Hina Cope [facility] 04/08/2021 Assessment of body mass index Medical Pina bstance Abuse with Ruby Dunbar [employer] WORKER SUPERVIS[employer] 04/08/2021 Cough Medical Substance Ab use with Ruby Dunbar [employer] WORKER SUPERVISOR 04/08/2021 Neurogenic bladder Medical Substance Ab use with Ruby Dunbar [employer] WORKER SUPERVISOR 04/08/2021 Opioid dependence with continuous use Me dical Substance Abuse with Ruby Dunbar [employer] WORK[employer] SUPERVIS[employer] 04/08/2021 Tinnitus Medical Substance Ab use with Ruby Dunbar [employer] WORKER SUPERVISOR 04/08/2021 Anxiety disorder NOS BH Telebehavioral H ealth with Lucas HOPE 03/11/2021 Nicotine dependence uncomplicated BH Tel ebehavioral Health with Lucas Sullvian RN [facility] 03/11/2021 Opioid dependence, on agonist therapy Telebehavioral Health with Lucas Sullivan RN [facility] 03/11/2021 Assessment of body mass index Medical Pina bstance Abuse with Ruby Dunbar [facility] 03/11/2021 Neurogenic bladder Medical Substance Ab use with Ruby Dunbar [facility] 03/11/2021 Opioid dependence with continuous use Me dical Substance Abuse with Ruby Dunbar [facility] 03/11/2021 Tinnitus Medical Substance Ab use with Ruby Dunbar [facility] 03/11/2021 Opioid dependence, on agonist therapy BH Substance Abuse with Hina Cope [facility] 02/11/2021 Dependence on nicotine in ci garettes - uncomplicated Medical Substance Abuse with Nelia Jacksonchschulte [facility] 02/11/2021 Neurogenic bladder Medical Substance Ab use with Nelia Jacksonchschulte [facility] 02/11/2021 Opioid dependence with continuous use Me dical Substance Abuse with Nelia Jacksonchschulte [facility] 02/11/2021 Z68.24 - Body mass index [BM I] 24.0-24.9, adult Medical Substance Abuse with Nelia Stechschulte [facility] 02/11/2021 Opioid dependence uncomplicated BH Subst ance Abuse with Hinanyasia Cope [facility] 01/14/2021 Gastroesophageal reflux dise ase with esophagitis without bleeding Medical Substance Abuse with Ruby Dunbar [facility] 01/14/2021 Neurogenic bladder Medical Substance Ab use with Ruby Dunbar [facility] 01/14/2021 Nonvenomous insect bite Medical Substanc e Abuse with Ruby Dunbar [facility] 01/14/2021 Opioid dependence with continuous use Me dical Substance Abuse with Ruby Dunbar [facility] 01/14/2021 Tinnitus Medical Substance Ab use with Ruby Dunbar [facility] 01/14/2021 Z68.25 - Body mass index [BM I] 25.0-25.9, adult Medical Substance Abuse with Ruby Dunbar [facility] 01/14/2021 Opioid dependence, on agonist therapy BH Substance Abuse with Hina Cope [facility] 12/31/2020 G89.29 - Other chronic pain Medical Subs tance Abuse with Nelia Stechschulte [facility] 12/31/2020 Opioid dependence with continuous use Me dical Substance Abuse with Nelia Stechschulte [facility] 12/31/2020 R11.0 - Nausea Medical Substance Ab use with Neliadanielito Hernandez [facility] 12/31/2020 Z68.24 - Body mass index [BM I] 24.0-24.9, adult Medical Substance Abuse with Neliadanielito Hernandez [facility] 12/31/2020 Opioid dependence, on agonist therapy BH Substance Abuse with Hinanyasia Cope [facility] 12/17/2020 PLAN Medical Substance Ab use with Johan Cedillo MD 12/17/2020 Z68.23 - Body mass index [BM I] 23.0-23.9, adult Medical Substance Abuse with Johan Cedillo MD 12/17/2020 Nicotine dependence uncomplicated BH Sub stance Abuse with Hinanyasia Cope [facility] 12/03/2020 Opioid dependence, on agonist therapy BH Substance Abuse with Hinajarrett Cope [facility] 12/03/2020 Gastroesophageal reflux dise ase with esophagitis without bleeding Medical Established Patient with Ruby Dunbar [facility] 12/03/2020 Hypothyroidism Medical Established Patient with Ruby Dunbar [facility] 12/03/2020 Intervention and counseling on cessation of tobacco use, 3-10 minutes Discussed medication and nicotine replacement for tobacco cessation Medical Established Patient with Ruby Dunbar [facility] 12/03/2020 Neurogenic bladder Medical Established Patient with Ruby Dunbar [facility] 12/03/2020 Nicotine dependence Medical Established Patient with Ruby Dunbar [facility] 12/03/2020 Opioid dependence with continuous use Me dical Established Patient with Ruby Dunbar [facility] 12/03/2020 Routine history and physical Medical Est ablished Patient with Ruby Dunbar [facility] 12/03/2020 Vitamin B12 deficiency Medical Establish ed Patient with Ruby Dunbar [facility] 12/03/2020 Vitamin D deficiency Medical Established Patient with Ruby Dunbar [facility] 12/03/2020 Nicotine dependence uncomplicated BH Sub stance Abuse with Hinanyasia Cope [facility] 11/19/2020 Opioid dependence, on agonist therapy BH Substance Abuse with Hina Cope [facility] 11/19/2020 Opioid dependence with continuous use Me dical Substance Abuse with Ruby Dunbar [facility] 11/19/2020 Overweight Medical Substance Ab use with Ruby Dunbar [facility] 11/19/2020 Tinnitus Medical Substance Ab use with Ruby Dunbar [facility] 11/19/2020 Z68.25 - Body mass index [BM I] 25.0-25.9, adult Medical Substance Abuse with Ruby Dunbar [facility] 11/19/2020 Opioid dependence, on agonist therapy BH Established Patient with Hinanyasia Padillas [facility] 11/08/2020 Opioid dependence with continuous use Me dical Substance Abuse with Ruby Dunbar [facility] 11/08/2020 Z68.24 - Body mass index [BM I] 24.0-24.9, adult Medical Substance Abuse with Ruby Dunbar [facility] 11/08/2020 Opioid dependence, on agonist therapy Substance Abuse with Hinanyasia Padillas [facility] 10/22/2020 Allergic rhinitis Medical Substance Ab use with Ruby Dunbar [facility] 10/22/2020 Opioid dependence with continuous use Me dical Substance Abuse with Ruby Dunbar [facility] 10/22/2020 Z68.25 - Body mass index [BM I] 25.0-25.9, adult Medical Substance Abuse with Ruby Dunbar [facility] 10/22/2020 Contact dermatitis Medical Substance Ab use with Ruby Dunbar [facility] 10/08/2020 Encounter for Immunization Medical Subst ance Abuse with Ruby Dunbar [facility] 10/08/2020 Opioid dependence with continuous use Me dical Substance Abuse with Ruby Dunbar [facility] 10/08/2020 Z68.24 - Body mass index [BM I] 24.0-24.9, adult Medical Substance Abuse with Ruby Dunbar [facility] 10/08/2020 Opioid dependence, on agonist therapy Substance Abuse with Hinanyasia Padillas [facility] 09/24/2020 COVID-19 infection Medical Substance Ab use with Ruby Dunbar [facility] 09/24/2020 Opioid dependence with continuous use Me dical Substance Abuse with Ruby Dunbar [facility] 09/24/2020 Z68.25 - Body mass index [BM I] 25.0-25.9, adult Medical Substance Abuse with Ruby Dunbar [facility] 09/24/2020 Opioid dependence with continuous use BH Substance Abuse with Hinanyasia Padillas [facility] 09/10/2020 Constipation Medical Substance Ab use with Ruby Dunbar [facility] 09/10/2020 Opioid dependence with continuous use Me dical Substance Abuse with Ruby Dunbar [facility] 09/10/2020 Z68.24 - Body mass index [BM I] 24.0-24.9, adult Medical Substance Abuse with Ruby Dunbar [facility] 09/10/2020 Opioid dependence with continuous use BH Substance Abuse with Hina Cope [facility] 08/27/2020 Body mass index Medical Substance Ab use with Ruby Dunbar [facility] 08/27/2020 Nausea Medical Substance Ab use with Ruby Dunbar [employer] 08/27/2020 Opioid dependence with continuous use Me dical Substance Abuse with Ruby Dunbar [facility] 08/27/2020 Opioid dependence uncomplicated BH Subst ance Abuse with Hina Cope [facility] 08/13/2020 Opioid dependence BH Substance Abuse w ith Hina Bolivarmons [facility] 08/04/2020 Body mass index [Body mass i ndex [BMI] 24.0-24.9, adult] Medical Substance Abuse with Vikki Kramer [facility] 08/04/2020 Opioid dependence with continuous use Me dical Substance Abuse with Vikki Kramer [facility] 08/04/2020 Opioid dependence with continuous use Me dical Substance Abuse with Ruby Dunbar [facility] 07/27/2020 Overweight Medical Substance Ab use with Ruby Dunbar [facility] 07/27/2020 Z68.25 - Body mass index [BM I] 25.0-25.9, adult Medical Substance Abuse with Ruby Dunbar [facility] 07/27/2020 Opioid dependence, on agonist therapy BH Substance Abuse with Hinanyasia Padillas [facility] 07/19/2020 Psychotic disorder BH Substance Abuse w ith Hina Cope [facility] 07/19/2020 Opioid dependence with continuous use Me dical Substance Abuse with Ruby Dunbar [facility] 07/19/2020 Z68.24 - Body mass index [BM I] 24.0-24.9, adult Medical Substance Abuse with Ruby Dunbar [facility] 07/19/2020 Opioid dependence with continuous use BH Substance Abuse with Hina Cope [facility] 07/13/2020 Body mass index Medical Substance Ab use with Ruby Dunbar [facility] 07/13/2020 Coronary artery disease Medical Substanc e Abuse with Ruby Dunbar [facility] 07/13/2020 Opioid dependence with continuous use Me dical Substance Abuse with Ruby Dunbar [facility] 07/13/2020 Reflex neuropathic bladder Medical Subst ance Abuse with Ruby Dunbar [employer] SU[employer] 07/13/2020 Routine history and physical Medical Sub stance Abuse with Ruby Dunbar [employer] WORKER SUPERVISOR 07/13/2020 Opioid dependence BH Substance Abuse w ith Vy Senior [facility] 07/06/2020 Body mass index [Body mass i ndex [BMI] 24.0-24.9, adult] Medical New Patient with Vikki Kramer [employer] SU[employer] 07/06/2020 Diabetes Risk Test Score was three score 07/06/2020 Medical New Patient with Vikki Kramer [employer] SUPER[employer] 07/06/2020 Body mass index Walked Out NO Servic es Rendered with Ruby Dunbar [employer] WORKER SUPERVISOR 07/01/2020 [facility] Work Phone: [phone] Evaluation note Includes: Assessments for all patient encounters Findings Encounter Date Opioid dependence uncomplicated [facility] 10/03/2021 PLAN Chart Update with Johan evans MD 09/29/2021 Opioid dependence with continuous use Chart Upda te with Johan Cedillo MD 09/29/2021 Opioid dependence uncomplicated BH Subst ance Abuse with Hina Cope [facility] 09/23/2021 Diabetes Risk Test Score was five score 09/23/2021 Medical Substance Abuse with Ruby Dunbar [employer] SUPER[employer] 09/23/2021 Neurogenic bladder Medical Substance Ab use with Ruby Dunbar [employer] WORKER SUPERVISOR 09/23/2021 Opioid dependence with continuous use Me dical Substance Abuse with Ruby Dunbar [employer] WORK[employer] SUPER[employer] 09/23/2021 Systemic hypertension Medical Substance Abuse with Ruby Dunbar [employer] SUPERVIS[employer] 09/23/2021 Tinnitus Medical Substance Ab use with Ruby Marshal [employer] WORK[employer] SUPERVISOR 09/23/2021 Z68.25 - Body mass index [BM I] 25.0-25.9, adult Medical Substance Abuse with Ruby Dunbar [employer] SU[employer] 09/23/2021 Abdominal pain Medical Substance Ab use with Ruby Dunbar [employer] WORK[employer] SUPERVIS[employer] 09/09/2021 Abdominal pain--LLQ Medical Substance Ab use with Ruby Marshal [employer] WORKER SUPERVISOR 09/09/2021 Abdominal Pain--LUQ Medical Substance Ab use with Ruby Marshal [employer] WORKER SUPERVISOR 09/09/2021 Assessment of body mass index Medical Pina bstance Abuse with Ruby Marshal [employer] WORKER SUPERVISOR 09/09/2021 Nausea Medical Substance Ab use with Ruby Marshal [employer] WORKER SUPERVISOR 09/09/2021 Neurogenic bladder Medical Substance Ab use with Ruby Marshal [employer] WORKER SUPERVISOR 09/09/2021 Opioid dependence with continuous use Me dical Substance Abuse with Ruby Marshal [employer] WORK[employer] SUPERVISOR 09/09/2021 Systemic hypertension Medical Substance Abuse with Ruby Dunbar [employer] WORK[employer] SUPERVIS[employer] 09/09/2021 Vomiting Medical Substance Ab use with Ruby Marshal [employer] WORKER SUPERVISOR 09/09/2021 Opioid dependence uncomplicated BH Subst ance Abuse with Hina Cope [facility] 08/26/2021 Assessment of body mass index Medical Pina bstance Abuse with Ruby Dunbar [employer] WORK[employer] SUPERVIS[employer] 08/26/2021 Opioid dependence with continuous use Me dical Substance Abuse with Ruby Dunbar [employer] WORKER SUPERVISOR 08/26/2021 Systemic hypertension Medical Substance Abuse with Ruby Dunbar [employer] WORK[employer] SUPERVIS[employer] 08/26/2021 Tinnitus Medical Substance Ab use with Ruby Dunbar [employer] WORK[employer] SUPERVIS[employer] 08/26/2021 Opioid dependence, on agonist therapy BH Substance Abuse with Hina Cope [facility] 07/26/2021 Opioid dependence with continuous use Me dical Substance Abuse with Ruby Dunbar [employer] SU[employer] 07/26/2021 Systemic hypertension Medical Substance Abuse with Ruby Dunbar [employer] WORKER SUPERVISOR 07/26/2021 Opioid dependence, on agonist therapy Telebehavioral Health with Hina Cope [facility] 07/01/2021 Exposure to COVID-19 Telemedicine Establ isted Patient with Ruby Dunbar [employer] SU[employer] 07/01/2021 Neurogenic bladder Telemedicine Establi sted Patient with Ruby Dunbar [employer] SUPERVIS[employer] 07/01/2021 Opioid dependence with continuous use Te lemedicine Establisted Patient with Ruby Dunbar [employer] WORKER SUPERVISOR 07/01/2021 Systemic hypertension Telemedicine Estab listed Patient with Ruby Dunbar [employer] WORKER SUPERVISOR 07/01/2021 Opioid dependence uncomplicated BH Subst ance Abuse with Hina Cope [facility] 06/03/2021 Gastroesophageal reflux dise ase with esophagitis without bleeding Medical Substance Abuse with Ruby Dunbar [employer] SUPERVIS[employer] 06/03/2021 Neurogenic bladder Medical Substance Ab use with Ruby Dunbar [employer] WORKER SUPERVISOR 06/03/2021 Opioid dependence with continuous use Me dical Substance Abuse with Ruby Dunbar [employer] WORK[employer] SUPERVIS[employer] 06/03/2021 Systemic hypertension Medical Substance Abuse with Ruby Dunbar [employer] WORKER SUPERVISOR 06/03/2021 Opioid dependence uncomplicated BH Subst ance Abuse with Hina Cope [facility] 05/06/2021 Opioid dependence with continuous use Me dical Substance Abuse with Jyoti Penix [employer] WORK[employer] SUPERVISOR 05/06/2021 Z68.27 - Body mass index [BM I] 27.0-27.9, adult Medical Substance Abuse with Jyoti Penix [employer] SUPERVIS[employer] 05/06/2021 Nicotine dependence uncomplicated BH Sub stance Abuse with Hina Cope [facility] 04/08/2021 Opioid dependence uncomplicated BH Subst ance Abuse with Hina Cope [facility] 04/08/2021 Assessment of body mass index Medical Pina bstance Abuse with Ruby Dunbar [employer] SUPERVISOR 04/08/2021 Cough Medical Substance Ab use with Ruby Dunbar [employer] WORKER SUPERVISOR 04/08/2021 Neurogenic bladder Medical Substance Ab use with Ruby Dunbar [employer] WORKER SUPERVISOR 04/08/2021 Opioid dependence with continuous use Me dical Substance Abuse with Ruby Dunbar [employer] WORK[employer] SUPERVISOR 04/08/2021 Tinnitus Medical Substance Ab use with Ruby Dunbar [employer] WORK[employer] SUPERVISOR 04/08/2021 Anxiety disorder NOS Telebehavioral H ealth with Lucas Sullivan RN [facility] 03/11/2021 Nicotine dependence uncomplicated BH Tel ebehavioral Health with Lucas Sullivan RN [facility] M[facility] 03/11/2021 Opioid dependence, on agonist therapy Telebehavioral Health with Lucas Sullivan RN [facility] 03/11/2021 Assessment of body mass index Medical Pina bstance Abuse with Ruby Dunbar [employer] WORKER SUPERVISOR 03/11/2021 Neurogenic bladder Medical Substance Ab use with Ruby Dunbar [employer] WORKER SUPERVISOR 03/11/2021 Opioid dependence with continuous use Me dical Substance Abuse with Ruby Dunbar [employer] WORK[employer] SUPERVISOR 03/11/2021 Tinnitus Medical Substance Ab use with Ruby Dunbar [employer] WORKER SUPERVISOR 03/11/2021 Opioid dependence, on agonist therapy BH Substance Abuse with Hina Prisca [facility] 02/11/2021 Dependence on nicotine in ci garettes - uncomplicated Medical Substance Abuse with Nelia Stechschulte [employer] 02/11/2021 Neurogenic bladder Medical Substance Ab use with Nelia Stechschulte [facility] 02/11/2021 Opioid dependence with continuous use Me dical Substance Abuse with Nelia Stechschulte [facility] 02/11/2021 Z68.24 - Body mass index [BM I] 24.0-24.9, adult Medical Substance Abuse with Nelia Stechschulte [employer] 02/11/2021 Opioid dependence uncomplicated BH Subst ance Abuse with [facility] 01/14/2021 Gastroesophageal reflux dise ase with esophagitis without bleeding Medical Substance Abuse with Ruby Dunbar [employer] SUPERVIS[employer] 01/14/2021 Neurogenic bladder Medical Substance Ab use with Ruby Dunbar [employer] WORKER SUPERVISOR 01/14/2021 Nonvenomous insect bite Medical Substanc e Abuse with Ruby Dunbar [employer] WORKER SUPERVISOR 01/14/2021 Opioid dependence with continuous use Me dical Substance Abuse with Ruby Dunbar [employer] SUPERVIS[employer] 01/14/2021 Tinnitus Medical Substance Ab use with Ruby Dunbar [facility] 01/14/2021 Z68.25 - Body mass index [BM I] 25.0-25.9, adult Medical Substance Abuse with Ruby Dunbar [facility] 01/14/2021 Opioid dependence, on agonist therapy BH Substance Abuse with Hina Cope [facility] 12/31/2020 G89.29 - Other chronic pain Medical Subs tance Abuse with Nelia Stechschulte [facility] 12/31/2020 Opioid dependence with continuous use Me dical Substance Abuse with Nelia Stethaisschulte [facility] 12/31/2020 R11.0 - Nausea Medical Substance Ab use with Nelia Yolandaschulte [facility] 12/31/2020 Z68.24 - Body mass index [BM I] 24.0-24.9, adult Medical Substance Abuse with Nelia Yolandaschulte [facility] 12/31/2020 Opioid dependence, on agonist therapy BH Substance Abuse with Hinanyasia Cope [facility] 12/17/2020 PLAN Medical Substance Ab use with Johan Cedillo MD 12/17/2020 Z68.23 - Body mass index [BM I] 23.0-23.9, adult Medical Substance Abuse with Johan Cedillo MD 12/17/2020 Nicotine dependence uncomplicated BH Sub stance Abuse with Hinanyasia Cope [facility] 12/03/2020 Opioid dependence, on agonist therapy BH Substance Abuse with Hina Cope [facility] 12/03/2020 Gastroesophageal reflux dise ase with esophagitis without bleeding Medical Established Patient with Ruby Dunbar [facility] 12/03/2020 Hypothyroidism Medical Established Patient with Ruby Dunbar [facility] 12/03/2020 Intervention and counseling on cessation of tobacco use, 3-10 minutes Discussed medication and nicotine replacement for tobacco cessation Medical Established Patient with Ruby Dunbar [facility] 12/03/2020 Neurogenic bladder Medical Established Patient with Ruby Dunbar [facility] 12/03/2020 Nicotine dependence Medical Established Patient with Ruby Dunbar [facility] 12/03/2020 Opioid dependence with continuous use Me dical Established Patient with Ruby Dunbar [facility] 12/03/2020 Routine history and physical Medical Est ablished Patient with Ruby Dunbar [facility] 12/03/2020 Vitamin B12 deficiency Medical Establish ed Patient with Ruby Dunbar [facility] 12/03/2020 Vitamin D deficiency Medical Established Patient with Ruby Dunbar [facility] 12/03/2020 Nicotine dependence uncomplicated BH Sub stance Abuse with Hina Bolivarmons [facility] 11/19/2020 Opioid dependence, on agonist therapy BH Substance Abuse with Hina Bolivarmons [facility] 11/19/2020 Opioid dependence with continuous use Me dical Substance Abuse with Rubyramiro Dunbar [employer] 11/19/2020 Overweight Medical Substance Ab use with Ruby Dunbar [facility] 11/19/2020 Tinnitus Medical Substance Ab use with Ruby Dunbar [facility] 11/19/2020 Z68.25 - Body mass index [BM I] 25.0-25.9, adult Medical Substance Abuse with Ruby Dunbar [facility] 11/19/2020 Opioid dependence, on agonist therapy BH Established Patient with Hina Bolivarmons [facility] 11/08/2020 Opioid dependence with continuous use Me dical Substance Abuse with Ruby Dunbar [facility] 11/08/2020 Z68.24 - Body mass index [BM I] 24.0-24.9, adult Medical Substance Abuse with Ruby Dunbar [facility] 11/08/2020 Opioid dependence, on agonist therapy BH Substance Abuse with Hina Bolivarmons [facility] 10/22/2020 Allergic rhinitis Medical Substance Ab use with Ruby Dunbar [facility] 10/22/2020 Opioid dependence with continuous use Me dical Substance Abuse with Ruby Dunbar [facility] 10/22/2020 Z68.25 - Body mass index [BM I] 25.0-25.9, adult Medical Substance Abuse with Ruby Dunbar [facility] 10/22/2020 Contact dermatitis Medical Substance Ab use with Ruby Dunbar [facility] 10/08/2020 Encounter for Immunization Medical Subst ance Abuse with Ruby Dunbar [employer] 10/08/2020 Opioid dependence with continuous use Me dical Substance Abuse with Ruby Dunbar [facility] 10/08/2020 Z68.24 - Body mass index [BM I] 24.0-24.9, adult Medical Substance Abuse with Ruby Dunbar [employer] SU[employer] 10/08/2020 Opioid dependence, on agonist therapy BH Substance Abuse with Hina Padillas [facility] 09/24/2020 COVID-19 infection Medical Substance Ab use with Ruby Dunbar [employer] 09/24/2020 Opioid dependence with continuous use Me dical Substance Abuse with Ruby Dunbar [facility] 09/24/2020 Z68.25 - Body mass index [BM I] 25.0-25.9, adult Medical Substance Abuse with Ruby Dunbar [employer] 09/24/2020 Opioid dependence with continuous use BH Substance Abuse with Hina Cope [facility] 09/10/2020 Constipation Medical Substance Ab use with Ruby Dunbar [employer] 09/10/2020 Opioid dependence with continuous use Me dical Substance Abuse with Ruby Dunbar [employer] SUPER[employer] 09/10/2020 Z68.24 - Body mass index [BM I] 24.0-24.9, adult Medical Substance Abuse with Ruby Dunbar [employer] 09/10/2020 Opioid dependence with continuous use BH Substance Abuse with Hina Cope [facility] 08/27/2020 Body mass index Medical Substance Ab use with Ruby Dunbar [employer] SU[employer] 08/27/2020 Nausea Medical Substance Ab use with Ruby Dunbar [employer] 08/27/2020 Opioid dependence with continuous use Me dical Substance Abuse with Ruby Dunbar [employer] 08/27/2020 Opioid dependence uncomplicated BH Subst ance Abuse with Hina Cope [facility] 08/13/2020 Opioid dependence BH Substance Abuse w ith Hina Padillas [facility] 08/04/2020 Body mass index [Body mass i ndex [BMI] 24.0-24.9, adult] Medical Substance Abuse with Vikki Kramer [employer] SUPER[employer] 08/04/2020 Opioid dependence with continuous use Me dical Substance Abuse with Vikki Kramer [employer] SU[employer] 08/04/2020 Opioid dependence with continuous use Me dical Substance Abuse with Ruby Dunbar [employer] 07/27/2020 Overweight Medical Substance Ab use with Ruby Dunbar [employer] 07/27/2020 Z68.25 - Body mass index [BM I] 25.0-25.9, adult Medical Substance Abuse with Ruby Dunbar [employer] 07/27/2020 Opioid dependence, on agonist therapy BH Substance Abuse with Hina Cope [facility] 07/19/2020 Psychotic disorder BH Substance Abuse w ith Hina Cope [facility] 07/19/2020 Opioid dependence with continuous use Me dical Substance Abuse with Ruby Dunbar [employer] 07/19/2020 Z68.24 - Body mass index [BM I] 24.0-24.9, adult Medical Substance Abuse with Ruby Dunbar [employer] 07/19/2020 Opioid dependence with continuous use BH Substance Abuse with Hina Cope [facility] 07/13/2020 Body mass index Medical Substance Ab use with Ruby Dunbar [employer] 07/13/2020 Coronary artery disease Medical Substanc e Abuse with Ruby Dunbar [employer] 07/13/2020 Opioid dependence with continuous use Me dical Substance Abuse with Ruby Dunbar [employer] 07/13/2020 Reflex neuropathic bladder Medical Subst ance Abuse with Ruby Dunbar [employer] 07/13/2020 Routine history and physical Medical Sub stance Abuse with Ruby Dunbar [employer] 07/13/2020 Opioid dependence BH Substance Abuse w ariana Mcclellan [facility] 07/06/2020 Body mass index [Body mass i ndex [BMI] 24.0-24.9, adult] Medical New Patient with Vikki Williams [employer] 07/06/2020 Diabetes Risk Test Score was three score 07/06/2020 Medical New Patient with Vikki Williams [facility] 07/06/2020 Body mass index Walked Out NO Servic es Rendered with Ruby Dunbar [facility] 07/01/2020 [facility] Work Phone: [phone]) 381-565804-07-2022 Evaluation note Includes: Assessments for all patient encounters Findings Encounter Date PLAN Chart Update with Johan evans MD 09/29/2021 Opioid dependence with continuous use Chart Upda te with Johan Cedillo MD 09/29/2021 Opioid dependence uncomplicated BH Subst ance Abuse with Hina Cope [facility] 09/23/2021 Diabetes Risk Test Score was five score 09/23/2021 Medical Substance Abuse with Ruby Dunbar [employer] 09/23/2021 Neurogenic bladder Medical Substance Ab use with Ruby Dunbar [employer] SUPER[employer] 09/23/2021 Opioid dependence with continuous use Me dical Substance Abuse with Rbuy Dunbar [facility] 09/23/2021 Systemic hypertension Medical Substance Abuse with Ruby Dunbar [employer] SU[employer] 09/23/2021 Tinnitus Medical Substance Ab use with Ruby Dunbar [facility] 09/23/2021 Z68.25 - Body mass index [BM I] 25.0-25.9, adult Medical Substance Abuse with Ruby Dunbar [facility] 09/23/2021 Abdominal pain Medical Substance Ab use with Ruby Dunbar [employer] SUPER[employer] 09/09/2021 Abdominal pain--LLQ Medical Substance Ab use with Ruby Dunbar [employer] SUPER[employer] 09/09/2021 Abdominal Pain--LUQ Medical Substance Ab use with Ruby Dunbar [employer] SUPER[employer] 09/09/2021 Assessment of body mass index Medical Pina bstance Abuse with Ruby Dunbar [employer] SUPER[employer] 09/09/2021 Nausea Medical Substance Ab use with Ruby Dunbar [employer] SUPER[employer] 09/09/2021 Neurogenic bladder Medical Substance Ab use with Ruby Dunbar [employer] SU[employer] 09/09/2021 Opioid dependence with continuous use Me dical Substance Abuse with Ruby Dunbar [employer] 09/09/2021 Systemic hypertension Medical Substance Abuse with Ruby Dunbar [employer] SUPER[employer] 09/09/2021 Vomiting Medical Substance Ab use with Ruby Dunbar [employer] SUPER[employer] 09/09/2021 Opioid dependence uncomplicated BH Subst ance Abuse with Hina Cope [facility] 08/26/2021 Assessment of body mass index Medical Pina bstance Abuse with Ruby Dunbar [employer] SU[employer] 08/26/2021 Opioid dependence with continuous use Me dical Substance Abuse with Ruby Dunbar [employer] SUPER[employer] 08/26/2021 Systemic hypertension Medical Substance Abuse with Ruby Dunbar [employer] SUPER[employer] 08/26/2021 Tinnitus Medical Substance Ab use with Ruby Dunbar [employer] SUPER[employer] 08/26/2021 Opioid dependence, on agonist therapy BH Substance Abuse with Hina Cope [facility] 07/26/2021 Opioid dependence with continuous use Me dical Substance Abuse with Ruby Dunbar [employer] SU[employer] 07/26/2021 Systemic hypertension Medical Substance Abuse with Ruby Dunbar [employer] SUPER[employer] 07/26/2021 Opioid dependence, on agonist therapy Telebehavioral Health with Hina Cope [facility] 07/01/2021 Exposure to COVID-19 Telemedicine Establ isted Patient with Ruby Dunbar [employer] 07/01/2021 Neurogenic bladder Telemedicine Establi sted Patient with Ruby Dunbar [employer] SU[employer] 07/01/2021 Opioid dependence with continuous use Te lemedicine Establisted Patient with Ruby Dunbar [employer] 07/01/2021 Systemic hypertension Telemedicine Estab listed Patient with Ruby Dunbar [employer] SU[employer] 07/01/2021 Opioid dependence uncomplicated BH Subst ance Abuse with Hina Cope [facility] 06/03/2021 Gastroesophageal reflux dise ase with esophagitis without bleeding Medical Substance Abuse with Ruby Dunbar [employer] 06/03/2021 Neurogenic bladder Medical Substance Ab use with Ruby Dunbar [employer] SUPER[employer] 06/03/2021 Opioid dependence with continuous use Me dical Substance Abuse with Ruby Dunbar [employer] 06/03/2021 Systemic hypertension Medical Substance Abuse with Ruby Dunbar [employer] SUPER[employer] 06/03/2021 Opioid dependence uncomplicated BH Subst ance Abuse with Hina Cope [facility] 05/06/2021 Opioid dependence with continuous use Me dical Substance Abuse with Jyoti Penix [employer] SUPERVISOR 05/06/2021 Z68.27 - Body mass index [BM I] 27.0-27.9, adult Medical Substance Abuse with Jyoti Penix [employer] SUPER[employer] 05/06/2021 Nicotine dependence uncomplicated BH Sub stance Abuse with Hina Cope [facility] 04/08/2021 Opioid dependence uncomplicated BH Subst ance Abuse with Hina Cope [facility] 04/08/2021 Assessment of body mass index Medical Pina bstance Abuse with Ruby Dunbar [employer] 04/08/2021 Cough Medical Substance Ab use with Ruby Dunbar [employer] SUPER[employer] 04/08/2021 Neurogenic bladder Medical Substance Ab use with Ruby Dunbar [employer] SU[employer] 04/08/2021 Opioid dependence with continuous use Me dical Substance Abuse with Ruby Dunbar [employer] 04/08/2021 Tinnitus Medical Substance Ab use with Ruby Dunbar [employer] SUPER[employer] 04/08/2021 Anxiety disorder NOS Telebehavioral H ealth with Lucas Sullivan RN [facility] 03/11/2021 Nicotine dependence uncomplicated Tel ebehavioral Health with Lucas Sullivan RN [facility] 03/11/2021 Opioid dependence, on agonist therapy Telebehavioral Health with Lucasharvey Sullivan RN [facility] 03/11/2021 Assessment of body mass index Medical Pina bstance Abuse with Ruby Dunbar [employer] SU[employer] 03/11/2021 Neurogenic bladder Medical Substance Ab use with Ruby Dunbar [employer] SUPER[employer] 03/11/2021 Opioid dependence with continuous use Me dical Substance Abuse with Ruby Dunbar [employer] SUPER[employer] 03/11/2021 Tinnitus Medical Substance Ab use with Ruby Dunbar [employer] SUPER[employer] 03/11/2021 Opioid dependence, on agonist therapy BH Substance Abuse with Hina Cope [facility] 02/11/2021 Dependence on nicotine in ci garettes - uncomplicated Medical Substance Abuse with Nelia Stechschulte [employer] 02/11/2021 Neurogenic bladder Medical Substance Ab use with Nelia Stechschulte [employer] 02/11/2021 Opioid dependence with continuous use Me dical Substance Abuse with Nelia Stechschulte [employer] 02/11/2021 Z68.24 - Body mass index [BM I] 24.0-24.9, adult Medical Substance Abuse with Nelia Stechschulte [employer] 02/11/2021 Opioid dependence uncomplicated BH Subst ance Abuse with Hina Cope [facility] 01/14/2021 Gastroesophageal reflux dise ase with esophagitis without bleeding Medical Substance Abuse with Ruby Dunbar [facility] 01/14/2021 Neurogenic bladder Medical Substance Ab use with Ruby Dunbar [facility] 01/14/2021 Nonvenomous insect bite Medical Substanc e Abuse with Ruby Dunbar [facility] 01/14/2021 Opioid dependence with continuous use Me dical Substance Abuse with Ruby Dunbar [facility] 01/14/2021 Tinnitus Medical Substance Ab use with Ruby Dunbar [facility] 01/14/2021 Z68.25 - Body mass index [BM I] 25.0-25.9, adult Medical Substance Abuse with Ruby Dunbar [facility] 01/14/2021 Opioid dependence, on agonist therapy BH Substance Abuse with Hina Cope [facility] 12/31/2020 G89.29 - Other chronic pain Medical Subs tance Abuse with Nelia Stechschulte [facility] 12/31/2020 Opioid dependence with continuous use Me dical Substance Abuse with Nelia Stethaisschulte [facility] 12/31/2020 R11.0 - Nausea Medical Substance Ab use with Nelia Stechschulte [facility] 12/31/2020 Z68.24 - Body mass index [BM I] 24.0-24.9, adult Medical Substance Abuse with Nelia Stechschulte [facility] 12/31/2020 Opioid dependence, on agonist therapy BH Substance Abuse with Hina Cope [facility] 12/17/2020 PLAN Medical Substance Ab use with Johan Cedillo MD 12/17/2020 Z68.23 - Body mass index [BM I] 23.0-23.9, adult Medical Substance Abuse with Johan Cedillo MD 12/17/2020 Nicotine dependence uncomplicated BH Sub stance Abuse with Hina Cope [facility] 12/03/2020 Opioid dependence, on agonist therapy BH Substance Abuse with Hina Cope [facility] 12/03/2020 Gastroesophageal reflux dise ase with esophagitis without bleeding Medical Established Patient with Ruby Dunbar [facility] 12/03/2020 Hypothyroidism Medical Established Patient with Ruby Dunbar [facility] 12/03/2020 Intervention and counseling on cessation of tobacco use, 3-10 minutes Discussed medication and nicotine replacement for tobacco cessation Medical Established Patient with Ruby Dunbar [facility] 12/03/2020 Neurogenic bladder Medical Established Patient with Ruby Dunbar [facility] 12/03/2020 Nicotine dependence Medical Established Patient with Rubyramiro Dunbar [facility] 12/03/2020 Opioid dependence with continuous use Me dical Established Patient with Ruby Dunbar [facility] 12/03/2020 Routine history and physical Medical Est ablished Patient with Ruby Dunbar [facility] 12/03/2020 Vitamin B12 deficiency Medical Establish ed Patient with Rubyramiro Dunbar [facility] 12/03/2020 Vitamin D deficiency Medical Established Patient with Ruby Dunbar [facility] 12/03/2020 Nicotine dependence uncomplicated BH Sub stance Abuse with Hina Cope [facility] 11/19/2020 Opioid dependence, on agonist therapy BH Substance Abuse with Hina Cope [facility] 11/19/2020 Opioid dependence with continuous use Me dical Substance Abuse with Ruby Dunbar [facility] 11/19/2020 Overweight Medical Substance Ab use with Ruby Dunbar [facility] 11/19/2020 Tinnitus Medical Substance Ab use with Ruby Dunbar [facility] 11/19/2020 Z68.25 - Body mass index [BM I] 25.0-25.9, adult Medical Substance Abuse with Ruby Dunbar [facility] 11/19/2020 Opioid dependence, on agonist therapy BH Established Patient with Hina Cope [facility] 11/08/2020 Opioid dependence with continuous use Me dical Substance Abuse with Ruby Dunbar [facility] 11/08/2020 Z68.24 - Body mass index [BM I] 24.0-24.9, adult Medical Substance Abuse with Ruby Dunbar [facility] 11/08/2020 Opioid dependence, on agonist therapy BH Substance Abuse with Hina Cope [facility] 10/22/2020 Allergic rhinitis Medical Substance Ab use with Ruby Dunbar [facility] 10/22/2020 Opioid dependence with continuous use Me dical Substance Abuse with Ruby Dunbar [facility] 10/22/2020 Z68.25 - Body mass index [BM I] 25.0-25.9, adult Medical Substance Abuse with Ruby Dunbar [facility] 10/22/2020 Contact dermatitis Medical Substance Ab use with Ruby Dunbar [facility] 10/08/2020 Encounter for Immunization Medical Subst ance Abuse with Ruby Dunbar [facility] 10/08/2020 Opioid dependence with continuous use Me dical Substance Abuse with Ruby Dunbar [facility] 10/08/2020 Z68.24 - Body mass index [BM I] 24.0-24.9, adult Medical Substance Abuse with Ruby Dunbar [employer] 10/08/2020 Opioid dependence, on agonist therapy BH Substance Abuse with Hina Cope [facility] 09/24/2020 COVID-19 infection Medical Substance Ab use with Ruby Dunbar [employer] SU[employer] 09/24/2020 Opioid dependence with continuous use Me dical Substance Abuse with Ruby Dunbar [employer] SUPER[employer] 09/24/2020 Z68.25 - Body mass index [BM I] 25.0-25.9, adult Medical Substance Abuse with Ruby Dunbar [employer] SU[employer] 09/24/2020 Opioid dependence with continuous use BH Substance Abuse with Hina Cope [facility] 09/10/2020 Constipation Medical Substance Ab use with Ruby Dunbar [employer] SU[employer] 09/10/2020 Opioid dependence with continuous use Me dical Substance Abuse with Ruby Dunbar [employer] SUPER[employer] 09/10/2020 Z68.24 - Body mass index [BM I] 24.0-24.9, adult Medical Substance Abuse with Ruby Dunbar [employer] SU[employer] 09/10/2020 Opioid dependence with continuous use BH Substance Abuse with Hinanyasia Cope [facility] 08/27/2020 Body mass index Medical Substance Ab use with Ruby Dunbar [employer] SU[employer] 08/27/2020 Nausea Medical Substance Ab use with Ruby Dunbar [employer] SUPER[employer] 08/27/2020 Opioid dependence with continuous use Me dical Substance Abuse with Ruby Dunbar [employer] SUPER[employer] 08/27/2020 Opioid dependence uncomplicated BH Subst ance Abuse with Hinanyasia Padillas [facility] 08/13/2020 Opioid dependence BH Substance Abuse w ith Hina Cope [facility] 08/04/2020 Body mass index [Body mass i ndex [BMI] 24.0-24.9, adult] Medical Substance Abuse with Vikki Kramer [employer] SUPERVIS[employer] 08/04/2020 Opioid dependence with continuous use Me dical Substance Abuse with Vikki Kramer [employer] WORK[employer] SUPER[employer] 08/04/2020 Opioid dependence with continuous use Me dical Substance Abuse with Ruby Dunbar [employer] SUPER[employer] 07/27/2020 Overweight Medical Substance Ab use with Ruby Dunbar [employer] SUPER[employer] 07/27/2020 Z68.25 - Body mass index [BM I] 25.0-25.9, adult Medical Substance Abuse with Ruby Dunbar [employer] SU[employer] 07/27/2020 Opioid dependence, on agonist therapy BH Substance Abuse with Hina Cope [facility] 07/19/2020 Psychotic disorder BH Substance Abuse w ith Hina Cope [facility] 07/19/2020 Opioid dependence with continuous use Me dical Substance Abuse with Ruby Dunbar [employer] SUPER[employer] 07/19/2020 Z68.24 - Body mass index [BM I] 24.0-24.9, adult Medical Substance Abuse with Ruby Dunbar [employer] SUPER[employer] 07/19/2020 Opioid dependence with continuous use BH Substance Abuse with Hinanyasia Cope [facility] 07/13/2020 Body mass index Medical Substance Ab use with Ruby Dunbar [employer] SUPER[employer] 07/13/2020 Coronary artery disease Medical Substanc e Abuse with Ruby Dunbar [employer] WORK[employer] SUPER[employer] 07/13/2020 Opioid dependence with continuous use Me dical Substance Abuse with Ruby Dunbar [employer] SU[employer] 07/13/2020 Reflex neuropathic bladder Medical Subst ance Abuse with Ruby Dunbar [employer] SUPER[employer] 07/13/2020 Routine history and physical Medical Sub stance Abuse with Ruby Dunbar [employer] SUPER[employer] 07/13/2020 Opioid dependence BH Substance Abuse w ariana Senior [facility] 07/06/2020 Body mass index [Body mass i ndex [BMI] 24.0-24.9, adult] Medical New Patient with Vikki Williams [employer] SUPER[employer] 07/06/2020 Diabetes Risk Test Score was three score 07/06/2020 Medical New Patient with Vikki Kramer [employer] SUPER[employer] 07/06/2020 Body mass index Walked Out NO Servic es Rendered with Ruby Dunbar [facility] 07/01/2020 [facility] Work Phone: [phone]) 907-939104-01-2022 Evaluation note Includes: Assessments for all patient encounters Findings Encounter Date Opioid dependence uncomplicated BH Subst ance Abuse with Hina Cope [facility] 09/23/2021 Diabetes Risk Test Score was five score 09/23/2021 Medical Substance Abuse with Ruby Dunbar [employer] 09/23/2021 Neurogenic bladder Medical Substance Ab use with Ruby Dunbar PSYCHIATRIC SOCIAL WORKER SUPERVISOR 09/23/2021 Opioid dependence with continuous use Me dical Substance Abuse with Ruby Dunbar PSYCHIATRIC SOCIAL WORKER SUPERVISOR 09/23/2021 Systemic hypertension Medical Substance Abuse with Ruby Dunbar PSYCHIATRIC SOCIAL WORKER SUPERVISOR 09/23/2021 Tinnitus Medical Substance Ab use with Ruby Dunbar PSYCHIATRIC SOCIAL WORKER SUPERVISOR 09/23/2021 Z68.25 - Body mass index [BM I] 25.0-25.9, adult Medical Substance Abuse with Ruby Dunbar PSYCHIATRIC SOCIAL WORKER SUPERVISOR 09/23/2021 Abdominal pain Medical Substance Ab use with Ruby Dunbar PSYCHIATRIC SOCIAL WORKER SUPERVISOR 09/09/2021 Abdominal pain--LLQ Medical Substance Ab use with Ruby Dunbar PSYCHIATRIC SOCIAL WORKER SUPERVISOR 09/09/2021 Abdominal Pain--LUQ Medical Substance Ab use with Ruby Dunbar PSYCHIATRIC SOCIAL WORKER SUPERVISOR 09/09/2021 Assessment of body mass index Medical Pina bstance Abuse with Ruby Dunbar PSYCHIATRIC SOCIAL WORKER SUPERVISOR 09/09/2021 Nausea Medical Substance Ab use with Ruby Dunbar PSYCHIATRIC SOCIAL WORKER SUPERVISOR 09/09/2021 Neurogenic bladder Medical Substance Ab use with Ruby Dunbar PSYCHIATRIC SOCIAL WORKER SUPERVISOR 09/09/2021 Opioid dependence with continuous use Me dical Substance Abuse with Ruby Dunbar PSYCHIATRIC SOCIAL WORKER SUPERVISOR 09/09/2021 Systemic hypertension Medical Substance Abuse with Ruby Dunbar PSYCHIATRIC SOCIAL WORKER SUPERVISOR 09/09/2021 Vomiting Medical Substance Ab use with Ruby Dunbar PSYCHIATRIC SOCIAL WORKER SUPERVISOR 09/09/2021 Opioid dependence uncomplicated BH Subst ance Abuse with Hinanyasia Padillas [facility] 08/26/2021 Assessment of body mass index Medical Pina bstance Abuse with Ruby Dunbar PSYCHIATRIC SOCIAL WORKER SUPERVISOR 08/26/2021 Opioid dependence with continuous use Me dical Substance Abuse with Ruby Dunbar PSYCHIATRIC SOCIAL WORKER SUPERVISOR 08/26/2021 Systemic hypertension Medical Substance Abuse with Ruby Dunbar PSYCHIATRIC SOCIAL WORKER SUPERVISOR 08/26/2021 Tinnitus Medical Substance Ab use with Ruby Dunbar PSYCHIATRIC SOCIAL WORKER SUPERVISOR 08/26/2021 Opioid dependence, on agonist therapy BH Substance Abuse with Hina Cope [facility] 07/26/2021 Opioid dependence with continuous use Me dical Substance Abuse with Ruby Dunbar PSYCHIATRIC SOCIAL WORKER SUPERVISOR 07/26/2021 Systemic hypertension Medical Substance Abuse with Ruby Dunbar PSYCHIATRIC SOCIAL WORKER SUPERVISOR 07/26/2021 Opioid dependence, on agonist therapy Telebehavioral Health with Hinanyasia Padillas [facility] 07/01/2021 Exposure to COVID-19 Telemedicine Establ isted Patient with Ruby Dunbar PSYCHIATRIC SOCIAL WORKER SUPERVISOR 07/01/2021 Neurogenic bladder Telemedicine Establi sted Patient with Ruby Dunbar PSYCHIATRIC SOCIAL WORKER SUPERVISOR 07/01/2021 Opioid dependence with continuous use Te lemedicine Establisted Patient with Ruby Dunbar PSYCHIATRIC SOCIAL WORKER SUPERVISOR 07/01/2021 Systemic hypertension Telemedicine Estab listed Patient with Ruby Dunbar PSYCHIATRIC SOCIAL WORKER SUPERVISOR 07/01/2021 Opioid dependence uncomplicated BH Subst ance Abuse with Hina Cope [facility] 06/03/2021 Gastroesophageal reflux dise ase with esophagitis without bleeding Medical Substance Abuse with Ruby Dunbar PSYCHIATRIC SOCIAL WORKER SUPERVISOR 06/03/2021 Neurogenic bladder Medical Substance Ab use with Ruby Dunbar PSYCHIATRIC SOCIAL WORKER SUPERVISOR 06/03/2021 Opioid dependence with continuous use Me dical Substance Abuse with Ruby Dunbar PSYCHIATRIC SOCIAL WORKER SUPERVISOR 06/03/2021 Systemic hypertension Medical Substance Abuse with Ruby Dunbar PSYCHIATRIC SOCIAL WORKER SUPERVISOR 06/03/2021 Opioid dependence uncomplicated BH Subst ance Abuse with Hina Cope [facility] 05/06/2021 Opioid dependence with continuous use Me dical Substance Abuse with Jyoti Penix PSYCHIATRIC SOCIAL WORKER SUPERVISOR 05/06/2021 Z68.27 - Body mass index [BM I] 27.0-27.9, adult Medical Substance Abuse with Jyoti Penix PSYCHIATRIC SOCIAL WORKER SUPERVISOR 05/06/2021 Nicotine dependence uncomplicated BH Sub stance Abuse with Hina Cope [facility] 04/08/2021 Opioid dependence uncomplicated BH Subst ance Abuse with Hina Cope [facility] 04/08/2021 Assessment of body mass index Medical Pina bstance Abuse with Ruby Dunbar PSYCHIATRIC SOCIAL WORKER SUPERVISOR 04/08/2021 Cough Medical Substance Ab use with Ruby Dunbar PSYCHIATRIC SOCIAL WORKER SUPERVISOR 04/08/2021 Neurogenic bladder Medical Substance Ab use with Ruby Dunbar PSYCHIATRIC SOCIAL WORKER SUPERVISOR 04/08/2021 Opioid dependence with continuous use Me dical Substance Abuse with Ruby Dunbar PSYCHIATRIC SOCIAL WORKER SUPERVISOR 04/08/2021 Tinnitus Medical Substance Ab use with Ruby Dunbar PSYCHIATRIC SOCIAL WORKER SUPERVISOR 04/08/2021 Anxiety disorder NOS Telebehavioral H ealth with Lucas Sullivan RN [employer] [facility] 03/11/2021 Nicotine dependence uncomplicated BH Tel ebehavioral Health with Lucas Sullivan RN [employer] 03/11/2021 Opioid dependence, on agonist therapy Telebehavioral Health with Lucas Sullivan RN [facility] 03/11/2021 Assessment of body mass index Medical Pina bstance Abuse with Ruby Dunbar PSYCHIATRIC SOCIAL WORKER SUPERVISOR 03/11/2021 Neurogenic bladder Medical Substance Ab use with Ruby Dunbar PSYCHIATRIC SOCIAL WORKER SUPERVISOR 03/11/2021 Opioid dependence with continuous use Me dical Substance Abuse with Ruby Dunbar PSYCHIATRIC SOCIAL WORKER SUPERVISOR 03/11/2021 Tinnitus Medical Substance Ab use with Ruby Dunbar PSYCHIATRIC SOCIAL WORKER SUPERVISOR 03/11/2021 Opioid dependence, on agonist therapy BH Substance Abuse with Hina Cope [facility] 02/11/2021 Dependence on nicotine in ci garettes - uncomplicated Medical Substance Abuse with Nelia Stechschulte MR TEACHER 02/11/2021 Neurogenic bladder Medical Substance Ab use with Nelia Stechschulte MR TEACHER 02/11/2021 Opioid dependence with continuous use Me dical Substance Abuse with Nelia Stechschulte MR TEACHER 02/11/2021 Z68.24 - Body mass index [BM I] 24.0-24.9, adult Medical Substance Abuse with Nelia Stechschulte [facility] 02/11/2021 Opioid dependence uncomplicated BH Subst ance Abuse with Hina Cope [facility] 01/14/2021 Gastroesophageal reflux dise ase with esophagitis without bleeding Medical Substance Abuse with Ruby Dunbar PSYCHIATRIC SOCIAL WORKER SUPERVISOR 01/14/2021 Neurogenic bladder Medical Substance Ab use with Ruby Dunbar [facility] 01/14/2021 Nonvenomous insect bite Medical Substanc e Abuse with Ruby Dunbar [facility] 01/14/2021 Opioid dependence with continuous use Me dical Substance Abuse with Ruby Dunbar [facility] 01/14/2021 Tinnitus Medical Substance Ab use with Ruby Dunbar [facility] 01/14/2021 Z68.25 - Body mass index [BM I] 25.0-25.9, adult Medical Substance Abuse with Ruby Dunbar [facility] 01/14/2021 Opioid dependence, on agonist therapy BH Substance Abuse with Hina Cope [facility] 12/31/2020 G89.29 - Other chronic pain Medical Subs tance Abuse with Nelia Stethaisschulte [facility] 12/31/2020 Opioid dependence with continuous use Me dical Substance Abuse with Nelia Stechschulte [facility] 12/31/2020 R11.0 - Nausea Medical Substance Ab use with Nelia Stechschulte [facility] 12/31/2020 Z68.24 - Body mass index [BM I] 24.0-24.9, adult Medical Substance Abuse with Nelia Stethaisschulte [facility] 12/31/2020 Opioid dependence, on agonist therapy BH Substance Abuse with Hina Cope [facility] 12/17/2020 PLAN Medical Substance Ab use with Johan Cedillo MD 12/17/2020 Z68.23 - Body mass index [BM I] 23.0-23.9, adult Medical Substance Abuse with Johan Cedillo MD 12/17/2020 Nicotine dependence uncomplicated BH Sub stance Abuse with Hina Cope [facility] 12/03/2020 Opioid dependence, on agonist therapy BH Substance Abuse with Hina Prisca [facility] 12/03/2020 Gastroesophageal reflux dise ase with esophagitis without bleeding Medical Established Patient with Ruby Dunbar [facility] 12/03/2020 Hypothyroidism Medical Established Patient with Ruby Dunbar [facility] 12/03/2020 Intervention and counseling on cessation of tobacco use, 3-10 minutes Discussed medication and nicotine replacement for tobacco cessation Medical Established Patient with Ruby Dunbar [facility] 12/03/2020 Neurogenic bladder Medical Established Patient with Ruby Dunbar [facility] 12/03/2020 Nicotine dependence Medical Established Patient with Ruby Dunbar [facility] 12/03/2020 Opioid dependence with continuous use Me dical Established Patient with Ruby Dunbar [facility] 12/03/2020 Routine history and physical Medical Est ablished Patient with Ruby Dunbar [facility] 12/03/2020 Vitamin B12 deficiency Medical Establish ed Patient with Ruby Dunbar [facility] 12/03/2020 Vitamin D deficiency Medical Established Patient with Ruby Dunbar [facility] 12/03/2020 Nicotine dependence uncomplicated BH Sub stance Abuse with Hina Cope [facility] 11/19/2020 Opioid dependence, on agonist therapy BH Substance Abuse with Hina Cope [facility] 11/19/2020 Opioid dependence with continuous use Me dical Substance Abuse with Ruby Dunbar [facility] 11/19/2020 Overweight Medical Substance Ab use with Ruby Dunbar [facility] 11/19/2020 Tinnitus Medical Substance Ab use with Ruby Dunbar [facility] 11/19/2020 Z68.25 - Body mass index [BM I] 25.0-25.9, adult Medical Substance Abuse with Ruby Dunbar [facility] 11/19/2020 Opioid dependence, on agonist therapy BH Established Patient with Hina Cope [facility] 11/08/2020 Opioid dependence with continuous use Me dical Substance Abuse with Ruby Dunbar [facility] 11/08/2020 Z68.24 - Body mass index [BM I] 24.0-24.9, adult Medical Substance Abuse with Ruby Dunbar [facility] 11/08/2020 Opioid dependence, on agonist therapy BH Substance Abuse with Hina Cope [facility] 10/22/2020 Allergic rhinitis Medical Substance Ab use with Ruby Marshal [facility] 10/22/2020 Opioid dependence with continuous use Me dical Substance Abuse with Ruby Marshal [facility] 10/22/2020 Z68.25 - Body mass index [BM I] 25.0-25.9, adult Medical Substance Abuse with Ruby Dunbar [facility] 10/22/2020 Contact dermatitis Medical Substance Ab use with Rubyramiro Dunbar [facility] 10/08/2020 Encounter for Immunization Medical Subst ance Abuse with Ruby Dunbar PSYCHIATRIC SOCIAL WORKER SUPERVISOR 10/08/2020 Opioid dependence with continuous use Me dical Substance Abuse with Ruby Dunbar PSYCHIATRIC SOCIAL WORKER SUPERVISOR 10/08/2020 Z68.24 - Body mass index [BM I] 24.0-24.9, adult Medical Substance Abuse with Ruby Dunbar PSYCHIATRIC SOCIAL WORKER SUPERVISOR 10/08/2020 Opioid dependence, on agonist therapy BH Substance Abuse with Hina Cope [facility] 09/24/2020 COVID-19 infection Medical Substance Ab use with Ruby Dunbar PSYCHIATRIC SOCIAL WORKER SUPERVISOR 09/24/2020 Opioid dependence with continuous use Me dical Substance Abuse with Ruby Dunbar PSYCHIATRIC SOCIAL WORKER SUPERVISOR 09/24/2020 Z68.25 - Body mass index [BM I] 25.0-25.9, adult Medical Substance Abuse with Ruby Dunbar PSYCHIATRIC SOCIAL WORKER SUPERVISOR 09/24/2020 Opioid dependence with continuous use BH Substance Abuse with Hina Cope [facility] 09/10/2020 Constipation Medical Substance Ab use with Ruby Dunbar PSYCHIATRIC SOCIAL WORKER SUPERVISOR 09/10/2020 Opioid dependence with continuous use Me dical Substance Abuse with Ruby Dunbar PSYCHIATRIC SOCIAL WORKER SUPERVISOR 09/10/2020 Z68.24 - Body mass index [BM I] 24.0-24.9, adult Medical Substance Abuse with Ruby Dunbar PSYCHIATRIC SOCIAL WORKER SUPERVISOR 09/10/2020 Opioid dependence with continuous use BH Substance Abuse with Hina Cope [facility] 08/27/2020 Body mass index Medical Substance Ab use with Ruby Dunbar PSYCHIATRIC SOCIAL WORKER SUPERVISOR 08/27/2020 Nausea Medical Substance Ab use with Ruby Dunbar PSYCHIATRIC SOCIAL WORKER SUPERVISOR 08/27/2020 Opioid dependence with continuous use Me dical Substance Abuse with Ruby Dunbar PSYCHIATRIC SOCIAL WORKER SUPERVISOR 08/27/2020 Opioid dependence uncomplicated BH Subst ance Abuse with Hina Cope [facility] 08/13/2020 Opioid dependence BH Substance Abuse w ith Hina Cope [facility] 08/04/2020 Body mass index [Body mass i ndex [BMI] 24.0-24.9, adult] Medical Substance Abuse with Vikki Kramer PSYCHIATRIC SOCIAL WORKER SUPERVISOR 08/04/2020 Opioid dependence with continuous use Me dical Substance Abuse with Vikki Kramer PSYCHIATRIC SOCIAL WORKER SUPERVISOR 08/04/2020 Opioid dependence with continuous use Me dical Substance Abuse with Ruby Dunbar PSYCHIATRIC SOCIAL WORKER SUPERVISOR 07/27/2020 Overweight Medical Substance Ab use with Ruby Dunbar PSYCHIATRIC SOCIAL WORKER SUPERVISOR 07/27/2020 Z68.25 - Body mass index [BM I] 25.0-25.9, adult Medical Substance Abuse with Ruby Dunbar PSYCHIATRIC SOCIAL WORKER SUPERVISOR 07/27/2020 Opioid dependence, on agonist therapy BH Substance Abuse with Hina Cope [facility] 07/19/2020 Psychotic disorder BH Substance Abuse w ariana Hina Cope [facility] 07/19/2020 Opioid dependence with continuous use Me dical Substance Abuse with Ruby Dunbar PSYCHIATRIC SOCIAL WORKER SUPERVISOR 07/19/2020 Z68.24 - Body mass index [BM I] 24.0-24.9, adult Medical Substance Abuse with Ruby Dunbar PSYCHIATRIC SOCIAL WORKER SUPERVISOR 07/19/2020 Opioid dependence with continuous use BH Substance Abuse with Hina Cope [facility] 07/13/2020 Body mass index Medical Substance Ab use with Ruby Dunbar PSYCHIATRIC SOCIAL WORKER SUPERVISOR 07/13/2020 Coronary artery disease Medical Substanc e Abuse with Ruby Dunbar PSYCHIATRIC SOCIAL WORKER SUPERVISOR 07/13/2020 Opioid dependence with continuous use Me dical Substance Abuse with Ruby Dunbar PSYCHIATRIC SOCIAL WORKER SUPERVISOR 07/13/2020 Reflex neuropathic bladder Medical Subst ance Abuse with Ruby Dunbar PSYCHIATRIC SOCIAL WORKER SUPERVISOR 07/13/2020 Routine history and physical Medical Sub stance Abuse with Ruby Dunbar PSYCHIATRIC SOCIAL WORKER SUPERVISOR 07/13/2020 Opioid dependence BH Substance Abuse w ariana Senior [facility] 07/06/2020 Body mass index [Body mass i ndex [BMI] 24.0-24.9, adult] Medical New Patient with Vikki Williams PSYCHIATRIC SOCIAL WORKER SUPERVISOR 07/06/2020 Diabetes Risk Test Score was three score 07/06/2020 Medical New Patient with Vikki Williams PSYCHIATRIC SOCIAL WORKER SUPERVISOR 07/06/2020 Body mass index Walked Out NO Servic es Rendered with Ruby Dunbar [facility] 07/01/2020 [facility] Work Phone: [phone]) 973-579602-01-2022 Evaluation note Includes: Assessments for all patient encounters Findings Encounter Date Opioid dependence, on agonist therapy BH Substance Abuse with Hina Cope [facility] 07/26/2021 Opioid dependence with continuous use Me dical Substance Abuse with Ruby Dunbar PSYCHIATRIC SOCIAL WORKER SUPERVISOR 07/26/2021 Systemic hypertension Medical Substance Abuse with Ruby Dunbar PSYCHIATRIC SOCIAL WORKER SUPERVISOR 07/26/2021 Opioid dependence, on agonist therapy Telebehavioral Health with Hina Cope [facility] 07/01/2021 Exposure to COVID-19 Telemedicine Establ isted Patient with Ruby Dunbar PSYCHIATRIC SOCIAL WORKER SUPERVISOR 07/01/2021 Neurogenic bladder Telemedicine Establi sted Patient with Ruby Dunbar PSYCHIATRIC SOCIAL WORKER SUPERVISOR 07/01/2021 Opioid dependence with continuous use Te lemedicine Establisted Patient with Ruby Dunbar PSYCHIATRIC SOCIAL WORKER SUPERVISOR 07/01/2021 Systemic hypertension Telemedicine Estab listed Patient with Ruby Dunbar PSYCHIATRIC SOCIAL WORKER SUPERVISOR 07/01/2021 Opioid dependence uncomplicated BH Subst ance Abuse with Hina Cope [facility] 06/03/2021 Gastroesophageal reflux dise ase with esophagitis without bleeding Medical Substance Abuse with Ruby Dnubar PSYCHIATRIC SOCIAL WORKER SUPERVISOR 06/03/2021 Neurogenic bladder Medical Substance Ab use with Ruby Dunbar PSYCHIATRIC SOCIAL WORKER SUPERVISOR 06/03/2021 Opioid dependence with continuous use Me dical Substance Abuse with Ruby Dunbar PSYCHIATRIC SOCIAL WORKER SUPERVISOR 06/03/2021 Systemic hypertension Medical Substance Abuse with Ruby Dunbar PSYCHIATRIC SOCIAL WORKER SUPERVISOR 06/03/2021 Opioid dependence uncomplicated BH Subst ance Abuse with Hina Cope [facility] 05/06/2021 Opioid dependence with continuous use Me dical Substance Abuse with Jyoti Penix PSYCHIATRIC SOCIAL WORKER SUPERVISOR 05/06/2021 Z68.27 - Body mass index [BM I] 27.0-27.9, adult Medical Substance Abuse with Jyoti Penix PSYCHIATRIC SOCIAL WORKER SUPERVISOR 05/06/2021 Nicotine dependence uncomplicated BH Sub stance Abuse with Hina Cope [facility] 04/08/2021 Opioid dependence uncomplicated BH Subst ance Abuse with Hina Cope [facility] 04/08/2021 Assessment of body mass index Medical Pina bstance Abuse with Ruby Dunbar PSYCHIATRIC SOCIAL WORKER SUPERVISOR 04/08/2021 Cough Medical Substance Ab use with Ruby Dunbar PSYCHIATRIC SOCIAL WORKER SUPERVISOR 04/08/2021 Neurogenic bladder Medical Substance Ab use with Ruby Dunbar PSYCHIATRIC SOCIAL WORKER SUPERVISOR 04/08/2021 Opioid dependence with continuous use Me dical Substance Abuse with Ruby Dunbar PSYCHIATRIC SOCIAL WORKER SUPERVISOR 04/08/2021 Tinnitus Medical Substance Ab use with Ruby Dunbar PSYCHIATRIC SOCIAL WORKER SUPERVISOR 04/08/2021 Anxiety disorder NOS BH Telebehavioral H ealth with Lucas MAYOW 03/11/2021 Nicotine dependence uncomplicated BH Tel ebehavioral Health with Lucas MAYOW 03/11/2021 Opioid dependence, on agonist therapy Telebehavioral Health with Lucas MAYOW 03/11/2021 Assessment of body mass index Medical Pina bstance Abuse with Ruby Dunbar PSYCHIATRIC SOCIAL WORKER SUPERVISOR 03/11/2021 Neurogenic bladder Medical Substance Ab use with Ruby Dunbar [facility] 03/11/2021 Opioid dependence with continuous use Me dical Substance Abuse with Ruby Dunbar [facility] 03/11/2021 Tinnitus Medical Substance Ab use with Ruby Dunbar [facility] 03/11/2021 Opioid dependence, on agonist therapy BH Substance Abuse with Hina Cope [facility] 02/11/2021 Dependence on nicotine in ci garettes - uncomplicated Medical Substance Abuse with Nelia Stechschulte [facility] 02/11/2021 Neurogenic bladder Medical Substance Ab use with Nelia Stechschulte [facility] 02/11/2021 Opioid dependence with continuous use Me dical Substance Abuse with Nelia Stechschulte [facility] 02/11/2021 Z68.24 - Body mass index [BM I] 24.0-24.9, adult Medical Substance Abuse with Nelia Stechschulte [facility] 02/11/2021 Opioid dependence uncomplicated BH Subst ance Abuse with Hinanyasia Cope [facility] 01/14/2021 Gastroesophageal reflux dise ase with esophagitis without bleeding Medical Substance Abuse with Ruby Dunbar [facility] 01/14/2021 Neurogenic bladder Medical Substance Ab use with Ruby Dunbar [facility] 01/14/2021 Nonvenomous insect bite Medical Substanc e Abuse with Ruby Dunbar [facility] 01/14/2021 Opioid dependence with continuous use Me dical Substance Abuse with Ruby Dunbar [facility] 01/14/2021 Tinnitus Medical Substance Ab use with Ruby Dunbar [facility] 01/14/2021 Z68.25 - Body mass index [BM I] 25.0-25.9, adult Medical Substance Abuse with Ruby Dunbar [facility] 01/14/2021 Opioid dependence, on agonist therapy BH Substance Abuse with Hinanyasia Padillas [facility] 12/31/2020 G89.29 - Other chronic pain Medical Subs tance Abuse with Nelia Stechschulte [facility] 12/31/2020 Opioid dependence with continuous use Me dical Substance Abuse with Nelia Stechschulte [facility] 12/31/2020 R11.0 - Nausea Medical Substance Ab use with Nelia Stechschulte [facility] 12/31/2020 Z68.24 - Body mass index [BM I] 24.0-24.9, adult Medical Substance Abuse with Nelia Stechschulte [facility] 12/31/2020 Opioid dependence, on agonist therapy BH Substance Abuse with Hina Cope [facility] 12/17/2020 PLAN Medical Substance Ab use with Johan Cedillo MD 12/17/2020 Z68.23 - Body mass index [BM I] 23.0-23.9, adult Medical Substance Abuse with Johan Cedillo MD 12/17/2020 Nicotine dependence uncomplicated BH Sub stance Abuse with Hina Cope [facility] 12/03/2020 Opioid dependence, on agonist therapy BH Substance Abuse with Hina Cope [facility] 12/03/2020 Gastroesophageal reflux dise ase with esophagitis without bleeding Medical Established Patient with Ruby Dunbar [facility] 12/03/2020 Hypothyroidism Medical Established Patient with Ruby Dunbar [facility] 12/03/2020 Intervention and counseling on cessation of tobacco use, 3-10 minutes Discussed medication and nicotine replacement for tobacco cessation Medical Established Patient with Ruby Dunbar [facility] 12/03/2020 Neurogenic bladder Medical Established Patient with Ruby Dunbar [facility] 12/03/2020 Nicotine dependence Medical Established Patient with Ruby Dunbar [facility] 12/03/2020 Opioid dependence with continuous use Me dical Established Patient with Ruby Dunbar [facility] 12/03/2020 Routine history and physical Medical Est ablished Patient with Rubyramiro Dunbar [facility] 12/03/2020 Vitamin B12 deficiency Medical Establish ed Patient with Ruby Dunbar [facility] 12/03/2020 Vitamin D deficiency Medical Established Patient with Rubyramiro Dunbar [facility] 12/03/2020 Nicotine dependence uncomplicated BH Sub stance Abuse with Hina Cope [facility] 11/19/2020 Opioid dependence, on agonist therapy BH Substance Abuse with Hina Cope [facility] 11/19/2020 Opioid dependence with continuous use Me dical Substance Abuse with Ruby Dunbar [facility] 11/19/2020 Overweight Medical Substance Ab use with Ruby Dunbar [facility] 11/19/2020 Tinnitus Medical Substance Ab use with Ruby Dunbar [facility] 11/19/2020 Z68.25 - Body mass index [BM I] 25.0-25.9, adult Medical Substance Abuse with Ruby Dunbar [facility] 11/19/2020 Opioid dependence, on agonist therapy BH Established Patient with Hina Cope [facility] 11/08/2020 Opioid dependence with continuous use Me dical Substance Abuse with Ruby Dunbar [facility] 11/08/2020 Z68.24 - Body mass index [BM I] 24.0-24.9, adult Medical Substance Abuse with Ruby Dunbar PSYCHI[employer]RIC SOCIAL WORKER SUPERVISOR 11/08/2020 Opioid dependence, on agonist therapy BH Substance Abuse with Hina Cope [facility] 10/22/2020 Allergic rhinitis Medical Substance Ab use with Ruby Marshal PSYCHIATRIC SOCIAL WORKER SUPERVISOR 10/22/2020 Opioid dependence with continuous use Me dical Substance Abuse with Ruby Dunbar PSYCHIATRIC SOCIAL WORKER SUPERVISOR 10/22/2020 Z68.25 - Body mass index [BM I] 25.0-25.9, adult Medical Substance Abuse with Ruby Dunbar PSYCHIATRIC SOCIAL WORKER SUPERVISOR 10/22/2020 Contact dermatitis Medical Substance Ab use with Ruby Dunbar PSYCHIATRIC SOCIAL WORKER SUPERVISOR 10/08/2020 Encounter for Immunization Medical Subst ance Abuse with Ruby Dunbar PSYCHIATRIC SOCIAL WORKER SUPERVISOR 10/08/2020 Opioid dependence with continuous use Me dical Substance Abuse with Ruby Dunbar PSYCHIATRIC SOCIAL WORKER SUPERVISOR 10/08/2020 Z68.24 - Body mass index [BM I] 24.0-24.9, adult Medical Substance Abuse with Ruby Dunbar PSYCHIATRIC SOCIAL WORKER SUPERVISOR 10/08/2020 Opioid dependence, on agonist therapy BH Substance Abuse with Hina Cope [facility] 09/24/2020 COVID-19 infection Medical Substance Ab use with Ruby Dunbar PSYCHIATRIC SOCIAL WORKER SUPERVISOR 09/24/2020 Opioid dependence with continuous use Me dical Substance Abuse with Ruby Dunbar PSYCHIATRIC SOCIAL WORKER SUPERVISOR 09/24/2020 Z68.25 - Body mass index [BM I] 25.0-25.9, adult Medical Substance Abuse with Ruby Dunbar PSYCHI[employer]RIC SOCIAL WORKER SUPERVISOR 09/24/2020 Opioid dependence with continuous use BH Substance Abuse [facility] 09/10/2020 Constipation Medical Substance Ab use with Ruby Dunbar PSYCHIATRIC SOCIAL WORKER SUPERVISOR 09/10/2020 Opioid dependence with continuous use Me dical Substance Abuse with Ruby Marshal PSYCHIATRIC SOCIAL WORKER SUPERVISOR 09/10/2020 Z68.24 - Body mass index [BM I] 24.0-24.9, adult Medical Substance Abuse with Ruby Dunbar PSYCHIATRIC SOCIAL WORKER SUPERVISOR 09/10/2020 Opioid dependence with continuous use BH Substance Abuse with Hina Cope [facility] 08/27/2020 Body mass index Medical Substance Ab use with Ruby Dunbar PSYCHIATRIC SOCIAL WORKER SUPERVISOR 08/27/2020 Nausea Medical Substance Ab use with Ruby Dunbar PSYCHIATRIC SOCIAL WORKER SUPERVISOR 08/27/2020 Opioid dependence with continuous use Me dical Substance Abuse with Ruby Dunbar PSYCHIATRIC SOCIAL WORKER SUPERVISOR 08/27/2020 Opioid dependence uncomplicated BH Subst ance Abuse with Hina Bolivarmons [facility] 08/13/2020 Opioid dependence BH Substance Abuse w ith Hina Padillas [facility] 08/04/2020 Body mass index [Body mass i ndex [BMI] 24.0-24.9, adult] Medical Substance Abuse with Vikki Kramer PSYCHIATRIC SOCIAL WORKER SUPERVISOR 08/04/2020 Opioid dependence with continuous use Me dical Substance Abuse with Vikki Kramer PSYCHIATRIC SOCIAL WORKER SUPERVISOR 08/04/2020 Opioid dependence with continuous use Me dical Substance Abuse with Ruby Dunbar PSYCHIATRIC SOCIAL WORKER SUPERVISOR 07/27/2020 Overweight Medical Substance Ab use with Ruby Dunbar [facility] 07/27/2020 Z68.25 - Body mass index [BM I] 25.0-25.9, adult Medical Substance Abuse with Ruby Dunbar PSYCHIATRIC SOCIAL WORKER SUPERVISOR 07/27/2020 Opioid dependence, on agonist therapy BH Substance Abuse with Hina Cope [facility] 07/19/2020 Psychotic disorder BH Substance Abuse w ith Hina Bolivarmons [facility] 07/19/2020 Opioid dependence with continuous use Me dical Substance Abuse with Ruby Dunbar [facility] 07/19/2020 Z68.24 - Body mass index [BM I] 24.0-24.9, adult Medical Substance Abuse with Ruby Dunbar [facility] 07/19/2020 Opioid dependence with continuous use BH Substance Abuse with Hina Cope [facility] 07/13/2020 Body mass index Medical Substance Ab use with Ruby Dunbar PSYCHIATRIC SOCIAL WORKER SUPERVISOR 07/13/2020 Coronary artery disease Medical Substanc e Abuse with Ruby Dunbar PSYCHIATRIC SOCIAL WORKER SUPERVISOR 07/13/2020 Opioid dependence with continuous use Me dical Substance Abuse with Ruby Dunbar PSYCHIATRIC SOCIAL WORKER SUPERVISOR 07/13/2020 Reflex neuropathic bladder Medical Subst ance Abuse with Ruby Dunbar [facility] 07/13/2020 Routine history and physical Medical Sub stance Abuse with Ruby Dunbar PSYCHIATRIC SOCIAL WORKER SUPERVISOR 07/13/2020 Opioid dependence BH Substance Abuse w ith Vymilo Senior [facility] 07/06/2020 Body mass index [Body mass i ndex [BMI] 24.0-24.9, adult] Medical New Patient with Vikki Kramer PSYCHIATRIC SOCIAL WORKER SUPERVISOR 07/06/2020 Diabetes Risk Test Score was three score 07/06/2020 Medical New Patient with Vikki Kramer PSYCHIATRIC SOCIAL WORKER SUPERVISOR 07/06/2020 Body mass index Walked Out NO Servic es Rendered with Ruby Dunbar PSYCHIATRIC SOCIAL WORKER SUPERVISOR 07/01/2020 [facility] Work Phone: [phone]) [phone] Evaluation note Includes: Assessments for all patient encounters Findings Encounter Date Opioid dependence, on agonist therapy Telebehavioral Health with Hinanyasia Cope [facility] 07/01/2021 Exposure to COVID-19 Telemedicine Establ isted Patient with Ruby Dunbar PSYCHIATRIC SOCIAL WORKER SUPERVISOR 07/01/2021 Neurogenic bladder Telemedicine Establi sted Patient with Ruby Dunbar PSYCHIATRIC SOCIAL WORKER SUPERVISOR 07/01/2021 Opioid dependence with continuous use Te lemedicine Establisted Patient with Ruby Dunbar PSYCHIATRIC SOCIAL WORKER SUPERVISOR 07/01/2021 Systemic hypertension Telemedicine Estab listed Patient with Ruby Dunbar PSYCHIATRIC SOCIAL WORKER SUPERVISOR 07/01/2021 Opioid dependence uncomplicated BH Subst ance Abuse with Hinanyasia Padillas [facility] 06/03/2021 Gastroesophageal reflux dise ase with esophagitis without bleeding Medical Substance Abuse with Ruby Dunbar PSYCHIATRIC SOCIAL WORKER SUPERVISOR 06/03/2021 Neurogenic bladder Medical Substance Ab use with Ruby Dunbar PSYCHIATRIC SOCIAL WORKER SUPERVISOR 06/03/2021 Opioid dependence with continuous use Me dical Substance Abuse with Ruby Dunbar PSYCHIATRIC SOCIAL WORKER SUPERVISOR 06/03/2021 Systemic hypertension Medical Substance Abuse with Ruby Dunbar PSYCHIATRIC SOCIAL WORKER SUPERVISOR 06/03/2021 Opioid dependence uncomplicated BH Subst ance Abuse with Hina Cope [facility] 05/06/2021 Opioid dependence with continuous use Me dical Substance Abuse with Jyoti Penix PSYCHIATRIC SOCIAL WORKER SUPERVISOR 05/06/2021 Z68.27 - Body mass index [BM I] 27.0-27.9, adult Medical Substance Abuse with Jyoti Penix PSYCHIATRIC SOCIAL WORKER SUPERVISOR 05/06/2021 Nicotine dependence uncomplicated BH Sub stance Abuse with Hina Cope [facility] 04/08/2021 Opioid dependence uncomplicated BH Subst ance Abuse with Hina Cope [facility] 04/08/2021 Assessment of body mass index Medical Pina bstance Abuse with Ruby Dunbar PSYCHIATRIC SOCIAL WORKER SUPERVISOR 04/08/2021 Cough Medical Substance Ab use with Ruby Dunbar PSYCHIATRIC SOCIAL WORKER SUPERVISOR 04/08/2021 Neurogenic bladder Medical Substance Ab use with Ruby Dunbar PSYCHIATRIC SOCIAL WORKER SUPERVISOR 04/08/2021 Opioid dependence with continuous use Me dical Substance Abuse with Ruby Dunbar PSYCHIATRIC SOCIAL WORKER SUPERVISOR 04/08/2021 Tinnitus Medical Substance Ab use with Ruby Dunbar PSYCHIATRIC SOCIAL WORKER SUPERVISOR 04/08/2021 Anxiety disorder NOS Telebehavioral H ealth with Lucas HOPE 03/11/2021 Nicotine dependence uncomplicated BH Tel ebehavioral Health with Lucas Mccallumdarnell RN SH[facility] 03/11/2021 Opioid dependence, on agonist therapy Telebehavioral Health with Lucas Nate RN [facility] 03/11/2021 Assessment of body mass index Medical Pina bstance Abuse with Ruby Dunbar PSYCHIATRIC SOCIAL WORKER SUPERVISOR 03/11/2021 Neurogenic bladder Medical Substance Ab use with Ruby Dunbar PSYCHIATRIC SOCIAL WORKER SUPERVISOR 03/11/2021 Opioid dependence with continuous use Me dical Substance Abuse with Ruby Dunbar PSYCHIATRIC SOCIAL WORKER SUPERVISOR 03/11/2021 Tinnitus Medical Substance Ab use with Ruby Dunbar PSYCHIATRIC SOCIAL WORKER SUPERVISOR 03/11/2021 Opioid dependence, on agonist therapy BH Substance Abuse with Hina Cope [facility] 02/11/2021 Dependence on nicotine in ci garettes - uncomplicated Medical Substance Abuse with Nelia Stechschulte [employer] TE[employer] 02/11/2021 Neurogenic bladder Medical Substance Ab use with Nelia Stechschulte MR TE[employer] 02/11/2021 Opioid dependence with continuous use Me dical Substance Abuse with Nelia Stechschulte [employer] TE[employer] 02/11/2021 Z68.24 - Body mass index [BM I] 24.0-24.9, adult Medical Substance Abuse with Nelia Stechschulte [employer] 02/11/2021 Opioid dependence uncomplicated BH Subst ance Abuse with Hinanyasia Padillas [facility] 01/14/2021 Gastroesophageal reflux dise ase with esophagitis without bleeding Medical Substance Abuse with Ruby Dunbar PSYCHIATRIC SOCIAL WORKER SUPERVISOR 01/14/2021 Neurogenic bladder Medical Substance Ab use with Ruby Dunbar PSYCHIATRIC SOCIAL WORKER SUPERVISOR 01/14/2021 Nonvenomous insect bite Medical Substanc e Abuse with Ruby Dunbar PSYCHIATRIC SOCIAL WORKER SUPERVISOR 01/14/2021 Opioid dependence with continuous use Me dical Substance Abuse with Ruby Dunbar PSYCHIATRIC SOCIAL WORKER SUPERVISOR 01/14/2021 Tinnitus Medical Substance Ab use with Ruby Dunbar [facility] 01/14/2021 Z68.25 - Body mass index [BM I] 25.0-25.9, adult Medical Substance Abuse with Ruby Dunbar PSYCHIATRIC SOCIAL WORKER SUPERVISOR 01/14/2021 Opioid dependence, on agonist therapy BH Substance Abuse with Hina Cope [facility] 12/31/2020 G89.29 - Other chronic pain Medical Subs tance Abuse with Nelia Stechschulte MR TEACHER 12/31/2020 Opioid dependence with continuous use Me dical Substance Abuse with Nelia Stechschulte MR TEACHER 12/31/2020 R11.0 - Nausea Medical Substance Ab use with Neliadanielito Hernandez [facility] 12/31/2020 Z68.24 - Body mass index [BM I] 24.0-24.9, adult Medical Substance Abuse with Neliadanielito Hernandez [facility] 12/31/2020 Opioid dependence, on agonist therapy BH Substance Abuse with Hina Cope [facility] 12/17/2020 PLAN Medical Substance Ab use with Johan Cedillo MD 12/17/2020 Z68.23 - Body mass index [BM I] 23.0-23.9, adult Medical Substance Abuse with Johan Cedillo MD 12/17/2020 Nicotine dependence uncomplicated BH Sub stance Abuse with Hinanyasia Cope [facility] 12/03/2020 Opioid dependence, on agonist therapy BH Substance Abuse with Hina Cope [facility] 12/03/2020 Gastroesophageal reflux dise ase with esophagitis without bleeding Medical Established Patient with Ruby Dunbar [facility] 12/03/2020 Hypothyroidism Medical Established Patient with Ruby Dunbar [facility] 12/03/2020 Intervention and counseling on cessation of tobacco use, 3-10 minutes Discussed medication and nicotine replacement for tobacco cessation Medical Established Patient with Ruby Dunbar [facility] 12/03/2020 Neurogenic bladder Medical Established Patient with Ruby Dunbar [facility] 12/03/2020 Nicotine dependence Medical Established Patient with Ruby Dunbar [facility] 12/03/2020 Opioid dependence with continuous use Me dical Established Patient with Ruby Dunbar [facility] 12/03/2020 Routine history and physical Medical Est ablished Patient with Ruby Dunbar [facility] 12/03/2020 Vitamin B12 deficiency Medical Establish ed Patient with Ruby Dunbar [facility] 12/03/2020 Vitamin D deficiency Medical Established Patient with Ruby Dunbar [facility] 12/03/2020 Nicotine dependence uncomplicated BH Sub stance Abuse with Hinanyasia Padillas [facility] 11/19/2020 Opioid dependence, on agonist therapy BH Substance Abuse with Hina Cope [facility] 11/19/2020 Opioid dependence with continuous use Me dical Substance Abuse with Ruby Dunbar [facility] 11/19/2020 Overweight Medical Substance Ab use with Ruby Dunbar [facility] 11/19/2020 Tinnitus Medical Substance Ab use with Ruby Dunbar [facility] 11/19/2020 Z68.25 - Body mass index [BM I] 25.0-25.9, adult Medical Substance Abuse with Ruby Dunbar [facility] 11/19/2020 Opioid dependence, on agonist therapy Established Patient with Hinanyasia Cope [facility] 11/08/2020 Opioid dependence with continuous use Me dical Substance Abuse with Ruby Dunbar [facility] 11/08/2020 Z68.24 - Body mass index [BM I] 24.0-24.9, adult Medical Substance Abuse with Ruby Dunbar [facility] 11/08/2020 Opioid dependence, on agonist therapy Substance Abuse with Hinanyasia Cope [facility] 10/22/2020 Allergic rhinitis Medical Substance Ab use with Ruby Dunbar [facility] 10/22/2020 Opioid dependence with continuous use Me dical Substance Abuse with Ruby Dunbar [facility] 10/22/2020 Z68.25 - Body mass index [BM I] 25.0-25.9, adult Medical Substance Abuse with Ruby Dunbar [facility] 10/22/2020 Contact dermatitis Medical Substance Ab use with Ruby Dunbar [facility] 10/08/2020 Encounter for Immunization Medical Subst ance Abuse with Ruby Dunbar [facility] 10/08/2020 Opioid dependence with continuous use Me dical Substance Abuse with Ruby Dunbar [facility] 10/08/2020 Z68.24 - Body mass index [BM I] 24.0-24.9, adult Medical Substance Abuse with Ruby Dunbar [facility] 10/08/2020 Opioid dependence, on agonist therapy Substance Abuse with Hinanyasia Padillas [facility] 09/24/2020 COVID-19 infection Medical Substance Ab use with Ruby Dunbar [facility] 09/24/2020 Opioid dependence with continuous use Me dical Substance Abuse with Ruby Dunbar [facility] 09/24/2020 Z68.25 - Body mass index [BM I] 25.0-25.9, adult Medical Substance Abuse with Ruby Dunbar [facility] 09/24/2020 Opioid dependence with continuous use Substance Abuse with Hinanyasia Padillas [facility] 09/10/2020 Constipation Medical Substance Ab use with Ruby Dunbar [facility] 09/10/2020 Opioid dependence with continuous use Me dical Substance Abuse with Ruby Dunbar [facility] 09/10/2020 Z68.24 - Body mass index [BM I] 24.0-24.9, adult Medical Substance Abuse with Ruby Dunbar [facility] 09/10/2020 Opioid dependence with continuous use BH Substance Abuse with Hina Cope [facility] 08/27/2020 Body mass index Medical Substance Ab use with Ruby Dunbar PSYCHIATRIC SOCIAL WORKER SUPERVISOR 08/27/2020 Nausea Medical Substance Ab use with Ruby Dunbar PSYCHIATRIC SOCIAL WORKER SUPERVISOR 08/27/2020 Opioid dependence with continuous use Me dical Substance Abuse with Ruby Dunbar PSYCHIATRIC SOCIAL WORKER SUPERVISOR 08/27/2020 Opioid dependence uncomplicated BH Subst ance Abuse with Hina Cope [facility] 08/13/2020 Opioid dependence BH Substance Abuse w ith Hina Bolivarmons [facility] 08/04/2020 Body mass index [Body mass i ndex [BMI] 24.0-24.9, adult] Medical Substance Abuse with Vikki Kramer PSYCHIATRIC SOCIAL WORKER SUPERVISOR 08/04/2020 Opioid dependence with continuous use Me dical Substance Abuse with Vikki Kramer PSYCHIATRIC SOCIAL WORKER SUPERVISOR 08/04/2020 Opioid dependence with continuous use Me dical Substance Abuse with Ruby Dunbar PSYCHIATRIC SOCIAL WORKER SUPERVISOR 07/27/2020 Overweight Medical Substance Ab use with Ruby Dunbar PSYCHIATRIC SOCIAL WORKER SUPERVISOR 07/27/2020 Z68.25 - Body mass index [BM I] 25.0-25.9, adult Medical Substance Abuse with Ruby Dunbar PSYCHIATRIC SOCIAL WORKER SUPERVISOR 07/27/2020 Opioid dependence, on agonist therapy BH Substance Abuse with Hina Cope [facility] 07/19/2020 Psychotic disorder BH Substance Abuse w ith Hina [facility] 07/19/2020 Opioid dependence with continuous use Me dical Substance Abuse with Ruby Dunbar PSYCHIATRIC SOCIAL WORKER SUPERVISOR 07/19/2020 Z68.24 - Body mass index [BM I] 24.0-24.9, adult Medical Substance Abuse with Ruby Dunbar PSYCHIATRIC SOCIAL WORKER SUPERVISOR 07/19/2020 Opioid dependence with continuous use BH Substance Abuse with Hina Cope [facility] 07/13/2020 Body mass index Medical Substance Ab use with Ruby Dunbar PSYCHIATRIC SOCIAL WORKER SUPERVISOR 07/13/2020 Coronary artery disease Medical Substanc e Abuse with Ruby Dunbar PSYCHIATRIC SOCIAL WORKER SUPERVISOR 07/13/2020 Opioid dependence with continuous use Me dical Substance Abuse with Ruby Dunbar PSYCHIATRIC SOCIAL WORKER SUPERVISOR 07/13/2020 Reflex neuropathic bladder Medical Subst ance Abuse with Ruby Dunbar PSYCHIATRIC SOCIAL WORKER SUPERVISOR 07/13/2020 Routine history and physical Medical Sub stance Abuse with Ruby Dunbar PSYCHIATRIC SOCIAL WORKER SUPERVISOR 07/13/2020 Opioid dependence BH [facility] 07/06/2020 Body mass index [Body mass i ndex [BMI] 24.0-24.9, adult] Medical New Patient with Vikki Kramer PSYCHIATRIC SOCIAL WORKER SUPERVISOR 07/06/2020 Diabetes Risk Test Score was three score 07/06/2020 Medical New Patient with Vikki Kramer PSYCHIATRIC SOCIAL WORKER SUPERVISOR 07/06/2020 Body mass index Walked Out NO Servic es Rendered with Ruby Dunbar PSYCHIATRIC SOCIAL WORKER SUPERVISOR 07/01/2020 [facility] Work Phone: 1([phone]) 902-845112-10-2021 Evaluation note Includes: Assessments for all patient encounters Findings Encounter Date Opioid dependence uncomplicated BH Subst ance Abuse with Hina Cope [facility] 06/03/2021 Gastroesophageal reflux dise ase with esophagitis without bleeding Medical Substance Abuse with Ruby Dunbar PSYCHIATRIC SOCIAL WORKER SUPERVISOR 06/03/2021 Neurogenic bladder Medical Substance Ab use with Ruby Dunbar PSYCHIATRIC SOCIAL WORKER SUPERVISOR 06/03/2021 Opioid dependence with continuous use Me dical Substance Abuse with Ruby Dunabr PSYCHIATRIC SOCIAL WORKER SUPERVISOR 06/03/2021 Systemic hypertension Medical Substance Abuse with Ruby Dunbar PSYCHIATRIC SOCIAL WORKER SUPERVISOR 06/03/2021 Opioid dependence uncomplicated BH Subst ance Abuse with [facility]ina [facility] 05/06/2021 Opioid dependence with continuous use Me dical Substance Abuse with Jyoti Penix PSYCHIATRIC SOCIAL WORKER SUPERVISOR 05/06/2021 Z68.27 - Body mass index [BM I] 27.0-27.9, adult Medical Substance Abuse with Jyoti Penix PSYCHIATRIC SOCIAL WORKER SUPERVISOR 05/06/2021 Nicotine dependence uncomplicated BH Sub stance Abuse with Hina Cope [facility] 04/08/2021 Opioid dependence uncomplicated BH Subst ance Abuse with Hina Cope [facility] 04/08/2021 Assessment of body mass index Medical Pina bstance Abuse with Ruby Dunbar PSYCHIATRIC SOCIAL WORKER SUPERVISOR 04/08/2021 Cough Medical Substance Ab use with Ruby Dunbar PSYCHIATRIC SOCIAL WORKER SUPERVISOR 04/08/2021 Neurogenic bladder Medical Substance Ab use with Ruby Dunbar PSYCHIATRIC SOCIAL WORKER SUPERVISOR 04/08/2021 Opioid dependence with continuous use Me dical Substance Abuse with Ruby Dunbar PSYCHIATRIC SOCIAL WORKER SUPERVISOR 04/08/2021 Tinnitus Medical Substance Ab use with Ruby Dunbar PSYCHIATRIC SOCIAL WORKER SUPERVISOR 04/08/2021 Anxiety disorder NOS Telebehavioral H ealth with Lucas MAYOW 03/11/2021 Nicotine dependence uncomplicated Tel ebehavioral Health with Lucas Sullivan RN SHIFT MGR 03/11/2021 Opioid dependence, on agonist therapy Telebehavioral Health with Lucas Sullivan [facility] 03/11/2021 Assessment of body mass index Medical Pina bstance Abuse with Ruby Dunbar PSYCHIATRIC SOCIAL WORKER SUPERVISOR 03/11/2021 Neurogenic bladder Medical Substance Ab use with Ruby Dunbar PSYCHIATRIC SOCIAL WORKER SUPERVISOR 03/11/2021 Opioid dependence with continuous use Me dical Substance Abuse with Ruby Dunbar PSYCHIATRIC SOCIAL WORKER SUPERVISOR 03/11/2021 Tinnitus Medical Substance Ab use with Ruby Dunbar PSYCHIATRIC SOCIAL WORKER SUPERVISOR 03/11/2021 Opioid dependence, on agonist therapy BH Substance Abuse with Hinanyasia Cope [facility] 02/11/2021 Dependence on nicotine in ci garettes - uncomplicated Medical Substance Abuse with Nelia Stechschulte [facility] 02/11/2021 Neurogenic bladder Medical Substance Ab use with Nelia Yolandaschlaureanoe [facility] 02/11/2021 Opioid dependence with continuous use Me dical Substance Abuse with Nelia Stechschulte [facility] 02/11/2021 Z68.24 - Body mass index [BM I] 24.0-24.9, adult Medical Substance Abuse with Nelia Yolandaschulte [facility] 02/11/2021 Opioid dependence uncomplicated BH Subst ance Abuse with Hina Cope [facility] 01/14/2021 Gastroesophageal reflux dise ase with esophagitis without bleeding Medical Substance Abuse with Ruby Dunbar [facility] 01/14/2021 Neurogenic bladder Medical Substance Ab use with Ruby Dunbar [facility] 01/14/2021 Nonvenomous insect bite Medical Substanc e Abuse with Ruby Dunbar [facility] 01/14/2021 Opioid dependence with continuous use Me dical Substance Abuse with Ruby Dunbar PSYCHIATRIC SOCIAL WORKER SUPERVISOR 01/14/2021 Tinnitus Medical Substance Ab use with Ruby Dunbar [facility] 01/14/2021 Z68.25 - Body mass index [BM I] 25.0-25.9, adult Medical Substance Abuse with Ruby Dunbar [facility] 01/14/2021 Opioid dependence, on agonist therapy BH Substance Abuse with Hinanyasia Cope [facility] 12/31/2020 G89.29 - Other chronic pain Medical Subs tance Abuse with Nelia Stechschulte [facility] 12/31/2020 Opioid dependence with continuous use Me dical Substance Abuse with Nelia Stethaisschulte [facility] 12/31/2020 R11.0 - Nausea Medical Substance Ab use with Nelia Stechschulte [facility] 12/31/2020 Z68.24 - Body mass index [BM I] 24.0-24.9, adult Medical Substance Abuse with Nelia Hernandez [facility] 12/31/2020 Opioid dependence, on agonist therapy BH Substance Abuse with Hinajarrett Cope [facility] 12/17/2020 PLAN Medical Substance Ab use with Johan Cedillo MD 12/17/2020 Z68.23 - Body mass index [BM I] 23.0-23.9, adult Medical Substance Abuse with Johan Cedillo MD 12/17/2020 Nicotine dependence uncomplicated BH Sub stance Abuse with Hina Cope [facility] 12/03/2020 Opioid dependence, on agonist therapy BH Substance Abuse with Hina Cope [facility] 12/03/2020 Gastroesophageal reflux dise ase with esophagitis without bleeding Medical Established Patient with Ruby Dunbar [facility] 12/03/2020 Hypothyroidism Medical Established Patient with Ruby Dunbar [facility] 12/03/2020 Intervention and counseling on cessation of tobacco use, 3-10 minutes Discussed medication and nicotine replacement for tobacco cessation Medical Established Patient with Ruby Dunbar [facility] 12/03/2020 Neurogenic bladder Medical Established Patient with Ruby Dunbar [facility] 12/03/2020 Nicotine dependence Medical Established Patient with Ruby Dunbar [facility] 12/03/2020 Opioid dependence with continuous use Me dical Established Patient with Ruby Dunbar [facility] 12/03/2020 Routine history and physical Medical Est ablished Patient with Ruby Dunbar [facility] 12/03/2020 Vitamin B12 deficiency Medical Establish ed Patient with Ruby Dunbar [facility] 12/03/2020 Vitamin D deficiency Medical Established Patient with Ruby Dunbar [facility] 12/03/2020 Nicotine dependence uncomplicated BH Sub stance Abuse with Hina Cope [facility] 11/19/2020 Opioid dependence, on agonist therapy BH Substance Abuse with Hina Cope [facility] 11/19/2020 Opioid dependence with continuous use Me dical Substance Abuse with Ruby Dunbar [facility] 11/19/2020 Overweight Medical Substance Ab use with Ruby Dunbar [facility] 11/19/2020 Tinnitus Medical Substance Ab use with Ruby Marshal [facility] 11/19/2020 Z68.25 - Body mass index [BM I] 25.0-25.9, adult Medical Substance Abuse with Ruby Dunbar [facility] 11/19/2020 Opioid dependence, on agonist therapy BH Established Patient with Hinanyasia Cope [facility] 11/08/2020 Opioid dependence with continuous use Me dical Substance Abuse with Ruby Dunbar PSYCHIATRIC [employer]IAL WORKER SUPERVISOR 11/08/2020 Z68.24 - Body mass index [BM I] 24.0-24.9, adult Medical Substance Abuse with Ruby Dunbar PSYCHIATRIC SOCIAL WORKER SUPERVISOR 11/08/2020 Opioid dependence, on agonist therapy BH Substance Abuse with Hinanyasia Padillas [facility] 10/22/2020 Allergic rhinitis Medical Substance Ab use with Ruby Dunbar PSYCHIATRIC SOCIAL WORKER SUPERVISOR 10/22/2020 Opioid dependence with continuous use Me dical Substance Abuse with Rbuy Dunbar [facility] 10/22/2020 Z68.25 - Body mass index [BM I] 25.0-25.9, adult Medical Substance Abuse with Ruby Dunbar [facility] 10/22/2020 Contact dermatitis Medical Substance Ab use with Ruby Dunbar [facility] 10/08/2020 Encounter for Immunization Medical Subst ance Abuse with Ruby Dunbar [facility] 10/08/2020 Opioid dependence with continuous use Me dical Substance Abuse with Ruby Dunbar [facility] 10/08/2020 Z68.24 - Body mass index [BM I] 24.0-24.9, adult Medical Substance Abuse with Ruby Dunbar [facility] 10/08/2020 Opioid dependence, on agonist therapy Substance Abuse with Hinanyasia Cope [facility] 09/24/2020 COVID-19 infection Medical Substance Ab use with Ruby Dunbar PSYCHIATRIC SOCIAL WORKER SUPERVISOR 09/24/2020 Opioid dependence with continuous use Me dical Substance Abuse with Ruby Dunbar [facility] 09/24/2020 Z68.25 - Body mass index [BM I] 25.0-25.9, adult Medical Substance Abuse with Ruby Dunbar PSYCHIATRIC SOCIAL WORKER SUPERVISOR 09/24/2020 Opioid dependence with continuous use BH Substance Abuse with Hinanyasia Cope [facility] 09/10/2020 Constipation Medical Substance Ab use with Ruby Dunbar PSYCHIATRIC SOCIAL WORKER SUPERVISOR 09/10/2020 Opioid dependence with continuous use Me dical Substance Abuse with Ruby Dunbar PSYCHIATRIC SOCIAL WORKER SUPERVISOR 09/10/2020 Z68.24 - Body mass index [BM I] 24.0-24.9, adult Medical Substance Abuse with Ruby Dunbar PSYCHIATRIC SOCIAL WORKER SUPERVISOR 09/10/2020 Opioid dependence with continuous use BH Substance Abuse with Hina Cope [facility] 08/27/2020 Body mass index Medical Substance Ab use with Ruby Dunbar PSYCHIATRIC SOCIAL WORKER SUPERVISOR 08/27/2020 Nausea Medical Substance Ab use with Ruby Dunbar PSYCHIATRIC SOCIAL WORKER SUPERVISOR 08/27/2020 Opioid dependence with continuous use Me dical Substance Abuse with Ruby Dunbar PSYCHIATRIC SOCIAL WORKER SUPERVISOR 08/27/2020 Opioid dependence uncomplicated BH Subst ance Abuse with Hinanyasia Padillas [facility] 08/13/2020 Opioid dependence [facility] Body mass index [Body mass i ndex [BMI] 24.0-24.9, adult] Medical Substance Abuse with Vikki Kramer [facility] 08/04/2020 Opioid dependence with continuous use Me dical Substance Abuse with Vikki Kramer [facility] 08/04/2020 Opioid dependence with continuous use Me dical Substance Abuse with Ruby Dunbar [facility] 07/27/2020 Overweight Medical Substance Ab use with Ruby Dunbar [facility] 07/27/2020 Z68.25 - Body mass index [BM I] 25.0-25.9, adult Medical Substance Abuse with Ruby Dunbar [facility] 07/27/2020 Opioid dependence, on agonist therapy BH Substance Abuse with Hinanyasia Padillas [facility] 07/19/2020 Psychotic disorder BH Substance Abuse w ith Hina Cope [facility] 07/19/2020 Opioid dependence with continuous use Me dical Substance Abuse with Ruby Dunbar [facility] 07/19/2020 Z68.24 - Body mass index [BM I] 24.0-24.9, adult Medical Substance Abuse with Ruby Dunbar [facility] 07/19/2020 Opioid dependence with continuous use BH Substance Abuse with Hina Prisca [facility] 07/13/2020 Body mass index Medical Substance Ab use with Ruby Dunbar PSYCHIATRIC SOCIAL WORKER SUPERVISOR 07/13/2020 Coronary artery disease Medical Substanc e Abuse with Ruby Dunbar [facility] 07/13/2020 Opioid dependence with continuous use Me dical Substance Abuse with Ruby Dunbar PSYCHIATRIC SOCIAL WORKER SUPERVISOR 07/13/2020 Reflex neuropathic bladder Medical Subst ance Abuse with Ruby Dunbar PSYCHIATRIC SOCIAL WORKER SUPERVISOR 07/13/2020 Routine history and physical Medical Sub stance Abuse with Ruby Dunbar [facility] 07/13/2020 Opioid dependence BH Substance Abuse w ith Vymilo Senior [facility] 07/06/2020 Body mass index [Body mass i ndex [BMI] 24.0-24.9, adult] Medical New Patient with Vikki Kramer PSYCHIATRIC SOCIAL WORKER SUPERVISOR 07/06/2020 Diabetes Risk Test Score was three score 07/06/2020 Medical New Patient with Vikki Williams PSYCHIATRIC SOCIAL WORKER SUPERVISOR 07/06/2020 Body mass index Walked Out NO Servic es Rendered with Ruby Dunbar PSYCHIATRIC SOCIAL WORKER SUPERVISOR 07/01/2020 [facility] Work Phone: [phone]) 258-343111-12-2021 Evaluation note Includes: Assessments for all patient encounters Findings Encounter Date Opioid dependence uncomplicated BH Subst ance Abuse with Hina Cope [facility] 05/06/2021 Opioid dependence with continuous use Me dical Substance Abuse with Jyoti Penix PSYCHIATRIC SOCIAL WORKER SUPERVISOR 05/06/2021 Z68.27 - Body mass index [BM I] 27.0-27.9, adult Medical Substance Abuse with Jyoti Penix PSYCHIATRIC SOCIAL WORKER SUPERVISOR 05/06/2021 Nicotine dependence uncomplicated BH Sub stance Abuse with Hina Cope [facility] 04/08/2021 Opioid dependence uncomplicated BH Subst ance Abuse with Hina Cope [facility] 04/08/2021 Assessment of body mass index Medical Pina bstance Abuse with Ruby Dunbar PSYCHIATRIC SOCIAL WORKER SUPERVISOR 04/08/2021 Cough Medical Substance Ab use with Ruby Dunbar PSYCHIATRIC SOCIAL WORKER SUPERVISOR 04/08/2021 Neurogenic bladder Medical Substance Ab use with Ruby Dunbar PSYCHIATRIC SOCIAL WORKER SUPERVISOR 04/08/2021 Opioid dependence with continuous use Me dical Substance Abuse with Ruby Dunbar PSYCHIATRIC SOCIAL WORKER SUPERVISOR 04/08/2021 Tinnitus Medical Substance Ab use with Ruby Dunbar PSYCHIATRIC SOCIAL WORKER SUPERVISOR 04/08/2021 Anxiety disorder NOS Telebehavioral H ealth with Lucas Sullivan RN [facility] 03/11/2021 Nicotine dependence uncomplicated Tel ebehavioral Health with Lucas MAYOW 03/11/2021 Opioid dependence, on agonist therapy Telebehavioral Health with Lucas Sullivan RN [facility] 03/11/2021 Assessment of body mass index Medical Pina bstance Abuse with Ruby Dunbar PSYCHIATRIC SOCIAL WORKER SUPERVISOR 03/11/2021 Neurogenic bladder Medical Substance Ab use with Ruby Dunbar PSYCHIATRIC SOCIAL WORKER SUPERVISOR 03/11/2021 Opioid dependence with continuous use Me dical Substance Abuse with Ruby Dunbar PSYCHIATRIC SOCIAL WORKER SUPERVISOR 03/11/2021 Tinnitus Medical Substance Ab use with Ruby Dunbar PSYCHIATRIC SOCIAL WORKER SUPERVISOR 03/11/2021 Opioid dependence, on agonist therapy BH Substance Abuse with Hina Cope [facility] 02/11/2021 Dependence on nicotine in ci garettes - uncomplicated Medical Substance Abuse with Nelia Stechschulte [facility] 02/11/2021 Neurogenic bladder Medical Substance Ab use with Nelia Stechschulte [facility] 02/11/2021 Opioid dependence with continuous use Me dical Substance Abuse with Nelia Stechschulte [facility] 02/11/2021 Z68.24 - Body mass index [BM I] 24.0-24.9, adult Medical Substance Abuse with Nelia Stechschulte [facility] 02/11/2021 Opioid dependence uncomplicated BH Subst ance Abuse with Hina Cope [facility] 01/14/2021 Gastroesophageal reflux dise ase with esophagitis without bleeding Medical Substance Abuse with Ruby Dunbar [facility] 01/14/2021 Neurogenic bladder Medical Substance Ab use with Ruby Dunbar [facility] 01/14/2021 Nonvenomous insect bite Medical Substanc e Abuse with Ruby Dunbar [facility] 01/14/2021 Opioid dependence with continuous use Me dical Substance Abuse with Ruby Dunbar [facility] 01/14/2021 Tinnitus Medical Substance Ab use with Ruby Dunbar [facility] 01/14/2021 Z68.25 - Body mass index [BM I] 25.0-25.9, adult Medical Substance Abuse with Ruby Dunbar [facility] 01/14/2021 Opioid dependence, on agonist therapy BH Substance Abuse with Hina Cope [facility] 12/31/2020 G89.29 - Other chronic pain Medical Subs tance Abuse with Enlia Stechschulte [facility] 12/31/2020 Opioid dependence with continuous use Me dical Substance Abuse with Nelia Stechschulte [facility] 12/31/2020 R11.0 - Nausea Medical Substance Ab use with Nelia Stechschulte [facility] 12/31/2020 Z68.24 - Body mass index [BM I] 24.0-24.9, adult Medical Substance Abuse with Nelia Stechschulte [facility] 12/31/2020 Opioid dependence, on agonist therapy BH Substance Abuse with Hina Prisca [facility] 12/17/2020 PLAN Medical Substance Ab use with Johan Cedillo MD 12/17/2020 Z68.23 - Body mass index [BM I] 23.0-23.9, adult Medical Substance Abuse with Johan Cedillo MD 12/17/2020 Nicotine dependence uncomplicated BH Sub stance Abuse with Hina Cope [facility] 12/03/2020 Opioid dependence, on agonist therapy BH Substance Abuse with Hina Cope [facility] 12/03/2020 Gastroesophageal reflux dise ase with esophagitis without bleeding Medical Established Patient with Ruby Dunbar [facility] 12/03/2020 Hypothyroidism Medical Established Patient with Ruby Marshal [facility] 12/03/2020 Intervention and counseling on cessation of tobacco use, 3-10 minutes Discussed medication and nicotine replacement for tobacco cessation Medical Established Patient with Ruby Dunbar [facility] 12/03/2020 Neurogenic bladder Medical Established Patient with Ruby Dunbar [facility] 12/03/2020 Nicotine dependence Medical Established Patient with Ruby Dunbar [facility] 12/03/2020 Opioid dependence with continuous use Me dical Established Patient with Ruby Dunbar [facility] 12/03/2020 Routine history and physical Medical Est ablished Patient with Ruby Dunbar [facility] 12/03/2020 Vitamin B12 deficiency Medical Establish ed Patient with Ruby Dunbar [facility] 12/03/2020 Vitamin D deficiency Medical Established Patient with Ruby Dunbar [facility] 12/03/2020 Nicotine dependence uncomplicated BH Sub stance Abuse with Hina Cope [facility] 11/19/2020 Opioid dependence, on agonist therapy BH Substance Abuse with Hina Cope [facility] 11/19/2020 Opioid dependence with continuous use Me dical Substance Abuse with Ruby Dunbar [facility] 11/19/2020 Overweight Medical Substance Ab use with Ruby Dunbar [facility] 11/19/2020 Tinnitus Medical Substance Ab use with Ruby Dunbar [facility] 11/19/2020 Z68.25 - Body mass index [BM I] 25.0-25.9, adult Medical Substance Abuse with Ruby Dunbar [facility] 11/19/2020 Opioid dependence, on agonist therapy BH Established [facility]/08/2020 Opioid dependence with continuous use Me dical Substance Abuse with Ruby Dunbar [facility] 11/08/2020 Z68.24 - Body mass index [BM I] 24.0-24.9, adult Medical Substance Abuse with Ruby Dunbar [facility] 11/08/2020 Opioid dependence, on agonist therapy BH Substance Abuse with Hina Cope [facility] 10/22/2020 Allergic rhinitis Medical Substance Ab use with Ruby Dunbar [facility] 10/22/2020 Opioid dependence with continuous use Me dical Substance Abuse with Ruby Dunbar [facility] 10/22/2020 Z68.25 - Body mass index [BM I] 25.0-25.9, adult Medical Substance Abuse with Ruby Dunbar [facility] 10/22/2020 Contact dermatitis Medical Substance Ab use with Ruby Dunbar [facility] 10/08/2020 Encounter for Immunization Medical Subst ance Abuse with Ruby Dunbar [facility] 10/08/2020 Opioid dependence with continuous use Me dical Substance Abuse with Ruby Dunbar [facility] 10/08/2020 Z68.24 - Body mass index [BM I] 24.0-24.9, adult Medical Substance Abuse with Ruby Dunbar [facility] 10/08/2020 Opioid dependence, on agonist therapy BH Substance Abuse with Hina Cope [facility] 09/24/2020 COVID-19 infection Medical Substance Ab use with Ruby Dunbar [facility] 09/24/2020 Opioid dependence with continuous use Me dical Substance Abuse with Ruby Dunbar [facility] 09/24/2020 Z68.25 - Body mass index [BM I] 25.0-25.9, adult Medical Substance Abuse with Ruby Dunbar [facility] 09/24/2020 Opioid dependence with continuous use BH Substance Abuse with Hina Cope [facility] 09/10/2020 Constipation Medical Substance Ab use with Ruby Dunbar [facility] 09/10/2020 Opioid dependence with continuous use Me dical Substance Abuse with Ruby Dunbar [facility] 09/10/2020 Z68.24 - Body mass index [BM I] 24.0-24.9, adult Medical Substance Abuse with Ruby Dunbar [facility] 09/10/2020 Opioid dependence with continuous use BH Substance Abuse with Hina Cope [facility] 08/27/2020 Body mass index Medical Substance Ab use with Ruby Dunbar [facility] 08/27/2020 Nausea Medical Substance Ab use with Ruby Dunbar [facility] 08/27/2020 Opioid dependence with continuous use Me dical Substance Abuse with Ruby Dunbar [facility] 08/27/2020 Opioid dependence uncomplicated BH Subst ance Abuse with Hina Cope [facility] 08/13/2020 Opioid dependence BH Substance Abuse w ith Hina Cope [facility] 08/04/2020 Body mass index [Body mass i ndex [BMI] 24.0-24.9, adult] Medical Substance Abuse with Vikki Kramer [facility] 08/04/2020 Opioid dependence with continuous use Me dical Substance Abuse with Vikki Williams [facility] 08/04/2020 Opioid dependence with continuous use Me dical Substance Abuse with Ruby Dunbar [facility] 07/27/2020 Overweight Medical Substance Ab use with Ruby Dunbar [facility] 07/27/2020 Z68.25 - Body mass index [BM I] 25.0-25.9, adult Medical Substance Abuse with Ruby Dunbar [facility] 07/27/2020 Opioid dependence, on agonist therapy BH Substance Abuse with Hina Bolivarmons [facility] 07/19/2020 Psychotic disorder BH Substance Abuse w ariana Bolivarmons [facility] 07/19/2020 Opioid dependence with continuous use Me dical Substance Abuse with Ruby Dunbar [facility] 07/19/2020 Z68.24 - Body mass index [BM I] 24.0-24.9, adult Medical Substance Abuse with Ruby Dunbar [facility] 07/19/2020 Opioid dependence with continuous use BH Substance Abuse with Hina Cope [facility] 07/13/2020 Body mass index Medical Substance Ab use with Ruby Dunbar [facility] 07/13/2020 Coronary artery disease Medical Substanc e Abuse with Ruby Dunbar [facility] 07/13/2020 Opioid dependence with continuous use Me dical Substance Abuse with Ruby Dunbar [facility] 07/13/2020 Reflex neuropathic bladder Medical Subst ance Abuse with Ruby Dunbar [facility] 07/13/2020 Routine history and physical Medical Sub stance Abuse with Ruby Dunbar [facility] 07/13/2020 Opioid dependence BH Substance Abuse w ariana Senior [facility] 07/06/2020 Body mass index [Body mass i ndex [BMI] 24.0-24.9, adult] Medical New Patient with Vikki Williams [facility] 07/06/2020 Diabetes Risk Test Score was three score 07/06/2020 Medical New Patient with Vikki Kramer [facility] 07/06/2020 Body mass index Walked Out NO Servic es Rendered with Ruby Dunbar [facility] 07/01/2020 [facility] Work Phone: 1(431) 744-508910-26-2021 NoteThis is a Telephone Appointment *This visit was conducted by Telephone with real time communicationand interaction. This was performed due to the current COVID-19 pandemic in order to minimize exposure to both patients and staff. The patient verbally consented to treatment. The patient understandstheir rights, the HIPAA risks and that they will be charged accordingly for the services rendered. Chief Complaint Neurogenic bladder follow-up History of Present Illness Last seen by our urological team March 31, 2021 Patient comes with: Self only 66 Years, Male Progress Patient is here to discuss progress Patient continues to do intermittent self-catheterization 4-5 times per day Patient does not measure how much he empties at a time Patient reports no difficulty with catheter insertion Occasionally patient has to void very little on his own Rediscussed long-term option such as continued intermittent self-catheterization versus TURP Patient is not ready to consider TURP at this time Patient wishes to continue intermittent self-catheterization Patient prefers to call us when he is ready to make any changes Urological history BPH, urinary retention, urethral stricture repair around age 12, neurogenic bladder Cystoscopy done February 09, [address] Paiz mild hypertrophy of lateral lobes Urodynamics testing done February 17, 2021 showing normal bladder capacity of 462 mL, impaired compliance, detrusor instability at max filling generated a strong detrusor contraction, unable to void, recommendations for TURP PSA (5 Years) Event Name Event Result Date/Time Total PSA 0.32 ng/mL 02/24/21 PVR (2 Year) Post Void Bladder Volume Instrument: 0 mL (12/22/20) ROS Urinary Dysuria: No Hematuria: No Review of Systems Constitutional: no fevers, no chills Lungs: no SOB, no cough Abd: no nausea, no vomiting, no abd pain Neuro: no headache, no dizziness Physical Exam General: alert, no distress in voice Respiratory: no distressful breathing sounds Neuro: no slurred speech, appropriate questions and answers Additional Vitals No qualifying data available. Assessment/Plan 1. BPH (benign prostatic hyperplasia) Mildly obstructing prostate during previous cystoscopy 2. Intermittent self-catheterization of bladder Continue intermittent self-catheterization at this time, currently going well, patient wishes to continue until he is ready to consider TURP 3. Neurogenic bladder Urodynamics testing reveals neurogenic bladder, best option to regain urinary function is TURP, patient is not ready to consider Time Spent with the Patient Today's visit was performed via telehealth and utilized an audio only connection. Duration of the visit in conversation with the patient: 12 minutes Problem List/Past Medical History Ongoing BPH (benign prostatic hyperplasia) Esophageal reflux Hypospadias Intermittent self-catheterization of bladder Neurogenic bladder Opioid dependence Tinnitus Urethral stricture Historical No qualifying data Procedure/Surgical History APPENDECTOMY skin grafts tumor removal and biopsy, left forearm Medications Antioxidant Formula oral tablet, Oral, Daily aspirin 325 mg oral delayed release tablet, 325 mg= 1 tabs, Oral, Daily baclofen 10 mg oral tablet, 10 mg= 1 tabs, Oral, TID Co-Q10 100 mg oral capsule, 100 mg= 1 caps, Oral, Daily Coreg 3.125 mg oral tablet, 3.125 mg= 1 tabs, Oral, BID Crestor 10 mg oral tablet, 10 mg= 1 tabs, Oral, Daily EPA Fish Oil 1000 mg oral capsule, 1000 mg= 1 caps, Oral, Daily ferrous sulfate, Oral isosorbide dinitrate 30 mg oral tablet, 30 mg= 1 tabs, Oral, BID lisinopril 10 mg oral tablet, 10 mg= 1 tabs, Oral, Daily MiraLax, 17 g, Oral, Daily multivitamin, Daily Neurontin 800 mg oral tablet, 800 mg= 1 tabs, Oral, TID ondansetron 4 mg oral tablet, 4 mg= 1 tabs, Oral, q8hr Suboxone 8 mg-2 mg sublingual film, 2 film, SL, Daily Vitamin C 500 mg oral tablet, 500 mg= 1 tabs, Oral, Daily Vitamin D3 Allergies IV contrast (Skin rash, Hives) shell fish (Skin rash, Hives) Social History Tobacco 10 or more cigarettes (1/2 pack or more)/day in last 30 days Use:. Cigarettes Family History Bladder cancer: Negative: Mother, Father, Grandfather (M), Grandfather (P), Grandmother (M) and Grandmother (P). Bladder cancer screening: Negative: Mother, Father, Grandfather (M), Grandfather (P), Grandmother (M) and Grandmother (P). Kidney cancer: Negative: Mother, Father, Grandfather (M), Grandfather (P), Grandmother (M) and Grandmother (P). Kidney disease: Negative: Mother, Father, Grandfather (M), Grandfather (P), Grandmother (M) and Grandmother (P). Kidney stone: Negative: Mother, Father, Grandfather (M), Grandfather (P), Grandmother (M) and Grandmother (P). Prostate cancer: Negative: Father, Grandfather (M) and Grandfather (P). Testicular cancer: Negative: Father, Grandfather (M) and Grandfather (P). Electronically signed by (more content not included)...[facility]10[facility]15-2021 Evaluation note Includes: Assessments for all patient encounters Findings Encounter Date Nicotine dependence uncomplicated BH Sub stance Abuse with Hinanyasia Cope [facility] 04/08/2021 Opioid dependence uncomplicated BH Subst ance [facility]/08[facility]2021 Assessment of body mass index Medical Pina bstance Abuse with Ruby Dunbar PSYCHIATRIC SOCIAL WORKER SUPERVISOR 04/08/2021 Cough Medical Substance Ab use with Ruby Dunbar PSYCHIATRIC SOCIAL WORKER SUPERVISOR 04/08/2021 Neurogenic bladder Medical Substance Ab use with Ruby Dunbar PSYCHIATRIC SOCIAL WORKER SUPERVISOR 04/08/2021 Opioid dependence with continuous use Me dical Substance Abuse with Ruby Dunbar PSYCHIATRIC SOCIAL WORKER SUPERVISOR 04/08/2021 Tinnitus Medical Substance Ab use with Ruby Dunbar PSYCHIATRIC SOCIAL WORKER SUPERVISOR 04/08/2021 Anxiety disorder NOS Telebehavioral H ealth with Lucas MAYOW 03/11/2021 Nicotine dependence uncomplicated Tel ebehavioral Health with Lucas MAYOW 03/11/2021 Opioid dependence, on agonist therapy Telebehavioral Health with Lucas Sullivan RN [facility] 03/11/2021 Assessment of body mass index Medical Pina bstance Abuse with Ruby Dunbar PSYCHIATRIC SOCIAL WORKER SUPERVISOR 03/11/2021 Neurogenic bladder Medical Substance Ab use with Ruby Dunbar PSYCHIATRIC SOCIAL WORKER SUPERVISOR 03/11/2021 Opioid dependence with continuous use Me dical Substance Abuse with Ruby Dunbra PSYCHIATRIC SOCIAL WORKER SUPERVISOR 03/11/2021 Tinnitus Medical Substance Ab use with Ruby Dunbar PSYCHIATRIC SOCIAL WORKER SUPERVISOR 03/11/2021 Opioid dependence, on agonist therapy BH Substance Abuse with Hinanyasia Cope [facility] 02/11/2021 Dependence on nicotine in ci garettes - uncomplicated Medical Substance Abuse with Nelia Stechschulte [employer] 02/11/2021 Neurogenic bladder Medical Substance Ab use with Nelia Stechschulte [employer] 02/11/2021 Opioid dependence with continuous use Me dical Substance Abuse with Nelia Stechschulte [employer] 02/11/2021 Z68.24 - Body mass index [BM I] 24.0-24.9, adult Medical Substance Abuse with Nelia Stechschulte [facility] 02/11/2021 Opioid dependence uncomplicated BH Subst ance Abuse with Hina Cope [facility] 01/14/2021 Gastroesophageal reflux dise ase with esophagitis without bleeding Medical Substance Abuse with Ruby Dunbar [facility] 01/14/2021 Neurogenic bladder Medical Substance Ab use with Ruby Dunbar [facility] 01/14/2021 Nonvenomous insect bite Medical Substanc e Abuse with Ruby Dunbar [facility] 01/14/2021 Opioid dependence with continuous use Me dical Substance Abuse with Ruby Dunbar [facility] 01/14/2021 Tinnitus Medical Substance Ab use with Ruby Dunbar [facility] 01/14/2021 Z68.25 - Body mass index [BM I] 25.0-25.9, adult Medical Substance Abuse with Ruby Dunbar [facility] 01/14/2021 Opioid dependence, on agonist therapy BH Substance Abuse with Hina Cope [facility] 12/31/2020 G89.29 - Other chronic pain Medical Subs tance Abuse with Nelia Stechschulte [facility] 12/31/2020 Opioid dependence with continuous use Me dical Substance Abuse with Nelia Stechschulte [facility] 12/31/2020 R11.0 - Nausea Medical Substance Ab use with Nelia Stechschulte [facility] 12/31/2020 Z68.24 - Body mass index [BM I] 24.0-24.9, adult Medical Substance Abuse with Nelia Stechschulte [facility] 12/31/2020 Opioid dependence, on agonist therapy BH Substance Abuse with Hina Prisca [facility] 12/17/2020 PLAN Medical Substance Ab use with Johan Cedillo MD 12/17/2020 Z68.23 - Body mass index [BM I] 23.0-23.9, adult Medical Substance Abuse with Johan Cedillo MD 12/17/2020 Nicotine dependence uncomplicated BH Sub stance Abuse with Hina Cope [facility] 12/03/2020 Opioid dependence, on agonist therapy BH Substance Abuse with Hina Cope [facility] 12/03/2020 Gastroesophageal reflux dise ase with esophagitis without bleeding Medical Established Patient with Ruby Dunbar [employer] 12/03/2020 Hypothyroidism Medical Established Patient with Ruby Dunbar [facility] 12/03/2020 Intervention and counseling on cessation of tobacco use, 3-10 minutes Discussed medication and nicotine replacement for tobacco cessation Medical Established Patient with Rubyramiro Dunbar [facility] 12/03/2020 Neurogenic bladder Medical Established Patient with Ruby Marshal [facility] 12/03/2020 Nicotine dependence Medical Established Patient with Ruby Marshal [facility] 12/03/2020 Opioid dependence with continuous use Me dical Established Patient with Ruby Marshal [facility] 12/03/2020 Routine history and physical Medical Est ablished Patient with Rubyramiro Dunbar [facility] 12/03/2020 Vitamin B12 deficiency Medical Establish ed Patient with Ruby Marshal [facility] 12/03/2020 Vitamin D deficiency Medical Established Patient with Ruby Marshal [facility] 12/03/2020 Nicotine dependence uncomplicated BH Sub stance Abuse with Hinanyasia Cope [facility] 11/19/2020 Opioid dependence, on agonist therapy BH Substance Abuse with Hina Cope [facility] 11/19/2020 Opioid dependence with continuous use Me dical Substance Abuse with Ruby Dunbar [facility] 11/19/2020 Overweight Medical Substance Ab use with Ruby Dunbar [facility] 11/19/2020 Tinnitus Medical Substance Ab use with Ruby Dunbar [facility] 11/19/2020 Z68.25 - Body mass index [BM I] 25.0-25.9, adult Medical Substance Abuse with Rubyramiro Dunbar [facility] 11/19/2020 Opioid dependence, on agonist therapy Established Patient with Hina Cope [facility] 11/08/2020 Opioid dependence with continuous use Me dical Substance Abuse with Rubyramiro Dunbar [facility] 11/08/2020 Z68.24 - Body mass index [BM I] 24.0-24.9, adult Medical Substance Abuse with Ruby Dunbar [facility] 11/08/2020 Opioid dependence, on agonist therapy BH Substance Abuse with Hina Cope [facility] 10/22/2020 Allergic rhinitis Medical Substance Ab use with Ruby Dunbar [facility] 10/22/2020 Opioid dependence with continuous use Me dical Substance Abuse with Ruby Dunbar [facility] 10/22/2020 Z68.25 - Body mass index [BM I] 25.0-25.9, adult Medical Substance Abuse with Ruby Dunbar [facility] 10/22/2020 Contact dermatitis Medical Substance Ab use with Ruby Dunbar [facility] 10/08/2020 Encounter for Immunization Medical Subst ance Abuse with Ruby Dunbar [facility] 10/08/2020 Opioid dependence with continuous use Me dical Substance Abuse with Ruby Dunbar [employer] 10/08/2020 Z68.24 - Body mass index [BM I] 24.0-24.9, adult Medical Substance Abuse with Ruby Dunbar [employer] 10/08/2020 Opioid dependence, on agonist therapy BH Substance Abuse with Hinanyasia Cope [facility] 09/24/2020 COVID-19 infection Medical Substance Ab use with Ruby Dunbar [employer] 09/24/2020 Opioid dependence with continuous use Me dical Substance Abuse with Ruby Dunbar [employer] 09/24/2020 Z68.25 - Body mass index [BM I] 25.0-25.9, adult Medical Substance Abuse with Ruby Dunbar [employer] 09/24/2020 Opioid dependence with continuous use BH Substance Abuse with Hinanyasia Cope [facility] 09/10/2020 Constipation Medical Substance Ab use with Ruby Dunbar [employer] 09/10/2020 Opioid dependence with continuous use Me dical Substance Abuse with Ruby Dunbar [employer] 09/10/2020 Z68.24 - Body mass index [BM I] 24.0-24.9, adult Medical Substance Abuse with Ruby Dunbar [employer] 09/10/2020 Opioid dependence with continuous use BH Substance Abuse with Hinanyasia Padillas [facility] 08/27/2020 Body mass index Medical Substance Ab use with Ruby Dunbar [employer] 08/27/2020 Nausea Medical Substance Ab use with Ruby Dunbar [employer] 08/27/2020 Opioid dependence with continuous use Me dical Substance Abuse with Ruby Dunbar [employer] 08/27/2020 Opioid dependence uncomplicated BH Subst ance Abuse with Hinanyasia Cope [facility] 08/13/2020 Opioid dependence BH Substance Abuse w ith Hinanyasia Padillas [facility] 08/04/2020 Body mass index [Body mass i ndex [BMI] 24.0-24.9, adult] Medical Substance Abuse with Vikki Kramer [employer] 08/04/2020 Opioid dependence with continuous use Me dical Substance Abuse with Vikki Kramer [employer] 08/04/2020 Opioid dependence with continuous use Me dical Substance Abuse with Ruby Dunbar [employer] 07/27/2020 Overweight Medical Substance Ab use with Ruby Dunbar [employer] 07/27/2020 Z68.25 - Body mass index [BM I] 25.0-25.9, adult Medical Substance Abuse with Ruby Marshal [facility] 07/27/2020 Opioid dependence, on agonist therapy BH Substance Abuse with Hina Bolivarmons [facility] 07/19/2020 Psychotic disorder BH Substance Abuse w ariana Padillas [facility] 07/19/2020 Opioid dependence with continuous use Me dical Substance Abuse with Ruby Marshal [facility] 07/19/2020 Z68.24 - Body mass index [BM I] 24.0-24.9, adult Medical Substance Abuse with Ruby Dunbar [facility] 07/19/2020 Opioid dependence with continuous use BH Substance Abuse with Hina Bolivarmons [facility] 07/13/2020 Body mass index Medical Substance Ab use with Ruby Dunbar [facility] 07/13/2020 Coronary artery disease Medical Substanc e Abuse with Ruby Dunbar [facility] 07/13/2020 Opioid dependence with continuous use Me dical Substance Abuse with Ruby Dunbar [facility] 07/13/2020 Reflex neuropathic bladder Medical Subst ance Abuse with Ruby Dunbar [facility] 07/13/2020 Routine history and physical Medical Sub stance Abuse with Ruby Dunbar [facility] 07/13/2020 Opioid dependence BH Substance Abuse w ariana Senior [facility] 07/06/2020 Body mass index [Body mass i ndex [BMI] 24.0-24.9, adult] Medical New Patient with Vikki Kramer [facility] 07/06/2020 Diabetes Risk Test Score was three score 07/06/2020 Medical New Patient with Vikki Grafer [facility] 07/06/2020 Body mass index Walked Out NO Servic es Rendered with Ruby Dunbar [facility] 07/01/2020 [facility] Work Phone: [phone] 543-172810-07-2021 NoteThis is a Telephone Appointment *This visit was conducted by Telephone with real time communicationand interaction. This was performed due to the current COVID-19 pandemic in order to minimize exposure to both patients and staff. The patient verbally consented to treatment. The patient understandstheir rights, the HIPAA risks and that they will be charged accordingly for the services rendered. Chief Complaint Neurogenic bladder follow-up History of Present Illness Last seen by our urological team February 24, 2021 Patient comes with: Self only 66 Years, Male Progress Patient here to discuss voiding patterns Patient is doing intermittent self catheterizations about 5 times a day Patient believes he empties around 3 ounces at a time but not 100% sure has not officially measured No pain with insertion Mild resistance occasionally but no blood Patient reports having what sounds like stricture repair around age 12 Occasionally patient is able to void some on his own Patient not wanting to pursue any surgical intervention Patient declines renal ultrasound Patient prefers to follow-up in several months, patient will call if he desires Urological history BPH, urinary retention, urethral stricture repair around age 12 Cystoscopy done February 09, [address] Paiz mild hypertrophy of lateral lobes Urodynamics testing done February 17, 2021 showing normal bladder capacity of 462 mL, impaired compliance, detrusor instability at max filling generated a strong detrusor contraction PSA (5 Years) Event Name Event Result Date/Time Total PSA 0.32 ng/mL 02/24/21 PVR (2 Year) Post Void Bladder Volume Instrument: 0 mL (12/22/20) Review of Systems Constitutional: no fevers, no chills Lungs: no SOB, no cough Abd: no nausea, no vomiting, no abd pain Neuro: no headache, no dizziness Physical Exam General: alert, no distress in voice Respiratory: no distressful breathing sounds Neuro: no slurred speech, appropriate questions and answers Additional Vitals No qualifying data available. Assessment/Plan 1. Neurogenic bladder No further work-up required at this time, currently managed with #2 2. Intermittent self-catheterization of bladder About 5 times per day, no difficulty with catheter insertion, patient wishes to continue at this time, patient declined surgical intervention, patient prefers to follow-up when he is ready to discussnext steps, he prefers to call when he is ready 3. BPH (benign prostatic hyperplasia) Mildly obstructing prostate during cystoscopy, if patient would like to consider surgical intervention he should have prostate size measured by ultrasound transabdominally versus transrectally Time Spent with the Patient Today's visit was performed via telehealth and utilized an audio only connection. Duration of the visit in conversation with the patient: 14 minutes Problem List/Past Medical History Ongoing BPH (benign prostatic hyperplasia) Esophageal reflux Hypospadias Intermittent self-catheterization of bladder Neurogenic bladder Opioid dependence Tinnitus Urethral stricture Historical No qualifying data Procedure/Surgical History APPENDECTOMY skin grafts tumor removal and biopsy, left forearm Medications Antioxidant Formula oral tablet, Oral, Daily aspirin 325 mg oral delayed release tablet, 325 mg= 1 tabs, Oral, Daily baclofen 10 mg oral tablet, 10 mg= 1 tabs, Oral, TID Co-Q10 100 mg oral capsule, 100 mg= 1 caps, Oral, Daily Coreg 3.125 mg oral tablet, 3.125 mg= 1 tabs, Oral, BID Crestor 10 mg oral tablet, 10 mg= 1 tabs, Oral, Daily EPA Fish Oil 1000 mg oral capsule, 1000 mg= 1 caps, Oral, Daily ferrous sulfate, Oral isosorbide dinitrate 30 mg oral tablet, 30 mg= 1 tabs, Oral, BID lisinopril 10 mg oral tablet, 10 mg= 1 tabs, Oral, Daily MiraLax, 17 g, Oral, Daily multivitamin, Daily Neurontin 800 mg oral tablet, 800 mg= 1 tabs, Oral, TID ondansetron 4 mg oral tablet, 4 mg= 1 tabs, Oral, q8hr Suboxone 8 mg-2 mg sublingual film, 2 film, SL, Daily Vitamin C 500 mg oral tablet, 500 mg= 1 tabs, Oral, Daily Vitamin D3 Allergies IV contrast (Skin rash, Hives) shell fish (Skin rash, Hives) Social History Tobacco 10 or more cigarettes (1/2 pack or more)/day in last 30 days Use:. Cigarettes Family History Bladder cancer: Negative: Mother, Father, Grandfather (M), Grandfather (P), Grandmother (M) and Grandmother (P). Bladder cancer screening: Negative: Mother, Father, Grandfather (M), Grandfather (P), Grandmother (M) and Grandmother (P). Kidney cancer: Negative: Mother, Father, Grandfather (M), Grandfather (P), Grandmother (M) and Grandmother (P). Kidney disease: Negative: Mother, Father, Grandfather (M), Grandfather (P), Grandmother (M) and Grandmother (P). Kidney stone: Negative: Mother, Father, Grandfather (M), Grandfather (P), Grandmother (M) and Grandmother (P). Prostate cancer: Negative: Father, Grandfather (M) and Grandfather (more content not included)...[facility]08-26-2021 NoteProcedure Preprocedure diagnosis: Urinary retention Postprocedure diagnosis: same Procedure: 1. Cystometrogram 2. EMG Anesthesia: 1. 2% intra-urethral lidocaine Indication: The patient is a 66 Years old Male with chronic urinary retention. The risks and benefits of urodynamics were discussed. Informed consent was obtained. Procedure Detail: The patient was unable to void initially and is straight catheter dependent. They were then seated and prepped. A 7F double-lumen balloon catheter was then placed atraumatically through the urethra into the bladder. A rectal balloon pressure transducer was then placed. Two EMG electrodes were then inserted perianally at 3 and 9 o'clock with a grounding pad on the knee. Filling cystometry: Normal saline was infused at 50 ml per minute. Pressure-flow urodynamics were performed. First sensation: 61 ml First desire: 296 ml Strong desire: 348 ml Max capacity: 462 ml The patient did experience an uninhibited bladder contraction during filling. The Pdet was noted torise through the procedure with poor compliance. The patient reached a Pdet of 40 cm H2O at 300-350ml of filling. The end filling pressure was 70 cm of H2O. During filling, coughing and Valsalva maneuvers were performed to elicit leakage. With strong Valsalva, the patient did not leak urine at 111 cm of water (Valsalva leak point pressure). He was unable to void for cystometry and was then catheterized to empty. Impression: 1. Normal bladder capacity 2. Impaired compliance 3. + detrusor instability at max filling generating a strong detrusor contraction Electronically signed by Bernardo Paiz MD 02/18/21 11:35 [facility] 02-11-2021 Evaluation note Includes: Assessments for all patient encounters Findings Encounter Date Opioid dependence, on agonist therapy BH Substance Abuse with Hina Cope [facility] 02/11/2021 Dependence on nicotine in ci garettes - uncomplicated Medical Substance Abuse with Nelia Hernandez [facility] 02/11/2021 Neurogenic bladder Medical Substance Ab use with Nelia Hernandez [facility] 02/11/2021 Opioid dependence with continuous use Me dical Substance Abuse with Nelia Stechschulte [facility] 02/11/2021 Z68.24 - Body mass index [BM I] 24.0-24.9, adult Medical Substance Abuse with Nelia Stechschulte [facility] 02/11/2021 Opioid dependence uncomplicated BH Subst ance Abuse with Hina Cope [facility] 01/14/2021 Gastroesophageal reflux dise ase with esophagitis without bleeding Medical Substance Abuse with Ruby Dunbar [facility] 01/14/2021 Neurogenic bladder Medical Substance Ab use with Ruby Dunbar [facility] 01/14/2021 Nonvenomous insect bite Medical Substanc e Abuse with Ruby Dunbar [facility] 01/14/2021 Opioid dependence with continuous use Me dical Substance Abuse with Ruby Dunbar [facility] 01/14/2021 Tinnitus Medical Substance Ab use with Ruby Dunbar [facility] 01/14/2021 Z68.25 - Body mass index [BM I] 25.0-25.9, adult Medical Substance Abuse with Ruby Dunbar [facility] 01/14/2021 Opioid dependence, on agonist therapy BH Substance Abuse with Hina Cope [facility] 12/31/2020 G89.29 - Other chronic pain Medical Subs tance Abuse with Nelia Stechschulte [facility] 12/31/2020 Opioid dependence with continuous use Me dical Substance Abuse with Nelai Stechschulte [facility] 12/31/2020 R11.0 - Nausea Medical Substance Ab use with Nelia Stechschulte [facility] 12/31/2020 Z68.24 - Body mass index [BM I] 24.0-24.9, adult Medical Substance Abuse with Nelia Stechschulte [facility] 12/31/2020 Opioid dependence, on agonist therapy BH Substance Abuse with Hina Prisca [facility] 12/17/2020 PLAN Medical Substance Ab use with Johan Cedillo MD 12/17/2020 Z68.23 - Body mass index [BM I] 23.0-23.9, adult Medical Substance Abuse with Johan Cedillo MD 12/17/2020 Nicotine dependence uncomplicated BH Sub stance Abuse with Hina Cope [facility] 12/03/2020 Opioid dependence, on agonist therapy BH Substance Abuse with Hina Cope [facility] 12/03/2020 Gastroesophageal reflux dise ase with esophagitis without bleeding Medical Established Patient with Ruby Dunbar [facility] 12/03/2020 Hypothyroidism Medical Established Patient with Ruby Dunbar [facility] 12/03/2020 Intervention and counseling on cessation of tobacco use, 3-10 minutes Discussed medication and nicotine replacement for tobacco cessation Medical Established Patient with Ruby Dunbar [facility] 12/03/2020 Neurogenic bladder Medical Established Patient with Ruby Dunbar [facility] 12/03/2020 Nicotine dependence Medical Established Patient with Ruby Dunbar [facility] 12/03/2020 Opioid dependence with continuous use Me dical Established Patient with Ruby Dunbar [facility] 12/03/2020 Routine history and physical Medical Est ablished Patient with Ruby Dunbar [facility] 12/03/2020 Vitamin B12 deficiency Medical Establish ed Patient with Ruby Dunbar [facility] 12/03/2020 Vitamin D deficiency Medical Established Patient with Ruby Dunbar [facility] 12/03/2020 Nicotine dependence uncomplicated BH Sub stance Abuse with Hina Cope [facility] 11/19/2020 Opioid dependence, on agonist therapy BH Substance Abuse with Hina Cope [facility] 11/19/2020 Opioid dependence with continuous use Me dical Substance Abuse with Ruby Dunbar [facility] 11/19/2020 Overweight Medical Substance Ab use with Ruby Dunbar [facility] 11/19/2020 Tinnitus Medical Substance Ab use with Ruby Dunbar [facility] 11/19/2020 Z68.25 - Body mass index [BM I] 25.0-25.9, adult Medical Substance Abuse with Ruby Dunbar [facility] 11/19/2020 Opioid dependence, on agonist therapy BH Established Patient with Hina Cope [facility] 11/08/2020 Opioid dependence with continuous use Me dical Substance Abuse with Ruby Dunbar [facility] 11/08/2020 Z68.24 - Body mass index [BM I] 24.0-24.9, adult Medical Substance Abuse with Ruby Dunbar [facility] 11/08/2020 Opioid dependence, on agonist therapy BH Substance Abuse with Hina Cope [facility] 10/22/2020 Allergic rhinitis Medical Substance Ab use with Ruby Marshal [facility] 10/22/2020 Opioid dependence with continuous use Me dical Substance Abuse with Ruby Marshal [facility] 10/22/2020 Z68.25 - Body mass index [BM I] 25.0-25.9, adult Medical Substance Abuse with Ruby Dunbar [facility] 10/22/2020 Contact dermatitis Medical Substance Ab use with Ruby Dunbar [employer] 10/08/2020 Encounter for Immunization Medical Subst ance Abuse with Ruby Dunbar [employer] 10/08/2020 Opioid dependence with continuous use Me dical Substance Abuse with Ruby Dunbar [employer] 10/08/2020 Z68.24 - Body mass index [BM I] 24.0-24.9, adult Medical Substance Abuse with Ruby Dunbar [employer] 10/08/2020 Opioid dependence, on agonist therapy BH Substance Abuse with Hina Cope [facility] 09/24/2020 COVID-19 infection Medical Substance Ab use with Ruby Dunbar [employer] 09/24/2020 Opioid dependence with continuous use Me dical Substance Abuse with Ruby Dunbar [employer] 09/24/2020 Z68.25 - Body mass index [BM I] 25.0-25.9, adult Medical Substance Abuse with Ruby Dunbar [employer] 09/24/2020 Opioid dependence with continuous use BH Substance Abuse with Hina Cope [facility] 09/10/2020 Constipation Medical Substance Ab use with Ruby Dunbar [employer] 09/10/2020 Opioid dependence with continuous use Me dical Substance Abuse with Ruby Dunabr [facility] 09/10/2020 Z68.24 - Body mass index [BM I] 24.0-24.9, adult Medical Substance Abuse with Ruby Dunbar [employer] 09/10/2020 Opioid dependence with continuous use BH Substance Abuse with Hina Cope [facility] 08/27/2020 Body mass index Medical Substance Ab use with Ruby Dunbar [employer] 08/27/2020 Nausea Medical Substance Ab use with Ruby Dunbar [employer] 08/27/2020 Opioid dependence with continuous use Me dical Substance Abuse with Ruby Dunbar [employer] 08/27/2020 Opioid dependence uncomplicated BH Subst ance Abuse with Hina Cope [facility] 08/13/2020 Opioid dependence BH Substance Abuse w ith Hina Cope [facility] 08/04/2020 Body mass index [Body mass i ndex [BMI] 24.0-24.9, adult] Medical Substance Abuse with Vikki Kramer [employer] 08/04/2020 Opioid dependence with continuous use Me dical Substance Abuse with Vikki Kramer [employer] 08/04/2020 Opioid dependence with continuous use Me dical Substance Abuse with Ruby Dunbar [facility] 07/27/2020 Overweight Medical Substance Ab use with Ruby Dunbar [facility] 07/27/2020 Z68.25 - Body mass index [BM I] 25.0-25.9, adult Medical Substance Abuse with Ruby Marshal [employer] 07/27/2020 Opioid dependence, on agonist therapy BH Substance Abuse with Hina Bolivarmons [facility] 07/19/2020 Psychotic disorder BH Substance Abuse w ariana Bolivarmons [facility] 07/19/2020 Opioid dependence with continuous use Me dical Substance Abuse with Ruby Marshal [facility] 07/19/2020 Z68.24 - Body mass index [BM I] 24.0-24.9, adult Medical Substance Abuse with Ruby Dunbar [facility] 07/19/2020 Opioid dependence with continuous use BH Substance Abuse with Hina Bolivarmons [facility] 07/13/2020 Body mass index Medical Substance Ab use with Ruby Dunbar [facility] 07/13/2020 Coronary artery disease Medical Substanc e Abuse with Ruby Dunbar [facility] 07/13/2020 Opioid dependence with continuous use Me dical Substance Abuse with Ruby Dunbar [facility] 07/13/2020 Reflex neuropathic bladder Medical Subst ance Abuse with Ruby Dunbar [facility] 07/13/2020 Routine history and physical Medical Sub stance Abuse with Ruby Dunbar [facility] 07/13/2020 Opioid dependence BH Substance Abuse w ariana Senior [facility] 07/06/2020 Body mass index [Body mass i ndex [BMI] 24.0-24.9, adult] Medical New Patient with Vikki Williams [facility] 07/06/2020 Diabetes Risk Test Score was three score 07/06/2020 Medical New Patient with Vikki Williams [facility] 07/06/2020 Body mass index Walked Out NO Servic es Rendered with Ruby Dunbar [facility] 07/01/2020 Health [facility] Work Phone: [phone]) 309-667408-18-2021 NoteProcedure Preprocedure diagnosis: chronic retention Procedure: Flexible Cystourethroscopy Anesthesia: 2% lidocaine jelly intraurethrally Complications: None Indication: The patient is a 66 Years old Male undergoing a flexible cystoscopy for the above mentioned indications. Informed consent was obtained. Findings: Cystoscopic findings included one right and left ureteral orifice in the normal anatomic position with normal bladder mucosa and no tumors, masses or stones. The urethral urothelium was within normallimits with no strictures. There was not a prominent median lobe. The lateral lobes were obstructive in appearance. Short prostate, not high riding. Procedure: The patient was placed in supine position and prepped and draped in sterile fashion with lidocaine jelly per urethra for anesthesia. The 14F flexible cystoscope was lubricated and gently placed through the penile urethra and into the bladder. The bladder was completely visualized. The cystoscope was retroflexed and the bladder neck and prostate visualized. The cystoscope was slowly withdrawn while visualizing the urethra and the procedure terminated. The patient tolerated the procedure well. Assessment/Plan: - No obvious explanation for his retention. Mild hypertrophy of his lateral lobes was present. Willproceed with UDS. May be a UroLift candidate. Would need PSA and prostate volume assessment prior to any invasive procedures. Electronically signed by Bernardo Paiz MD 02/09/21 11:29 [facility] 12-17-2020 Evaluation note Includes: Assessments for all patient encounters Findings Encounter Date Opioid dependence, on agonist therapy BH Substance Abuse with Hina Cope [facility] 12/17/2020 PLAN Medical Substance Ab use with Ruby Dunbar [facility] 12/17/2020 Z68.23 - Body mass index [BM I] 23.0-23.9, adult Medical Substance Abuse with Ruby Dunbar CNP 12/17/2020 Nicotine dependence uncomplicated BH Sub stance Abuse with Hina Cope [facility] 12/03/2020 Opioid dependence, on agonist therapy BH Substance Abuse with Hina Cope [facility] 12/03/2020 Gastroesophageal reflux dise ase with esophagitis without bleeding Medical Established Patient with Ruby Dunbar CNP 12/03/2020 Hypothyroidism Medical Established Patient with Ruby Dunbar CNP 12/03/2020 Intervention and counseling on cessation of tobacco use, 3-10 minutes Discussed medication and nicotine replacement for tobacco cessation Medical Established Patient with Ruby Dunbar CNP 12/03/2020 Neurogenic bladder Medical Established Patient with Ruby Dunbar CNP 12/03/2020 Nicotine dependence Medical Established Patient with Ruby Dunbar CNP 12/03/2020 Opioid dependence with continuous use Me dical Established Patient with Ruby Dunbar [facility] 12/03/2020 Routine history and physical Medical Est ablished Patient with Ruby Marshal [facility] 12/03/2020 Vitamin B12 deficiency Medical Establish ed Patient with Ruby Marshal [facility] 12/03/2020 Vitamin D deficiency Medical Established Patient with Ruby Dunbar [facility] 12/03/2020 Nicotine dependence uncomplicated BH Sub stance Abuse with Hina Cope [facility] 11/19/2020 Opioid dependence, on agonist therapy BH Substance Abuse with Hina Cope [facility] 11/19/2020 Opioid dependence with continuous use Me dical Substance Abuse with Ruby Dunbar [facility] 11/19/2020 Overweight Medical Substance Ab use with Ruby Dunbar [facility] 11/19/2020 Tinnitus Medical Substance Ab use with Rubyramiro Dunbar [facility] 11/19/2020 Z68.25 - Body mass index [BM I] 25.0-25.9, adult Medical Substance Abuse with Rubyramiro Dunbar [facility] 11/19/2020 Opioid dependence, on agonist therapy BH Established Patient with Hinanyasia Bolivarmons [facility] 11/08/2020 Opioid dependence with continuous use Me dical Substance Abuse with Ruby Marshal [facility] 11/08/2020 Z68.24 - Body mass index [BM I] 24.0-24.9, adult Medical Substance Abuse with Rubyramiro Dunbar [facility] 11/08/2020 Opioid dependence, on agonist therapy BH Substance Abuse with Hina Cope [facility] 10/22/2020 Allergic rhinitis Medical Substance Ab use with Ruby Dunbar [facility] 10/22/2020 Opioid dependence with continuous use Me dical Substance Abuse with Rubyramiro Dunbar [facility] 10/22/2020 Z68.25 - Body mass index [BM I] 25.0-25.9, adult Medical Substance Abuse with Rubyramiro Dunbar [facility] 10/22/2020 Contact dermatitis Medical Substance Ab use with Ruby Dunbar [facility] 10/08/2020 Encounter for Immunization Medical Subst ance Abuse with Ruby Dunbar [facility] 10/08/2020 Opioid dependence with continuous use Me dical Substance Abuse with Ruby Dunbar [facility] 10/08/2020 Z68.24 - Body mass index [BM I] 24.0-24.9, adult Medical Substance Abuse with Ruby Dunbar [facility] 10/08/2020 Opioid dependence, on agonist therapy BH Substance Abuse with Hina Cope [facility] 09/24/2020 COVID-19 infection Medical Substance Ab use with Ruby Dunbar [employer] 09/24/2020 Opioid dependence with continuous use Me dical Substance Abuse with Ruby Dunbar [employer] 09/24/2020 Z68.25 - Body mass index [BM I] 25.0-25.9, adult Medical Substance Abuse with Ruby Dunbar [employer] 09/24/2020 Opioid dependence with continuous use BH Substance Abuse with Hina Cope [facility] 09/10/2020 Constipation Medical Substance Ab use with Ruby Dunbar [employer] 09/10/2020 Opioid dependence with continuous use Me dical Substance Abuse with Ruby Dunbar [employer] 09/10/2020 Z68.24 - Body mass index [BM I] 24.0-24.9, adult Medical Substance Abuse with Ruby Dunbar [employer] 09/10/2020 Opioid dependence with continuous use BH Substance Abuse with Hinanyasia Padillas [facility] 08/27/2020 Body mass index Medical Substance Ab use with Ruby Dunbar [employer] 08/27/2020 Nausea Medical Substance Ab use with Ruby Dunbar [employer] 08/27/2020 Opioid dependence with continuous use Me dical Substance Abuse with Ruby Dunbar [employer] 08/27/2020 Opioid dependence uncomplicated BH Subst ance Abuse with Hinanyasia Padillas [facility] 08/13/2020 Opioid dependence BH Substance Abuse w ith Hina Bolivarmons [facility] 08/04/2020 Body mass index [Body mass i ndex [BMI] 24.0-24.9, adult] Medical Substance Abuse with Vikki Kramer [employer] 08/04/2020 Opioid dependence with continuous use Me dical Substance Abuse with Vikki Kramer [employer] 08/04/2020 Opioid dependence with continuous use Me dical Substance Abuse with Ruby Dunbar [employer] 07/27/2020 Overweight Medical Substance Ab use with Ruby Dunbar [employer] 07/27/2020 Z68.25 - Body mass index [BM I] 25.0-25.9, adult Medical Substance Abuse with Ruby Dunbar [employer] 07/27/2020 Opioid dependence, on agonist therapy BH Substance Abuse with [facility] 07/19/2020 Psychotic disorder BH Substance Abuse w ith Hina Cope [facility] 07/19/2020 Opioid dependence with continuous use Me dical Substance Abuse with Rbuy Dunbar [facility] 07/19/2020 Z68.24 - Body mass index [BM I] 24.0-24.9, adult Medical Substance Abuse with Ruby Dunbar [facility] 07/19/2020 Opioid dependence with continuous use BH Substance Abuse with Hina Cope [facility] 07/13/2020 Body mass index Medical Substance Ab use with Ruby Dunbar [facility] 07/13/2020 Coronary artery disease Medical Substanc e Abuse with Ruby Dunbar [facility] 07/13/2020 Opioid dependence with continuous use Me dical Substance Abuse with Ruby Dunbar [facility] 07/13/2020 Reflex neuropathic bladder Medical Subst ance Abuse with Ruby Dunbar [facility] 07/13/2020 Routine history and physical Medical Sub stance Abuse with Ruby Dunbar [facility] 07/13/2020 Opioid dependence BH Substance Abuse w ariana Mcclellan [facility] 07/06/2020 Body mass index [Body mass i ndex [BMI] 24.0-24.9, adult] Medical New Patient with Vikki Kramer [facility] 07/06/2020 Diabetes Risk Test Score was three score 07/06/2020 Medical New Patient with Vikki Kramer [facility] 07/06/2020 Body mass index Walked Out NO Servic es Rendered with Ruby Dunbar [facility] 07/01/2020 [facility] Work Phone: [phone]) 983-257606-25-2021 Evaluation note Includes: Assessments for all patient encounters Findings Encounter Date Opioid dependence, on agonist therapy BH Substance Abuse with Hina Cope [facility] 12/17/2020 PLAN Medical Substance Ab use with Johan Cedillo MD 12/17/2020 Z68.23 - Body mass index [BM I] 23.0-23.9, adult Medical Substance Abuse with Johan Cedillo MD 12/17/2020 Nicotine dependence uncomplicated BH Sub stance Abuse with Hina Cope [facility] 12/03/2020 Opioid dependence, on agonist therapy BH Substance Abuse with Hina Cope [facility] 12/03/2020 Gastroesophageal reflux dise ase with esophagitis without bleeding Medical Established Patient with Ruby Dunbar [facility] 12/03/2020 Hypothyroidism Medical Established Patient with Ruby Dunbar [facility] 12/03/2020 Intervention and counseling on cessation of tobacco use, 3-10 minutes Discussed medication and nicotine replacement for tobacco cessation Medical Established Patient with Ruby Dunbar [facility] 12/03/2020 Neurogenic bladder Medical Established Patient with Ruby Dunbar [facility] 12/03/2020 Nicotine dependence Medical Established Patient with Ruby Dunbar [facility] 12/03/2020 Opioid dependence with continuous use Me dical Established Patient with Ruby Marshal [facility] 12/03/2020 Routine history and physical Medical Est ablished Patient with Ruby Dunbar [facility] 12/03/2020 Vitamin B12 deficiency Medical Establish ed Patient with Ruby Dunbar [facility] 12/03/2020 Vitamin D deficiency Medical Established Patient with Ruby Marshal [facility] 12/03/2020 Nicotine dependence uncomplicated BH Sub stance Abuse with Hinanyasia Padillas [facility] 11/19/2020 Opioid dependence, on agonist therapy BH Substance Abuse with Hina Cope [facility] 11/19/2020 Opioid dependence with continuous use Me dical Substance Abuse with Ruby Dunbar [facility] 11/19/2020 Overweight Medical Substance Ab use with Ruby Dunbar [facility] 11/19/2020 Tinnitus Medical Substance Ab use with Ruby Dunbar [facility] 11/19/2020 Z68.25 - Body mass index [BM I] 25.0-25.9, adult Medical Substance Abuse with Ruby Dunbar [facility] 11/19/2020 Opioid dependence, on agonist therapy BH Established Patient with Hina Cope [facility] 11/08/2020 Opioid dependence with continuous use Me dical Substance Abuse with Ruby Dunbar [facility] 11/08/2020 Z68.24 - Body mass index [BM I] 24.0-24.9, adult Medical Substance Abuse with Ruby Dunbar [facility] 11/08/2020 Opioid dependence, on agonist therapy BH Substance Abuse with Hina Cope [facility] 10/22/2020 Allergic rhinitis Medical Substance Ab use with Ruby Dunbar [facility] 10/22/2020 Opioid dependence with continuous use Me dical Substance Abuse with Ruby Dunbar [facility] 10/22/2020 Z68.25 - Body mass index [BM I] 25.0-25.9, adult Medical Substance Abuse with Ruby Dunbar [facility] 10/22/2020 Contact dermatitis Medical Substance Ab use with Ruby Dunbar [facility] 10/08/2020 Encounter for Immunization Medical Subst ance Abuse with Ruby Dunbar [facility] 10/08/2020 Opioid dependence with continuous use Me dical Substance Abuse with Ruby Dunbar [facility] 10/08/2020 Z68.24 - Body mass index [BM I] 24.0-24.9, adult Medical Substance Abuse with Ruby Dunbar [employer] 10/08/2020 Opioid dependence, on agonist therapy BH Substance Abuse with Hina Cope [facility] 09/24/2020 COVID-19 infection Medical Substance Ab use with Ruby Dunbar [employer] 09/24/2020 Opioid dependence with continuous use Me dical Substance Abuse with Ruby Dunbar [employer] 09/24/2020 Z68.25 - Body mass index [BM I] 25.0-25.9, adult Medical Substance Abuse with Ruby Dunbar [employer] 09/24/2020 Opioid dependence with continuous use BH Substance Abuse with Hina Cope [facility] 09/10/2020 Constipation Medical Substance Ab use with Ruby Dunbar [facility] 09/10/2020 Opioid dependence with continuous use Me dical Substance Abuse with Ruby Dunbar [facility] 09/10/2020 Z68.24 - Body mass index [BM I] 24.0-24.9, adult Medical Substance Abuse with Ruby Dunbar [employer] 09/10/2020 Opioid dependence with continuous use BH Substance Abuse with Hinanyasia Padillas [facility] 08/27/2020 Body mass index Medical Substance Ab use with Ruby Dunbar [employer] 08/27/2020 Nausea Medical Substance Ab use with Ruby Dunbar [employer] 08/27/2020 Opioid dependence with continuous use Me dical Substance Abuse with Ruby Dunbar [employer] 08/27/2020 Opioid dependence uncomplicated BH Subst ance Abuse with Hinanyasia Padillas [facility] 08/13/2020 Opioid dependence BH Substance Abuse w ith Hinanyasia Padillas [facility] 08/04/2020 Body mass index [Body mass i ndex [BMI] 24.0-24.9, adult] Medical Substance Abuse with Vikki Kramer [employer] 08/04/2020 Opioid dependence with continuous use Me dical Substance Abuse with Vikki Kramer [employer] 08/04/2020 Opioid dependence with continuous use Me dical Substance Abuse with Ruby Dunbar [employer] 07/27/2020 Overweight Medical Substance Ab use with Ruby Dunbar [employer] 07/27/2020 Z68.25 - Body mass index [BM I] 25.0-25.9, adult Medical Substance Abuse with Ruby Dunbar [employer] 07/27/2020 Opioid dependence, on agonist therapy BH Substance Abuse with Hinanyasia Padillas [facility] 07/19/2020 Psychotic disorder BH Substance Abuse w ariana GarciaHinanyasia Cope [facility] 07/19/2020 Opioid dependence with continuous use Me dical Substance Abuse with Ruby Dunbar [facility] 07/19/2020 Z68.24 - Body mass index [BM I] 24.0-24.9, adult Medical Substance Abuse with Ruby Dunbar [employer] 07/19/2020 Opioid dependence with continuous use BH Substance Abuse with Hinanyasia Padillas [facility] 07/13/2020 Body mass index Medical Substance Ab use with Ruby Dunbar [facility] 07/13/2020 Coronary artery disease Medical Substanc e Abuse with Ruby Dunbar [facility] 07/13/2020 Opioid dependence with continuous use Me dical Substance Abuse with Ruby Dunbar [facility] 07/13/2020 Reflex neuropathic bladder Medical Subst ance Abuse with Ruby Dunbar [facility] 07/13/2020 Routine history and physical Medical Sub stance Abuse with Ruby Dunbar [facility] 07/13/2020 Opioid dependence BH Substance Abuse w ariana Senior [facility] 07/06/2020 Body mass index [Body mass i ndex [BMI] 24.0-24.9, adult] Medical New Patient with Vikki Kramer [facility] 07/06/2020 Diabetes Risk Test Score was three score 07/06/2020 Medical New Patient with Vikki Kramer [facility] 07/06/2020 Body mass index Walked Out NO Servic es Rendered with Ruby Dunbar [facility] 07/01/2020 [facility] Work Phone: [phone]) [phone] Evaluation note Includes: Assessments for all patient encounters Findings Encounter Date Nicotine dependence uncomplicated BH Sub stance Abuse with Hina Cope [facility] 12/03/2020 Opioid dependence, on agonist therapy BH Substance Abuse with Hina Cope [facility] 12/03/2020 Gastroesophageal reflux dise ase with esophagitis without bleeding Medical Established Patient with Ruby Dunbar [employer] 12/03/2020 Hypothyroidism Medical Established Patient with Ruby Dunbar [employer] 12/03/2020 Intervention and counseling on cessation of tobacco use, 3-10 minutes Discussed medication and nicotine replacement for tobacco cessation Medical Established Patient with Ruby Dunbar [employer] 12/03/2020 Neurogenic bladder Medical Established Patient with Ruby Dunbar [facility] 12/03/2020 Nicotine dependence Medical Established Patient with Rubyramiro Dunbar [facility] 12/03/2020 Opioid dependence with continuous use Me dical Established Patient with Ruby Dunbar [facility] 12/03/2020 Routine history and physical Medical Est ablished Patient with Ruby Dunbar [facility] 12/03/2020 Vitamin B12 deficiency Medical Establish ed Patient with Rubyramiro Dunbar [facility] 12/03/2020 Vitamin D deficiency Medical Established Patient with Ruby Dunbar [facility] 12/03/2020 Nicotine dependence uncomplicated BH Sub stance Abuse with Hina Cope [facility] 11/19/2020 Opioid dependence, on agonist therapy BH Substance Abuse with Hina Cope [facility] 11/19/2020 Opioid dependence with continuous use Me dical Substance Abuse with Ruby Dunbar [facility] 11/19/2020 Overweight Medical Substance Ab use with Ruby Dunbar [facility] 11/19/2020 Tinnitus Medical Substance Ab use with Ruby Dunbar [facility] 11/19/2020 Z68.25 - Body mass index [BM I] 25.0-25.9, adult Medical Substance Abuse with Ruby Dunbar [facility] 11/19/2020 Opioid dependence, on agonist therapy BH Established Patient with Hina Cope [facility] 11/08/2020 Opioid dependence with continuous use Me dical Substance Abuse with Ruby Dunbar [facility] 11/08/2020 Z68.24 - Body mass index [BM I] 24.0-24.9, adult Medical Substance Abuse with Ruby Dunbar [facility] 11/08/2020 Opioid dependence, on agonist therapy BH Substance Abuse with Hina Coep [facility] 10/22/2020 Allergic rhinitis Medical Substance Ab use with Ruby Dunbar [facility] 10/22/2020 Opioid dependence with continuous use Me dical Substance Abuse with Ruby Dunbar [facility] 10/22/2020 Z68.25 - Body mass index [BM I] 25.0-25.9, adult Medical Substance Abuse with Ruby Dunbar [facility] 10/22/2020 Contact dermatitis Medical Substance Ab use with Ruby Dunbar [facility] 10/08/2020 Encounter for Immunization Medical Subst ance Abuse with Ruby Dunbar [facility] 10/08/2020 Opioid dependence with continuous use Me dical Substance Abuse with Ruby Dunbar [facility] 10/08/2020 Z68.24 - Body mass index [BM I] 24.0-24.9, adult Medical Substance Abuse with Ruby Dunbar [employer] 10/08/2020 Opioid dependence, on agonist therapy BH Substance Abuse with Hina Cope [facility] 09/24/2020 COVID-19 infection Medical Substance Ab use with Ruby Dunbar [employer] 09/24/2020 Opioid dependence with continuous use Me dical Substance Abuse with Ruby Dunbar [employer] 09/24/2020 Z68.25 - Body mass index [BM I] 25.0-25.9, adult Medical Substance Abuse with Ruby Dunbar [employer] 09/24/2020 Opioid dependence with continuous use BH Substance Abuse with Hina Cope [facility] 09/10/2020 Constipation Medical Substance Ab use with Ruby Dunbar [employer] 09/10/2020 Opioid dependence with continuous use Me dical Substance Abuse with Ruby Dunbar [employer] 09/10/2020 Z68.24 - Body mass index [BM I] 24.0-24.9, adult Medical Substance Abuse with Ruby Dunbar [employer] 09/10/2020 Opioid dependence with continuous use BH Substance Abuse with Hinanyasia Cope [facility] 08/27/2020 Body mass index Medical Substance Ab use with Ruby Dunbar [employer] 08/27/2020 Nausea Medical Substance Ab use with Ruby Dunbar [employer] 08/27/2020 Opioid dependence with continuous use Me dical Substance Abuse with Ruby Dunbar [employer] 08/27/2020 Opioid dependence uncomplicated BH Subst ance Abuse with Hinanyasia Padillas [facility] 08/13/2020 Opioid dependence BH Substance Abuse w ith Hina Cope [facility] 08/04/2020 Body mass index [Body mass i ndex [BMI] 24.0-24.9, adult] Medical Substance Abuse with Vikki Kramer [employer] 08/04/2020 Opioid dependence with continuous use Me dical Substance Abuse with Vikki Kramer [employer] 08/04/2020 Opioid dependence with continuous use Me dical Substance Abuse with Ruby Dunbar [employer] 07/27/2020 Overweight Medical Substance Ab use with Ruby Dunbar [employer] 07/27/2020 Z68.25 - Body mass index [BM I] 25.0-25.9, adult Medical Substance Abuse with Ruby Dunbar [employer] 07/27/2020 Opioid dependence, on agonist therapy BH Substance Abuse with Hina Cope [facility] 07/19/2020 Psychotic disorder BH Substance Abuse w ith Hina Bolivarmons [facility] 07/19/2020 Opioid dependence with continuous use Me dical Substance Abuse with Ruby Dunbar [facility] 07/19/2020 Z68.24 - Body mass index [BM I] 24.0-24.9, adult Medical Substance Abuse with Ruby Dunbar [facility] 07/19/2020 Opioid dependence with continuous use BH Substance Abuse with Hinajarrett Cope [facility] 07/13/2020 Body mass index Medical Substance Ab use with Ruby Dunbar [facility] 07/13/2020 Coronary artery disease Medical Substanc e Abuse with Ruby Dunbar [facility] 07/13/2020 Opioid dependence with continuous use Me dical Substance Abuse with Ruby Dunbar [facility] 07/13/2020 Reflex neuropathic bladder Medical Subst ance Abuse with Ruby Dunbar [facility] 07/13/2020 Routine history and physical Medical Sub stance Abuse with Ruby Dunbar [facility] 07/13/2020 Opioid dependence BH Substance Abuse w ariana Senior [facility] 07/06/2020 Body mass index [Body mass i ndex [BMI] 24.0-24.9, adult] Medical New Patient with Vikki Kramer [facility] 07/06/2020 Diabetes Risk Test Score was three score 07/06/2020 Medical New Patient with Vikki Kramer [facility] 07/06/2020 Body mass index Walked Out NO Servic es Rendered with uRby Dunbar [facility] 07/01/2020 [facility] Work Phone: [phone]) [phone] Evaluation note Includes: Assessments for all patient encounters Findings Encounter Date Opioid dependence with continuous use Me dical Substance Abuse with Ruby Dunbar [facility] 11/19/2020 Overweight Medical Substance Ab use with Ruby Dunbar [facility] 11/19/2020 Tinnitus Medical Substance Ab use with Ruby Dunbar [facility] 11/19/2020 Z68.25 - Body mass index [BM I] 25.0-25.9, adult Medical Substance Abuse with Ruby Dunbar [facility] 11/19/2020 Opioid dependence, on agonist therapy BH Established Patient with Hina Bolivarmons [facility] 11/08/2020 Opioid dependence with continuous use Me dical Substance Abuse with Ruby Dunbar [facility] 11/08/2020 Z68.24 - Body mass index [BM I] 24.0-24.9, adult Medical Substance Abuse with Ruby Dunbar [facility] 11/08/2020 Opioid dependence, on agonist therapy BH Substance Abuse with Hina Cope [facility] 10/22/2020 Allergic rhinitis Medical Substance Ab use with Ruby Dunbar [employer] 10/22/2020 Opioid dependence with continuous use Me dical Substance Abuse with Ruby Dunbar [employer] 10/22/2020 Z68.25 - Body mass index [BM I] 25.0-25.9, adult Medical Substance Abuse with Ruby Dunbar [employer] 10/22/2020 Contact dermatitis Medical Substance Ab use with Ruby Dunbar [employer] 10/08/2020 Encounter for Immunization Medical Subst ance Abuse with Ruby Dunbar [employer] 10/08/2020 Opioid dependence with continuous use Me dical Substance Abuse with Ruby Dunbar [employer] 10/08/2020 Z68.24 - Body mass index [BM I] 24.0-24.9, adult Medical Substance Abuse with Ruby Dunbar [employer] 10/08/2020 Opioid dependence, on agonist therapy BH Substance Abuse with Hina Cope [facility] 09/24/2020 COVID-19 infection Medical Substance Ab use with Ruby Dunbar [employer] 09/24/2020 Opioid dependence with continuous use Me dical Substance Abuse with Ruby Dunbar [employer] 09/24/2020 Z68.25 - Body mass index [BM I] 25.0-25.9, adult Medical Substance Abuse with Ruby Dunbar [employer] 09/24/2020 Opioid dependence with continuous use BH Substance Abuse with Hina Cope [facility] 09/10/2020 Constipation Medical Substance Ab use with Ruby Dunbar [employer] 09/10/2020 Opioid dependence with continuous use Me dical Substance Abuse with Ruby Dunbar [employer] 09/10/2020 Z68.24 - Body mass index [BM I] 24.0-24.9, adult Medical Substance Abuse with Ruby Dunbar [employer] 09/10/2020 Opioid dependence with continuous use BH Substance Abuse with Hina Cope [facility] 08/27/2020 Body mass index Medical Substance Ab use with Ruby Dunbar [employer] 08/27/2020 Nausea Medical Substance Ab use with Ruby Dunbar [employer] 08/27/2020 Opioid dependence with continuous use Me dical Substance Abuse with Ruby Dunbar [employer] 08/27/2020 Opioid dependence uncomplicated BH Subst ance Abuse with Hina Cope [facility] 08/13/2020 Opioid dependence BH Substance Abuse w ith Hina Bolivarmons [facility] 08/04/2020 Body mass index [Body mass i ndex [BMI] 24.0-24.9, adult] Medical Substance Abuse with Vikki Kramer [employer] 08/04/2020 Opioid dependence with continuous use Me dical Substance Abuse with Vikki Kramer [employer] 08/04/2020 Opioid dependence with continuous use Me dical Substance Abuse with Ruby Dunbar [employer] 07/27/2020 Overweight Medical Substance Ab use with Ruby Dunbar [facility] 07/27/2020 Z68.25 - Body mass index [BM I] 25.0-25.9, adult Medical Substance Abuse with Ruby Dunbar [employer] 07/27/2020 Opioid dependence, on agonist therapy BH Substance Abuse with Hina Cope [facility] 07/19/2020 Psychotic disorder BH Substance Abuse w ith Hinanyasia Cope [facility] 07/19/2020 Opioid dependence with continuous use Me dical Substance Abuse with Ruby Dunbar [facility] 07/19/2020 Z68.24 - Body mass index [BM I] 24.0-24.9, adult Medical Substance Abuse with Ruby Dunbar [facility] 07/19/2020 Opioid dependence with continuous use BH Substance Abuse with Hina Cope [facility] 07/13/2020 Body mass index Medical Substance Ab use with Ruby Dunbar [employer] 07/13/2020 Coronary artery disease Medical Substanc e Abuse with Ruby Dunbar [facility] 07/13/2020 Opioid dependence with continuous use Me dical Substance Abuse with Ruby Dunbar [employer] 07/13/2020 Reflex neuropathic bladder Medical Subst ance Abuse with Ruby Dunbar [facility] 07/13/2020 Routine history and physical Medical Sub stance Abuse with Ruby Dunbar [facility] 07/13/2020 Opioid dependence BH Substance Abuse w ith Vy Nadeen [facility] 07/06/2020 Body mass index [Body mass i ndex [BMI] 24.0-24.9, adult] Medical New Patient with Vikki Kramer [employer] 07/06/2020 Diabetes Risk Test Score was three score 07/06/2020 Medical New Patient with Vikki Kramer [employer] 07/06/2020 Body mass index Walked Out NO Servic es Rendered with Ruby Dunbar [employer] 07/01/2020 [facility] Work Phone: [phone]) [phone] Evaluation note Includes: Assessments for all patient encounters Findings Encounter Date Opioid dependence, on agonist therapy BH Established Patient with Hina Bolivarmons [facility] 11/08/2020 Opioid dependence with continuous use Me dical Substance Abuse with Ruby Marshal [facility] 11/08/2020 Z68.24 - Body mass index [BM I] 24.0-24.9, adult Medical Substance Abuse with Ruby Dunbar [facility] 11/08/2020 Opioid dependence, on agonist therapy BH Substance Abuse with Hina Bolivarmons [facility] 10/22/2020 Allergic rhinitis Medical Substance Ab use with Ruby Dunbar [facility] 10/22/2020 Opioid dependence with continuous use Me dical Substance Abuse with Ruby Dunbar [facility] 10/22/2020 Z68.25 - Body mass index [BM I] 25.0-25.9, adult Medical Substance Abuse with Ruby Dunbar [facility] 10/22/2020 Contact dermatitis Medical Substance Ab use with uRby Dunbar [facility] 10/08/2020 Encounter for Immunization Medical Subst ance Abuse with Ruby Dunbar [facility] 10/08/2020 Opioid dependence with continuous use Me dical Substance Abuse with Ruby Dunbar [facility] 10/08/2020 Z68.24 - Body mass index [BM I] 24.0-24.9, adult Medical Substance Abuse with Ruby Dunbar [facility] 10/08/2020 Opioid dependence, on agonist therapy Substance Abuse with Hina Bolivarmons [facility] 09/24/2020 COVID-19 infection Medical Substance Ab use with Ruby Dunbar [employer] 09/24/2020 Opioid dependence with continuous use Me dical Substance Abuse with Ruby Dunbar [facility] 09/24/2020 Z68.25 - Body mass index [BM I] 25.0-25.9, adult Medical Substance Abuse with Ruby Dunbar [facility] 09/24/2020 Opioid dependence with continuous use BH Substance Abuse with Hina Cope [facility] 09/10/2020 Constipation Medical Substance Ab use with Ruby Dunbar [facility] 09/10/2020 Opioid dependence with continuous use Me dical Substance Abuse with Ruby Dunbar [facility] 09/10/2020 Z68.24 - Body mass index [BM I] 24.0-24.9, adult Medical Substance Abuse with Ruby Dunbar [facility] 09/10/2020 Opioid dependence with continuous use BH Substance Abuse with Hina Cope [facility] 08/27/2020 Body mass index Medical Substance Ab use with Ruby Dunbar [employer] 08/27/2020 Nausea Medical Substance Ab use with Ruby Dunbar [employer] 08/27/2020 Opioid dependence with continuous use Me dical Substance Abuse with Ruby Dunbar [employer] 08/27/2020 Opioid dependence uncomplicated BH Subst ance Abuse with Hina Cope [facility] 08/13/2020 Opioid dependence BH Substance Abuse w ith Hina Bolivarmons [facility] 08/04/2020 Body mass index [Body mass i ndex [BMI] 24.0-24.9, adult] Medical Substance Abuse with Vikki Kramer [employer] 08/04/2020 Opioid dependence with continuous use Me dical Substance Abuse with Vikki Kramer [employer] 08/04/2020 Opioid dependence with continuous use Me dical Substance Abuse with Ruby Dunbar [employer] 07/27/2020 Overweight Medical Substance Ab use with Ruby Dunbar [employer] 07/27/2020 Z68.25 - Body mass index [BM I] 25.0-25.9, adult Medical Substance Abuse with Ruby Dunbar [employer] 07/27/2020 Opioid dependence, on agonist therapy BH Substance Abuse with Hina Cope [facility] 07/19/2020 Psychotic disorder BH Substance Abuse w ith Hina Cope [facility] 07/19/2020 Opioid dependence with continuous use Me dical Substance Abuse with Ruby Dunbra [employer] 07/19/2020 Z68.24 - Body mass index [BM I] 24.0-24.9, adult Medical Substance Abuse with Ruby Dunbar [employer] 07/19/2020 Opioid dependence with continuous use BH Substance Abuse with Hina Cope [facility] 07/13/2020 Body mass index Medical Substance Ab use with Ruby Dunbar [employer] 07/13/2020 Coronary artery disease Medical Substanc e Abuse with Ruby Dunbar [employer] 07/13/2020 Opioid dependence with continuous use Me dical Substance Abuse with Ruby Dunbar [employer] 07/13/2020 Reflex neuropathic bladder Medical Subst ance Abuse with Ruby Dunbar [employer] 07/13/2020 Routine history and physical Medical Sub stance Abuse with Ruby Dunbar [employer] 07/13/2020 Opioid dependence BH Substance Abuse w ariana Senior [facility] 07/06/2020 Body mass index [Body mass i ndex [BMI] 24.0-24.9, adult] Medical New Patient with Vikki Kramer [employer] 07/06/2020 Diabetes Risk Test Score was three score 07/06/2020 Medical New Patient with Vikki Kramer [employer] 07/06/2020 Body mass index Walked Out NO Servic es Rendered with Ruby Dunbar [facility] 07/01/2020 [facility] Work Phone: [phone]) [phone] Evaluation note Includes: Assessments for all patient encounters Findings Encounter Date Opioid dependence, on agonist therapy BH Substance Abuse with Hina Cope [facility] 10/22/2020 Allergic rhinitis Medical Substance Ab use with Ruby Dunbar [facility] 10/22/2020 Opioid dependence with continuous use Me dical Substance Abuse with Ruby Dunbar [facility] 10/22/2020 Z68.25 - Body mass index [BM I] 25.0-25.9, adult Medical Substance Abuse with Ruby Dunbar [facility] 10/22/2020 Contact dermatitis Medical Substance Ab use with Ruby Dunbar [facility] 10/08/2020 Encounter for Immunization Medical Subst ance Abuse with Ruby Dnubar [facility] 10/08/2020 Opioid dependence with continuous use Me dical Substance Abuse with Ruby Dunbar [facility] 10/08/2020 Z68.24 - Body mass index [BM I] 24.0-24.9, adult Medical Substance Abuse with Ruby Dunbar [facility] 10/08/2020 Opioid dependence, on agonist therapy BH Substance Abuse with Hinanyasia Cope [facility] 09/24/2020 COVID-19 infection Medical Substance Ab use with Ruby Dunbar [facility] 09/24/2020 Opioid dependence with continuous use Me dical Substance Abuse with Ruby Dunbar [facility] 09/24/2020 Z68.25 - Body mass index [BM I] 25.0-25.9, adult Medical Substance Abuse with Ruby Dunbar [employer] 09/24/2020 Opioid dependence with continuous use BH Substance Abuse with Hina Cope [facility] 09/10/2020 Constipation Medical Substance Ab use with Ruby Dunbar [facility] 09/10/2020 Opioid dependence with continuous use Me dical Substance Abuse with Ruby Dunbar [employer] 09/10/2020 Z68.24 - Body mass index [BM I] 24.0-24.9, adult Medical Substance Abuse with Ruby Dunbar [employer] 09/10/2020 Opioid dependence with continuous use BH Substance Abuse with Hina Cope [facility] 08/27/2020 Body mass index Medical Substance Ab use with Ruby Dunbar [employer] 08/27/2020 Nausea Medical Substance Ab use with Ruby Dunbar [employer] 08/27/2020 Opioid dependence with continuous use Me dical Substance Abuse with Ruby Dunbar [employer] 08/27/2020 Opioid dependence uncomplicated BH Subst ance Abuse with Hinanyasia Padillas [facility] 08/13/2020 Opioid dependence BH Substance Abuse w ith Hina Cope [facility] 08/04/2020 Body mass index [Body mass i ndex [BMI] 24.0-24.9, adult] Medical Substance Abuse with Vikki Kramer [facility] 08/04/2020 Opioid dependence with continuous use Me dical Substance Abuse with Vikki Kramer [facility] 08/04/2020 Opioid dependence with continuous use Me dical Substance Abuse with Ruby Dunbar [employer] 07/27/2020 Overweight Medical Substance Ab use with Ruby Dunbar [facility] 07/27/2020 Z68.25 - Body mass index [BM I] 25.0-25.9, adult Medical Substance Abuse with Ruby Dunbar [facility] 07/27/2020 Opioid dependence, on agonist therapy BH Substance Abuse with Hinajarrett Padillas [facility] 07/19/2020 Psychotic disorder BH Substance Abuse w ith Hina Cpoe [facility] 07/19/2020 Opioid dependence with continuous use Me dical Substance Abuse with Ruby Dunbar [facility] 07/19/2020 Z68.24 - Body mass index [BM I] 24.0-24.9, adult Medical Substance Abuse with Ruby Dunbar [employer] 07/19/2020 Opioid dependence with continuous use BH Substance Abuse with Hina Cope [facility] 07/13/2020 Body mass index Medical Substance Ab use with Ruby Dunbar [employer] 07/13/2020 Coronary artery disease Medical Substanc e Abuse with Ruby Dunbar [employer] 07/13/2020 Opioid dependence with continuous use Me dical Substance Abuse with Ruby Dunbar [employer] 07/13/2020 Reflex neuropathic bladder Medical Subst ance Abuse with Ruby Dunbar [employer] 07/13/2020 Routine history and physical Medical Sub stance Abuse with Ruby Dunbar [employer] 07/13/2020 Opioid dependence BH Substance Abuse dominique Senior [facility] 07/06/2020 Body mass index [Body mass i ndex [BMI] 24.0-24.9, adult] Medical New Patient with Vikki Kramer [employer] 07/06/2020 Diabetes Risk Test Score was three score 07/06/2020 Medical New Patient with Vikki Kramer [employer] 07/06/2020 Body mass index Walked Out NO Servic es Rendered with Ruby Dunbar [facility] 07/01/2020 [facility] Work Phone: [phone]) [phone] History general Narrative - Reported Includes: Medical History in patient's chart Description Last Updated History of drug dependence 09/10/2020 History of renal disease 09/10/2020 A recent immunization for flu 07/13/2020 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 History of hypertension 07/01/2020 No previous hospitalizations 07/01/2020 [facility] Work Phone: Evaluation + Plan note Future Appointments Appointment Date:05/26/2022 02:00:00 PM Scheduled Provider:Lakeisha Castellanos PA-C Location:[facility]: Ass[facility]ments for all patient encounters Findings Encounter Date Opioid dependence, on agonist therapy Substance Abuse with Hinanyasia Cope [facility] 12/31/2020 G89.29 - Other chronic pain Medical Subs tance Abuse with Neliadanielito Hernandez [facility] 12/31/2020 Opioid dependence with continuous use Me dical Substance Abuse with Nelia Alejandraulte [facility] 12/31/2020 R11.0 - Nausea Medical Substance Ab use with Nelia Alejandraulte [facility] 12/31/2020 Z68.24 - Body mass index [BM I] 24.0-24.9, adult Medical Substance Abuse with Nelia Stethaisschulte [facility] 12/31/2020 Opioid dependence, on agonist therapy BH Substance Abuse with Hinanyasia Cope [facility] 12/17/2020 PLAN Medical Substance Ab use with Johan Cedillo MD 12/17/2020 Z68.23 - Body mass index [BM I] 23.0-23.9, adult Medical Substance Abuse with Johan Cedillo MD 12/17/2020 Nicotine dependence uncomplicated BH Sub stance Abuse with Hina Cope [facility] 12/03/2020 Opioid dependence, on agonist therapy BH Substance Abuse with Hina Cope [facility] 12/03/2020 Gastroesophageal reflux dise ase with esophagitis without bleeding Medical Established Patient with Ruby Dunbar [facility] 12/03/2020 Hypothyroidism Medical Established Patient with Ruby Dunbar [facility] 12/03/2020 Intervention and counseling on cessation of tobacco use, 3-10 minutes Discussed medication and nicotine replacement for tobacco cessation Medical Established Patient with Ruby Dunbar [facility] 12/03/2020 Neurogenic bladder Medical Established Patient with Ruby Dunbar [facility] 12/03/2020 Nicotine dependence Medical Established Patient with Ruby Dunbar [facility] 12/03/2020 Opioid dependence with continuous use Me dical Established Patient with Ruby Dunbar [facility] 12/03/2020 Routine history and physical Medical Est ablished Patient with Ruby Dunbar [facility] 12/03/2020 Vitamin B12 deficiency Medical Establish ed Patient with Ruby Dunbar [facility] 12/03/2020 Vitamin D deficiency Medical Established Patient with Rubyramiro Dunbar [facility] 12/03/2020 Nicotine dependence uncomplicated BH Sub stance Abuse [facility] 11/19/2020 Opioid dependence, on agonist therapy BH Substance Abuse with Hina Cope [facility] 11/19/2020 Opioid dependence with continuous use Me dical Substance Abuse with Ruby Dunbar [facility] 11/19/2020 Overweight Medical Substance Ab use with Ruby Dunbar [facility] 11/19/2020 Tinnitus Medical Substance Ab use with Ruby Marshal [facility] 11/19/2020 Z68.25 - Body mass index [BM I] 25.0-25.9, adult Medical Substance Abuse with Ruby Marshal [facility] 11/19/2020 Opioid dependence, on agonist therapy BH Established Patient with Hina Cope [facility] 11/08/2020 Opioid dependence with continuous use Me dical Substance Abuse with Ruby Dunbar [facility] 11/08/2020 Z68.24 - Body mass index [BM I] 24.0-24.9, adult Medical Substance Abuse with Ruby Marshal [facility] 11/08/2020 Opioid dependence, on agonist therapy BH Substance Abuse with Hina Cope [facility] 10/22/2020 Allergic rhinitis Medical Substance Ab use with Ruby Dunbar [facility] 10/22/2020 Opioid dependence with continuous use Me dical Substance Abuse with Ruby Dunbar [facility] 10/22/2020 Z68.25 - Body mass index [BM I] 25.0-25.9, adult Medical Substance Abuse with Ruby Dunbar [facility] 10/22/2020 Contact dermatitis Medical Substance Ab use with Ruby Dunbar [facility] 10/08/2020 Encounter for Immunization Medical Subst ance Abuse with Ruby Dunbar [facility] 10/08/2020 Opioid dependence with continuous use Me dical Substance Abuse with Ruby Dunbar [facility] 10/08/2020 Z68.24 - Body mass index [BM I] 24.0-24.9, adult Medical Substance Abuse with Ruby Dunbar [facility] 10/08/2020 Opioid dependence, on agonist therapy BH Substance Abuse with Hina Cope [facility] 09/24/2020 COVID-19 infection Medical Substance Ab use with Ruby Dunbar [facility] 09/24/2020 Opioid dependence with continuous use Me dical Substance Abuse with Ruby Dunbar [facility] 09/24/2020 Z68.25 - Body mass index [BM I] 25.0-25.9, adult Medical Substance Abuse with Ruby Dunbar [facility] 09/24/2020 Opioid dependence with continuous use BH Substance Abuse with Hina Cope [facility] 09/10/2020 Constipation Medical Substance Ab use with Ruby Dunbar [facility] 09/10/2020 Opioid dependence with continuous use Me dical Substance Abuse with Ruby Dunbar [facility] 09/10/2020 Z68.24 - Body mass index [BM I] 24.0-24.9, adult Medical Substance Abuse with Ruby Dunbar [facility] 09/10/2020 Opioid dependence with continuous use BH Substance Abuse with Hina Cope [facility] 08/27/2020 Body mass index Medical Substance Ab use with Ruby Dunbar [employer] 08/27/2020 Nausea Medical Substance Ab use with Ruby Dunbar [employer] 08/27/2020 Opioid dependence with continuous use Me dical Substance Abuse with Ruby Dunbar [facility] 08/27/2020 Opioid dependence uncomplicated BH Subst ance Abuse with Hina Cope [facility] 08/13/2020 Opioid dependence BH Substance Abuse w ith Hina Cope [facility] 08/04/2020 Body mass index [Body mass i ndex [BMI] 24.0-24.9, adult] Medical Substance Abuse with Vikki Kramer [employer] 08/04/2020 Opioid dependence with continuous use Me dical Substance Abuse with Vikki Kramer [employer] SU[employer] 08/04/2020 Opioid dependence with continuous use Me dical Substance Abuse with Ruby Dunbar [employer] 07/27/2020 Overweight Medical Substance Ab use with Ruby Dunbar [employer] SUPER[employer] 07/27/2020 Z68.25 - Body mass index [BM I] 25.0-25.9, adult Medical Substance Abuse with Ruby Dunbar [employer] SUPER[employer] 07/27/2020 Opioid dependence, on agonist therapy BH Substance Abuse with Hina Cope [facility] 07/19/2020 Psychotic disorder BH Substance Abuse w ith Hina Cope [facility] 07/19/2020 Opioid dependence with continuous use Me dical Substance Abuse with Ruby Dunbar [facility] 07/19/2020 Z68.24 - Body mass index [BM I] 24.0-24.9, adult Medical Substance Abuse with Ruby Dunbar [employer] SUPER[employer] 07/19/2020 Opioid dependence with continuous use BH Substance Abuse with Hina Cope [facility] 07/13/2020 Body mass index Medical Substance Ab use with Ruby Dunbar [facility] 07/13/2020 Coronary artery disease Medical Substanc e Abuse with Ruby Dunbar [facility] 07/13/2020 Opioid dependence with continuous use Me dical Substance Abuse with Ruby Dunbar [facility] 07/13/2020 Reflex neuropathic bladder Medical Subst ance Abuse with Ruby Dunbar [facility] 07/13/2020 Routine history and physical Medical Sub stance Abuse with Ruby Dunbar [facility] 07/13/2020 Opioid dependence BH Substance Abuse w ariana RyderVymilo Senior [facility] 07/06/2020 Body mass index [Body mass i ndex [BMI] 24.0-24.9, adult] Medical New Patient with Vikki Kramer [employer] SUPERVIS[employer] 07/06/2020 Diabetes Risk Test Score was three score 07/06/2020 Medical New Patient with Vikki Kramer [employer] SUPERVIS[employer] 07/06/2020 Body mass index Walked Out NO Servic es Rendered with Ruby Dunbar [facility] 07/01/2020 [facility] Work Phone: Evaluation note Includes: Assessments for all patient encounters Findings Encounter Date Gastroesophageal reflux dise ase with esophagitis without bleeding Medical Substance Abuse with Ruby Dunbar [facility] 01/14/2021 Neurogenic bladder Medical Substance Ab use with Ruby Dunbar [facility] 01/14/2021 Nonvenomous insect bite Medical Substanc e Abuse with Ruby Dunbar [facility] 01/14/2021 Opioid dependence with continuous use Me dical Substance Abuse with Ruby Dunbar [facility] 01/14/2021 Tinnitus Medical Substance Ab use with Ruby Dunbar [facility] 01/14/2021 Z68.25 - Body mass index [BM I] 25.0-25.9, adult Medical Substance Abuse with Ruby Dunbar [facility] 01/14/2021 Opioid dependence, on agonist therapy BH Substance Abuse with Hina Cope [facility] 12/31/2020 G89.29 - Other chronic pain Medical Subs tance Abuse with Nelia Stechschulte [facility] 12/31/2020 Opioid dependence with continuous use Me dical Substance Abuse with Nelia Stechschulte [facility] 12/31/2020 R11.0 - Nausea Medical Substance Ab use with Nelia Stechschulte [facility] 12/31/2020 Z68.24 - Body mass index [BM I] 24.0-24.9, adult Medical Substance Abuse with Nelia Stechschulte [facility] 12/31/2020 Opioid dependence, on agonist therapy BH Substance Abuse with Hinanyasia Cope [facility] 12/17/2020 PLAN Medical Substance Ab use with Johan Cedillo MD 12/17/2020 Z68.23 - Body mass index [BM I] 23.0-23.9, adult Medical Substance Abuse with Johan Cedillo MD 12/17/2020 Nicotine dependence uncomplicated BH Sub stance Abuse with Hinanyasia Cope [facility] 12/03/2020 Opioid dependence, on agonist therapy BH Substance Abuse with Hina Cope [facility] 12/03/2020 Gastroesophageal reflux dise ase with esophagitis without bleeding Medical Established Patient with Ruby Dunbar [facility] 12/03/2020 Hypothyroidism Medical Established Patient with Ruby Dunbar [facility] 12/03/2020 Intervention and counseling on cessation of tobacco use, 3-10 minutes Discussed medication and nicotine replacement for tobacco cessation Medical Established Patient with Ruby Dunbar [facility] 12/03/2020 Neurogenic bladder Medical Established Patient with Ruby Dunbar [facility] 12/03/2020 Nicotine dependence Medical Established Patient with Ruby Dunbar [facility] 12/03/2020 Opioid dependence with continuous use Me dical Established Patient with Ruby Marshal [facility] 12/03/2020 Routine history and physical Medical Est ablished Patient with Ruby Dunbar [facility] 12/03/2020 Vitamin B12 deficiency Medical Establish ed Patient with Rubyramiro Dunbar [facility] 12/03/2020 Vitamin D deficiency Medical Established Patient with Ruby Marshal [facility] 12/03/2020 Nicotine dependence uncomplicated BH Sub stance Abuse with Hina Cope [facility] 11/19/2020 Opioid dependence, on agonist therapy BH Substance Abuse with Hina Cope [facility] 11/19/2020 Opioid dependence with continuous use Me dical Substance Abuse with Ruby Dunbar [facility] 11/19/2020 Overweight Medical Substance Ab use with Ruby Dunbar [facility] 11/19/2020 Tinnitus Medical Substance Ab use with Ruby Dunbar [facility] 11/19/2020 Z68.25 - Body mass index [BM I] 25.0-25.9, adult Medical Substance Abuse with Ruby Dunbar [facility] 11/19/2020 Opioid dependence, on agonist therapy BH Established Patient with Hina Cope [facility] 11/08/2020 Opioid dependence with continuous use Me dical Substance Abuse with Rubyramiro Dunbar [facility] 11/08/2020 Z68.24 - Body mass index [BM I] 24.0-24.9, adult Medical Substance Abuse with Ruby Dunbar [facility] 11/08/2020 Opioid dependence, on agonist therapy BH Substance Abuse with Hina Cope [facility] 10/22/2020 Allergic rhinitis Medical Substance Ab use with Ruby Dunbar [facility] 10/22/2020 Opioid dependence with continuous use Me dical Substance Abuse with Ruby Dunbar [facility] 10/22/2020 Z68.25 - Body mass index [BM I] 25.0-25.9, adult Medical Substance Abuse with Ruby Dunbar [facility] 10/22/2020 Contact dermatitis Medical Substance Ab use with Ruby Dunbar [facility] 10/08/2020 Encounter for Immunization Medical Subst ance Abuse with Ruby Dunbar [facility] 10/08/2020 Opioid dependence with continuous use Me dical Substance Abuse with Ruby Dunbar [facility] 10/08/2020 Z68.24 - Body mass index [BM I] 24.0-24.9, adult Medical Substance Abuse with Ruby Dunbar [facility] 10/08/2020 Opioid dependence, on agonist therapy BH Substance Abuse with Hina Cope [facility] 09/24/2020 COVID-19 infection Medical Substance Ab use with Ruby Dunbar [employer] SUPER[employer] 09/24/2020 Opioid dependence with continuous use Me dical Substance Abuse with Ruby Dunbar [employer] SUPERVIS[employer] 09/24/2020 Z68.25 - Body mass index [BM I] 25.0-25.9, adult Medical Substance Abuse with Ruby Dunbar [employer] SUPERVIS[employer] 09/24/2020 Opioid dependence with continuous use BH Substance Abuse with Hina Cope [facility] 09/10/2020 Constipation Medical Substance Ab use with Ruby Dunbar [employer] WORK[employer] SUPERVISOR 09/10/2020 Opioid dependence with continuous use Me dical Substance Abuse with Ruby Dunbar [employer] SUPERVIS[employer] 09/10/2020 Z68.24 - Body mass index [BM I] 24.0-24.9, adult Medical Substance Abuse with Ruby Dunbar [employer] SUPERVIS[employer] 09/10/2020 Opioid dependence with continuous use BH Substance Abuse with Hinanyasia Cope [facility] 08/27/2020 Body mass index Medical Substance Ab use with Ruby Dunbar [employer] SUPER[employer] 08/27/2020 Nausea Medical Substance Ab use with Ruby Dunbar [employer] WORK[employer] SUPERVIS[employer] 08/27/2020 Opioid dependence with continuous use Me dical Substance Abuse with Ruby Dunbar [employer] SUPER[employer] 08/27/2020 Opioid dependence uncomplicated BH Subst ance Abuse with Hina Cope [facility] 08/13/2020 Opioid dependence BH [facility] Hina Cope [facility] 08/04/2020 Body mass index [Body mass i ndex [BMI] 24.0-24.9, adult] Medical Substance Abuse with Vikki Kramer [employer] WORK[employer] SUPERVISOR 08/04/2020 Opioid dependence with continuous use Me dical Substance Abuse with Vikki Kramer [employer] WORKER SUPERVISOR 08/04/2020 Opioid dependence with continuous use Me dical Substance Abuse with Ruby Dunbar [employer] WORK[employer] SUPERVISOR 07/27/2020 Overweight Medical Substance Ab use with Ruby Dunbar [employer] SUPERVISOR 07/27/2020 Z68.25 - Body mass index [BM I] 25.0-25.9, adult Medical Substance Abuse with Ruby Dunbar [employer] SUPERVIS[employer] 07/27/2020 Opioid dependence, on agonist therapy BH Substance Abuse with Hina Cope [facility] 07/19/2020 Psychotic disorder BH Substance Abuse w ith Hina Padillas [facility] 07/19/2020 Opioid dependence with continuous use Me dical Substance Abuse with Ruby Dunbar [facility] 07/19/2020 Z68.24 - Body mass index [BM I] 24.0-24.9, adult Medical Substance Abuse with Ruby Dunbar [facility] 07/19/2020 Opioid dependence with continuous use BH Substance Abuse with Hina Cope [facility] 07/13/2020 Body mass index Medical Substance Ab use with Ruby Dunbar [facility] 07/13/2020 Coronary artery disease Medical Substanc e Abuse with Ruby Dunbar [facility] 07/13/2020 Opioid dependence with continuous use Me dical Substance Abuse with Ruby Dunbar [facility] 07/13/2020 Reflex neuropathic bladder Medical Subst ance Abuse with Ruby Dunbar [facility] 07/13/2020 Routine history and physical Medical Sub stance Abuse with Ruby Dunbar [facility] 07/13/2020 Opioid dependence BH Substance Abuse w ariana Vyserena Senior [facility] 07/06/2020 Body mass index [Body mass i ndex [BMI] 24.0-24.9, adult] Medical New Patient with Vikki Kramer [facility] 07/06/2020 Diabetes Risk Test Score was three score 07/06/2020 Medical New Patient with Vikki Kramer [facility] 07/06/2020 Body mass index Walked Out NO Servic es Rendered with Ruby Dunbar [facility] 07/01/2020 [facility] Work Phone: Evaluation note Includes: Assessments for all patient encounters Findings Encounter Date Dependence on nicotine in ci garettes - uncomplicated Medical Substance Abuse with Nelia Stechschulte [facility] 02/11/2021 Neurogenic bladder Medical Substance Ab use with Nelia Stechschulte [facility] 02/11/2021 Opioid dependence with continuous use Me dical Substance Abuse with Nelia Stechschulte [facility] 02/11/2021 Z68.24 - Body mass index [BM I] 24.0-24.9, adult Medical Substance Abuse with Nelia Stechschulte [facility] 02/11/2021 Opioid dependence uncomplicated BH Subst ance Abuse with Hina Cope [facility] 01/14/2021 Gastroesophageal reflux dise ase with esophagitis without bleeding Medical Substance Abuse with Ruby Dunbar [facility] 01/14/2021 Neurogenic bladder Medical Substance Ab use with Ruby Dunbar [facility] 01/14/2021 Nonvenomous insect bite Medical Substanc e Abuse with Ruby Dunbar [facility] 01/14/2021 Opioid dependence with continuous use Me dical Substance Abuse with Ruby Dunbar [facility] 01/14/2021 Tinnitus Medical Substance Ab use with Ruby Dunbar [facility] 01/14/2021 Z68.25 - Body mass index [BM I] 25.0-25.9, adult Medical Substance Abuse with Ruby Dunbar [facility] 01/14/2021 Opioid dependence, on agonist therapy BH Substance Abuse with Hina Cope [facility] 12/31/2020 G89.29 - Other chronic pain Medical Subs tance Abuse with Nelia Stechschulte [facility] 12/31/2020 Opioid dependence with continuous use Me dical [facility]stance [facility] 12/31/2020 R11.0 - Nausea Medical Substance Ab use with Nelia Stethaisschulte [facility] 12/31/2020 Z68.24 - Body mass index [BM I] 24.0-24.9, adult Medical Substance Abuse with Nelia Stethaisschulte [facility] 12/31/2020 Opioid dependence, on agonist therapy BH Substance Abuse with Hina Cope [facility] 12/17/2020 PLAN Medical Substance Ab use with Johan Cedillo MD 12/17/2020 Z68.23 - Body mass index [BM I] 23.0-23.9, adult Medical Substance Abuse with Johan Cedillo MD 12/17/2020 Nicotine dependence uncomplicated BH Sub stance Abuse with Hina Prisca [facility] 12/03/2020 Opioid dependence, on agonist therapy BH Substance Abuse with Hina Cope [facility] 12/03/2020 Gastroesophageal reflux dise ase with esophagitis without bleeding Medical Established Patient with Ruby Dunbar [facility] 12/03/2020 Hypothyroidism Medical Established Patient with Ruby Dunbar [facility] 12/03/2020 Intervention and counseling on cessation of tobacco use, 3-10 minutes Discussed medication and nicotine replacement for tobacco cessation Medical Established Patient with Ruby Dunbar [facility] 12/03/2020 Neurogenic bladder Medical Established Patient with Ruby Dunbar [facility] 12/03/2020 Nicotine dependence Medical Established Patient with Ruby Dunbar [facility] 12/03/2020 Opioid dependence with continuous use Me dical Established Patient with Ruby Dunbar [facility] 12/03/2020 Routine history and physical Medical Est ablished Patient with Ruby Dunbar [facility] 12/03/2020 Vitamin B12 deficiency Medical Establish ed Patient with Rubyramiro Dunbar [employer] 12/03/2020 Vitamin D deficiency Medical Established Patient with Ruby Dunbar [employer] SUPERVISOR 12/03/2020 Nicotine dependence uncomplicated BH Sub stance Abuse with Hina Cope [facility] 11/19/2020 Opioid dependence, on agonist therapy BH Substance Abuse with Hina Cope [facility] 11/19/2020 Opioid dependence with continuous use Me dical Substance Abuse with Ruby Dunbar [employer] SUPERVIS[employer] 11/19/2020 Overweight Medical Substance Ab use with Rubyramiro Dunbar [facility] 11/19/2020 Tinnitus Medical Substance Ab use with Ruby Dunbar [facility] 11/19/2020 Z68.25 - Body mass index [BM I] 25.0-25.9, adult Medical Substance Abuse with Ruby Dunbar [facility] 11/19/2020 Opioid dependence, on agonist therapy BH Established Patient with Hina Cope [facility] 11/08/2020 Opioid dependence with continuous use Me dical Substance Abuse with Ruby Dunbar [facility] 11/08/2020 Z68.24 - Body mass index [BM I] 24.0-24.9, adult Medical Substance Abuse with Ruby Dunbar [facility] 11/08/2020 Opioid dependence, on agonist therapy BH Substance Abuse with Hina Cope [facility] 10/22/2020 Allergic rhinitis Medical Substance Ab use with Ruby Dunbar [employer] SUPER[employer] 10/22/2020 Opioid dependence with continuous use Me dical Substance Abuse with Ruby Dunbar [facility] 10/22/2020 Z68.25 - Body mass index [BM I] 25.0-25.9, adult Medical Substance Abuse with Ruby Dunbar [facility] 10/22/2020 Contact dermatitis Medical Substance Ab use with Ruby Dunbar [facility] 10/08/2020 Encounter for Immunization Medical Subst ance Abuse with Ruby Dunbar [facility] 10/08/2020 Opioid dependence with continuous use Me dical Substance Abuse with Ruby Dunbar [facility] 10/08/2020 Z68.24 - Body mass index [BM I] 24.0-24.9, adult Medical Substance Abuse with Ruby Dunbar [employer] SUPERVIS[employer] 10/08/2020 Opioid dependence, on agonist therapy BH Substance Abuse with Hina Cope [facility] 09/24/2020 COVID-19 infection Medical Substance Ab use with Ruby Dunbar [employer] SUPERVIS[employer] 09/24/2020 Opioid dependence with continuous use Me dical Substance Abuse with Ruby Dunbar [employer] SUPERVIS[employer] 09/24/2020 Z68.25 - Body mass index [BM I] 25.0-25.9, adult Medical Substance Abuse with Ruby Dunbar [employer] SUPER[employer] 09/24/2020 Opioid dependence with continuous use BH Substance Abuse with Hina Cope [facility] 09/10/2020 Constipation Medical Substance Ab use with Ruby Dunbar [employer] SUPERVIS[employer] 09/10/2020 Opioid dependence with continuous use Me dical Substance Abuse with Ruby Dunbar [employer] SUPERVISOR 09/10/2020 Z68.24 - Body mass index [BM I] 24.0-24.9, adult Medical Substance Abuse with Ruby Dunbar [employer] SUPER[employer] 09/10/2020 Opioid dependence with continuous use BH Substance Abuse with Hina Cope [facility] 08/27/2020 Body mass index Medical Substance Ab use with Ruby Dunbar [employer] SUPER[employer] 08/27/2020 Nausea Medical Substance Ab use with Ruby Dunbar [employer] SUPERVIS[employer] 08/27/2020 Opioid dependence with continuous use Me dical Substance Abuse with Ruby Dunbar [employer] SUPER[employer] 08/27/2020 Opioid dependence uncomplicated BH Subst ance Abuse with Hina Cope [facility] 08/13/2020 Opioid dependence BH Substance Abuse w ith Hina Cope [facility] 08/04/2020 Body mass index [Body mass i ndex [BMI] 24.0-24.9, adult] Medical Substance Abuse with Vikki Kramer [employer] SUPERVIS[employer] 08/04/2020 Opioid dependence with continuous use Me dical Substance Abuse with Vikki Kramer [employer] WORK[employer] SUPERVIS[employer] 08/04/2020 Opioid dependence with continuous use Me dical Substance Abuse with Ruby Dunbar [employer] SUPERVIS[employer] 07/27/2020 Overweight Medical Substance Ab use with Ruby Dunbar [employer] SUPERVIS[employer] 07/27/2020 Z68.25 - Body mass index [BM I] 25.0-25.9, adult Medical Substance Abuse with Ruby Dunbar [employer] SUPER[employer] 07/27/2020 Opioid dependence, on agonist therapy BH Substance Abuse with Hina Cope [facility] 07/19/2020 Psychotic disorder BH Substance Abuse w ith Hina Cope [facility] 07/19/2020 Opioid dependence with continuous use Me dical Substance Abuse with Ruby Dunbar [employer] SUPER[employer] 07/19/2020 Z68.24 - Body mass index [BM I] 24.0-24.9, adult Medical Substance Abuse with Ruby Dunbar [employer] SUPER[employer] 07/19/2020 Opioid dependence with continuous use BH Substance Abuse [facility] 07/13/2020 Body mass index Medical Substance Ab use with Ruby Dunbar [employer] SUPER[employer] 07/13/2020 Coronary artery disease Medical Substanc e Abuse with Ruby Dunbar [employer] SUPERVIS[employer] 07/13/2020 Opioid dependence with continuous use Me dical Substance Abuse with Ruby Dunbar [employer] SUPER[employer] 07/13/2020 Reflex neuropathic bladder Medical Subst ance Abuse with Ruby Dunbar [employer] SUPERVIS[employer] 07/13/2020 Routine history and physical Medical Sub stance Abuse with Ruby Dunbar [employer] SUPER[employer] 07/13/2020 Opioid dependence BH Substance Abuse w ariana Lewlin Short [facility] 07/06/2020 Body mass index [Body mass i ndex [BMI] 24.0-24.9, adult] Medical New Patient with Vikki Williams [employer] SUPERVIS[employer] 07/06/2020 Diabetes Risk Test Score was three score 07/06/2020 Medical New Patient with Vikki Williams [employer] SUPER[employer] 07/06/2020 Body mass index Walked Out NO Servic es Rendered with Ruby Dunbar [employer] SUPERVIS[employer] 07/01/2020 [facility] Work Phone: Evaluation note Includes: Assessments for all patient encounters Findings Encounter Date Nicotine dependence uncomplicated BH Sub stance Abuse with Hina Cope [facility] 04/08/2021 Opioid dependence uncomplicated BH Subst ance Abuse with Hina Cope [facility] 04/08/2021 Assessment of body mass index Medical Pina bstance Abuse with Ruby Dunbar [employer] 04/08/2021 Cough Medical Substance Ab use with Ruby Dunbar [employer] SUPER[employer] 04/08/2021 Neurogenic bladder Medical Substance Ab use with Ruby Dunbar [employer] SUPER[employer] 04/08/2021 Opioid dependence with continuous use Me dical Substance Abuse with Ruby Dunbar [employer] SU[employer] 04/08/2021 Tinnitus Medical Substance Ab use with Ruby Dunbar [employer] SUPER[employer] 04/08/2021 Anxiety disorder NOS Telebehavioral H ealth with Lucas MAYOW 03/11/2021 Nicotine dependence uncomplicated BH Tel ebehavioral Health with Lucas MAYOW 03/11/2021 Opioid dependence, on agonist therapy Telebehavioral Health with Lucas HOPE 03/11/2021 Assessment of body mass index Medical Pina bstance Abuse with Ruby Dunbar [facility] 03/11/2021 Neurogenic bladder Medical Substance Ab use with Ruby Dunbar [facility] 03/11/2021 Opioid dependence with continuous use Me dical Substance Abuse with Ruby Dunbar [facility] 03/11/2021 Tinnitus Medical Substance Ab use with Ruby Dunbar [facility] 03/11/2021 Opioid dependence, on agonist therapy BH Substance Abuse with Hinanyasia Padillas [facility] 02/11/2021 Dependence on nicotine in ci garettes - uncomplicated Medical Substance Abuse with Nelia Stechschulte [facility] 02/11/2021 Neurogenic bladder Medical Substance Ab use with Nelia Stechschulte [facility] 02/11/2021 Opioid dependence with continuous use Me dical Substance Abuse with Nelia Stechschulte [facility] 02/11/2021 Z68.24 - Body mass index [BM I] 24.0-24.9, adult Medical Substance Abuse with Nelia Stechschulte [facility] 02/11/2021 Opioid dependence uncomplicated BH Subst ance Abuse with Hinanyasia Cope [facility] 01/14/2021 Gastroesophageal reflux dise ase with esophagitis without bleeding Medical Substance Abuse with Ruby Dunbar [facility] 01/14/2021 Neurogenic bladder Medical Substance Ab use with Ruby Dunbar [facility] 01/14/2021 Nonvenomous insect bite Medical Substanc e Abuse with Ruby Dunbar [facility] 01/14/2021 Opioid dependence with continuous use Me dical Substance Abuse with Ruby Dunbar [facility] 01/14/2021 Tinnitus Medical Substance Ab use with Ruby Dunbar [facility] 01/14/2021 Z68.25 - Body mass index [BM I] 25.0-25.9, adult Medical Substance Abuse with Ruby Dunbar [facility] 01/14/2021 Opioid dependence, on agonist therapy BH Substance Abuse with Hinanyasia Cope [facility] 12/31/2020 G89.29 - Other chronic pain Medical Subs tance Abuse with Nelia Stechschulte [facility] 12/31/2020 Opioid dependence with continuous use Me dical Substance Abuse with Nelia Stechschulte [facility] 12/31/2020 R11.0 - Nausea Medical Substance Ab use with Nelia Stechschulte [facility] 12/31/2020 Z68.24 - Body mass index [BM I] 24.0-24.9, adult Medical Substance Abuse with Nelia Stechschulte [employer] 12/31/2020 Opioid dependence, on agonist therapy BH Substance Abuse with Hinanyasia Cope [facility] 12/17/2020 PLAN Medical Substance Ab use with Joahn Cedillo MD 12/17/2020 Z68.23 - Body mass index [BM I] 23.0-23.9, adult Medical Substance Abuse with Johan Cedillo MD 12/17/2020 Nicotine dependence uncomplicated BH Sub stance Abuse with Hinajarrett Padillas [facility] 12/03/2020 Opioid dependence, on agonist therapy BH Substance Abuse with Hina Cope [facility] 12/03/2020 Gastroesophageal reflux dise ase with esophagitis without bleeding Medical Established Patient with Ruby Dunbar [facility] 12/03/2020 Hypothyroidism Medical Established Patient with Ruby Dunbar [facility] 12/03/2020 Intervention and counseling on cessation of tobacco use, 3-10 minutes Discussed medication and nicotine replacement for tobacco cessation Medical Established Patient with Ruby Dunbar [facility] 12/03/2020 Neurogenic bladder Medical Established Patient with Ruby Dunbar [facility] 12/03/2020 Nicotine dependence Medical Established Patient with Ruby Dunbar [facility] 12/03/2020 Opioid dependence with continuous use Me dical Established Patient with Ruby Dunbar [facility] 12/03/2020 Routine history and physical Medical Est ablished Patient with Ruby Dunbar [facility] 12/03/2020 Vitamin B12 deficiency Medical Establish ed Patient with Ruby Dunbar [facility] 12/03/2020 Vitamin D deficiency Medical Established Patient with Ruby Dunbar [facility] 12/03/2020 Nicotine dependence uncomplicated BH Sub stance Abuse with Hina Cope [facility] 11/19/2020 Opioid dependence, on agonist therapy BH Substance Abuse with Hina Cope [facility] 11/19/2020 Opioid dependence with continuous use Me dical Substance Abuse with Ruby Dunbar [facility] 11/19/2020 Overweight Medical Substance Ab use with Ruby Dunbar [employer] 11/19/2020 Tinnitus Medical Substance Ab use with Ruby Dunbar [facility] 11/19/2020 Z68.25 - Body mass index [BM I] 25.0-25.9, adult Medical Substance Abuse with Ruby Dunbar [employer] 11/19/2020 Opioid dependence, on agonist therapy BH Established Patient with [facility]asia [facility]illas [facility] 11/08/2020 Opioid dependence with continuous use Me dical Substance Abuse with Ruby Dunbar [facility] 11/08/2020 Z68.24 - Body mass index [BM I] 24.0-24.9, adult Medical Substance Abuse with Ruby Dunbar [facility] 11/08/2020 Opioid dependence, on agonist therapy BH Substance Abuse with Hina Cope [facility] 10/22/2020 Allergic rhinitis Medical Substance Ab use with Ruby Dunbar [facility] 10/22/2020 Opioid dependence with continuous use Me dical Substance Abuse with Ruby Dunbar [facility] 10/22/2020 Z68.25 - Body mass index [BM I] 25.0-25.9, adult Medical Substance Abuse with Ruby Dunbar [facility] 10/22/2020 Contact dermatitis Medical Substance Ab use with Ruby Dunbar [facility] 10/08/2020 Encounter for Immunization Medical Subst ance Abuse with Ruby Dunbar [facility] 10/08/2020 Opioid dependence with continuous use Me dical Substance Abuse with Ruby Dunbar [facility] 10/08/2020 Z68.24 - Body mass index [BM I] 24.0-24.9, adult Medical Substance Abuse with Ruby Dunbar [facility] 10/08/2020 Opioid dependence, on agonist therapy BH Substance Abuse with Hina Cope [facility] 09/24/2020 COVID-19 infection Medical Substance Ab use with Ruby Dunbar [facility] 09/24/2020 Opioid dependence with continuous use Me dical Substance Abuse with Ruby Dunbar [facility] 09/24/2020 Z68.25 - Body mass index [BM I] 25.0-25.9, adult Medical Substance Abuse with Ruby Dunbar [facility] 09/24/2020 Opioid dependence with continuous use BH Substance Abuse with Hina Cope [facility] 09/10/2020 Constipation Medical Substance Ab use with Ruby Dunbar [facility] 09/10/2020 Opioid dependence with continuous use Me dical Substance Abuse with Ruby Dunbar [facility] 09/10/2020 Z68.24 - Body mass index [BM I] 24.0-24.9, adult Medical Substance Abuse with Ruby Dunbar [facility] 09/10/2020 Opioid dependence with continuous use BH Substance Abuse with Hina Cope [facility] 08/27/2020 Body mass index Medical Substance Ab use with Ruby Dunbar [employer] SUPER[employer] 08/27/2020 Nausea Medical Substance Ab use with Ruby Dunbar [facility] 08/27/2020 Opioid dependence with continuous use Me dical Substance Abuse with Ruby Dunbar [employer] 08/27/2020 Opioid dependence uncomplicated BH Subst ance Abuse with Hina Cope [facility] 08/13/2020 Opioid dependence BH [facility] Hina Padillas [facility] 08/04/2020 Body mass index [Body mass i ndex [BMI] 24.0-24.9, adult] Medical Substance Abuse with Vikki Kramer [facility] 08/04/2020 Opioid dependence with continuous use Me dical Substance Abuse with Vikki Kramer [facility] 08/04/2020 Opioid dependence with continuous use Me dical Substance Abuse with Ruby Dunbar [employer] 07/27/2020 Overweight Medical Substance Ab use with Ruby Dunbar [facility] 07/27/2020 Z68.25 - Body mass index [BM I] 25.0-25.9, adult Medical Substance Abuse with Ruby Dunbar [employer] SU[employer] 07/27/2020 Opioid dependence, on agonist therapy BH Substance Abuse with Hina Cope [facility] 07/19/2020 Psychotic disorder BH [facility] Hina Cope [facility] 07/19/2020 Opioid dependence with continuous use Me dical Substance Abuse with Ruby Dunbar [facility] 07/19/2020 Z68.24 - Body mass index [BM I] 24.0-24.9, adult Medical Substance Abuse with Ruby Dunbar [facility] 07/19/2020 Opioid dependence with continuous use BH Substance Abuse with Hina Cope [facility] 07/13/2020 Body mass index Medical Substance Ab use with Ruby Dunbar [facility] 07/13/2020 Coronary artery disease Medical Substanc e Abuse with Ruby Dunbar [facility] 07/13/2020 Opioid dependence with continuous use Me dical Substance Abuse with Ruby Dunbar [employer] 07/13/2020 Reflex neuropathic bladder Medical Subst ance Abuse with Ruby Dunbar [employer] 07/13/2020 Routine history and physical Medical Sub stance Abuse with Ruby Dunbar [employer] SUPER[employer] 07/13/2020 Opioid dependence BH Substance Abuse w ariana Vy Senior [facility] 07/06/2020 Body mass index [Body mass i ndex [BMI] 24.0-24.9, adult] Medical New Patient with Vikki Kramer [employer] 07/06/2020 Diabetes Risk Test Score was three score 07/06/2020 Medical New Patient with Vikki Williams [employer] SUPER[employer] 07/06/2020 Body mass index Walked Out NO Servic es Rendered with Ruby Dunbar [employer] SUPER[employer] 07/01/2020 [facility] Work Phone: Evaluation note Includes: Assessments for all patient encounters Findings Encounter Date Opioid dependence with continuous use Me dical Substance Abuse with Gamal Moreno [employer] SUPER[employer] 05/06/2021 Z68.27 - Body mass index [BM I] 27.0-27.9, adult Medical Substance Abuse with Jyoti Penix [employer] SUPER[employer] 05/06/2021 Nicotine dependence uncomplicated BH Sub stance Abuse with Hina Cope [facility] 04/08/2021 Opioid dependence uncomplicated BH Subst ance Abuse with Hina Cope [facility] 04/08/2021 Assessment of body mass index Medical Pina bstance Abuse with Ruby Dunbar [employer] WORKER SUPERVIS[employer] 04/08/2021 Cough Medical Substance Ab use with Ruby Dunbar [employer] SUPER[employer] 04/08/2021 Neurogenic bladder Medical Substance Ab use with Ruby Dunbar [employer] SUPER[employer]OR 04/08/2021 Opioid dependence with continuous use Me dical Substance Abuse with Ruby Dunbar [employer] SUPER[employer] 04/08/2021 Tinnitus Medical Substance Ab use with Ruby Dunbar [employer] SUPERVIS[employer] 04/08/2021 Anxiety disorder NOS Telebehavioral H ealth with Lucas Sullivan RN [employer] [facility] 03/11/2021 Nicotine dependence uncomplicated Tel ebehavioral Health with Lucas Sullivan RN [employer] 03/11/2021 Opioid dependence, on agonist therapy Telebehavioral Health with Lucas Sullivan RN [employer] [facility] 03/11/2021 Assessment of body mass index Medical Pina bstance Abuse with Ruby Dunbar [employer] SUPERVIS[employer] 03/11/2021 Neurogenic bladder Medical Substance Ab use with Ruby Dunbar [employer] WORKER SUPERVISOR 03/11/2021 Opioid dependence with continuous use Me dical Substance Abuse with Ruby Dunbar [employer] SUPER[employer] 03/11/2021 Tinnitus Medical Substance Ab use with Ruby Dunbar [employer] WORKER SUPERVISOR 03/11/2021 Opioid dependence, on agonist therapy BH Substance Abuse with Hina Cope [facility] 02/11/2021 Dependence on nicotine in ci garettes - uncomplicated Medical Substance Abuse with Nelia Stechschulte [employer] 02/11/2021 Neurogenic bladder Medical Substance Ab use with Nelia Stechschulte [employer] 02/11/2021 Opioid dependence with continuous use Me dical Substance Abuse with Nelia Stechschulte [employer] 02/11/2021 Z68.24 - Body mass index [BM I] 24.0-24.9, adult Medical Substance Abuse with Nelia Stechschulte [facility] 02/11/2021 Opioid dependence uncomplicated BH Subst ance Abuse with Hina Cope [facility] 01/14/2021 Gastroesophageal reflux dise ase with esophagitis without bleeding Medical Substance Abuse with Ruby Dunbar [facility] 01/14/2021 Neurogenic bladder Medical Substance Ab use with Ruby Dunbar [facility] 01/14/2021 Nonvenomous insect bite Medical Substanc e Abuse with Ruby Dunbar [facility] 01/14/2021 Opioid dependence with continuous use Me dical Substance Abuse with Ruby Dunbar [facility] 01/14/2021 Tinnitus Medical Substance Ab use with Ruby Dunbar [facility] 01/14/2021 Z68.25 - Body mass index [BM I] 25.0-25.9, adult Medical Substance Abuse with Ruby Dunbar [facility] 01/14/2021 Opioid dependence, on agonist therapy BH Substance Abuse with Hina Cope [facility] 12/31/2020 G89.29 - Other chronic pain Medical Subs tance Abuse with Nelia Stechschulte [facility] 12/31/2020 Opioid dependence with continuous use Me dical Substance Abuse with Nelia Stechschulte [facility] 12/31/2020 R11.0 - Nausea Medical Substance Ab use with Nelia Stechschulte [facility] 12/31/2020 Z68.24 - Body mass index [BM I] 24.0-24.9, adult Medical Substance Abuse with Nelia Stechschulte [facility] 12/31/2020 Opioid dependence, on agonist therapy BH Substance Abuse with Hina Cope [facility] 12/17/2020 PLAN Medical Substance Ab use with Johan Cedillo MD 12/17/2020 Z68.23 - Body mass index [BM I] 23.0-23.9, adult Medical Substance Abuse with Johan Cedillo MD 12/17/2020 Nicotine dependence uncomplicated BH Sub stance Abuse with Hina Cope [facility] 12/03/2020 Opioid dependence, on agonist therapy BH Substance Abuse with Hina Cope [facility] 12/03/2020 Gastroesophageal reflux dise ase with esophagitis without bleeding Medical Established Patient with Ruby Dunbar [facility] 12/03/2020 Hypothyroidism Medical Established Patient with Ruby Dunbar [facility] 12/03/2020 Intervention and counseling on cessation of tobacco use, 3-10 minutes Discussed medication and nicotine replacement for tobacco cessation Medical Established Patient with Ruby Dunbar [facility] 12/03/2020 Neurogenic bladder Medical Established Patient with Ruby Dunbar [facility] 12/03/2020 Nicotine dependence Medical Established Patient with Ruby Dunbar [facility] 12/03/2020 Opioid dependence with continuous use Me dical Established Patient with Ruby Dunbar [facility] 12/03/2020 Routine history and physical Medical Est ablished Patient with Ruby Dunbar [facility] 12/03/2020 Vitamin B12 deficiency Medical Establish ed Patient with Ruby Dunbar [facility] 12/03/2020 Vitamin D deficiency Medical Established Patient with Ruby Dunbar [facility] 12/03/2020 Nicotine dependence uncomplicated BH Sub stance Abuse with Hina Cope [facility] 11/19/2020 Opioid dependence, on agonist therapy BH Substance Abuse with Hina Cope [facility] 11/19/2020 Opioid dependence with continuous use Me dical Substance Abuse with Rubyramiro Dunbar [facility] 11/19/2020 Overweight Medical Substance Ab use with Rubyramiro Dunbar [facility] 11/19/2020 Tinnitus Medical Substance Ab use with Ruby Dunbar [facility] 11/19/2020 Z68.25 - Body mass index [BM I] 25.0-25.9, adult Medical Substance Abuse with Ruby Dunbar [facility] 11/19/2020 Opioid dependence, on agonist therapy BH Established Patient with Hina Cope [facility] 11/08/2020 Opioid dependence with continuous use Me dical Substance Abuse with Ruby Marshal [facility] 11/08/2020 Z68.24 - Body mass index [BM I] 24.0-24.9, adult Medical Substance Abuse with Ruby Marshal [facility] 11/08/2020 Opioid dependence, on agonist therapy BH Substance Abuse with Hina Cope [facility] 10/22/2020 Allergic rhinitis Medical Substance Ab use with Ruby Marshal [facility] 10/22/2020 Opioid dependence with continuous use Me dical Substance Abuse with Ruby Marshal [facility] 10/22/2020 Z68.25 - Body mass index [BM I] 25.0-25.9, adult Medical Substance Abuse with Ruby Dunbar [facility] 10/22/2020 Contact dermatitis Medical Substance Ab use with Rubyramiro Dunbar [facility] 10/08/2020 Encounter for Immunization Medical Subst ance Abuse with Ruby Dunbar [employer] SUPERVIS[employer] 10/08/2020 Opioid dependence with continuous use Me dical Substance Abuse with Ruby Dunbar [employer] WORKER SUPERVISOR 10/08/2020 Z68.24 - Body mass index [BM I] 24.0-24.9, adult Medical Substance Abuse with Ruby Dunbar [employer] SUPERVISOR 10/08/2020 Opioid dependence, on agonist therapy BH Substance Abuse with Hinanyasia Padillas [facility] 09/24/2020 COVID-19 infection Medical Substance Ab use with Ruby Dunbar [employer] SUPERVISOR 09/24/2020 Opioid dependence with continuous use Me dical Substance Abuse with Ruby Dunbar [employer] WORKER SUPERVISOR 09/24/2020 Z68.25 - Body mass index [BM I] 25.0-25.9, adult Medical Substance Abuse with Ruby Dunbar [employer]ER SUPERVISOR 09/24/2020 Opioid dependence with continuous use BH Substance Abuse with Hina Cope [facility] 09/10/2020 Constipation Medical Substance Ab use with Ruby Dunbar [employer] WORKER SUPERVISOR 09/10/2020 Opioid dependence with continuous use Me dical Substance Abuse with Ruby Dunbar [employer] SOC[employer] WORKER SUPERVISOR 09/10/2020 Z68.24 - Body mass index [BM I] 24.0-24.9, adult Medical Substance Abuse with Ruby Dunbar [employer] WORKER SUPERVISOR 09/10/2020 Opioid dependence with continuous use BH Substance Abuse with Hina Cope [facility] 08/27/2020 Body mass index Medical Substance Ab use with Ruby Dunbar [employer] WORKER SUPERVISOR 08/27/2020 Nausea Medical Substance Ab use with Ruby Dunbar [employer] WORKER SUPERVISOR 08/27/2020 Opioid dependence with continuous use Me dical Substance Abuse with Ruby Dunbar [employer] WORKER SUPERVISOR 08/27/2020 Opioid dependence uncomplicated BH Subst ance Abuse with Hina Cope [facility] 08/13/2020 Opioid dependence BH Substance Abuse w ith Hina Cope [facility] 08/04/2020 Body mass index [Body mass i ndex [BMI] 24.0-24.9, adult] Medical Substance Abuse with Vikki Kramer [employer] WORKER SUPERVISOR 08/04/2020 Opioid dependence with continuous use Me dical Substance Abuse with Vikki Kramer [employer] SOC[employer] WORKER SUPERVISOR 08/04/2020 Opioid dependence with continuous use Me dical Substance Abuse with Ruby Dunbar PS[employer] SOC[employer] WORKER SUPERVISOR 07/27/2020 Overweight Medical Substance Ab use with Ruby Dunbar [employer] SOC[employer] WORKER SUPERVISOR 07/27/2020 Z68.25 - Body mass index [BM I] 25.0-25.9, adult Medical Substance Abuse with Ruby Dunbar [employer] WORKER SUPERVISOR 07/27/2020 Opioid dependence, on agonist therapy BH Substance Abuse with Hina Bolivarmons [facility] 07/19/2020 Psychotic disorder BH Substance Abuse w ariana Bolivarmons [facility] 07/19/2020 Opioid dependence with continuous use Me dical Substance Abuse with Ruby Dunbar [employer] WORKER SUPERVISOR 07/19/2020 Z68.24 - Body mass index [BM I] 24.0-24.9, adult Medical Substance Abuse with Ruby Dunbar [employer] WORKER SUPERVISOR 07/19/2020 Opioid dependence with continuous use BH Substance Abuse with Hina Cope [facility] 07/13/2020 Body mass index Medical Substance Ab use with Ruby Dunbar [facility] 07/13/2020 Coronary artery disease Medical Substanc e Abuse with Ruby Dunbar [employer] WORKER SUPERVISOR 07/13/2020 Opioid dependence with continuous use Me dical Substance Abuse with Ruby Dunbar [facility] 07/13/2020 Reflex neuropathic bladder Medical Subst ance Abuse with Ruby Dunbar [facility] 07/13/2020 Routine history and physical Medical Sub stance Abuse with Ruby Dunbar [facility] 07/13/2020 Opioid dependence BH Substance Abuse w ariana Mcclellan Short [facility] 07/06/2020 Body mass index [Body mass i ndex [BMI] 24.0-24.9, adult] Medical New Patient with Vikki Kramer [employer] WORK[employer] SUPERVIS[employer] 07/06/2020 Diabetes Risk Test Score was three score 07/06/2020 Medical New Patient with Vikki Kramer [facility] 07/06/2020 Body mass index Walked Out NO Servic es Rendered with Ruby Dunbar [facility] 07/01/2020 [facility] Work Phone: Evaluation note* Diagnosis 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 Primary hypertension Unspecified essential hypertension Mixed hyperlipidemia Smoker Tobacco use disorder [facility] Primary hypertension- Primary Unspecified essential hypertension [facility] Diagnosis 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 [facility] Diagnosis 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 [facility] Primary hypertension Unspecified essential hypertension [facility] Diagnosis Primary hypertension Unspecified essential hypertension [facility] noteNo assessment information [facility] Work Phone: Evaluation noteNo InformationN[facility]Del[facility] [employer] Other Evaluation note* Diagnosis 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 [facility]* Diagnosis Dyslipidemia Other and unspecified hyperlipidemia Atherosclerosis of port lions coronary artery of port lions heart without angina pectoris [facility] Diagnosis Atherosclerosis of port lions coronary artery of [place] lions heart without angina pectoris [facility] Special screening for malignant neoplasm of colon- Primary Special screening for malignant neoplasms, colon [facility] Visit for annual health examination- Primary CKD (chronic kidney disease) stage 2, GFR 60-89 ml/min Chronic kidney disease, Stage II (mild) Dyslipidemia Other and unspecified hyperlipidemia Severe episode of recurrent major depressive disorder, with psychotic features ([facility]) Benzodiazepine dependence in remission ([facility]) Fatigue, unspecified type Narcotic abuse ([facility]) Opioid type dependence, unspecified abuse Chronic pain syndrome At high risk for injury related to fall [facility] Acquired hypothyroidism- Primary Unspecified hypothyroidism [facility] Diagnosis Acquired hypothyroidism- Primary Unspecified hypothyroidism [facility] N[facility] - Reported* Type Description Date Medical History high blood pressure Medical History high cholesterol Medical History anxiety Medical History opioid dependency Surgical History appendectomy Surgical History heart stent [facility] [employer] Other History of Present illness Narrative History of Present Illness not supported for this document type No History of Present Illness [facility] Work Phone: Hospital course Narrative No data available for this section [facility] No data available for this section [facility] Instructions not supported for this document type No Instructions [facility] Work Phone: InstructionsNot on filedocumented in this encounter [facility] filedocumented in this encounter [facility] on filedocumented in this encounter [facility] filedocumented in this encounter [facility] SystemInstructionsNot on filedocumented in this encounter [facility] SystemInstructionsNot on filedocumented in this encounter [facility] SystemPatient problem outcome Narrative Includes: Evaluations & Outcomes for active Goals No Outcomes [facility] Work Phone: Progress note No data available for this section [facility] CenterReason for referral (narrative)No Reason for Referral [facility] Work Phone: Reason for referral (narrative)* Diagnostic Procedure Only (Routine) - Pending Review Specialty Diagnoses / Procedures Referred By Larisa angeles Referred To Contact MOLECULAR & FUNCTIONAL IMAGING Diagnoses 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 Primary hypertension Mixed hyperlipidemia PVD (peripheral vascular disease) ([facility]) Stenosis of carotid artery, unspecified laterality Smoker Procedures NM CARDIAC PERF STRESS/PHARM MYOCARDIAL SPECT MULTIPLE STUDIES Gabriel Urbano MD [address] [place] [address] Molecular & Functional Imaging [address] [place] [address] Referral ID Status Reason Start Date Expiration Date Visits Requested Visits Authorized [id number] Pending Review Auto-Generat ed Referral 12/27/2021 01/26/2023 1 1 * Outpatient Procedure (Routine) - Authorized Specialty Diagnoses / Procedures Referred By Larisa angeles Referred To Contact [facility] Diagnoses 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 Primary hypertension Mixed hyperlipidemia Procedures ECG COMPLETE ECG ROUTINE ECG W/LEAST 12 LDS W/I&R Gabriel Urbano MD [address] [place] [address] [facility] [place] [address] [place] [address] Referral ID Status Reason Start Date Expiration Date Visits Requested Visits Authorized [id number] Authorized Auto-Generat ed Referral 12/27/2021 12/27/2022 1 1 [facility] Narrative - Reported Review of Systems not supported for this document type No Review of Systems [facility] Work Phone: Summary Purpose Family History Description Last Updated Maternal history of oncologic disorder e sophageal ca 07/01/2020 Paternal history of oncologic disorder t hroat ca 07/01/2020 Sororal history of oncologic disorder sheeba ng ca 07/01/2020 Advance Directives Documents on File Type Date Recorded Patient Rn Training Expl anation ACP-Advance Directive ACP-Power of Gas Meter Installer Helper Latest Code Status on File Code Status Date Activated Date Inactivated Comments Full Code 09/20/2017 9:55 PM 10/01/2017 9:08 AM Full Code 11/06/2016 8:58 PM 11/27/2016 1:25 PM Full Code 11/06/2016 8:56 PM 11/06/2016 8:58 PM Full Code 11/22/2013 4:16 PM 12/29/2013 6:24 PM Full Code 11/22/2013 7:23 AM 11/22/2013 4:16 PM Documents on File Type Date Recorded Patient Rn Training Expl anation ACP-Advance Directive ACP-Power of Gas Meter Installer Helper Latest Code Status on File Code Status Date Activated Date Inactivated Comments Full Code 09/20/2017 9:55 PM 10/01/2017 9:08 AM Full Code 11/06/2016 8:58 PM 11/27/2016 1:25 PM Full Code 11/06/2016 8:56 PM 11/06/2016 8:58 PM Full Code 11/22/2013 4:16 PM 12/29/2013 6:24 PM Full Code 11/22/2013 7:23 AM 11/22/2013 4:16 PM Latest Code Status on File Code Status Date Activated Date Inactivated Comments Full Code 09/02/2020 2:39 PM Full Code 09/02/2020 12:59 PM 09/02/2020 2:39 PM Full Code 09/20/2017 9:55 PM 10/01/2017 9:08 AM Latest Code Status on File Code Status Date Activated Date Inactivated Comments Full Code 09/02/2020 2:39 PM 09/02/2020 8:48 PM Full Code 09/02/2020 12:59 PM 09/02/2020 2:39 PM Full Code 09/20/2017 9:55 PM 10/01/2017 9:08 AM Advance Directive Response Recorded Date/ Time Advance Directives No November 17 8 1:30pm Reason for Referral Status Reason Specialty Diagnoses / Procedures Referred By Contact Referred To Contact Pending Review Diagnoses Atypical chest pain PVC (premature ventricular contraction) 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 S/P angioplasty with stent Essential hypertension Mixed hyperlipidemia Tobacco abuse counseling Procedures Continuous cardiac monitoring, >2 up to 14 days Tawnya Higgins MD [address] [place] [address] [place] [id number] Assessments Findings Encounter Date Body mass index Walked Out NO Services Rendered with Ruby Dunbar [facility] 07/01/2020 Findings Encounter Date Opioid dependence BH [facility] Vy Senior [facility] 07/06/2020 Body mass index [Body mass i ndex [BMI] 24.0-24.9, adult] Medical New Patient with Vikki Williams [facility] 07/06/2020 Diabetes Risk Test Score was three score 07/06/2020 Medical New Patient with Vikki Grafer [facility] 07/06/2020 Body mass index Walked Out NO Servic es Rendered with Ruby Dunbar [facility] 07/01/2020 Findings Encounter Date Opioid dependence with continuous use BH Substance Abuse with Hina Cope [facility] 07/13/2020 Body mass index Medical Substance Ab use with Ruby Dunbar [facility] 07/13/2020 Coronary artery disease Medical Substanc e Abuse with Ruby Dunbar [facility] 07/13/2020 Opioid dependence with continuous use Me dical Substance Abuse with Ruby Dunbar [facility] 07/13/2020 Reflex neuropathic bladder Medical Subst ance Abuse with Ruby Dunbar [facility] 07/13/2020 Routine history and physical Medical Sub stance Abuse with Ruby Dunbar [facility] 07/13/2020 Opioid dependence BH [facility] Vy Senior [facility] 07/06/2020 Body mass index [Body mass i ndex [BMI] 24.0-24.9, adult] Medical New Patient with Vikki Kramer [employer] 07/06/2020 Diabetes Risk Test Score was three score 07/06/2020 Medical New Patient with Vikki Kramer [employer] 07/06/2020 Body mass index Walked Out NO Servic es Rendered with Ruby Dunbar [facility] 07/01/2020 Findings Encounter Date Opioid dependence, on agonist therapy BH Substance Abuse with Hina Bolivarmons [facility] 07/19/2020 Psychotic disorder BH Substance Abuse w ariana Bolivarmons [facility] 07/19/2020 Opioid dependence with continuous use Me dical Substance Abuse with Ruby Dunbar [facility] 07/19/2020 Z68.24 - Body mass index [BM I] 24.0-24.9, adult Medical Substance Abuse with Ruby Dunbar [facility] 07/19/2020 Opioid dependence with continuous use BH Substance Abuse with Hinanyasia Cope [facility] 07/13/2020 Body mass index Medical Substance Ab use with Ruby Dunbar [facility] 07/13/2020 Coronary artery disease Medical Substanc e Abuse with Ruby Dunbar [facility] 07/13/2020 Opioid dependence with continuous use Me dical Substance Abuse with Ruby Dunbar [facility] 07/13/2020 Reflex neuropathic bladder Medical Subst ance Abuse with Ruby Dunbar [facility] 07/13/2020 Routine history and physical Medical Sub stance Abuse with Ruby Dunbar [facility] 07/13/2020 Opioid dependence BH Substance Abuse w ariana Senior [facility] 07/06/2020 Body mass index [Body mass i ndex [BMI] 24.0-24.9, adult] Medical New Patient with Vikki Kramer [facility] 07/06/2020 Diabetes Risk Test Score was three score 07/06/2020 Medical New Patient with Vikki Grafer [facility] 07/06/2020 Body mass index Walked Out NO Servic es Rendered with Ruby Dunbar [facility] 07/01/2020 Findings Encounter Date Opioid dependence with continuous use Me dical Substance Abuse with Ruby Dunbar [employer] WORKER SUPERVISOR 07/27/2020 Overweight Medical Substance Ab use with Ruby Dunbar [facility] 07/27/2020 Z68.25 - Body mass index [BM I] 25.0-25.9, adult Medical Substance Abuse with Ruby Dunbar [facility] 07/27/2020 Opioid dependence, on agonist therapy BH Substance Abuse with Hina Cope [facility] 07/19/2020 Psychotic disorder BH Substance Abuse w ith Hina Prisca [facility] 07/19/2020 Opioid dependence with continuous use Me dical Substance Abuse with Ruby Dunbar [facility] 07/19/2020 Z68.24 - Body mass index [BM I] 24.0-24.9, adult Medical Substance Abuse with Ruby Dunbar [facility] 07/19/2020 Opioid dependence with continuous use BH Substance Abuse with Hinanyasia Cope [facility] 07/13/2020 Body mass index Medical Substance Ab use with Ruby Dunbar [facility] 07/13/2020 Coronary artery disease Medical Substanc e Abuse with Ruby Dunbar [facility] 07/13/2020 Opioid dependence with continuous use Me dical Substance Abuse with Ruby Dnubar [facility] 07/13/2020 Reflex neuropathic bladder Medical Subst ance Abuse with Ruby Dunbar [facility] 07/13/2020 Routine history and physical Medical Sub stance Abuse with Ruby Dunbar [facility] 07/13/2020 Opioid dependence BH Substance Abuse w ariana Senior [facility] 07/06/2020 Body mass index [Body mass i ndex [BMI] 24.0-24.9, adult] Medical New Patient with Vikki Kramer [facility] 07/06/2020 Diabetes Risk Test Score was three score 07/06/2020 Medical New Patient with Vikki Kramer [facility] 07/06/2020 Body mass index Walked Out NO Servic es Rendered with Ruby Dunbar [facility] 07/01/2020 Findings Encounter Date Opioid dependence BH Substance Abuse w ith Hina Prisca [facility] 08/04/2020 Body mass index [Body mass i ndex [BMI] 24.0-24.9, adult] Medical Substance Abuse with Vikki Kramer [employer] SUPERVISOR 08/04/2020 Opioid dependence with continuous use Me dical Substance Abuse with Vikki Kramer [employer] WORKER SUPERVISOR 08/04/2020 Opioid dependence with continuous use Me dical Substance Abuse with Ruby Dunbar [employer] SUPER[employer] 07/27/2020 Overweight Medical Substance Ab use with Ruby Dunbar [employer] WORK[employer] SUPERVISOR 07/27/2020 Z68.25 - Body mass index [BM I] 25.0-25.9, adult Medical Substance Abuse with Ruby Dunbar [employer] SUPER[employer] 07/27/2020 Opioid dependence, on agonist therapy BH Substance Abuse with Hina Cope [facility] 07/19/2020 Psychotic disorder BH Substance Abuse w ith Hina Bolivarmons [facility] 07/19/2020 Opioid dependence with continuous use Me dical Substance Abuse with Ruby Dunbar [employer] SUPER[employer] 07/19/2020 Z68.24 - Body mass index [BM I] 24.0-24.9, adult Medical Substance Abuse with Ruby Dunbar [employer] SUPER[employer] 07/19/2020 Opioid dependence with continuous use BH Substance Abuse with Hina Bolivarmons [facility] 07/13/2020 Body mass index Medical Substance Ab use with Ruby Dunbar [employer] SUPER[employer] 07/13/2020 Coronary artery disease Medical Substanc e Abuse with Ruby Dunbar [employer] WORK[employer] SUPERVISOR 07/13/2020 Opioid dependence with continuous use Me dical Substance Abuse with Ruby Dunbar [employer] WORK[employer] SUPERVISOR 07/13/2020 Reflex neuropathic bladder Medical Subst ance Abuse with Ruby Dunbar [employer] WORKER SUPERVISOR 07/13/2020 Routine history and physical Medical Sub stance Abuse with Ruby Dunbar [employer] WORKER SUPERVISOR 07/13/2020 Opioid dependence BH Substance Abuse w ariana RydreVymilo [facility] 07/06/2020 Body mass index [Body mass i ndex [BMI] 24.0-24.9, adult] Medical New Patient with Vikki Kramer [employer] WORK[employer] SUPERVISOR 07/06/2020 Diabetes Risk Test Score was three score 07/06/2020 Medical New Patient with Vikki Williams [employer] WORKER SUPERVISOR 07/06/2020 Body mass index Walked Out NO Servic es Rendered with Ruby Dunbar [employer] WORKER SUPERVISOR 07/01/2020 Findings Encounter Date Opioid dependence uncomplicated BH Subst ance Abuse with Hina Bolivarmons [facility] 08/13/2020 Opioid dependence BH Substance Abuse w ith Hina Bolivarmons [facility] 08/04/2020 Body mass index [Body mass i ndex [BMI] 24.0-24.9, adult] Medical Substance Abuse with Vikki Williams PS[employer] SOC[employer] WORKER SUPERVISOR 08/04/2020 Opioid dependence with continuous use Me dical Substance Abuse with Vikki Williams [employer] WORKER SUPERVISOR 08/04/2020 Opioid dependence with continuous use Me dical Substance Abuse with Ruby Dunbar [employer] WORK[employer] SUPERVISOR 07/27/2020 Overweight Medical Substance Ab use with Ruby Dunbar [employer] WORKER SUPERVISOR 07/27/2020 Z68.25 - Body mass index [BM I] 25.0-25.9, adult Medical Substance Abuse with Ruby Dunbar [employer] WORK[employer] SUPERVISOR 07/27/2020 Opioid dependence, on agonist therapy BH Substance Abuse with Hina Cope [facility] 07/19/2020 Psychotic disorder BH Substance Abuse w ariana Jeanjarrett Cope [facility] 07/19/2020 Opioid dependence with continuous use Me dical Substance Abuse with Ruby Dunbar [employer] WORK[employer] SUPERVIS[employer] 07/19/2020 Z68.24 - Body mass index [BM I] 24.0-24.9, adult Medical Substance Abuse with Ruby Dunbar [employer] WORK[employer] SUPERVIS[employer] 07/19/2020 Opioid dependence with continuous use BH Substance Abuse with Hina Cope [facility] 07/13/2020 Body mass index Medical Substance Ab use with Ruby Dunbar [employer] WORKER SUPERVISOR 07/13/2020 Coronary artery disease Medical Substanc e Abuse with Ruby Dunbar [employer] SOC[employer] WORKER SUPERVISOR 07/13/2020 Opioid dependence with continuous use Me dical Substance Abuse with Ruby Dunbar [employer] WORKER SUPERVISOR 07/13/2020 Reflex neuropathic bladder Medical Subst ance Abuse with Ruby Dunbar [employer] SOC[employer] WORKER SUPERVISOR 07/13/2020 Routine history and physical Medical Sub stance Abuse with Ruby Dunbar [employer] SOC[employer] WORKER SUPERVISOR 07/13/2020 Opioid dependence BH Substance Abuse w ariana Senior [facility] 07/06/2020 Body mass index [Body mass i ndex [BMI] 24.0-24.9, adult] Medical New Patient with Vikki Kramer [employer] WORKER SUPERVISOR 07/06/2020 Diabetes Risk Test Score was three score 07/06/2020 Medical New Patient with Vikki Kramer [employer] SOC[employer] WORKER SUPERVISOR 07/06/2020 Body mass index Walked Out NO Servic es Rendered with Ruby Dunbar [employer] SOC[employer] WORKER SUPERVISOR 07/01/2020 Diagnosis Atypical chest pain Other chest pain PVC (premature ventricular contraction) Other premature beats 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 S/P angioplasty with stent Postsurgical percutaneous transluminal coronary angioplasty status Essential hypertension Unspecified essential hypertension Mixed hyperlipidemia Tobacco abuse counseling Counseling on substance use and abuse Findings Encounter Date Opioid dependence with continuous use BH Substance Abuse with Hina Cope [facility] 08/27/2020 Body mass index Medical Substance Ab use with Ruby Dunbar [employer] WORKER SUPERVISOR 08/27/2020 Nausea Medical Substance Ab use with Ruby Dunbar [employer] WORKER SUPERVISOR 08/27/2020 Opioid dependence with continuous use Me dical Substance Abuse with Ruby Dunbar [employer] WORKER SUPERVISOR 08/27/2020 Opioid dependence uncomplicated BH Subst ance Abuse with Hina Cope [facility] 08/13/2020 Opioid dependence BH Substance Abuse w ith Hina Bolivarmons [facility] 08/04/2020 Body mass index [Body mass i ndex [BMI] 24.0-24.9, adult] Medical Substance Abuse with Vikki Kramer PS[employer]IC SOCIAL WORKER SUPERVISOR 08/04/2020 Opioid dependence with continuous use Me dical Substance Abuse with Vikki Kramer [employer] SOC[employer] WORKER SUPERVISOR 08/04/2020 Opioid dependence with continuous use Me dical Substance Abuse with Ruby Dunbar [employer] WORKER SUPERVISOR 07/27/2020 Overweight Medical Substance Ab use with Ruby Dunbar [facility] 07/27/2020 Z68.25 - Body mass index [BM I] 25.0-25.9, adult Medical Substance Abuse with Ruby Dunbar [employer] SOC[employer] WORKER SUPERVISOR 07/27/2020 Opioid dependence, on agonist therapy BH Substance Abuse with Hinanyasia Cope [facility] 07/19/2020 Psychotic disorder BH Substance Abuse w ith Hinanyasia Cope [facility] 07/19/2020 Opioid dependence with continuous use Me dical Substance Abuse with Ruby Dunbar [facility] 07/19/2020 Z68.24 - Body mass index [BM I] 24.0-24.9, adult Medical Substance Abuse with Ruby Dunbar [facility] 07/19/2020 Opioid dependence with continuous use BH Substance Abuse with Hina Cope [facility] 07/13/2020 Body mass index Medical Substance Ab use with Ruby Dunbar [employer] WORK[employer] SUPERVIS[employer] 07/13/2020 Coronary artery disease Medical Substanc e Abuse with Ruby Dunbar [facility] 07/13/2020 Opioid dependence with continuous use Me dical Substance Abuse with Ruby Dunbar [employer] WORKER SUPERVISOR 07/13/2020 Reflex neuropathic bladder Medical Subst ance Abuse with Ruby Dunbar [facility] 07/13/2020 Routine history and physical Medical Sub stance Abuse with Ruby Dunbar [facility] 07/13/2020 Opioid dependence BH Substance Abuse w ith Vy Nadeen [facility] 07/06/2020 Body mass index [Body mass i ndex [BMI] 24.0-24.9, adult] Medical New Patient with Vikki Williams [employer] WORKER SUPERVISOR 07/06/2020 Diabetes Risk Test Score was three score 07/06/2020 Medical New Patient with Vikki Kramer [employer] WORKER SUPERVISOR 07/06/2020 Body mass index Walked Out NO Servic es Rendered with Ruby Dunbar [employer] WORKER SUPERVISOR 07/01/2020 Diagnosis Abnormal stress test Other nonspecific abnormal cardiovascular system function study Atypical chest pain Other chest pain Diagnosis Abnormal result of other cardiovascular function study- Primary Findings Encounter Date Opioid dependence with continuous use BH Substance Abuse with Hina Cope [facility] 09/10/2020 Constipation Medical Substance Ab use with Ruby Dunbar [employer] WORK[employer] SUPERVISOR 09/10/2020 Z68.24 - Body mass index [BM I] 24.0-24.9, adult Medical Substance Abuse with Ruby Dunbar [employer] SUPERVIS[employer] 09/10/2020 Opioid dependence with continuous use BH Substance Abuse with Hina Cope [facility] 08/27/2020 Body mass index Medical Substance Ab use with Ruby Dunbar [employer] SUPERVIS[employer] 08/27/2020 Nausea Medical Substance Ab use with Ruby Dunbar [employer] WORK[employer] SUPERVISOR 08/27/2020 Opioid dependence with continuous use Me dical Substance Abuse with Ruby Dunbar [employer] WORK[employer] SUPERVISOR 08/27/2020 Opioid dependence uncomplicated BH Subst ance Abuse with Hina Cope [facility] 08/13/2020 Opioid dependence BH Substance Abuse w ith Hinanyasia Cope [facility] 08/04/2020 Body mass index [Body mass i ndex [BMI] 24.0-24.9, adult] Medical Substance Abuse with Vikki Kramer [facility] 08/04/2020 Opioid dependence with continuous use Me dical Substance Abuse with Vikki Kramer [facility] 08/04/2020 Opioid dependence with continuous use Me dical Substance Abuse with Ruby Dunbar [employer] WORKER SUPERVISOR 07/27/2020 Overweight Medical Substance Ab use with Ruby Dunbar [employer] WORKER SUPERVISOR 07/27/2020 Z68.25 - Body mass index [BM I] 25.0-25.9, adult Medical Substance Abuse with Ruby Dunbar [employer] WORKER SUPERVISOR 07/27/2020 Opioid dependence, on agonist therapy BH Substance Abuse with Hina Cope [facility] 07/19/2020 Psychotic disorder BH Substance Abuse w ith Hinanyasia Cope [facility] 07/19/2020 Opioid dependence with continuous use Me dical Substance Abuse with Ruby Dunbar [employer] WORKER SUPERVISOR 07/19/2020 Z68.24 - Body mass index [BM I] 24.0-24.9, adult Medical Substance Abuse with Ruby Dunbar [employer] WORKER SUPERVISOR 07/19/2020 Opioid dependence with continuous use BH Substance Abuse with Hina Cope [facility] 07/13/2020 Body mass index Medical Substance Ab use with Ruby Dunbar [facility] 07/13/2020 Coronary artery disease Medical Substanc e Abuse with Ruby Dunbar [employer] WORKER SUPERVISOR 07/13/2020 Opioid dependence with continuous use Me dical Substance Abuse with Ruby Dunbar [employer] WORK[employer] SUPERVISOR 07/13/2020 Reflex neuropathic bladder Medical Subst ance Abuse with Ruby Dunbar [employer] WORKER SUPERVISOR 07/13/2020 Routine history and physical Medical Sub stance Abuse with Ruby Dunbar [employer] WORKER SUPERVISOR 07/13/2020 Opioid dependence BH Substance Abuse w ith Vy Short [facility] 07/06/2020 Body mass index [Body mass i ndex [BMI] 24.0-24.9, adult] Medical New Patient with Vikki Kramer [facility] 07/06/2020 Diabetes Risk Test Score was three score 07/06/2020 Medical New Patient with Vikki Williams [facility] 07/06/2020 Body mass index Walked Out NO Servic es Rendered with Ruby Dunbar [facility] 07/01/2020 Findings Encounter Date Opioid dependence with continuous use BH Substance Abuse with Hina Cope [facility] 09/10/2020 Constipation Medical Substance Ab use with Ruby Dunbar [employer] SUPERVIS[employer] 09/10/2020 Opioid dependence with continuous use Me dical Substance Abuse with Ruby Dunbar [facility] 09/10/2020 Z68.24 - Body mass index [BM I] 24.0-24.9, adult Medical Substance Abuse with Ruby Dunbar [employer] SUPERVIS[employer] 09/10/2020 Opioid dependence with continuous use BH Substance Abuse with Hina Cope [facility] 08/27/2020 Body mass index Medical Substance Ab use with Ruby Dunbar [employer] SUPER[employer] 08/27/2020 Nausea Medical Substance Ab use with Ruby Dunbar [employer] SUPERVIS[employer] 08/27/2020 Opioid dependence with continuous use Me dical Substance Abuse with Ruby Dunbar [employer] SUPER[employer] 08/27/2020 Opioid dependence uncomplicated BH Subst ance Abuse with Hina Cope [facility] 08/13/2020 Opioid dependence BH Substance Abuse w ith Hina Cope [facility] 08/04/2020 Body mass index [Body mass i ndex [BMI] 24.0-24.9, adult] Medical Substance Abuse with Vikki Kramer [employer] WORKER SUPERVISOR 08/04/2020 Opioid dependence with continuous use Me dical Substance Abuse with Vikki Kramer [employer] SOC[employer] WORKER SUPERVISOR 08/04/2020 Opioid dependence with continuous use Me dical Substance Abuse with Ruby Dunbar [employer] WORKER SUPERVISOR 07/27/2020 Overweight Medical Substance Ab use with Ruby Dunbar [facility] 07/27/2020 Z68.25 - Body mass index [BM I] 25.0-25.9, adult Medical Substance Abuse with Ruby Dunbar [employer] SUPERVIS[employer] 07/27/2020 Opioid dependence, on agonist therapy BH Substance Abuse with Hina Cope [facility] 07/19/2020 Psychotic disorder BH Substance Abuse w ith Hina Cope [facility] 07/19/2020 Opioid dependence with continuous use Me dical Substance Abuse with Ruby Dunbar [facility] 07/19/2020 Z68.24 - Body mass index [BM I] 24.0-24.9, adult Medical Substance Abuse with Ruby Dunbar [facility] 07/19/2020 Opioid dependence with continuous use BH Substance Abuse with Hina Cope [facility] 07/13/2020 Body mass index Medical Substance Ab use with Ruby Dunbar [facility] 07/13/2020 Coronary artery disease Medical Substanc e Abuse with Ruby Dunbar [facility] 07/13/2020 Opioid dependence with continuous use Me dical Substance Abuse with Ruby Dunbar [facility] 07/13/2020 Reflex neuropathic bladder Medical Subst ance Abuse with Ruby Dunbar [facility] 07/13/2020 Routine history and physical Medical Sub stance Abuse with Ruby Dunbar [facility] 07/13/2020 Opioid dependence BH Substance Abuse w ariana Mcclellan [facility] 07/06/2020 Body mass index [Body mass i ndex [BMI] 24.0-24.9, adult] Medical New Patient with Vikki Kramer [facility] 07/06/2020 Diabetes Risk Test Score was three score 07/06/2020 Medical New Patient with Vikki Williams [facility] 07/06/2020 Body mass index Walked Out NO Servic es Rendered with Ruby Dunbar [facility] 07/01/2020 Findings Encounter Date Opioid dependence, on agonist therapy BH Substance Abuse with Hina Cope [facility] 09/24/2020 COVID-19 infection Medical Substance Ab use with Ruby Dunbar [facility] 09/24/2020 Opioid dependence with continuous use Me dical Substance Abuse with Ruby Dunbar [facility] 09/24/2020 Z68.25 - Body mass index [BM I] 25.0-25.9, adult Medical Substance Abuse with Ruby Dunbar [employer] 09/24/2020 Opioid dependence with continuous use BH Substance Abuse with Hina Prisca [facility] 09/10/2020 Constipation Medical Substance Ab use with Ruby Dunbar [employer] 09/10/2020 Opioid dependence with continuous use Me dical Substance Abuse with Ruby Dunbar [employer] 09/10/2020 Z68.24 - Body mass index [BM I] 24.0-24.9, adult Medical Substance Abuse with Ruby Dunbar [employer] 09/10/2020 Opioid dependence with continuous use BH Substance Abuse with Hina Cope [facility] 08/27/2020 Body mass index Medical Substance Ab use with Ruby Dunbar [employer] 08/27/2020 Nausea Medical Substance Ab use with Ruby Dunbar [employer] 08/27/2020 Opioid dependence with continuous use Me dical Substance Abuse with Ruby Dunbar [employer] 08/27/2020 Opioid dependence uncomplicated BH Subst ance Abuse with Hina Cope [facility] 08/13/2020 Opioid dependence BH Substance Abuse w ith Hina Cope [facility] 08/04/2020 Body mass index [Body mass i ndex [BMI] 24.0-24.9, adult] Medical Substance Abuse with Vikki Kramer [employer] 08/04/2020 Opioid dependence with continuous use Me dical Substance Abuse with Vikki Kramer [employer] 08/04/2020 Opioid dependence with continuous use Me dical Substance Abuse with Ruby Dunbar [employer] 07/27/2020 Overweight Medical Substance Ab use with Ruby Dunbar [employer] 07/27/2020 Z68.25 - Body mass index [BM I] 25.0-25.9, adult Medical Substance Abuse with Ruby Dunbar [employer] 07/27/2020 Opioid dependence, on agonist therapy BH Substance Abuse with Hina Cope [facility] 07/19/2020 Psychotic disorder BH Substance Abuse w ith Hina Cope [facility] 07/19/2020 Opioid dependence with continuous use Me dical Substance Abuse with Ruby Dunbar [employer] 07/19/2020 Z68.24 - Body mass index [BM I] 24.0-24.9, adult Medical Substance Abuse with Ruby Dunbar [employer] 07/19/2020 Opioid dependence with continuous use BH Substance Abuse with Hina Cope [facility] 07/13/2020 Body mass index Medical Substance Ab use with Ruby Dunbar [employer] 07/13/2020 Coronary artery disease Medical Substanc e Abuse with Ruby Dunbar [facility] 07/13/2020 Opioid dependence with continuous use Me dical Substance Abuse with Ruby Dunbar [facility] 07/13/2020 Reflex neuropathic bladder Medical Subst ance Abuse with Ruby Dunbar [facility] 07/13/2020 Routine history and physical Medical Sub stance Abuse with Ruby Dunbar [facility] 07/13/2020 Opioid dependence BH Substance Abuse w ariana Mcclellan Short [facility] 07/06/2020 Body mass index [Body mass i ndex [BMI] 24.0-24.9, adult] Medical New Patient with Vikki Kramer [facility] 07/06/2020 Diabetes Risk Test Score was three score 07/06/2020 Medical New Patient with Vikki Kramer [facility] 07/06/2020 Body mass index Walked Out NO Servic es Rendered with Ruby Dunbar [facility] 07/01/2020 Instructions Instructions not supported for this document type No Instructions Recorded Instructions not supported for this document type No Instructions Recorded Instructions not supported for this document type No Instructions Recorded Instructions not supported for this document type No Instructions Recorded Instructions not supported for this document type No Instructions Recorded Instructions not supported for this document type No Instructions Recorded Instructions not supported for this document type No Instructions Recorded Instructions not supported for this document type No Instructions Recorded Instructions not supported for this document type No Instructions Recorded Instructions not supported for this document type No Instructions Recorded Instructions not supported for this document type No Instructions Recorded Instructions not supported for this document type No Instructions Recorded Instructions not supported for this document type No Instructions Recorded Instructions not supported for this document type No Instructions Recorded Instructions not supported for this document type No Instructions Recorded Instructions not supported for this document type No Instructions Recorded Instructions not supported for this document type No Instructions Recorded Instructions not supported for this document type No Instructions Recorded History of Present Illness History of Present Illness not supported for this document type No History of Present Illness Recorded History of Present Illness not supported for this document type No History of Present Illness Recorded History of Present Illness not supported for this document type No History of Present Illness Recorded History of Present Illness not supported for this document type No History of Present Illness Recorded History of Present Illness not supported for this document type No History of Present Illness Recorded History of Present Illness not supported for this document type No History of Present Illness Recorded History of Present Illness not supported for this document type No History of Present Illness Recorded History of Present Illness not supported for this document type No History of Present Illness Recorded History of Present Illness not supported for this document type No History of Present Illness Recorded History of Present Illness not supported for this document type No History of Present Illness Recorded History of Present Illness not supported for this document type No History of Present Illness Recorded History of Present Illness not supported for this document type No History of Present Illness Recorded History of Present Illness not supported for this document type No History of Present Illness Recorded* Yumiko Landry RN - 09/02/2020 4:19 PM EST Discharge instructions given to patient, voices understanding. * Yumiko Landry RN - 09/02/2020 3:35 PM EST Patient discharged to home per transportation service. Patient ambulatory and has all belongings. documented in this encounter History of Present Illness not supported for this document type No History of Present Illness Recorded History of Present Illness not supported for this document type No History of Present Illness Recorded History of Present Illness not supported for this document type No History of Present Illness Recorded History of Present Illness not supported for this document type No History of Present Illness Recorded History of Present Illness not supported for this document type No History of Present Illness Recorded Review of System Review of Systems not supported for this document type No Review of Systems Recorded Review of Systems not supported for this document type No Review of Systems Recorded Review of Systems not supported for this document type No Review of Systems Recorded Review of Systems not supported for this document type No Review of Systems Recorded Review of Systems not supported for this document type No Review of Systems Recorded Review of Systems not supported for this document type No Review of Systems Recorded Review of Systems not supported for this document type No Review of Systems Recorded Review of Systems not supported for this document type No Review of Systems Recorded Review of Systems not supported for this document type No Review of Systems Recorded Review of Systems not supported for this document type No Review of Systems Recorded Review of Systems not supported for this document type No Review of Systems Recorded Review of Systems not supported for this document type No Review of Systems Recorded Review of Systems not supported for this document type No Review of Systems Recorded Review of Systems not supported for this document type No Review of Systems Recorded Review of Systems not supported for this document type No Review of Systems Recorded Review of Systems not supported for this document type No Review of Systems Recorded Review of Systems not supported for this document type No Review of Systems Recorded Review of Systems not supported for this document type No Review of Systems Recorded Physical Exam Physical Exam not supported for this document type No Physical Exam Recorded Physical Exam not supported for this document type No Physical Exam Recorded Physical Exam not supported for this document type No Physical Exam Recorded Physical Exam not supported for this document type No Physical Exam Recorded Physical Exam not supported for this document type No Physical Exam Recorded Physical Exam not supported for this document type No Physical Exam Recorded Physical Exam not supported for this document type No Physical Exam Recorded Physical Exam not supported for this document type No Physical Exam Recorded Physical Exam not supported for this document type No Physical Exam Recorded Physical Exam not supported for this document type No Physical Exam Recorded Physical Exam not supported for this document type No Physical Exam Recorded Physical Exam not supported for this document type No Physical Exam Recorded Physical Exam not supported for this document type No Physical Exam Recorded Physical Exam not supported for this document type No Physical Exam Recorded Physical Exam not supported for this document type No Physical Exam Recorded Physical Exam not supported for this document type No Physical Exam Recorded Physical Exam not supported for this document type No Physical Exam Recorded Physical Exam not supported for this document type No Physical Exam Recorded Physical Exam not supported for this document type No Physical Exam Recorded Physical Exam not supported for this document type No Physical Exam Recorded Physical Exam not supported for this document type No Physical Exam Recorded Physical Exam not supported for this document type No Physical Exam Recorded Physical Exam not supported for this document type No Physical Exam Recorded Physical Exam not supported for this document type No Physical Exam Recorded Physical Exam not supported for this document type No Physical Exam Recorded Physical Exam not supported for this document type No Physical Exam Recorded Physical Exam not supported for this document type No Physical Exam Recorded Physical Exam not supported for this document type No Physical Exam Recorded Physical Exam not supported for this document type No Physical Exam Recorded Physical Exam not supported for this document type No Physical Exam Recorded Physical Exam not supported for this document type No Physical Exam Recorded Physical Exam not supported for this document type No Physical Exam Recorded Physical Exam not supported for this document type No Physical Exam Recorded Physical Exam not supported for this document type No Physical Exam Recorded Physical Exam not supported for this document type No Physical Exam Recorded Physical Exam not supported for this document type No Physical Exam Recorded Physical Exam not supported for this document type No Physical Exam Recorded Physical Exam not supported for this document type No Physical Exam Recorded Physical Exam not supported for this document type No Physical Exam Recorded Physical Exam not supported for this document type No Physical Exam Recorded Physical Exam not supported for this document type No Physical Exam Recorded Physical Exam not supported for this document type No Physical Exam Recorded Physical Exam not supported for this document type No Physical Exam Recorded Physical Exam not supported for this document type No Physical Exam Recorded Discharge Instructions * Instructions* Rhoda Barclay RN - 09/02/2020 Discharge Instructions for Cardiac Catheterization A cardiac catheterization is a diagnostic test used to evaluate the health of the heart and its blood vessels. The test is done with a thin catheter carefully threaded into your heart from a leg or arm artery. Most likely, you will be allowed to go home the same day as the procedure. Steps to Take at Home: Pain- apply ice to site 15-20 minutes every hour for the first 2 days. Showering is okay 24 hours after procedure. No soaking in a pool, hot tub, bath tub, or standing water for one week. Bleeding (outward or under the skin-hematoma)- apply firm pressure for 10-15 minutes or until the bleeding stops, then call your doctor. If unable to get bleeding stopped, call 911. Kidney damage- Call if you urinate less than normal, have swelling or feel puffy, and/or gain 2 or more pounds over night in the first week. If procedure was in ARM: You were instructed to keep wrist straight and still for two hours after the procedure. The arm andhand may now be used for normal daily activities except, avoid using the heal of hand while gettingup and down from furniture for the first few days. Keep affected arm elevated, hand higher than elbow, while pressure dressing in place to decrease swelling. Pressure device: Remove in 4 hours as follows: TIME: 8:30 PM Remove 1 piece of tape at a time, waiting 15 -20 minutes between layers to monitor for bleeding. If dressing sticks, place wrist under cool running water to help loosen gauze from site then pat site dry. If hand feels numb, tingly, and/or cold- loosen first 1-2 layers of tape if dressing still in place. If no relief noticed, remove pressure dressing as per above instructions. Seek medical help ifno relief or if dressing already off. Wash area with soap and water daily while leaving it open to air, no bandaids or ointment. Diet Drink plenty of fluids after the test to flush the x-ray dye from your system. Return to your normal diet. No alcoholic beverages for 24 hours after the procedure. Physical Activity The sedative will make you sleepy. Rest until the effects have worn off. Nausea and vomiting from the sedative is normal and usually does not last long. Ask your doctor when you will be able to return to work. Do not drive, operate machinery, do anything that requires attention to detail, or sign important papers for at least 24 hours or until your doctor says it is safe. Avoid heavy lifting, physically demanding activities, and sexual activity for 2- 3 days. Lift nothing over 10 pounds (a gallon of milk is 8 pounds). Do not sit for long periods of time. Try to change positions frequently. Medications Resume taking your normal medicines as advised. Use acetaminophen (Tylenol) for pain relief. (Avoid anti-inflammatory drugs such as- ibuprofen (Advil, Motrin), naproxen sodium (Aleve), Excedrin for a few days) If you had to stop taking these medications before the procedure, ask your doctor when you can resume taking them: Anti-inflammatory drugs Blood thinners, such as warfarin (Coumadin) If you are taking medicines, follow these general guidelines: Take your medicine as directed. Do not change the amount or the schedule. Do not stop taking them without talking to your doctor. Do not share them. Know the side effects and report any to your doctor. Some drugs can be dangerous when mixed. Talk to a doctor or pharmacist if you are taking more than one drug. This includes [id number] medicine and herb or dietary supplements. Plan ahead for refills so you don't run out. Follow-up The test results are available right after the procedure. At that point, the doctor will discuss the findings and suggest appropriate treatment options. In some cases, the results can indicate an immediate need for surgery. Schedule a follow-up appointment as directed by your doctor. Call Your Doctor If Any of the Following Occurs Signs of infection- including fever and chills Redness, swelling, increasing pain, feels warm to touch, red streak forming from site, or any discharge from the procedure site. Call 911 If Any of the Following Occurs Drooping facial muscles Changes in vision or speech Difficulty walking or using your limbs Change in sensation, including numbness, feeling cold, or change in color Extreme sweating, nausea or vomiting Dizziness or lightheadedness Chest pain Rapid, irregular heartbeat Palpitations Cough, shortness of breath, or difficulty breathing Weakness or fainting If you think you have an emergency, CALL 911 documented in this encounter Additional Source Comments (unrecognized sect ion and content) No Status Records FoundNo Status Records FoundNo Status Records FoundNo Status Records FoundNo Status Records FoundNo Status Records FoundNo Status Records FoundNo Status Records FoundNo Status Records FoundNo Status Records FoundNo Status Records Found INFORMATION SOURCE (unrecogn ized section and content) DATE CREATED AUTHOR 12/13/2017 [facility] DATE CREATED AUTHOR AUTHOR'S ORGANIZ ATION 09/03/2020 [facility] DATE CREATED AUTHOR AUTHOR'S ORGANIZ ATION 12/05/2020 [facility] DATE CREATED AUTHOR AUTHOR'S ORGANIZ ATION 04/20/2021 [facility] DATE CREATED AUTHOR AUTHOR'S ORGANIZ ATION 12/09/2021 [facility] DATE CREATED AUTHOR AUTHOR'S ORGANIZ ATION 10/29/2022 [facility] DATE CREATED AUTHOR AUTHOR'S ORGANIZ ATION 08/12/2023 [facility] DATE CREATED AUTHOR AUTHOR'S ORGANIZ ATION 08/24/[address] 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 History of hypertension 07/01/2020 No previous hospitalizations 07/01/2020 Description Last Updated History of drug dependence 07/13/2020 A recent immunization for flu 07/13/2020 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 History of hypertension 07/01/2020 No previous hospitalizations 07/01/2020 Description Last Updated History of drug dependence 09/10/2020 History of renal disease 09/10/2020 A recent immunization for flu 07/13/2020 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 History of hypertension 07/01/2020 No previous hospitalizations 07/01/2020 Evaluations & Outcomes (unre cognized section and content) Includes: Evaluations & Outcomes for active GoalsNo Outcomes Recorded Includes: Evaluations & Outcomes for active GoalsNo Outcomes Recorded Includes: Evaluations & Outcomes for active GoalsNo Outcomes Recorded Includes: Evaluations & Outcomes for active GoalsNo Outcomes Recorded Includes: Evaluations & Outcomes for active GoalsNo Outcomes Recorded Includes: Evaluations & Outcomes for active GoalsNo Outcomes Recorded Includes: Evaluations & Outcomes for active GoalsNo Outcomes Recorded Includes: Evaluations & Outcomes for active GoalsNo Outcomes Recorded Includes: Evaluations & Outcomes for active GoalsNo Outcomes Recorded Includes: Evaluations & Outcomes for active GoalsNo Outcomes Recorded Includes: Evaluations & Outcomes for active GoalsNo Outcomes Recorded Includes: Evaluations & Outcomes for active GoalsNo Outcomes Recorded Includes: Evaluations & Outcomes for active GoalsNo Outcomes Recorded Includes: Evaluations & Outcomes for active GoalsNo Outcomes Recorded Includes: Evaluations & Outcomes for active GoalsNo Outcomes Recorded Includes: Evaluations & Outcomes for active GoalsNo Outcomes Recorded Includes: Evaluations & Outcomes for active GoalsNo Outcomes Recorded Includes: Evaluations & Outcomes for active GoalsNo Outcomes Recorded Reason for Visit (unrecogniz ed section and content) Status Reason Specialty Diagnoses / Procedures Referred By Contact Referred To Contact Pending Review Diagnoses Atypical chest pain PVC (premature ventricular contraction) 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 [address] Reason Comments Refill Request Reason Onset Date Comments Refill Request Refill Request 01/10/2023 Reason Comments Med Refill Reason Comments Annual Exam Source Comments (unrecognize d section and content) In the event this informatio n is protected by the Federal Confidentiality of Alcohol and Drug Abuse Patient Records regulations: The Federal rules restrict any use of the information to criminally investigate or prosecute any alcohol or drug abuse patient.[facility] the event this information is protected by the Federal Confidentiality of Alcohol and Drug Abuse Patient Records regulations: The Federal rules restrict any use of the information to criminally investigate or prosecute any alcohol or drug abuse patient.[facility] the event this information is protected by the Federal Confidentiality of Alcohol and Drug Abuse Patient Records regulations: The Federal rules restrict any use of the information to criminally investigate or prosecute any alcohol or drug abuse patient.[facility] the event this information is protected by the Federal Confidentiality of Alcohol and Drug Abuse Patient Records regulations: The Federal rules restrict any use of the information to criminally investigate or prosecute any alcohol or drug abuse patient.[facility] the event this information is protected by the Federal Confidentiality of Alcohol and Drug Abuse Patient Records regulations: The Federal rules restrict any use of the information to criminally investigate or prosecute any alcohol or drug abuse patient.[facility] CenterIn the event this information is protected by the Federal Confidentiality of Alcohol and Drug Abuse Patient Records regulations: The Federal rules restrict any use of the information to criminally investigate or prosecute any alcohol or drug abuse patient.[facility] CenterIn the event this information is protected by the Federal Confidentiality of Alcohol and Drug Abuse Patient Records regulations: The Federal rules restrict any use of the information to criminally investigate or prosecute any alcohol or drug abuse patient.[facility] CenterIn the event this information is protected by the Federal Confidentiality of Alcohol and Drug Abuse Patient Records regulations: The Federal rules restrict any use of the information to criminally investigate or prosecute any alcohol or drug abuse patient.[facility] CenterIn the event this information is protected by the Federal Confidentiality of Alcohol and Drug Abuse Patient Records regulations: The Federal rules restrict any use of the information to criminally investigate or prosecute any alcohol or drug abuse patient.[facility] CenterIn the event this information is protected by the Federal Confidentiality of Alcohol and Drug Abuse Patient Records regulations: The Federal rules restrict any use of the information to criminally investigate or prosecute any alcohol or drug abuse patient.[facility] CenterIn the event this information is protected by the Federal Confidentiality of Alcohol and Drug Abuse Patient Records regulations: The Federal rules restrict any use of the information to criminally investigate or prosecute any alcohol or drug abuse patient.[facility] Care Teams (unrecognized sec tion and content) Final [employer]er [employer] Relationship Specialty Start Date End Date Kenny Hook Jr. [address] [place] [address] PCP - General Family Practice 09/24/19 Lakeisha Castellanos [address] [place] [address] Referring Neurosurgery 09/24/19 Final [employer]er [employer] Relationship Specialty Start Date End Date Kenny Hook Jr. [address] [place] [id number] [phone] PCP - General Family Medicine 09/24/19 Lakeisha Castellanos [address] [place] [address] Referring Neurosurgery 09/24/19 Final [employer]er [employer] Relationship Specialty Start Date End Date Kenny Hook Jr. [address] [place] [address] PCP - General Family Medicine 09/24/19 Lakeisha Castellanos [address] [place] [address] Referring Neurosurgery 09/24/19 Final Assembler [employer] Relationship Specialty Start Date End Date Kenny Hook Jr. [address] [place] [address] PCP - General Family Medicine 09/24/19 Lakeisha Castellanos [address] [place] [address] Referring Neurosurgery 09/24/19 Final [employer]er [employer] Relationship Specialty Start Date End Date Kenny Hook Jr., DO [address] [place] [address] PCP - General Family Medicine 09/24/19 Lakeisha Castellanos [address] [place] [address] Referring Neurosurgery 09/24/19 Team Status: Inactive Member Role Status Dates Zunilda Agarwal APRN ELECTRICIAN HELPER-C Attending Provider Act bright [employer] Relationship Specialty Start Date End Date Kenny Hook Jr., [address] [place] [id number] PCP - General Family Medicine 09/24/19 Lakeisha Castellanos [address] [place] [address] Referring Neurosurgery 09/24/19 [employer]er [employer] Relationship Specialty Start Date End Date Colby Freeman PAYMENT SPECIALIST-PSYCHIATRIC SOCIAL WORKER SUPERVISOR [address] [place] [address] PCP - General Internal Medicine 05/10/23 Final [employer]er [employer] Relationship Specialty Start Date End Date Colby Freeman PAYMENT SPECIALIST-PSYCHIATRIC SOCIAL WORKER SUPERVISOR [address] [place] [address] PCP - General Internal Medicine 05/10/23 Final Assembler [employer] Relationship Specialty Start Date End Date Colby Freeman PAYMENT SPECIALIST-PSYCHIATRIC SOCIAL WORKER SUPERVISOR [address] [place] [address] PCP - General Internal Medicine 05/10/23 Final Assembler [employer] Relationship Specialty Start Date End Date Colby Freeman PAYMENT SPECIALIST-PSYCHIATRIC SOCIAL WORKER SUPERVISOR [address] [place] [address] PCP - General Internal Medicine 05/10/23 Final Assembler [employer] Relationship Specialty Start Date End Date Colby Freeman APRN-JOHN [address] [place] [address] PCP - General Internal Medicine 05/10/23 Final Assembler [employer] Relationship Specialty Start Date End Date Colby Freeman APRN-PSYCHIATRIC SOCIAL WORKER SUPERVISOR [address] [place] [address] PCP - General Internal Medicine 05/10/23 Final Assembler [employer] Relationship Specialty Start Date End Date Colby Freeman APRN-JOHN [address] [place] [address] PCP - General Internal Medicine 05/10/23 Goals (unrecognized section and content) Goals may be documented in a n alternate section FOR RECORDS PERTAINING TO PATIENTS WHO ARE OR HAVE BEEN ENROLLED IN A CHEMICAL DEPENDENCY/SUBSTANCEABUSE PROGRAM, SOME INFORMATION MAY BE OMITTED. This clinical summary was aggregated from multiple sources. Caution should be exercised in using it in the provision of clinical care. This summary normalizes information from multiple sources, and as a consequence, information in this document may materially change the coding, format and clinical context of patient data. In addition, data may be omitted in some cases. CLINICAL DECISIONS SHOULD BE BASED ON THE PRIMARY CLINICAL RECORDS. [facility]. provides no warranty or guarantee of the accuracy or completeness of information in this document.
[2024-07-24 12:15] LABS: Basophils Absolute Auto 0.1 10^3/uL (0.0-0.1); Basophils Percent Auto 0.8 % (0.2-2.0); Eosinophils Absolute Auto 0.4 10^3/uL (0.0-0.7); Eosinophils Percent Auto 6.2 % (0.9-7.0); Hematocrit 41.5 % (42.0-54.0); Hemoglobin 13.5 g/dL (14.0-18.0); Immature Granulocytes Abs Auto 0.01 10^3/uL (0.00-0.03); Immature Granulocytes Pct Auto 0.2 % (0.0-0.5); Lymphocytes Percent Auto 30.6 % (20.5-60.0); Mean Corpuscular HGB Conc 32.5 g/dL (29.9-35.2); Mean Corpuscular Hemoglobin 31.2 pg (25.9-34.0); Mean Corpuscular Volume 95.8 fL (80.0-94.0); Mean Platelet Volume 9.4 fL (9.5-13.5); Monocytes Absolute Auto 0.5 10^3/uL (0.3-0.8); Monocytes Percent Auto 7.9 % (1.7-12.0); Neutrophils Absolute Auto 3.5 10^3/uL (1.4-6.5); Neutrophils Percent Auto 54.3 % (43.0-75.0); Platelet Count 238 10^3/uL (150-450); Red Blood Count 4.33 10^6/uL (4.70-6.10); Red Cell Distribution Width 13.2 % (11.0-15.0); White Blood Count 6.4 10^3/uL (4.0-11.0)
[2024-07-24 12:32] LABS: Erythrocyte Sedimentation Rate 36 mm/hr (<=20)
[2024-07-24 12:55] LABS: Alanine Aminotransferase 21 U/L (16-63); Albumin Globulin Ratio 0.9; Albumin Level 3.7 g/dL (3.4-5.0); Alkaline Phosphatase 80 U/L (46-116); Anion Gap 10.2; Aspartate Amino Transferase 24 U/L (15-37); BUN Creatinine Ratio 17.5; Bilirubin Total 0.5 mg/dL (0.2-1.0); Calcium 9.5 mg/dL (8.5-10.1); Chloride 103 mmol/L (98-107); Estimated GFR (African America >60 (>=60 mL/min/1.73m^2); Estimated GFR (Non-African Ame >60 (>=60 mL/min/1.73m^2); Globulin 4.2 g/dL; Glucose 95 mg/dL (74-106); Potassium 4.2 mmol/L (3.5-5.1); Sodium 138 mmol/L (136-145); TSH W/ REFLEX FT4 5.956 uIU/mL (0.358-3.740); Total Protein 7.9 g/dL (6.4-8.2)
[2024-07-24 13:47] LABS: Free T4 0.79 ng/dL (0.76-1.46)
[2024-07-25 06:08] LABS: Rheumatoid Factor (RF) 17.7 IU/mL (<14.0); Vitamin B12 673 pg/mL (232-1245)
[2024-07-25 12:08] LABS: ANA Direct Negative (Negative)
== END 2024-07-24 11:04 | disposition home or self-care (01) ==
LOC: LAB 11:09
DX: R53.82 Chronic fatigue, unspecified (principal); I50.9 Heart failure, unspecified
CPT/HCPCS: 36415; 80053; 82306; 82607; 82728; 82746; 83735; 84439; 84443; 85025; 85652; 86038; 86431